=== PATIENT | female | born 1950 | race Caucasian/White ===

== ENCOUNTER 2017-11-14 19:00 | Emergency (ER) | payer MEDICARE, OTHER ==
--- NOTE | 2017-11-14 19:28 | ER Document Report ---
ED Medical Screen (RME) - General Chief Complaint: Arm Pain Stated Complaint: FALL/RIGHT ARM INJURY Time Seen by Provider: 11/14/17 19:17 Notes: RME DISCLOSURE I have seen this patient as part of a Rapid Medical Evaluation and, if applicable, placed any initially appropriate orders. The patient will be seen and fully evaluated, including a full history and physical exam, by a provider ( in Main ED or Fast Track) when a room becomes available. 67-year-old female here status post fall approximately 4-5 days ago. She landed on her right side and since then has been having some RUE pain and swelling. She was going to go see her PCP but states that things got hectic and she never got around to seeing him. She has been taking some Ecotrin for the pain. She has been urinating per usual. Denies prior history of DVT. EXAM Moderate swelling of the right upper extremity with bruising TRAVEL OUTSIDE OF THE [place] IN LAST 30 DAYS: No - Related Data Allergies/Adverse Reactions: No Known Allergies Allergy (Verified 11/14/17 19:02) Past Medical History - Social History Chew tobacco use (# tins/day): No Frequency of alcohol use: None Drug Abuse: None - Past Medical History Cardiac Medical History: Denies: Hx Coronary Artery Disease, Hx Heart Attack, Hx Hypertension - states Lisinopril Rx r/t DM Dx Pulmonary Medical History: Reports: Hx COPD Denies: Hx Asthma, Hx Bronchitis, Hx Pneumonia Neurological Medical History: Denies: Hx Cerebrovascular Accident, Hx Seizures Endocrine Medical History: Reports: Hx Diabetes Mellitus Type 2 Renal/ Medical History: Denies: Hx Peritoneal Dialysis Musculoskeltal Medical History: Denies Hx Arthritis - rheumatoid, no meds x 2 months r/t Dx of Celiac's Psychiatric Medical History: Denies: Hx Depression Past Surgical History: Denies: Hx Pacemaker - Immunizations Hx Diphtheria, Pertussis, Tetanus Vaccination: Yes Physical Exam - Vital signs Vitals: Temp Pulse Resp BP Pulse Ox 97.7 F 80 16 128/55 H 100 11/14/17 19:18 11/14/17 19:18 11/14/17 19:18 11/14/17 19:18 11/14/17 19:18 Course - Vital Signs Vital signs: Temp Pulse Resp BP Pulse Ox 97.7 F 80 16 128/55 H 100 11/14/17 19:18 11/14/17 19:18 11/14/17 19:18 11/14/17 19:18 11/14/17 19:18
[2017-11-14] MEDS ORDERED: HYDROCODONE/ACETAMINOPHEN 5-325 MG TABLET PO ONE (19:33)
[2017-11-14 20:15] LABS: ABSOLUTE EOSINOPHILS # (AUTO) 0.1 10^3/uL (0.0-0.6); ABSOLUTE LYMPHOCYTES (AUTO) 1.7 10^3/uL (0.5-4.7); ABSOLUTE MONOCYTES (AUTO) 0.6 10^3/uL (0.1-1.4); ABSOLUTE NEUT (AUTO) 3.4 10^3/uL (1.7-8.2); BASOPHILS % (AUTO) 0.6 % (0-2); EOSINOPHILS % (AUTO) 1.4 % (0-6); HEMATOCRIT 27.2 % (36.0-47.0); HEMOGLOBIN 8.8 g/dL (12.0-15.5); LYMPHOCYTES % (AUTO) 29.3 % (13-45); MEAN CORPUSCULAR HGB CONC 32.5 g/dL (32.0-36.0); MEAN CORPUSCULAR VOLUME 80 fl (80-97); MONOCYTES % (AUTO) 10.1 % (3-13); PLATELET COUNT 375 10^3/uL (150-450); RED CELL DISTRIBUTION WIDTH 16.1 % (11.5-14.0); SEGMENTED NEUTROPHILS % (AUTO) 58.6 % (42-78); TOTAL CELLS COUNTED % (AUTO) 100 %; WHITE BLOOD COUNT 5.8 10^3/uL (4.0-10.5)
[2017-11-14 20:32] LABS: ANION GAP 10 (5-19); BLOOD UREA NITROGEN 20 mg/dL (7-20); CALCIUM 8.8 mg/dL (8.4-10.2); CARBON DIOXIDE 21 mmol/L (22-30); CHLORIDE 108 mmol/L (98-107); GLUCOSE 43 mg/dL (75-110); POTASSIUM 4.4 mmol/L (3.6-5.0); SODIUM 138.7 mmol/L (137-145)
--- NOTE | 2017-11-14 20:36 | ER Document Report ---
ED General - General Chief Complaint: Arm Pain Stated Complaint: FALL/RIGHT ARM INJURY Time Seen by Provider: 11/14/17 19:17 Notes: 67-year-old right-hand dominant female presents with right shoulder and arm pain after a fall where she hit a piece of furniture. She had pain there but did not seek care. She developed worsening arm swelling over the past 5 days and discoloration for the past 3 days. No fever chills no rapid spreading of the discoloration no numbness and tingling. Baseline diabetic neuropathy and feet. No other injuries. TRAVEL OUTSIDE OF THE [place] IN LAST 30 DAYS: No - Related Data Allergies/Adverse Reactions: No Known Allergies Allergy (Verified 11/14/17 19:02) Past Medical History - Social History Smoking Status: Current Every Day Smoker Chew tobacco use (# tins/day): No Smoking Education Provided: Yes - The patient ED visit today was directly related to their abuse of tobacco. Frequency of alcohol use: None Drug Abuse: None Family History: Reviewed & Not Pertinent Patient has suicidal ideation: No Patient has homicidal ideation: No - Past Medical History Cardiac Medical History: Denies: Hx Coronary Artery Disease, Hx Heart Attack, Hx Hypertension - states Lisinopril Rx r/t DM Dx Pulmonary Medical History: Reports: Hx COPD Denies: Hx Asthma, Hx Bronchitis, Hx Pneumonia Neurological Medical History: Denies: Hx Cerebrovascular Accident, Hx Seizures Endocrine Medical History: Reports: Hx Diabetes Mellitus Type 2 Renal/ Medical History: Denies: Hx Peritoneal Dialysis Musculoskeltal Medical History: Denies Hx Arthritis - rheumatoid, no meds x 2 months r/t Dx of Celiac's Psychiatric Medical History: Denies: Hx Depression Past Surgical History: Denies: Hx Pacemaker - Immunizations Hx Diphtheria, Pertussis, Tetanus Vaccination: Yes Review of Systems - Review of Systems Notes: REVIEW OF SYSTEMS GEN: Denies fever, chills, weight loss ENT: Denies sore throat, nasal discharge, ear pain EYES: Denies blurry vision, eye pain, discharge CV: Denies chest pain, palpitations, edema RESP: Denies cough, shortness of breath, wheezing GI: Denies abdominal pain, nausea, vomiting, diarrhea MSK: Right arm pain and swelling SKIN: Weeping, blisters and bruising of the right arm LYMPH: Denies swollen glands/lymph nodes NEURO: Denies headache, focal weakness or numbness, dizziness PSYCH: Denies depression, suicidal or homicidal ideation PHYSICAL EXAMINATION General: No acute distress, well-nourished Head: Atraumatic, normocephalic ENT: Mouth normal, oropharynx moist, no exudates or tonsillar enlargement Eyes: Conjunctiva normal, pupils equal, lids normal Neck: No JVD, supple, no guarding CVS: Normal rate, regular rhythm, no murmurs Resp: No resp distress, equal and normal breath sounds bilaterally GI: Nondistended, soft, no tenderness to palpation, no rebound or guarding Ext: Bruising and tenderness of the right proximal humerus. Pronounced 3+ pitting edema throughout the entire distal arm involving the hands and fingers with decreased range of motion. Difficult to palpate radial and ulnar pulse secondary to edema, however dopplerable pulses exist bilaterally. No tenderness of the forearm or elbow. There is a small wound just distal to the olecranon area which seems like a soft tissue injury and is weeping secondary to the surrounding edema but is not draining pus and is not tender. Back: No CVA or midline TTP Skin: Violaceous discoloration of the distal arm and proximal forearm with clear border Lymphatic: No lymphadeopathy noted Neuro: Awake, alert. Face symmetric. GCS 15. Physical Exam - Vital signs Vitals: Temp Pulse Resp BP Pulse Ox 97.7 F 80 16 128/55 H 100 11/14/17 19:18 11/14/17 19:18 11/14/17 19:18 11/14/17 19:18 11/14/17 19:18 Course - Re-evaluation Re-evalutation: 11/14/17 21:12 Patient presents with pronounced arm swelling in the setting of recent trauma. X-ray shows proximal humerus fracture. Her compartments are soft but she has severe edema and skin discoloration that is likely due to dependent edema but will rule out DVT with ultrasound. No evidence of neurocirculatory compromise from fracture or swelling. 11/14/17 21:55 X-ray shows humerus fracture minimally displaced, forearm elbow are normal. Ultrasound was ordered at triage which I think is reasonable but unfortunately the patient was discharged prior to this being done secondary to miscommunication between the nursing staff and myself. I attempted to call the patient after I realize she was gone but she did not picker / packer her phone and her voicemail was not set up. I will speak with the discharge nurse in order to get the patient back for an ultrasound. She is scheduled to see Dr. Deshpande this next week as well. - Vital Signs Vital signs: Temp Pulse Resp BP Pulse Ox 97.7 F 73 18 118/56 L 96 11/14/17 19:18 11/14/17 21:29 11/14/17 21:29 11/14/17 21:29 11/14/17 21:29 - Laboratory Result Diagrams: 11/14/17 19:58 11/14/17 19:58 Laboratory results interpreted by me: 11/14/17 11/14/17 19:58 19:58 RBC 3.40 L Hgb 8.8 L Hct 27.2 L MCH 26.0 L RDW 16.1 H Chloride 108 H Carbon Dioxide 21 L Creatinine 0.43 L Glucose 43 L Procedures - Immobilization Right Upper Arm Immobilizer type: Sling Performed by: Provider Post-Proc Neuro Vasc Exam: Normal Alignment checked and good: Yes Notes: 11/14/17 21:56 Sling placed for acute pain control of right proximal humerus fracture Discharge - Discharge Clinical Impression: Fracture of neck of right humerus Qualifiers: Encounter type: initial encounter Fracture type: closed Qualified Code(s): S42.211A - Unspecified displaced fracture of surgical neck of right humerus, initial encounter for closed fracture Condition: Good Disposition: HOME, SELF-CARE Instructions: Fracture Proximal Humerus Prescriptions: Hydrocodone/Acetaminophen [[place] 5-325 mg Tablet] 1 tab PO Q4HP PRN #17 tablet PRN Reason: Referrals: WES DESHPANDE MD [ACTIVE STAFF] - Follow up in 1 week
--- NOTE | 2017-11-14 20:56 | RADIOLOGY REPORT (SQ) ---
EXAM DESCRIPTION: FOREARM RIGHT COMPLETED DATE/TIME: 11/14/2017 8:33 pm REASON FOR STUDY: s/p fall COMPARISON: None. NUMBER OF VIEWS: Two views. TECHNIQUE: Two radiographic images acquired of the right forearm, including elbow and wrist in at le ast one projection. LIMITATIONS: None. FINDINGS: MINERALIZATION: Osteopenia. BONES: No acute fracture or dislocation. SOFT TISSUES: Diffuse swelling. OTHER: No other significant finding. IMPRESSION: No fracture identified. TECHNICAL DOCUMENTATION: JOB ID: [id number] [place]-72 2010 [employer]- All Rights Reserved Reading location - IP/workstation name: [email or web address]
--- NOTE | 2017-11-14 20:58 | RADIOLOGY REPORT (SQ) ---
EXAM DESCRIPTION: HUMERUS RIGHT COMPLETED DATE/TIME: 11/14/2017 8:33 pm REASON FOR STUDY: s/p fall COMPARISON: None. NUMBER OF VIEWS: Two views. TECHNIQUE: Two radiographic images were acquired of the right humerus to include elbow and shoulder in at least one projection. LIMITATIONS: None. FINDINGS: Proximal humeral metaphyseal fracture with 6 mm of medial and anterior displacement -impac tion. There is anterior-inferior subluxation of the humeral head relative to the glenoid. OTHER: No other significant finding. IMPRESSION: Proximal humeral metaphyseal fracture with 6 mm of medial and anterior displacement -imp action. There is anterior-inferior subluxation of the humeral head relative to the glenoid. TECHNICAL DOCUMENTATION: JOB ID: [id number] [place]-72 2010 [employer]- All Rights Reserved Reading location - IP/workstation name: [email or web address]
[2017-11-14 21:31] VITALS: BP 118/56
== END 2017-11-14 21:31 | disposition home or self-care (01) ==
LOC: ER 19:00
DX: S42.211A Unspecified displaced fracture of surgical neck of right humerus, initial encounter for closed fracture (principal); W01.190A Fall on same level from slipping, tripping and stumbling with subsequent striking against furniture, initial encounter; F17.200 Nicotine dependence, unspecified, uncomplicated; E11.9 Type 2 diabetes mellitus without complications; J44.9 Chronic obstructive pulmonary disease, unspecified
CPT/HCPCS: 99284; 36415; 85025; 80048; 73090; 73060; A9270

== ENCOUNTER 2017-11-24 11:48 | Inpatient (IN) | payer MEDICARE, OTHER ==
--- NOTE | 2017-11-24 12:00 | ER Document Report ---
ED Fall - General Chief Complaint: Fall Stated Complaint: FALL LEG PAIN Time Seen by Provider: 11/24/17 11:59 Notes: The patient is a 67-year-old female, past medical history diabetes, peripheral neuropathy, presents after she tripped and fell. She is having pain in her right knee and may have also hit her right humerus, which is already fractured from a prior fall. She said that this was a mechanical fall due to her arm in a sling and due to the neuropathy. She hit the right side of her face, but is not having any facial pain. She denies neck stiffness/pain, open wounds, increased numbness or tingling, chest pain, shortness of breath, syncope or headache. TRAVEL OUTSIDE OF THE [place] IN LAST 30 DAYS: No - Related data Allergies/Adverse Reactions: No Known Allergies Allergy (Verified 11/14/17 19:02) Past Medical History - General Information source: Patient - Social History Smoking Status: Unknown if Ever Smoked Family History: Reviewed & Not Pertinent - Past Medical History Cardiac Medical History: Denies: Hx Coronary Artery Disease, Hx Heart Attack, Hx Hypertension - states Lisinopril Rx r/t DM Dx Pulmonary Medical History: Reports: Hx COPD Denies: Hx Asthma, Hx Bronchitis, Hx Pneumonia Neurological Medical History: Denies: Hx Cerebrovascular Accident, Hx Seizures Endocrine Medical History: Reports: Hx Diabetes Mellitus Type 2 Renal/ Medical History: Denies: Hx Peritoneal Dialysis Musculoskeltal Medical History: Denies Hx Arthritis - rheumatoid, no meds x 2 months r/t Dx of Celiac's Psychiatric Medical History: Denies: Hx Depression Past Surgical History: Denies: Hx Pacemaker - Immunizations Hx Diphtheria, Pertussis, Tetanus Vaccination: Yes Review of Systems - Review of Systems Notes: REVIEW OF SYSTEMS: CONSTITUTIONAL: -fevers, -chills EENT: -eye pain, -difficulty swallowing, -nasal congestion CARDIOVASCULAR: -chest pain, -syncope. RESPIRATORY: -cough, -SOB GASTROINTESTINAL: -abdominal pain, -nausea, -vomiting, -diarrhea GENITOURINARY: -dysuria, -hematuria MUSCULOSKELETAL: +right knee and shoulder pain, -back pain, -neck pain SKIN: -rash or skin lesions. HEMATOLOGIC: -easy bruising or bleeding. LYMPHATIC: -swollen, enlarged glands. NEUROLOGICAL: -altered mental status or loss of consciousness, -headache, + peripheral neuropathy PSYCHIATRIC: -anxiety, -depression. ALL OTHER SYSTEMS REVIEWED AND NEGATIVE. Physical Exam - Notes Notes: PHYSICAL EXAMINATION: GENERAL: Uncomfortable. HEAD: Small contusion below right eye, non-tender face EYES: Pupils equal round and reactive to light, extraocular movements intact, sclera anicteric, conjunctiva are normal. ENT: nares patent, oropharynx clear without exudates. Moist mucous membranes. NECK: Normal range of motion, supple without lymphadenopathy, no midline tenderness LUNGS: Breath sounds clear to auscultation bilaterally and equal. No wheezes rales or rhonchi. HEART: Regular rate and rhythm without murmurs ABDOMEN: Soft, nontender, normoactive bowel sounds. No guarding, no rebound. No masses appreciated. EXTREMITIES: Right arm in sling, tenderness over proximal right humerus. Tenderness of right distal femur. Strong distal pulses. NEUROLOGICAL: Cranial nerves grossly intact. Normal speech. PSYCH: Normal mood, normal affect. SKIN: Warm, Dry, normal turgor, no rashes or lesions noted. Course - Re-evaluation Re-evalutation: Patient with a mechanical fall after tripping this morning. She has frequent falls from her diabetic neuropathy and is already in a arm sling. She injured her right knee and right shoulder. X-rays shows an acute oblique right femur fracture without displacement and an acute humerus fracture on top of her old right humerus fracture. 11/24/17 13:[address] Landis (Orthopedics). He saw the patient in his office earlier this week for the humerus fracture and did not think the patient was a suitable surgical candidate due to her multiple comorbidities. He recommends a knee immobilizer for the non-displaced oblique femur fracture with non-weight bearing status on the right leg. She also has an acute humerus fracture on top of her old humerus fracture last week. She is already in a sling. Pt lives at home with her and sometimes uses a walker. With the ipsilateral injuries on her leg and humerus, it is very difficult for her to walk, especially with no weightbearing on her right leg. Patient requires admission for physical therapy, orthopedic consultation, nursing care and possibly acute care rehab. Her primary care physician is Dr. Aguero. 11/24/17 15:30 Blood work shows no emergent processes. Spoke to Dr. Cramer ( Hospitalist) and she has accepted patient. Pt's pain is under control. - Laboratory Result Diagrams: 11/24/17 13:55 11/24/17 13:55 Laboratory results interpreted by me: 11/24/17 11/24/17 11/24/17 13:55 13:55 13:55 RBC 3.71 L Hgb 9.7 L Hct 29.8 L MCH 26.2 L RDW 16.9 H PT 18.5 H Chloride 109 H Creatinine 0.39 L Total Bilirubin < 0.1 L AST 58 H ALT 62 H Alkaline Phosphatase 158 H Total Protein 6.1 L Albumin 2.9 L - Diagnostic Test Radiology reviewed: Image reviewed, Reports reviewed Radiology results interpreted by me: Right femur x-ray: Slightly oblique fracture of the distal femur as noted above. No other evidence for fracture is seen. Other findings as noted above. Right humerus x-ray: The previously described proximal humeral metaphyseal fracture is again identified. On the current study there is a fracture involving the medial cortex as noted above which could represent an acute fracture superimposed on the underlying fracture. No other evidence for fracture is seen. Other findings as noted above. Procedures - Immobilization Right Knee Pre-Proc Neuro Vasc Exam: Normal Immobilizer type: Knee immobilizer Performed by: PCT Post-Proc Neuro Vasc Exam: Normal Alignment checked and good: Yes Discharge - Discharge Clinical Impression: Unable to ambulate, Deficit in activities of daily living (ADL) Closed right femoral fracture Qualifiers: Encounter type: initial encounter Femur location: shaft Fracture morphology: oblique Fracture alignment: nondisplaced Qualified Code(s): S72.334A - Nondisplaced oblique fracture of shaft of right femur, initial encounter for closed fracture Fracture, humerus closed Qualifiers: Encounter type: initial encounter Humerus Location: proximal Fracture morphology: other fracture Fracture alignment: displaced Laterality: right Qualified Code(s): S42.291A - Other displaced fracture of upper end of right humerus, initial encounter for closed fracture Condition: Stable Disposition: ADMITTED INPATIENT Admitting Provider: Hospitalist - [facility] Admitted: Medical Floor Referrals: WES GU MD [Primary Care Provider] - Follow up as needed
[2017-11-24] MEDS ORDERED: ACETAMINOPHEN 325 MG TABLET PO ONE (12:01)
[2017-11-24] MEDS ORDERED: IBUPROFEN 600 MG TABLET PO ONE (12:01)
--- NOTE | 2017-11-24 12:53 | RADIOLOGY REPORT (SQ) ---
EXAM DESCRIPTION: KNEE RIGHT 4 VIEWS COMPLETED DATE/TIME: 11/24/2017 12:43 pm REASON FOR STUDY: bed 1 s/p fall with pain to right knee COMPARISON: None. NUMBER OF VIEWS: Four views. TECHNIQUE: AP, lateral, and both oblique radiographic images acquired of the right knee. LIMITATIONS: None. FINDINGS: MINERALIZATION: Bony structures are somewhat osteopenic. BONES: A slightly oblique fracture of the distal femoral diaphysis extending into the metaphysis is i dentified. JOINT: No effusion. SOFT TISSUES: No soft tissue swelling. No radio-opaque foreign body. OTHER: No other significant finding. IMPRESSION: Slightly oblique fracture of the distal femur as noted above. No other evidence for fra cture is seen. Other findings as noted above TECHNICAL DOCUMENTATION: JOB ID: [id number] [employer]- All Rights Reserved Reading location - IP/workstation name: [email or web address]
--- NOTE | 2017-11-24 12:57 | RADIOLOGY REPORT (SQ) ---
EXAM DESCRIPTION: HUMERUS RIGHT COMPLETED DATE/TIME: 11/24/2017 12:43 pm REASON FOR STUDY: Hx humerus fx, reinjury COMPARISON: 11/14/2017 NUMBER OF VIEWS: Two views. TECHNIQUE: Two radiographic images were acquired of the right humerus to include elbow and shoulder in at least one projection. LIMITATIONS: None. FINDINGS: MINERALIZATION: Normal. BONES: The previously described proximal humeral metaphyseal fracture is again identified. On the cu rrent study there is a fracture involving the medial cortex at the level of the proximal humeral frac ture which could represent an acute fracture superimposed on the underlying fracture. No other evide nce for fracture is seen. SOFT TISSUES: No obvious swelling or foreign body. OTHER: No other significant finding. IMPRESSION: The previously described proximal humeral metaphyseal fracture is again identified. On the current study there is a fracture involving the medial cortex as noted above which could represen t an acute fracture superimposed on the underlying fracture. No other evidence for fracture is seen. Other findings as noted above TECHNICAL DOCUMENTATION: JOB ID: [id number] [employer]- All Rights Reserved Reading location - IP/workstation name: [email or web address]
[2017-11-24] MEDS ORDERED: MORPHINE SULFATE 10 MG/ML INJ IV ONE (13:05)
[2017-11-24 14:23] LABS: ABSOLUTE LYMPHOCYTES (AUTO) 1.1 10^3/uL (0.5-4.7); ABSOLUTE MONOCYTES (AUTO) 0.5 10^3/uL (0.1-1.4); ABSOLUTE NEUT (AUTO) 4.9 10^3/uL (1.7-8.2); BASOPHILS % (AUTO) 0.4 % (0-2); EOSINOPHILS % (AUTO) 0.4 % (0-6); HEMATOCRIT 29.8 % (36.0-47.0); HEMOGLOBIN 9.7 g/dL (12.0-15.5); LYMPHOCYTES % (AUTO) 16.4 % (13-45); MEAN CORPUSCULAR HEMOGLOBIN 26.2 pg (27.0-33.4); MEAN CORPUSCULAR HGB CONC 32.6 g/dL (32.0-36.0); MEAN CORPUSCULAR VOLUME 80 fl (80-97); MONOCYTES % (AUTO) 7.9 % (3-13); PLATELET COUNT 314 10^3/uL (150-450); RED BLOOD COUNT 3.71 10^6/uL (3.72-5.28); RED CELL DISTRIBUTION WIDTH 16.9 % (11.5-14.0); SEGMENTED NEUTROPHILS % (AUTO) 74.9 % (42-78); TOTAL CELLS COUNTED % (AUTO) 100 %; WHITE BLOOD COUNT 6.6 10^3/uL (4.0-10.5)
[2017-11-24 14:27] LABS: INTERNATIONAL RATION (INR) 1.45; PROTHROMBIN TIME 18.5 SEC (11.4-15.4)
[2017-11-24 14:28] LABS: PARTIAL THROMBOPLASTIN TIME 27.8 SEC (23.5-35.8)
[2017-11-24 15:20] LABS: ALANINE AMINOTRANSFERASE 62 U/L (9-52); ALBUMIN 2.9 g/dL (3.5-5.0); ALKALINE PHOSPHATASE 158 U/L (38-126); ANION GAP 8 (5-19); ASPARTATE AMINO TRANSFERASE 58 U/L (14-36); BILIRUBIN,TOTAL < 0.1 mg/dL (0.2-1.3); BLOOD UREA NITROGEN 14 mg/dL (7-20); CALCIUM 8.4 mg/dL (8.4-10.2); CARBON DIOXIDE 22 mmol/L (22-30); CHLORIDE 109 mmol/L (98-107); GLUCOSE 98 mg/dL (75-110); POTASSIUM 4.1 mmol/L (3.6-5.0); SODIUM 138.5 mmol/L (137-145); TOTAL PROTEIN 6.1 g/dL (6.3-8.2)
[2017-11-24] MEDS ORDERED: ONDANSETRON HCL INJ/PF 4 MG/2 ML SDV IV PRN (16:50)
[2017-11-24] MEDS ORDERED: ACETAMINOPHEN 325 MG TABLET PO PRN (16:50)
[2017-11-24] MEDS ORDERED: IPRATROPIUM/ALBUTEROL 0.5-2.5 MG/3 ML AMPUL NEB PRN (16:50)
[2017-11-24] MEDS ORDERED: MORPHINE SULFATE 10 MG/ML INJ IV PRN (17:41)
--- NOTE | 2017-11-24 17:41 | PDOC H&P ---
History of Present Illness Admission Date/PCP: 11/24/17 15:41 EWS GU MD Patient complains of: Patient presented to the emergency room with complaints of pain in the right leg after she fell due to tripping. She denies any dizziness or any chest pain and thinks she tripped due to her diabetic neuropathy. History of Present Illness: KENNEDY MEDEIROS is a 67 year old female This patient presented to the emergency room with complaints of pain in the right leg after she fell due to tripping. She denies any dizziness or any chest pain and thinks she tripped due to her diabetic neuropathy. Patient was not really very cooperative and answered questions when she did very grudgingly. She apparently also had a recent fall where she fractured her right humerus it appears this was affected again today. She apparently hit his right side of her face but has no facial pain. Patient has a port in the left chest wall but she is unable to really determine why except to say that she gets blood drawn from there. She had a right knee immobilizer placed in the ED she also has a slight oblique fracture of the distal femur Past Medical History Cardiac Medical History: Denies: Coronary Artery Disease, Myocardial Infarction, Hypertension - states Lisinopril Rx r/t DM Dx Pulmonary Medical History: Reports: Chronic Obstructive Pulmonary Disease (COPD) Denies: Asthma, Bronchitis, Pneumonia Neurological Medical History: Denies: Seizures Endocrine Medical History: Reports: Diabetes Mellitus Type 2 Musculoskeltal Medical History: Denies: Arthritis - rheumatoid, no meds x 2 months r/t Dx of Celiac's Psychiatric Medical History: Denies: Depression Hematology: Reports: Anemia - multiple treatments of Feraheme Past Surgical History Past Surgical History: Denies: Pacemaker Social History Information Source: Patient Smoking Status: Unknown if Ever Smoked Frequency of Alcohol Use: None Hx Recreational Drug Use: No Hx Prescription Drug Abuse: No - Advance Directive Resuscitation Status: Full Code Family History Family History: Reviewed & Not Pertinent Parental Family History Reviewed: Yes Children Family History Reviewed: Unknown Sibling(s) Family History Reviewed.: Unknown Medication/Allergy Allergies/Adverse Reactions: No Known Allergies Allergy (Verified 11/14/17 19:02) Review of Systems All systems: reviewed and no additional remarkable complaints except as stated - Anemia Physical Exam Vital Signs: Temp Pulse Resp BP Pulse Ox 97.4 F 78 24 H 117/61 98 11/24/17 12:02 11/24/17 12:02 11/24/17 17:01 11/24/17 17:01 11/24/17 17:01 General appearance: PRESENT: thin - Older looking than stated age, other - Somewhat uncooperative Head exam: PRESENT: atraumatic Eye exam: PRESENT: conjunctiva pink, EOMI, PERRLA. ABSENT: scleral icterus Neck exam: ABSENT: carotid bruit, JVD, lymphadenopathy, thyromegaly Respiratory exam: PRESENT: clear to auscultation neo. ABSENT: rales, rhonchi, wheezes Cardiovascular exam: PRESENT: RRR. ABSENT: diastolic murmur, rubs, systolic murmur Pulses: PRESENT: normal carotid pulses GI/Abdominal exam: PRESENT: normal bowel sounds, soft. ABSENT: distended, guarding, mass, organolmegaly, rebound, tenderness Rectal exam: PRESENT: deferred Extremities exam: PRESENT: tenderness Musculoskeletal exam: PRESENT: tenderness, other - Right upper extremity in a sling and right lower extremity immobilizer. ABSENT: full ROM Neurological exam: PRESENT: alert, awake, oriented to person, oriented to place Skin exam: PRESENT: petechiae, rash, other - Multiple ecchymosis and bruises Results Laboratory Results: Laboratory 11/24/17 11/24/17 11/24/17 11:57 13:55 13:55 WBC 6.6 RBC 3.71 L Hgb 9.7 L Hct 29.8 L MCV 80 MCH 26.2 L MCHC 32.6 RDW 16.9 H Plt Count 314 Seg Neutrophils % 74.9 Lymphocytes % 16.4 Monocytes % 7.9 Eosinophils % 0.4 Basophils % 0.4 Absolute Neutrophils 4.9 Absolute Lymphocytes 1.1 Absolute Monocytes 0.5 Absolute Eosinophils 0.0 Absolute Basophils 0.0 PT 18.5 H INR 1.45 APTT 27.8 Sodium Potassium Chloride Carbon Dioxide Anion Gap BUN Creatinine Est GFR ( Amer) Est GFR (Non-Af Amer) Glucose POC Glucose 100 Calcium Total Bilirubin Direct Bilirubin Neonat Total Bilirubin Neonat Direct Bilirubin Neonat Indirect Bili AST ALT Alkaline Phosphatase Total Protein Albumin 11/24/17 13:55 WBC RBC Hgb Hct MCV MCH MCHC RDW Plt Count Seg Neutrophils % Lymphocytes % Monocytes % Eosinophils % Basophils % Absolute Neutrophils Absolute Lymphocytes Absolute Monocytes Absolute Eosinophils Absolute Basophils PT INR APTT Sodium 138.5 Potassium 4.1 Chloride 109 H Carbon Dioxide 22 Anion Gap 8 BUN 14 Creatinine 0.39 L Est GFR ( Amer) > 60 Est GFR (Non-Af Amer) > 60 Glucose 98 POC Glucose Calcium 8.4 Total Bilirubin < 0.1 L Direct Bilirubin Neonat Total Bilirubin Not Reportable Neonat Direct Bilirubin Not Reportable Neonat Indirect Bili Not Reportable AST 58 H ALT 62 H Alkaline Phosphatase 158 H Total Protein 6.1 L Albumin 2.9 L Impressions: Knee X-Ray 11/24/17 00:00 IMPRESSION: Slightly oblique fracture of the distal femur as noted above. No other evidence for fracture is seen. Other findings as noted above Humerus X-Ray 11/24/17 12:01 IMPRESSION: The previously described proximal humeral metaphyseal fracture is again identified. On the current study there is a fracture involving the medial cortex as noted above which could represent an acute fracture superimposed on the underlying fracture. No other evidence for fracture is seen. Other findings as noted above Assessment & Plan - Diagnosis (1) Closed right femoral fracture Qualifiers: Encounter type: initial encounter Femur location: shaft Fracture morphology: oblique Fracture alignment: nondisplaced Qualified Code(s): S72.334A - Nondisplaced oblique fracture of shaft of right femur, initial encounter for closed fracture Is this a current diagnosis for this admission?: Yes Plan: Patient will be seen by orthopedics. We will manage her pain and she will also need physical therapy (2) Diabetes mellitus Qualifiers: Diabetes mellitus type: type 2 Diabetes mellitus complication status: with neurologic complications Diabetes mellitus complication detail: with autonomic neuropathy Is this a current diagnosis for this admission?: Yes Plan: Placed on sliding scale insulin (3) Anemia Qualifiers: Anemia type: iron deficiency Iron deficiency anemia type: inadequate dietary iron intake Qualified Code(s): D50.8 - Other iron deficiency anemias Is this a current diagnosis for this admission?: Yes Plan: Details unknown however patient has been getting iron infusion (4) Diabetes mellitus with neuropathy Qualifiers: Diabetes mellitus type: type 2 Diabetes mellitus long-term insulin use: unspecified long-term insulin use status Qualified Code(s): E11.40 - Type 2 diabetes mellitus with diabetic neuropathy, unspecified Is this a current diagnosis for this admission?: Yes Plan: This apparently has underlying etiology for falling (6) Fracture, humerus closed Qualifiers: Encounter type: initial encounter Humerus Location: proximal Fracture morphology: other fracture Fracture alignment: displaced Laterality: right Qualified Code(s): S42.291A - Other displaced fracture of upper end of right humerus, initial encounter for closed fracture Is this a current diagnosis for this admission?: Yes Plan: She had sustained a fracture last week and there appears to be superimposed fracture on the original site - Time Time Spent: 30 to 50 Minutes Medications reviewed and adjusted accordingly: Yes Anticipated discharge: Home with Homehealth Within: within 72 hours - Inpatient Certification Based on my medical assessment, after consideration of the patient's comorbidities, presenting symptoms, or acuity I expect that the services needed warrant INPATIENT care.: Yes Medical Necessity: Need for Pain Control - Plan Summary Plan Summary: Patient would need adequate pain control prior to discharge home
[2017-11-24] MEDS ORDERED: ENOXAPARIN SODIUM INJ 40 MG/0.4 ML DISP.SYRIN SUBCUT ONE ×2 (18:00→23:59)
[2017-11-24] MEDS: OXYCODONE-ACETAMINOPHEN 5-325 MG TABLET PO PRN (20:51)
[2017-11-24] MEDS ORDERED: DEXTROSE 40% GEL 15 GM TUBE X 2 PO PRN (22:59)
[2017-11-24] MEDS ORDERED: DEXTROSE 50%-WATER SYRINGE 12.5 GM/25 ML DOSE IV PRN (22:59)
[2017-11-24] MEDS ORDERED: GLUCAGON,HUMAN RECOMB 1 MG INJ IM PRN (22:59)
[2017-11-24] MEDS ORDERED: DEXTROSE 40% GEL 15 GM TUBE PO PRN (22:59)
[2017-11-24] MEDS ORDERED: OMEGA-3 ACID ETHYL ESTERS 1 GM CAPSULE PO ONE (23:00)
[2017-11-24] MEDS ORDERED: GABAPENTIN 300 MG CAPSULE PO ONE (23:00)
[2017-11-24] MEDS ORDERED: CALCIUM CARBONATE 500 MG TABLET PO ONE (23:00)
[2017-11-24] MEDS ORDERED: FOLIC ACID 1 MG TABLET PO ONE (23:00)
--- NOTE | 2017-11-24 23:28 | EKG REPORT ---
SEVERITY:- BORDERLINE ECG - SINUS RHYTHM LOW VOLTAGE THROUGHOUT BORDERLINE R WAVE PROGRESSION, ANTERIOR LEADS : Confirmed by: Cuong Onofre 24-Nov-2017 23:27:34
[2017-11-25] MEDS ORDERED: ENOXAPARIN SODIUM INJ 40 MG/0.4 ML DISP.SYRIN SUBCUT SCH (10:00)
[2017-11-25] MEDS ORDERED: HYDROMORPHONE HCL INJ/PF 2 MG/ML AMPULE ONE ×2 (10:08→12:42)
--- NOTE | 2017-11-25 10:16 | PDOC PROGRESS REPORT ---
Subjective Progress Note for:: 11/25/17 Subjective:: Patient admitted with pain secondary to fracture of the right humerus as well as the femur sustained after falling. There was no other associated symptoms and this appears to have been an accidental fall. Patient is still complaining of pain and still really not able to answer questions appropriately as she cries out in pain when you try to ask any questions. I did review medications and it appears she is only had 1 dose of morphine with the last dose about 2014 last night and her last Percocet was about 2 PM yesterday. I am not really sure why she has not had any analgesia since then. I have changed her pain medications to Percocet scheduled with as needed as well as Dilaudid every 4 hours as needed and hopefully that should control her pain better. Reason For Visit: HUMERAL FRACTURE,ACUTE PAIN,ANEMIA Physical Exam Vital Signs: Temp Pulse Resp BP Pulse Ox 97.4 F 78 20 136/76 H 98 11/25/17 08:02 11/25/17 08:02 11/25/17 08:02 11/25/17 08:02 11/25/17 08:02 Intake & Output 11/24/17 11/25/17 11/26/17 06:59 06:59 06:59 Intake Total 150 Balance 150 Weight 61 kg General appearance: PRESENT: no acute distress Head exam: PRESENT: atraumatic Eye exam: PRESENT: conjunctiva pink, EOMI, PERRLA. ABSENT: scleral icterus Respiratory exam: PRESENT: clear to auscultation neo. ABSENT: rales, rhonchi, wheezes Cardiovascular exam: PRESENT: RRR. ABSENT: diastolic murmur, rubs, systolic murmur Pulses: PRESENT: normal dorsalis pedis pul GI/Abdominal exam: PRESENT: normal bowel sounds, soft. ABSENT: distended, guarding, mass, organolmegaly, rebound, tenderness Rectal exam: PRESENT: deferred Neurological exam: PRESENT: alert, awake, oriented to person, oriented to place , oriented to time, oriented to situation, CN II-XII grossly intact. ABSENT: motor sensory deficit Psychiatric exam: PRESENT: anxious Skin exam: PRESENT: other - Scattered ecchymoses and contusions as well as bruises Port-A-Cath in the left chest wall Results Impressions: Knee X-Ray 11/24/17 00:00 IMPRESSION: Slightly oblique fracture of the distal femur as noted above. No other evidence for fracture is seen. Other findings as noted above Humerus X-Ray 11/24/17 12:01 IMPRESSION: The previously described proximal humeral metaphyseal fracture is again identified. On the current study there is a fracture involving the medial cortex as noted above which could represent an acute fracture superimposed on the underlying fracture. No other evidence for fracture is seen. Other findings as noted above Assessment & Plan - Diagnosis (1) Closed right femoral fracture Qualifiers: Encounter type: initial encounter Femur location: shaft Fracture morphology: oblique Fracture alignment: nondisplaced Qualified Code(s): S72.334A - Nondisplaced oblique fracture of shaft of right femur, initial encounter for closed fracture Is this a current diagnosis for this admission?: Yes Plan: Pain control and follow-up by orthopedic (2) Diabetes mellitus Qualifiers: Diabetes mellitus type: type 2 Diabetes mellitus complication status: with neurologic complications Diabetes mellitus complication detail: with autonomic neuropathy Is this a current diagnosis for this admission?: Yes Plan: Continue her gabapentin (3) Anemia Qualifiers: Anemia type: iron deficiency Iron deficiency anemia type: inadequate dietary iron intake Qualified Code(s): D50.8 - Other iron deficiency anemias Is this a current diagnosis for this admission?: Yes Plan: Details unknown however patient has been getting iron infusion through her Port- A-Cath (4) Diabetes mellitus with neuropathy Qualifiers: Diabetes mellitus type: type 2 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 Qualified Code(s): E11.40 - Type 2 diabetes mellitus with diabetic neuropathy, unspecified Is this a current diagnosis for this admission?: Yes Plan: This apparently has underlying etiology for falling (6) Fracture, humerus closed Qualifiers: Encounter type: initial encounter Humerus Location: proximal Fracture morphology: other fracture Fracture alignment: displaced Laterality: right Qualified Code(s): S42.291A - Other displaced fracture of upper end of right humerus, initial encounter for closed fracture Is this a current diagnosis for this admission?: Yes Plan: She had sustained a fracture last week and there appears to be superimposed fracture on the original site We will continue pain control When patient is stable she would need physical therapy
[2017-11-25] MEDS: DOCUSATE SODIUM 100 MG CAPSULE PO SCH (11:10)
[2017-11-25] MEDS: OXYCODONE-ACETAMINOPHEN 5-325 MG TABLET PO SCH ×2 (12:37→17:54)
[2017-11-25] MEDS: POLYETHYLENE GLYCOL 3350 POWDER 17 GM/1 PACKET PO SCH (12:48)
[2017-11-25] MEDS: HYDROMORPHONE HCL INJ/PF 2 MG/ML AMPULE IV PRN ×2 (12:48→21:25)
[2017-11-25] MEDS: GABAPENTIN 300 MG CAPSULE PO SCH (23:08)
[2017-11-25] MEDS: OMEGA-3 ACID ETHYL ESTERS 1 GM CAPSULE PO SCH (23:08)
[2017-11-25] MEDS: FOLIC ACID 1 MG TABLET PO SCH (23:09)
[2017-11-25] MEDS: CALCIUM CARBONATE 500 MG TABLET PO SCH (23:10)
[2017-11-25] MEDS: ENOXAPARIN SODIUM INJ 40 MG/0.4 ML DISP.SYRIN SUBCUT SCH (23:10)
[2017-11-26] MEDS ORDERED: ACETAMINOPHEN 325 MG TABLET PO PRN (02:13)
--- NOTE | 2017-11-26 02:58 | RADIOLOGY REPORT (SQ) ---
EXAM DESCRIPTION: CHEST SINGLE VIEW CLINICAL HISTORY: hypoxia COMPARISON: 10/14/2012 FINDINGS: Single frontal view of the chest. Left subclavian Mediport. Blunting of the left costophrenic angle likely related to small left pleural effusion or pleural thickening.] Parahilar and left retrocardiac opacities. No pneumothorax. No acute osseous abnormality. Upper abdominal soft tissues are unremarkable. IMPRESSION: 1. Right perihilar opacity and left retrocardiac opacity may represent developing pneumonia or atelectasis. Continued radiographic follow-up recommended. 2. Blunting of the left costophrenic angle may be related to small pleural effusion or pleural thickening.
[2017-11-26] MEDS: OXYCODONE-ACETAMINOPHEN 5-325 MG TABLET PO SCH ×3 (04:19→17:09)
[2017-11-26] MEDS: INSULIN LISPRO 100 UNIT/ML 3 ML VIAL SUBCUT PRN ×4 (08:01→18:29)
[2017-11-26] MEDS: HYDROMORPHONE HCL INJ/PF 2 MG/ML AMPULE IV PRN ×2 (08:09→13:15)
[2017-11-26 08:33] LABS: ABSOLUTE LYMPHOCYTES (AUTO) 1.2 10^3/uL (0.5-4.7); ABSOLUTE MONOCYTES (AUTO) 0.5 10^3/uL (0.1-1.4); ABSOLUTE NEUT (AUTO) 3.7 10^3/uL (1.7-8.2); BASOPHILS % (AUTO) 0.3 % (0-2); EOSINOPHILS % (AUTO) 0.7 % (0-6); LYMPHOCYTES % (AUTO) 22.7 % (13-45); MEAN CORPUSCULAR HEMOGLOBIN 25.8 pg (27.0-33.4); MEAN CORPUSCULAR HGB CONC 31.8 g/dL (32.0-36.0); MEAN CORPUSCULAR VOLUME 81 fl (80-97); MONOCYTES % (AUTO) 9.2 % (3-13); PLATELET COUNT 264 10^3/uL (150-450); RED BLOOD COUNT 3.09 10^6/uL (3.72-5.28); RED CELL DISTRIBUTION WIDTH 16.8 % (11.5-14.0); SEGMENTED NEUTROPHILS % (AUTO) 67.1 % (42-78); TOTAL CELLS COUNTED % (AUTO) 100 %; WHITE BLOOD COUNT 5.5 10^3/uL (4.0-10.5)
[2017-11-26 08:46] LABS: ANION GAP 7 (5-19); BLOOD UREA NITROGEN 21 mg/dL (7-20); CALCIUM 7.6 mg/dL (8.4-10.2); CARBON DIOXIDE 19 mmol/L (22-30); CHLORIDE 103 mmol/L (98-107); GLUCOSE 381 mg/dL (75-110); POTASSIUM 4.6 mmol/L (3.6-5.0); SODIUM 128.6 mmol/L (137-145)
[2017-11-26] MEDS ORDERED: INSULIN REG, HUMAN 100 UNIT/ML 3 ML VIAL (PYX) SUBCUT ONE (09:15)
--- NOTE | 2017-11-26 09:47 | PDOC PROGRESS REPORT ---
Subjective Progress Note for:: 11/26/17 Subjective:: Patient seen in morning rounds complains of intolerant and diffuse pain, unable to participate in pulmonary toilet, incentive spirometry or rise to the edge of the bed. Overnight patient was febrile of 100.8 and short of breath. Reason For Visit: HUMERAL FRACTURE,ACUTE PAIN,ANEMIA Physical Exam Vital Signs: Temp Pulse Resp BP Pulse Ox 98.0 F 82 18 131/55 H 95 11/26/17 07:35 11/26/17 07:35 11/26/17 07:35 11/26/17 07:35 11/26/17 07:35 Intake & Output 11/24/17 11/25/17 11/26/17 11:59 11:59 11:59 Intake Total 1190 Output Total 800 1000 Balance 390 -1000 Weight 61 kg 61 kg General appearance: PRESENT: cooperative, disheveled, mild distress Head exam: PRESENT: normocephalic, other - Right periorbital ecchymosis Eye exam: PRESENT: conjunctiva pink, EOMI, PERRLA. ABSENT: scleral icterus Ear exam: PRESENT: normal external ear exam Mouth exam: PRESENT: moist, tongue midline Neck exam: ABSENT: carotid bruit, JVD, lymphadenopathy, thyromegaly Respiratory exam: PRESENT: accessory muscle use, chest wall tenderness, crackles , decreased breath sounds, prolonged expiratory phas, retraction, symmetrical, tachypnea, wheezes Cardiovascular exam: PRESENT: RRR. ABSENT: diastolic murmur, rubs, systolic murmur Pulses: PRESENT: normal dorsalis pedis pul Vascular exam: PRESENT: normal capillary refill GI/Abdominal exam: PRESENT: ascites, diminished bowel sounds, distended, hypoactive bowel sounds, soft. ABSENT: firm, guarding, hernia, rebound, rigid Rectal exam: PRESENT: deferred Extremities exam: PRESENT: other - Right humerus and right hip immobilized, pulses palpated fingertips and toes warm Neurological exam: PRESENT: alert, oriented to person, oriented to place, oriented to time, reflexes normal, CN II-XII grossly intact Psychiatric exam: PRESENT: appropriate affect Skin exam: PRESENT: dry, intact, warm. ABSENT: cyanosis, rash Results Laboratory Results: 11/26/17 07:56 11/26/17 07:56 11/26/17 11/26/17 07:56 07:56 WBC 5.5 RBC 3.09 L Hgb 8.0 L Hct 25.0 L MCV 81 MCH 25.8 L MCHC 31.8 L RDW 16.8 H Plt Count 264 Seg Neutrophils % 67.1 Lymphocytes % 22.7 Monocytes % 9.2 Eosinophils % 0.7 Basophils % 0.3 Absolute Neutrophils 3.7 Absolute Lymphocytes 1.2 Absolute Monocytes 0.5 Absolute Eosinophils 0.0 Absolute Basophils 0.0 Sodium 128.6 L Potassium 4.6 Chloride 103 Carbon Dioxide 19 L Anion Gap 7 BUN 21 H Creatinine 0.54 Est GFR ( Amer) > 60 Est GFR (Non-Af Amer) > 60 Glucose 381 H Calcium 7.6 L Impressions: Knee X-Ray 11/24/17 00:00 IMPRESSION: Slightly oblique fracture of the distal femur as noted above. No other evidence for fracture is seen. Other findings as noted above Humerus X-Ray 11/24/17 12:01 IMPRESSION: The previously described proximal humeral metaphyseal fracture is again identified. On the current study there is a fracture involving the medial cortex as noted above which could represent an acute fracture superimposed on the underlying fracture. No other evidence for fracture is seen. Other findings as noted above Chest X-Ray 11/26/17 01:27 IMPRESSION: 1. Right perihilar opacity and left retrocardiac opacity may represent developing pneumonia or atelectasis. Continued radiographic follow-up recommended. 2. Blunting of the left costophrenic angle may be related to small pleural effusion or pleural thickening. Assessment & Plan - Diagnosis (1) Anemia Qualifiers: Anemia type: iron deficiency Iron deficiency anemia type: inadequate dietary iron intake Qualified Code(s): D50.8 - Other iron deficiency anemias Is this a current diagnosis for this admission?: Yes Plan: History of iron deficiency, no obvious source of active bleed the recent trauma to right humerus and hip will reimage for hematoma and Evaluate labs for abnormalities. Transfuse hemoglobin greater than 8 as needed (2) Closed right femoral fracture Qualifiers: Encounter type: initial encounter Femur location: shaft Fracture morphology: oblique Fracture alignment: nondisplaced Qualified Code(s): S72.334A - Nondisplaced oblique fracture of shaft of right femur, initial encounter for closed fracture Is this a current diagnosis for this admission?: Yes Plan: Defer to orthopedic surgery, intractable pain deferred to pain management consult. (3) Diabetes mellitus Qualifiers: Diabetes mellitus type: type 2 Diabetes mellitus complication status: with neurologic complications Diabetes mellitus complication detail: with autonomic neuropathy Is this a current diagnosis for this admission?: Yes Plan: Diabetic diet with home regiment in addition to sliding scale Humalog. (4) Fracture, humerus closed Qualifiers: Encounter type: initial encounter Humerus Location: proximal Fracture morphology: other fracture Fracture alignment: displaced Laterality: right Qualified Code(s): S42.291A - Other displaced fracture of upper end of right humerus, initial encounter for closed fracture Is this a current diagnosis for this admission?: Yes Plan: Defer to orthopedic surgery and pain management. - Time Time Spent with patient: 25-34 minutes
[2017-11-26] MEDS ORDERED: KETOROLAC TROMETHAMINE INJ/PF 30 MG/1 ML SDV IV PRN (09:50)
[2017-11-26 10:07] LABS: ABSOLUTE RETICS # 0.057 10^6/uL (0.028-0.122)
[2017-11-26 10:24] LABS: IRON(TIBC) 11.5 ug/dL (37-170)
[2017-11-26] MEDS ORDERED: CELECOXIB 100 MG CAPSULE PO PRN (10:54)
[2017-11-26] MEDS: DOCUSATE SODIUM 100 MG CAPSULE PO SCH (10:55)
[2017-11-26] MEDS: OXYCODONE-ACETAMINOPHEN 5-325 MG TABLET PO PRN (10:55)
[2017-11-26 11:29] LABS: FOLATE 7.67 ng/mL (>2.76)
[2017-11-26] MEDS ORDERED: IRON POLYSACCHARIDES COMPLEX 150 MG CAPSULE PO ONE (14:00)
[2017-11-26] MEDS ORDERED: LACTULOSE SYRUP 20 GM/30 ML UDCUP PO ONE (14:40)
[2017-11-26] MEDS ORDERED: NA PHOS,M-B/NA PHOS,DI-BA (ADULT) 133 ML ENEMA PR PRN (14:41)
--- NOTE | 2017-11-26 14:42 | RADIOLOGY REPORT (SQ) ---
EXAM DESCRIPTION: CT RT UPPER EXTREMITY WITHOUT COMPLETED DATE/TIME: 11/26/2017 1:52 pm REASON FOR STUDY: Blood loss evaluate for hematoma COMPARISON: Right forearm and humerus films 11/14/2017 AP chest 11/26/2017 TECHNIQUE: [facility] oblique coronal and ob lique sagittal imaging windowed for bone and soft tissues. All CT scanners at this facility use dose modulation, iterative reconstruction, and/or weight based d osing when appropriate to reduce radiation dose to as low as reasonably achievable (ALARA). [facility]: Dose Right [facility]: CareDose [facility]: Dose Right [facility]: Teradose 4D [facility]: Jianjian RADIATION DOSE: CT Rad equipment meets quality standard of care and radiation dose reduction techniq ues were employed. CTDIvol: 14.4 mGy. DLP: 570 mGy-cm. mGy. LIMITATIONS: None. FINDINGS: Bones are osteoporotic. There is a surgical neck right humerus fracture with slight fores hortening and impaction. There is minimal surrounding callus formation best shown on sagittal recons truction images 56 through 61. The right scapula, clavicle, and right upper ribs are intact. There is subcutaneous and deep tissue edema in the right upper arm without well-circumscribed hematom a. There is dependent atelectasis in both lungs in the field of view, with trace bilateral pleural effus ions. IMPRESSION: Subacute fracture, right surgical neck humerus with mild foreshortening or impaction at the fracture site. No significant angulation. Minimal surrounding callus formation. The large right upper arm or axilla region hematoma or fluid collection. Trace bilateral pleural effusions with bilateral dependent atelectasis in the lower lobes TECHNICAL DOCUMENTATION: JOB ID: [id number] Quality ID # [id number]: Final reports with documentation of one or more dose reduction techniques (e.g., Au tomated exposure control, adjustment of the mA and/or kV according to patient size, use of iterative reconstruction technique) 2010 [email or web address]- All Rights Reserved Reading location - IP/workstation name: [email or web address]
--- NOTE | 2017-11-26 14:50 | RADIOLOGY REPORT (SQ) ---
EXAM DESCRIPTION: CT RT LOWER EXTREMITY WITHOUT COMPLETED DATE/TIME: 11/26/2017 1:52 pm REASON FOR STUDY: Blood loss evaluate for hematoma COMPARISON: CT abdomen pelvis 09/08/2015 Right knee films 11/24/2017 TECHNIQUE: CT scan of the right lower extremity performed without intravenous or oral contrast. Lashawn ges reviewed with soft tissue and bone windows. Reconstructed coronal and sagittal MPR images review ed. All images stored on PACS. All CT scanners at this facility use dose modulation, iterative reconstruction, and/or weight based d osing when appropriate to reduce radiation dose to as low as reasonably achievable (ALARA). [facility]: Dose Right [facility]: CareDose [facility]: Dose Right [facility]: Teradose 4D [facility]: [employer]ista RADIATION DOSE: CT Rad equipment meets quality standard of care and radiation dose reduction techniq ues were employed. CTDIvol: 6.0 mGy. DLP: 564 mGy-cm. mGy. LIMITATIONS: None. FINDINGS: Bones are osteopenic. Subacute to chronic appearing nondisplaced nonangulated fractures with bony callus along the right hays perior and inferior pubic ramus, best shown on coronal reconstruction image 34 and 41. There is no CT evidence of acute right proximal femoral fracture along the femoral neck. A hairline nondisplaced incomplete fracture through the posterior distal right femoral diaphysis is s uspected on axial images 130 through 149. This correlates with the plain films from 11/24/2017. On the soft tissue windows there is a fat fluid level in the right suprapatellar recess from a lipoma hemarthrosis best shown on axial images 135-150. There is no large soft tissue hematoma in the thigh. There is mild diffuse subcutaneous edema. Tibia and fibula, patella, ankle joint unremarkable. IMPRESSION: Hairline nondisplaced incomplete fracture through the posterior distal right femoral met aphysis correlates with plain films from 11/24/2017 No large right distal thigh hematoma. TECHNICAL DOCUMENTATION: JOB ID: [id number] Quality ID # [id number]: Final reports with documentation of one or more dose reduction techniques (e.g., Au tomated exposure control, adjustment of the mA and/or kV according to patient size, use of iterative reconstruction technique) 2010 [employer]- All Rights Reserved Reading location - IP/workstation name: [facility]
[2017-11-26] MEDS: IPRATROPIUM/ALBUTEROL 0.5-2.5 MG/3 ML AMPUL NEB SCH ×2 (16:26→23:44)
[2017-11-26] MEDS: POLYETHYLENE GLYCOL 3350 POWDER 17 GM/1 PACKET PO SCH (17:27)
[2017-11-26] MEDS: PSYLLIUM SEED-SF 5.85 GM PACKET PO SCH (17:29)
[2017-11-26] MEDS: FLUTICASONE NASAL SPRAY 50 MCG/SPRY 120 SPRAY/16 GM NASL SCH ×2 (17:58→21:31)
--- NOTE | 2017-11-26 20:34 | CONSULTATION REPORT E ---
Consultation Report NAME: KENNEDY MEDEIROS : 1950 AGE: 67Y DATE: 11/26/2017 ROOM: 420 A TO: CARLOS HANCOCK M.D. FROM: NOLVIA DURAND M.D. Requesting Physician REQUESTING PHYSICIAN: Dr. Eze Huitron. CHIEF COMPLAINT: Pain in arm and leg. HISTORY OF PRESENT ILLNESS: The patient is a 67-year-old female with a past medical history of COPD, diabetes, and diabetic peripheral neuropathy as well as rheumatoid arthritis and anemia who presented to the emergency room after tripping and falling on her right side. She states she actually fell 2 times. She notes that this was not due to loss of consciousness or dizziness, but rather because she has severe peripheral neuropathy and she cannot feel where her feet are when she walks. Unfortunately her falls resulted in both humeral and femoral fractures. She has had some substantial pain in right upper extremity and the right lower extremity since this time. She is currently nonambulatory and has a brace around the leg. Her arm is in a sling. She notes that most of her pain is with movement. She does have some bruising over her right face but this is not currently hurting. The patient notably states that she does not regularly take pain medications at home because she does not want to get "hooked" on them. However, she is in quite a bit of pain in the hospital and is concerned about pain management today. PAST MEDICAL HISTORY: 1. Hypertension. 2. COPD. 3. Diabetes type 2. 4. Diabetic peripheral neuropathy. 5. Celiac disease. 6. Anemia. 7. Rheumatoid arthritis. 8. Hypothyroidism. PAST SURGICAL HISTORY: 1. The patient has had a right toe debridement for osteomyelitis. 2. She has a left Port-a-Cath that is placed for infusions that she has through Dr. Perry for anemia. SOCIAL HISTORY: The patient is . She is a current smoker and has a 30 pack year smoking history. FAMILY HISTORY: History of myocardial infarction in the father and breast cancer in her mother. CURRENT MEDICATIONS: 1. Tylenol 650 mg p.o. q.6 hours p.r.n. pain. 2. DuoNeb 3 mL p.r.n. shortness of breath. 3. Calcium carbonate 1000 mg p.o. at bedtime. 4. Celebrex 100 mg p.o. q. daily. 5. Colace 100 mg p.o. q. daily. 6. Lovenox 40 mg sub-Q at bedtime. 7. Vitamin D 50,000 units p.o. capsule weekly. 8. Fluticasone nasal spray. 9. Folic acid. 10. Gabapentin 300 mg p.o. at bedtime. 11. Dilaudid 1 mg IV q.4 hours p.r.n. pain. 12. Lantus 25 units subcutaneous at bedtime. 13. Lispro sliding scale. 14. Ketorolac 50 mg IV q.6 p.r.n. pain. 15. Synthroid 175 mcg p.o. q.a.m. 16. Lovaza p.o. at bedtime. 17. Zofran p.r.n. 18. Oxycodone/acetaminophen 1 tab p.o. q.6 hours p.r.n. pain. 19. Miralax 17 grams p.o. daily. 20. Iron 150 mg p.o. q. daily. 21. Syllium 1 packet p.o. at bedtime. ALLERGIES: No known drug allergies. PHYSICAL EXAMINATION: VITAL SIGNS: Temperature 99.6, pulse 80, blood pressure 129/52, respirations 16, saturation 93% on room air. Pain 4/5 on a numeric pain scale log. GENERAL: The patient is a somewhat disheveled female sitting up in her chair this evening. She is eating dinner. She does not appear to be in any acute distress when I first meet her, though of note when I introduced myself with pain management she does begin to wince and moan in pain. This, however, subsides fairly quickly and we are able to get on with examination discussion. HEENT: The patient is edentulous in front. She does have some marked bruising over the right eye and upper maxilla. Mild bruising of the left side of the face. MUSCULOSKELETAL: Right arm is in a sling. Right leg is in a knee immobilizer. NEUROLOGIC: She is alert and oriented x3. She does have diminished sensation bilateral feet in a stocking distribution on the left side, unable to fully evaluate on the right side secondary to knee immobilizer in place. A few scattered ecchymosis appreciated over the upper extremities. CARDIOVASCULAR: Pulses regular. RESPIRATORY: Even unlabored work of breathing. DIAGNOSTIC STUDIES: The patient had a humerus x-ray 11/24/2017 demonstrating proximal humeral metaphysial fracture. Upper extremity CT from 11/26/2017 demonstrated subacute right surgical neck humerus fracture also incidentally noted trace bilateral pleural effusions and atelectasis in the lower lobes and a hematoma in the right upper arm axillary region. Lower extremity CT 11/26/2017 demonstrated hairline nondisplaced incomplete fracture to the posterior distal right femoral metaphysis. IMPRESSION: 1. Acute pain due to trauma. 2. Medical comorbidities; a. COPD. b. Diabetic peripheral neuropathy. ASSESSMENT AND PLAN: The patient is a 67-year-old female with multiple medical comorbidities who has substantial pain due to right humerus and right femoral neck fracture status post fall. The patient attributes the fall to diabetic peripheral neuropathy. She is currently doing recently well with her medication regimen and I recommended a few changes. Gabapentin at this point cannot be increased per the patient as this has made her even more dizzy and at higher risk for falls, so this will be left at 300 mg p.o. at bedtime. I recommended that all p.r.n. acetaminophen be stopped and that the patient be started on acetaminophen 975 mg p.o. t.i.d. scheduled dosing. Additionally I recommended that ketorolac be scheduled at 15 mg IV q.8 hours for 3 days. She notably does have a normal creatinine level. We will hold celecoxib in the time that we have this scheduled. In the interim time Percocet should be discontinued and we will move forward with oxycodone 10 mg p.o. q.6 hours p.r.n. pain and she may have Dilaudid for severe breakthrough pain. The patient will continue follow up with orthopedics and we will continue to follow along with the patient to ensure that this improves overall pain management. DICTATING PHYSICIAN: CARLOS HANCOCK M.D. [id number] PHY#: [id number] ID: [id number] JOB#: [id number] ACCT: [id number] cc:CARLOS HANCOCK M.D. >
[2017-11-26] MEDS: GABAPENTIN 300 MG CAPSULE PO SCH (21:30)
[2017-11-26] MEDS: ENOXAPARIN SODIUM INJ 40 MG/0.4 ML DISP.SYRIN SUBCUT SCH (21:30)
[2017-11-26] MEDS: FOLIC ACID 1 MG TABLET PO SCH (21:30)
[2017-11-26] MEDS: CALCIUM CARBONATE 500 MG TABLET PO SCH (21:30)
[2017-11-26] MEDS: OMEGA-3 ACID ETHYL ESTERS 1 GM CAPSULE PO SCH (21:30)
[2017-11-26] MEDS: ACETAMINOPHEN 325 MG TABLET PO SCH (21:30)
[2017-11-26] MEDS ORDERED: INSULIN GLARGINE,HUM.REC.ANLOG 300 UNIT/3 ML INSULN.PEN SUBCUT SCH (22:00)
[2017-11-27] MEDS: KETOROLAC TROMETHAMINE INJ/PF 30 MG/1 ML SDV IV SCH ×3 (02:42→17:53)
[2017-11-27] MEDS: DEXTROSE 50%-WATER SYRINGE 25 GM/50 ML DOSE IV PRN ×2 (04:28→06:59)
[2017-11-27] MEDS: ACETAMINOPHEN 325 MG TABLET PO SCH ×3 (05:33→21:48)
[2017-11-27] MEDS: LEVOTHYROXINE SODIUM 0.075 MG TABLET PO SCH (05:33)
[2017-11-27] MEDS: LEVOTHYROXINE SODIUM 0.1 MG TABLET PO SCH (05:33)
[2017-11-27] MEDS ORDERED: LEVOTHYROXINE SODIUM 0.1 MG TABLET PO SCH (06:00)
[2017-11-27] MEDS ORDERED: (PENDING PHARMACY ID) (Levothyroxine Sodium [Synthroid] 175 MCG) PO SCH (06:00)
[2017-11-27 07:14] LABS: ABSOLUTE EOSINOPHILS # (AUTO) 0.1 10^3/uL (0.0-0.6); ABSOLUTE LYMPHOCYTES (AUTO) 1.6 10^3/uL (0.5-4.7); ABSOLUTE MONOCYTES (AUTO) 0.7 10^3/uL (0.1-1.4); ABSOLUTE NEUT (AUTO) 4.7 10^3/uL (1.7-8.2); BASOPHILS % (AUTO) 0.4 % (0-2); EOSINOPHILS % (AUTO) 0.7 % (0-6); HEMATOCRIT 27.1 % (36.0-47.0); HEMOGLOBIN 8.9 g/dL (12.0-15.5); LYMPHOCYTES % (AUTO) 22.4 % (13-45); MEAN CORPUSCULAR HEMOGLOBIN 26.1 pg (27.0-33.4); MEAN CORPUSCULAR HGB CONC 32.9 g/dL (32.0-36.0); MEAN CORPUSCULAR VOLUME 79 fl (80-97); MONOCYTES % (AUTO) 10.6 % (3-13); PLATELET COUNT 296 10^3/uL (150-450); RED BLOOD COUNT 3.41 10^6/uL (3.72-5.28); RED CELL DISTRIBUTION WIDTH 16.9 % (11.5-14.0); SEGMENTED NEUTROPHILS % (AUTO) 65.9 % (42-78); TOTAL CELLS COUNTED % (AUTO) 100 %; WHITE BLOOD COUNT 7.1 10^3/uL (4.0-10.5)
[2017-11-27 07:38] LABS: ANION GAP 6 (5-19); BLOOD UREA NITROGEN 29 mg/dL (7-20); CALCIUM 7.9 mg/dL (8.4-10.2); CARBON DIOXIDE 23 mmol/L (22-30); CHLORIDE 103 mmol/L (98-107); GLUCOSE 134 mg/dL (75-110); POTASSIUM 5.1 mmol/L (3.6-5.0); SODIUM 131.9 mmol/L (137-145)
[2017-11-27] MEDS: IPRATROPIUM/ALBUTEROL 0.5-2.5 MG/3 ML AMPUL NEB SCH ×3 (08:18→23:51)
--- NOTE | 2017-11-27 10:24 | PDOC PROGRESS REPORT ---
Subjective Progress Note for:: 11/27/17 Subjective:: Patient seen in morning rounds appears more tolerant of pain while at rest however reluctant to mobilize or participate in bed mobility with physical therapy. Overnight hypoglycemic event noted. Patient complains of constipation. Reason For Visit: HUMERAL FRACTURE,ACUTE PAIN,ANEMIA Physical Exam Vital Signs: Temp Pulse Resp BP Pulse Ox 97.5 F 79 18 127/48 H 95 11/27/17 04:39 11/27/17 08:17 11/27/17 08:17 11/27/17 04:39 11/27/17 08:17 Intake & Output 11/25/17 11/26/17 11/27/17 11:59 11:59 11:59 Intake Total 1190 120 600 Output Total 800 1400 600 Balance 390 -1280 0 Weight 61 kg 61 kg 69.9 kg General appearance: PRESENT: cooperative, disheveled, mild distress Head exam: PRESENT: atraumatic, normocephalic Eye exam: PRESENT: conjunctiva pink, EOMI, PERRLA. ABSENT: scleral icterus Ear exam: PRESENT: normal external ear exam Mouth exam: PRESENT: moist, tongue midline Neck exam: ABSENT: carotid bruit, JVD, lymphadenopathy, thyromegaly Respiratory exam: PRESENT: crackles, decreased breath sounds, prolonged expiratory phas, unlabored. ABSENT: rales, rhonchi, wheezes Cardiovascular exam: PRESENT: RRR. ABSENT: diastolic murmur, rubs, systolic murmur Pulses: PRESENT: normal dorsalis pedis pul Vascular exam: PRESENT: normal capillary refill GI/Abdominal exam: PRESENT: normal bowel sounds, soft. ABSENT: distended, guarding, mass, organolmegaly, rebound, tenderness Rectal exam: PRESENT: deferred Extremities exam: PRESENT: full ROM, tenderness, other - Immobilized right upper and lower extremity. ABSENT: calf tenderness, clubbing, pedal edema Neurological exam: PRESENT: alert, awake, oriented to person, oriented to place , oriented to time, oriented to situation, CN II-XII grossly intact. ABSENT: motor sensory deficit Psychiatric exam: PRESENT: appropriate affect, normal mood. ABSENT: homicidal ideation, suicidal ideation Skin exam: PRESENT: dry, intact, warm. ABSENT: cyanosis, rash Results Laboratory Results: 11/27/17 06:54 11/27/17 06:54 0311/27/17 11/27/17 07:56 06:54 06:54 WBC 7.1 RBC 3.41 L Hgb 8.9 L Hct 27.1 L MCV 79 L MCH 26.1 L MCHC 32.9 RDW 16.9 H Plt Count 296 Seg Neutrophils % 65.9 Lymphocytes % 22.4 Monocytes % 10.6 Eosinophils % 0.7 Basophils % 0.4 Absolute Neutrophils 4.7 Absolute Lymphocytes 1.6 Absolute Monocytes 0.7 Absolute Eosinophils 0.1 Absolute Basophils 0.0 Sodium 131.9 L Potassium 5.1 H Chloride 103 Carbon Dioxide 23 Anion Gap 6 BUN 29 H Creatinine 0.53 Est GFR ( Amer) > 60 Est GFR (Non-Af Amer) > 60 Glucose 134 H Calcium 7.9 L Iron 11.5 L TIBC 234 L % Saturation 5 Ferritin 45.20 Vitamin B12 398.0 Folate 7.67 Impressions: Knee X-Ray 11/24/17 00:00 IMPRESSION: Slightly oblique fracture of the distal femur as noted above. No other evidence for fracture is seen. Other findings as noted above Humerus X-Ray 11/24/17 12:01 IMPRESSION: The previously described proximal humeral metaphyseal fracture is again identified. On the current study there is a fracture involving the medial cortex as noted above which could represent an acute fracture superimposed on the underlying fracture. No other evidence for fracture is seen. Other findings as noted above Lower Extremity CT 11/26/17 00:00 IMPRESSION: Hairline nondisplaced incomplete fracture through the posterior distal right femoral metaphysis correlates with plain films from 11/24/2017 No large right distal thigh hematoma. Upper Extremity CT 11/26/17 00:00 IMPRESSION: Subacute fracture, right surgical neck humerus with mild foreshortening or impaction at the fracture site. No significant angulation. Minimal surrounding callus formation. The large right upper arm or axilla region hematoma or fluid collection. Trace bilateral pleural effusions with bilateral dependent atelectasis in the lower lobes Chest X-Ray 11/26/17 01:27 IMPRESSION: 1. Right perihilar opacity and left retrocardiac opacity may represent developing pneumonia or atelectasis. Continued radiographic follow-up recommended. 2. Blunting of the left costophrenic angle may be related to small pleural effusion or pleural thickening. Assessment & Plan - Diagnosis (1) Anemia Qualifiers: Anemia type: iron deficiency Iron deficiency anemia type: inadequate dietary iron intake Qualified Code(s): D50.8 - Other iron deficiency anemias Is this a current diagnosis for this admission?: Yes Plan: Iron deficiency established, hemoglobin stabilized repeat CT unremarkable. Continue p.o. iron (2) Closed right femoral fracture Qualifiers: Encounter type: initial encounter Femur location: shaft Fracture morphology: oblique Fracture alignment: nondisplaced Qualified Code(s): S72.334A - Nondisplaced oblique fracture of shaft of right femur, initial encounter for closed fracture Is this a current diagnosis for this admission?: Yes Plan: Defer to orthopedic surgery, intractable pain deferred to pain management consult. Consultants greatly appreciated physical therapy and discharge planning ordered. (3) Diabetes mellitus Qualifiers: Diabetes mellitus type: type 2 Diabetes mellitus complication status: with neurologic complications Diabetes mellitus complication detail: with autonomic neuropathy Is this a current diagnosis for this admission?: Yes Plan: Diabetic diet with sliding scale Humalog. Patient currently intolerant of outpatient dose long-acting insulin resulting in hypoglycemia. (4) Fracture, humerus closed Qualifiers: Encounter type: initial encounter Humerus Location: proximal Fracture morphology: other fracture Fracture alignment: displaced Laterality: right Qualified Code(s): S42.291A - Other displaced fracture of upper end of right humerus, initial encounter for closed fracture Is this a current diagnosis for this admission?: Yes Plan: Defer to orthopedic surgery and pain management. Consultants greatly appreciated advancing physical therapy as tolerated discharge planning consult (5) Intractable pain Is this a current diagnosis for this admission?: Yes Plan: Greatly improved with scheduled Toradol and acetaminophen. (6) Atelectasis Is this a current diagnosis for this admission?: Yes Plan: Encourage aggressive pulmonary toilet. - Time Time Spent with patient: 15-24 minutes
[2017-11-27] MEDS ORDERED: LACTULOSE SYRUP 20 GM/30 ML UDCUP PO ONE (11:15)
[2017-11-27] MEDS: DOCUSATE SODIUM 100 MG CAPSULE PO SCH (11:18)
[2017-11-27] MEDS: OXYCODONE HCL IR 5 MG TABLET PO PRN (11:18)
[2017-11-27] MEDS: IRON POLYSACCHARIDES COMPLEX 150 MG CAPSULE PO SCH (11:19)
[2017-11-27] MEDS: FLUTICASONE NASAL SPRAY 50 MCG/SPRY 120 SPRAY/16 GM NASL SCH ×2 (11:19→21:48)
[2017-11-27] MEDS: POLYETHYLENE GLYCOL 3350 POWDER 17 GM/1 PACKET PO SCH (12:49)
[2017-11-27] MEDS: PSYLLIUM SEED-SF 5.85 GM PACKET PO SCH (17:54)
[2017-11-27] MEDS: CALCIUM CARBONATE 500 MG TABLET PO SCH (21:47)
[2017-11-27] MEDS: OMEGA-3 ACID ETHYL ESTERS 1 GM CAPSULE PO SCH (21:47)
[2017-11-27] MEDS: INSULIN LISPRO 100 UNIT/ML 3 ML VIAL SUBCUT PRN (21:48)
[2017-11-27] MEDS: FOLIC ACID 1 MG TABLET PO SCH (21:48)
[2017-11-27] MEDS: GABAPENTIN 300 MG CAPSULE PO SCH (21:48)
[2017-11-27] MEDS: ENOXAPARIN SODIUM INJ 40 MG/0.4 ML DISP.SYRIN SUBCUT SCH (21:48)
[2017-11-27] MEDS ORDERED: INSULIN GLARGINE,HUM.REC.ANLOG 300 UNIT/3 ML INSULN.PEN SUBCUT SCH (22:00)
[2017-11-28] MEDS: OXYCODONE HCL IR 5 MG TABLET PO PRN ×3 (00:23→21:42)
[2017-11-28] MEDS: KETOROLAC TROMETHAMINE INJ/PF 30 MG/1 ML SDV IV SCH ×3 (02:22→16:48)
[2017-11-28] MEDS: LEVOTHYROXINE SODIUM 0.075 MG TABLET PO SCH (05:25)
[2017-11-28] MEDS: ACETAMINOPHEN 325 MG TABLET PO SCH ×3 (05:26→21:42)
[2017-11-28] MEDS: LEVOTHYROXINE SODIUM 0.1 MG TABLET PO SCH (05:26)
[2017-11-28] MEDS: INSULIN LISPRO 100 UNIT/ML 3 ML VIAL SUBCUT PRN ×2 (06:41→13:05)
[2017-11-28] MEDS: IPRATROPIUM/ALBUTEROL 0.5-2.5 MG/3 ML AMPUL NEB SCH ×3 (08:57→23:58)
[2017-11-28] MEDS ORDERED: LACTULOSE SYRUP 20 GM/30 ML UDCUP PO SCH (10:00)
[2017-11-28] MEDS: FLUTICASONE NASAL SPRAY 50 MCG/SPRY 120 SPRAY/16 GM NASL SCH ×2 (13:07→22:43)
[2017-11-28] MEDS: IRON POLYSACCHARIDES COMPLEX 150 MG CAPSULE PO SCH (13:07)
[2017-11-28] MEDS: POLYETHYLENE GLYCOL 3350 POWDER 17 GM/1 PACKET PO SCH (13:08)
[2017-11-28] MEDS: DOCUSATE SODIUM 100 MG CAPSULE PO SCH (13:08)
--- NOTE | 2017-11-28 15:06 | PDOC PROGRESS REPORT ---
Subjective Progress Note for:: 11/28/17 Subjective:: Patient seems a little irritated that she is in a room with the door closed. Reason For Visit: 67-year-old female with previous history of a right humerus fracture presented to the emergency department November 24, 2017 with right leg pain. She accidentally fell, presumably due to her diabetic neuropathy. As result, she suffered a fracture of the right distal femur. X-rays of her right arm demonstrated that she may have reinjured her previous proximal humerus fracture. A right leg immobilizer was placed in the ED. She is essentially nonambulatory. She will need rehabilitation. Physical Exam Vital Signs: Temp Pulse Resp BP Pulse Ox 98.2 F 71 18 114/67 95 11/28/17 08:30 11/28/17 08:59 11/28/17 08:59 11/28/17 08:30 11/28/17 08:59 Intake & Output 11/27/17 11/28/17 11/29/17 06:59 06:59 06:59 Intake Total 720 222 Output Total 1000 1066 Balance -280 -844 Weight 69.9 kg 69.9 kg General appearance: PRESENT: no acute distress Eye exam: PRESENT: EOMI, PERRLA, other - left periorbital ecchymosis Neck exam: ABSENT: carotid bruit, JVD, lymphadenopathy, thyromegaly Respiratory exam: PRESENT: clear to auscultation neo. ABSENT: rales, rhonchi, wheezes Cardiovascular exam: PRESENT: RRR. ABSENT: diastolic murmur, rubs, systolic murmur GI/Abdominal exam: PRESENT: normal bowel sounds, soft. ABSENT: distended, guarding, mass, organolmegaly, rebound, tenderness Musculoskeletal exam: PRESENT: other - Her right arm is in a sling. Left leg is in an immobilizer.. ABSENT: ambulatory Neurological exam: PRESENT: alert, awake, oriented to person, oriented to place , oriented to time, oriented to situation, CN II-XII grossly intact. ABSENT: motor sensory deficit Results Laboratory Results: 11/27/17 06:54 11/27/17 06:54 Impressions: Knee X-Ray 11/24/17 00:00 IMPRESSION: Slightly oblique fracture of the distal femur as noted above. No other evidence for fracture is seen. Other findings as noted above Humerus X-Ray 11/24/17 12:01 IMPRESSION: The previously described proximal humeral metaphyseal fracture is again identified. On the current study there is a fracture involving the medial cortex as noted above which could represent an acute fracture superimposed on the underlying fracture. No other evidence for fracture is seen. Other findings as noted above Lower Extremity CT 11/26/17 00:00 IMPRESSION: Hairline nondisplaced incomplete fracture through the posterior distal right femoral metaphysis correlates with plain films from 11/24/2017 No large right distal thigh hematoma. Upper Extremity CT 11/26/17 00:00 IMPRESSION: Subacute fracture, right surgical neck humerus with mild foreshortening or impaction at the fracture site. No significant angulation. Minimal surrounding callus formation. The large right upper arm or axilla region hematoma or fluid collection. Trace bilateral pleural effusions with bilateral dependent atelectasis in the lower lobes Chest X-Ray 11/26/17 01:27 IMPRESSION: 1. Right perihilar opacity and left retrocardiac opacity may represent developing pneumonia or atelectasis. Continued radiographic follow-up recommended. 2. Blunting of the left costophrenic angle may be related to small pleural effusion or pleural thickening. Assessment & Plan - Diagnosis (1) Closed right femoral fracture Qualifiers: Encounter type: subsequent encounter Femur location: shaft Fracture morphology: oblique Fracture alignment: nondisplaced Qualified Code(s): S72.334A - Nondisplaced oblique fracture of shaft of right femur, initial encounter for closed fracture Is this a current diagnosis for this admission?: Yes Plan: Continue with immobilizer. She has acetaminophen, ketorolac, and oxycodone as needed for pain. Orthopedic consult pending. Rehabilitation pending (2) Fracture, humerus closed Qualifiers: Encounter type: initial encounter Humerus Location: proximal Fracture morphology: other fracture Fracture alignment: displaced Laterality: right Qualified Code(s): S42.291A - Other displaced fracture of upper end of right humerus, initial encounter for closed fracture Is this a current diagnosis for this admission?: Yes (3) Anemia Qualifiers: Anemia type: iron deficiency Iron deficiency anemia type: inadequate dietary iron intake Qualified Code(s): D50.8 - Other iron deficiency anemias Is this a current diagnosis for this admission?: Yes Plan: Continue current iron supplementation (4) Diabetes mellitus with neuropathy Qualifiers: Diabetes mellitus type: type 2 Diabetes mellitus ferry terminal agent insulin use: unspecified ferry terminal agent insulin use status Qualified Code(s): E11.40 - Type 2 diabetes mellitus with diabetic neuropathy, unspecified Is this a current diagnosis for this admission?: Yes Plan: Add Lantus 10 units at bedtime. It seems that her blood sugars range from low to extremely high, on the sliding scale. - Time Time Spent with patient: 25-34 minutes Medications reviewed and adjusted accordingly: Yes Anticipated discharge: SNF - Inpatient Certification Based on my medical assessment, after consideration of the patient's comorbidities, presenting symptoms, or acuity I expect that the services needed warrant INPATIENT care.: Yes I certify that my determination is in accordance with my understanding of Medicare's requirements for reasonable and necessary INPATIENT services [42 CFR 412.3e].: Yes Medical Necessity: Failure to Improve With Outpatient Therapy, Need for Pain Control
[2017-11-28] MEDS ORDERED: TORSEMIDE 20 MG TABLET PO ONE (16:00)
--- NOTE | 2017-11-28 19:25 | PDOC CONSULTATION ---
Consultation Consult Date: 11/28/17 Consult reason:: Right proximal humerus fracture and right femur fracture History of Present Illness Admission Date/PCP: 11/24/17 15:41 WES GU MD Patient complains of: Right shoulder pain and right lower extremity pain History of Present Illness: 67-year-old female with diabetes and known diabetic neuropathy status post fall back on 11/09/2017. She was seen in the ER on 11/14/2017 and was sent home with a proximal humerus fracture in a sling. Unfortunately patient had another fall a few days ago and now has right leg pain. X-rays showed a nondisplaced distal femur fracture. Patient admitted for pain control and likely rehab transfer. She has baseline neuropathy in her feet. Has pain with weightbearing the right lower extremity and pain with any attempted range of motion of right upper extremity. Complains of swelling. Complains of tenderness to palpation. Rates 5 out of 5 pain with any attempted weightbearing or range of motion of the right upper extremity right lower extremity. As fevers chills. Eyes any loss of consciousness or any other extremity injury. Past Medical History Cardiac Medical History: Denies: Coronary Artery Disease, Myocardial Infarction, Hypertension - states Lisinopril Rx r/t DM Dx Pulmonary Medical History: Reports: Chronic Obstructive Pulmonary Disease (COPD) Denies: Asthma, Bronchitis, Pneumonia Neurological Medical History: Denies: Seizures Endocrine Medical History: Reports: Diabetes Mellitus Type 2 Musculoskeltal Medical History: Denies: Arthritis - rheumatoid, no meds x 2 months r/t Dx of Celiac's Psychiatric Medical History: Denies: Depression Hematology: Reports: Anemia - multiple treatments of Feraheme Past Surgical History Past Surgical History: Denies: Pacemaker Social History Smoking Status: Unknown if Ever Smoked Cigarettes Packs Per Day: 1 Number of Years Smokin Frequency of Alcohol Use: None Hx Recreational Drug Use: No Hx Prescription Drug Abuse: No - Advance Directive Resuscitation Status: Full Code Family History Family History: Reviewed & Not Pertinent Parental Family History Reviewed: No Children Family History Reviewed: No Sibling(s) Family History Reviewed.: No Medication/Allergy Home Medications: Calcium Carbonate [Calcium] 1,000 mg PO QHS 11/24/17 Folic Acid [Folvite 1 mg Tablet] 1 mg PO QHS 11/24/17 Gabapentin [Neurontin 300 mg Capsule] 300 mg PO QHS 11/24/17 Levothyroxine Sodium [Synthroid] 175 mcg PO Q6AM 11/24/17 Lisinopril [Prinivil 5 mg Tablet] 5 mg PO QHS 11/24/17 Metformin HCl [Metformin HCl ER] 500 mg PO ACSUPPER 11/24/17 Briscoe-3 Fatty Acids/Fish Oil [[place] 3 Fish Oil Softgel] 1,200 mg PO QHS Potassium Chloride [Klor-Con 10 Meq Tablet.sa] 10 meq PO QHS 11/24/17 Celecoxib [Celebrex 100 mg Capsule] 100 mg PO DAILYP PRN 11/26/17 Cyanocobalamin (Vitamin B-12) [Vitamin B-12 1000 Mcg Tablet] 1 tab PO DAILY Ergocalciferol (Vitamin D2) [Vitamin D2] 50,000 unit PO OLIVER@1000 11/26/17 Insulin Glargine,Hum.rec.anlog [Lantus Solostar] 25 unit SQ QHS 11/26/17 Torsemide [Demadex 20 mg Tablet] 20 mg PO MOWEFR@0800 11/26/17 Allergies/Adverse Reactions: No Known Allergies Allergy (Verified 11/14/17 19:02) Review of Systems All systems: as per PMH Physical Exam Vital Signs: Temp Pulse Resp BP Pulse Ox 36.6 C 81 18 121/64 99 11/28/17 16:23 11/28/17 16:23 11/28/17 16:23 11/28/17 16:23 11/28/17 16:23 Intake & Output 11/27/17 11/28/17 11/29/17 06:59 06:59 06:59 Intake Total 720 222 400 Output Total 1000 1066 1000 Balance -280 -844 -600 Weight 69.9 kg 69.9 kg Adult Front & Back Image: 1 - Sling intact. Tender palpation over the anterior humerus and lateral aspect of the shoulder. Any attempted range of motion causes acute sharp pain. She has swelling diffusely throughout the arm down to her forearm and even her digits. She has good capillary refill with the good sensation to growth light touch. 2 - Some discomfort with range of motion of her right knee. Mild tenderness to palpation of the distal thigh. No gross deformity. No crepitus. Baseline neuropathy distally. Results Laboratory Results: 11/27/17 06:54 11/27/17 06:54 Impressions: Knee X-Ray 11/24/17 00:00 IMPRESSION: Slightly oblique fracture of the distal femur as noted above. No other evidence for fracture is seen. Other findings as noted above Humerus X-Ray 11/24/17 12:01 IMPRESSION: The previously described proximal humeral metaphyseal fracture is again identified. On the current study there is a fracture involving the medial cortex as noted above which could represent an acute fracture superimposed on the underlying fracture. No other evidence for fracture is seen. Other findings as noted above Lower Extremity CT 11/26/17 00:00 IMPRESSION: Hairline nondisplaced incomplete fracture through the posterior distal right femoral metaphysis correlates with plain films from 11/24/2017 No large right distal thigh hematoma. Upper Extremity CT 11/26/17 00:00 IMPRESSION: Subacute fracture, right surgical neck humerus with mild foreshortening or impaction at the fracture site. No significant angulation. Minimal surrounding callus formation. The large right upper arm or axilla region hematoma or fluid collection. Trace bilateral pleural effusions with bilateral dependent atelectasis in the lower lobes Chest X-Ray 11/26/17 01:27 IMPRESSION: 1. Right perihilar opacity and left retrocardiac opacity may represent developing pneumonia or atelectasis. Continued radiographic follow-up recommended. 2. Blunting of the left costophrenic angle may be related to small pleural effusion or pleural thickening. Status: Image reviewed by me Assessment & Plan - Diagnosis (1) Closed right femoral fracture Qualifiers: Encounter type: subsequent encounter Femur location: shaft Fracture morphology: oblique Fracture alignment: nondisplaced Qualified Code(s): S72.334A - Nondisplaced oblique fracture of shaft of right femur, initial encounter for closed fracture Is this a current diagnosis for this admission?: Yes (2) Fracture, humerus closed Qualifiers: Encounter type: initial encounter Humerus Location: proximal Fracture morphology: other fracture Fracture alignment: displaced Laterality: right Qualified Code(s): S42.291A - Other displaced fracture of upper end of right humerus, initial encounter for closed fracture Is this a current diagnosis for this admission?: Yes - Plan Summary Plan Summary: Patient is 20 days out from fracture of the proximal humerus in her right shoulder. Recommend continue sling for another 2 weeks and then start active range of motion exercises. Recommend physical therapy now for passive range of motion exercises. Pertaining to right lower extremity patient has a nondisplaced hairline fracture of the distal femur that will only require a knee immobilizer. She will also has to be toe-touch weightbearing on the right lower extremity with a knee immobilizer on. Underwent physical therapy for balance and safety training. Recommend long-term rehab facility while she recovers with the multi-extremity injury. Recommend narcotics for pain control. Recommend having her follow-up in our office in 2-3 weeks for repeat x-ray.
[2017-11-28] MEDS: CALCIUM CARBONATE 500 MG TABLET PO SCH (21:41)
[2017-11-28] MEDS: OMEGA-3 ACID ETHYL ESTERS 1 GM CAPSULE PO SCH (21:42)
[2017-11-28] MEDS: FOLIC ACID 1 MG TABLET PO SCH (21:42)
[2017-11-28] MEDS: INSULIN GLARGINE,HUM.REC.ANLOG 300 UNIT/3 ML INSULN.PEN SUBCUT SCH (21:42)
[2017-11-28] MEDS: GABAPENTIN 300 MG CAPSULE PO SCH (21:42)
[2017-11-28] MEDS: ENOXAPARIN SODIUM INJ 40 MG/0.4 ML DISP.SYRIN SUBCUT SCH (21:42)
[2017-11-28] MEDS ORDERED: FLUTICASONE NASAL SPRAY 50 MCG/SPRY 120 SPRAY/16 GM ONE (22:20)
[2017-11-29] MEDS: KETOROLAC TROMETHAMINE INJ/PF 30 MG/1 ML SDV IV SCH ×3 (02:38→17:22)
[2017-11-29 05:52] LABS: BLOOD UREA NITROGEN 35 mg/dL (7-20); CHLORIDE 106 mmol/L (98-107); GLUCOSE 126 mg/dL (75-110); POTASSIUM 5.1 mmol/L (3.6-5.0)
[2017-11-29 05:58] LABS: ANION GAP 3 (5-19); CARBON DIOXIDE 26 mmol/L (22-30); SODIUM 134.5 mmol/L (137-145)
[2017-11-29] MEDS: LEVOTHYROXINE SODIUM 0.1 MG TABLET PO SCH (06:10)
[2017-11-29] MEDS: OXYCODONE HCL IR 5 MG TABLET PO PRN ×5 (06:10→22:53)
[2017-11-29] MEDS: ACETAMINOPHEN 325 MG TABLET PO SCH ×3 (06:10→22:53)
[2017-11-29] MEDS: LEVOTHYROXINE SODIUM 0.075 MG TABLET PO SCH (06:10)
[2017-11-29] MEDS: IPRATROPIUM/ALBUTEROL 0.5-2.5 MG/3 ML AMPUL NEB SCH ×3 (08:08→23:56)
[2017-11-29] MEDS: POLYETHYLENE GLYCOL 3350 POWDER 17 GM/1 PACKET PO SCH (11:39)
[2017-11-29] MEDS: DOCUSATE SODIUM 100 MG CAPSULE PO SCH (11:39)
[2017-11-29] MEDS: TORSEMIDE 20 MG TABLET PO SCH (11:45)
[2017-11-29] MEDS: IRON POLYSACCHARIDES COMPLEX 150 MG CAPSULE PO SCH (11:45)
[2017-11-29] MEDS: FLUTICASONE NASAL SPRAY 50 MCG/SPRY 120 SPRAY/16 GM NASL SCH ×2 (11:45→22:53)
--- NOTE | 2017-11-29 14:26 | PDOC PROGRESS REPORT ---
Subjective Progress Note for:: 11/29/17 Subjective:: Patient feels a little better today Reason For Visit: 67-year-old female with previous history of a right humerus fracture presented to the emergency department November 24, 2017 with right leg pain. She accidentally fell, presumably due to her diabetic neuropathy. As result, she suffered a fracture of the right distal femur. X-rays of her right arm demonstrated that she may have reinjured her previous proximal humerus fracture. A right leg immobilizer was placed in the ED. She is essentially nonambulatory. She was seen by orthopedic surgery. Dr Calix recommended #1 to continue the sling for another 2 weeks (December 13) and then start active range of motion exercises. #2 physical therapy now for passive range of motion exercises. She will also has to be toe-touch weightbearing on the right lower extremity with a knee immobilizer on. He recommend long-term rehab facility while she recovers with the multi- extremity injury, narcotics for pain control, and follow-up in his office in 2- 3 weeks for repeat x-ray. Physical Exam Vital Signs: Temp Pulse Resp BP Pulse Ox 97.6 F 72 16 120/50 L 95 11/29/17 12:07 11/29/17 12:07 11/29/17 12:07 11/29/17 12:07 11/29/17 12:07 Intake & Output 11/28/17 11/29/17 11/30/17 06:59 06:59 06:59 Intake Total 222 622 Output Total 1066 1300 550 Balance -844 -678 -550 Weight 69.9 kg 69.9 kg General appearance: PRESENT: no acute distress, mild distress Head exam: PRESENT: atraumatic, normocephalic Neck exam: ABSENT: carotid bruit, JVD, lymphadenopathy, thyromegaly Respiratory exam: PRESENT: clear to auscultation neo. ABSENT: rales, rhonchi, wheezes Cardiovascular exam: PRESENT: RRR. ABSENT: diastolic murmur, rubs, systolic murmur GI/Abdominal exam: PRESENT: normal bowel sounds, soft. ABSENT: distended, guarding, mass, organolmegaly, rebound, tenderness Extremities exam: PRESENT: +2 edema - BUE and BLE Neurological exam: PRESENT: alert, awake, oriented to person, oriented to place , oriented to time, oriented to situation, CN II-XII grossly intact. ABSENT: motor sensory deficit Psychiatric exam: PRESENT: appropriate affect, normal mood. ABSENT: homicidal ideation, suicidal ideation Results Laboratory Results: 11/27/17 06:54 11/29/17 04:46 11/29/17 04:46 Sodium 134.5 L Potassium 5.1 H Chloride 106 Carbon Dioxide 26 Anion Gap 3 L BUN 35 H Creatinine 0.55 Est GFR ( Amer) > 60 Est GFR (Non-Af Amer) > 60 Glucose 126 H Calcium 8.0 L Impressions: Knee X-Ray 11/24/17 00:00 IMPRESSION: Slightly oblique fracture of the distal femur as noted above. No other evidence for fracture is seen. Other findings as noted above Humerus X-Ray 11/24/17 12:01 IMPRESSION: The previously described proximal humeral metaphyseal fracture is again identified. On the current study there is a fracture involving the medial cortex as noted above which could represent an acute fracture superimposed on the underlying fracture. No other evidence for fracture is seen. Other findings as noted above Lower Extremity CT 11/26/17 00:00 IMPRESSION: Hairline nondisplaced incomplete fracture through the posterior distal right femoral metaphysis correlates with plain films from 11/24/2017 No large right distal thigh hematoma. Upper Extremity CT 11/26/17 00:00 IMPRESSION: Subacute fracture, right surgical neck humerus with mild foreshortening or impaction at the fracture site. No significant angulation. Minimal surrounding callus formation. The large right upper arm or axilla region hematoma or fluid collection. Trace bilateral pleural effusions with bilateral dependent atelectasis in the lower lobes Chest X-Ray 11/26/17 01:27 IMPRESSION: 1. Right perihilar opacity and left retrocardiac opacity may represent developing pneumonia or atelectasis. Continued radiographic follow-up recommended. 2. Blunting of the left costophrenic angle may be related to small pleural effusion or pleural thickening. Assessment & Plan - Diagnosis (1) Closed right femoral fracture Qualifiers: Encounter type: subsequent encounter Femur location: shaft Fracture morphology: oblique Fracture alignment: nondisplaced Qualified Code(s): S72.334A - Nondisplaced oblique fracture of shaft of right femur, initial encounter for closed fracture Is this a current diagnosis for this admission?: Yes Plan: Continue with immobilizer. She has acetaminophen, ketorolac, and oxycodone as needed for pain. Rehabilitation pending (2) Fracture, humerus closed Qualifiers: Encounter type: initial encounter Humerus Location: proximal Fracture morphology: other fracture Fracture alignment: displaced Laterality: right Qualified Code(s): S42.291A - Other displaced fracture of upper end of right humerus, initial encounter for closed fracture Is this a current diagnosis for this admission?: Yes Plan: continue sling for additional 2 weeks (3) Anemia Qualifiers: Anemia type: iron deficiency Iron deficiency anemia type: inadequate dietary iron intake Qualified Code(s): D50.8 - Other iron deficiency anemias Is this a current diagnosis for this admission?: Yes Plan: Continue current iron supplementation (4) Diabetes mellitus with neuropathy Qualifiers: Diabetes mellitus type: type 2 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 Fasting BG today is controlled. - Time Time Spent with patient: 25-34 minutes Anticipated discharge: SNF - Inpatient Certification Based on my medical assessment, after consideration of the patient's comorbidities, presenting symptoms, or acuity I expect that the services needed warrant INPATIENT care.: Yes I certify that my determination is in accordance with my understanding of Medicare's requirements for reasonable and necessary INPATIENT services [42 CFR 412.3e].: Yes Medical Necessity: Significant Comorbidiites Make Outpatient Treatment Too Risky , Need for Pain Control
[2017-11-29] MEDS: INSULIN LISPRO 100 UNIT/ML 3 ML VIAL SUBCUT PRN (16:49)
[2017-11-29] MEDS: CALCIUM CARBONATE 500 MG TABLET PO SCH (22:53)
[2017-11-29] MEDS: OMEGA-3 ACID ETHYL ESTERS 1 GM CAPSULE PO SCH (22:53)
[2017-11-29] MEDS: GABAPENTIN 300 MG CAPSULE PO SCH (22:53)
[2017-11-29] MEDS: LIDOCAINE 5% (700 MG) TRANSDERMAL ADH..PATCH TP SCH (22:53)
[2017-11-29] MEDS: FOLIC ACID 1 MG TABLET PO SCH (22:53)
[2017-11-29] MEDS: INSULIN GLARGINE,HUM.REC.ANLOG 300 UNIT/3 ML INSULN.PEN SUBCUT SCH (22:54)
[2017-11-29] MEDS: ENOXAPARIN SODIUM INJ 40 MG/0.4 ML DISP.SYRIN SUBCUT SCH (22:54)
[2017-11-30] MEDS: OXYCODONE HCL IR 5 MG TABLET PO PRN ×3 (06:24→18:08)
[2017-11-30] MEDS: LEVOTHYROXINE SODIUM 0.1 MG TABLET PO SCH (06:24)
[2017-11-30] MEDS: ACETAMINOPHEN 325 MG TABLET PO SCH ×3 (06:24→21:18)
[2017-11-30] MEDS: LEVOTHYROXINE SODIUM 0.075 MG TABLET PO SCH (06:24)
[2017-11-30] MEDS: IPRATROPIUM/ALBUTEROL 0.5-2.5 MG/3 ML AMPUL NEB SCH ×2 (07:56→15:58)
[2017-11-30 08:54] LABS: BLOOD UREA NITROGEN 34 mg/dL (7-20); GLUCOSE 80 mg/dL (75-110); POTASSIUM 4.6 mmol/L (3.6-5.0)
[2017-11-30 08:59] LABS: ANION GAP 5 (5-19); CARBON DIOXIDE 26 mmol/L (22-30); CHLORIDE 103 mmol/L (98-107)
--- NOTE | 2017-11-30 09:51 | PDOC PROGRESS REPORT ---
Subjective Progress Note for:: 11/30/17 Subjective:: Patient feels a little better today with resumption of torsemide. Reason For Visit: 67-year-old female with previous history of a right humerus fracture presented to the emergency department November 24, 2017 with right leg pain. She accidentally fell, presumably due to her diabetic neuropathy. As result, she suffered a fracture of the right distal femur. X-rays of her right arm demonstrated that she may have reinjured her previous proximal humerus fracture. A right leg immobilizer was placed in the ED. She is essentially nonambulatory. She was seen by orthopedic surgery. Dr Calix recommended #1 to continue the sling for another 2 weeks (December 13) and then start active range of motion exercises. #2 physical therapy now for passive range of motion exercises. She will also has to be toe-touch weightbearing on the right lower extremity with a knee immobilizer on. He recommended long-term rehab facility while she recovers with the multi- extremity injury, narcotics for pain control, and follow-up in his office in 2- 3 weeks for repeat x-ray. She needs to chose a facility. Physical Exam Vital Signs: Temp Pulse Resp BP Pulse Ox 98.1 F 81 20 133/49 H 97 11/30/17 08:23 11/30/17 08:23 11/30/17 08:23 11/30/17 08:23 11/30/17 08:23 Intake & Output 11/29/17 11/30/17 12/01/17 06:59 06:59 06:59 Intake Total 622 225 Output Total 1300 1375 Balance -678 -1150 Weight 69.9 kg 64.8 kg General appearance: PRESENT: no acute distress, thin Head exam: PRESENT: normocephalic Eye exam: PRESENT: EOMI, PERRLA Neck exam: ABSENT: carotid bruit, JVD, lymphadenopathy, thyromegaly Respiratory exam: PRESENT: clear to auscultation neo. ABSENT: rales, rhonchi, wheezes Cardiovascular exam: PRESENT: RRR. ABSENT: diastolic murmur, rubs, systolic murmur GI/Abdominal exam: PRESENT: normal bowel sounds, soft. ABSENT: distended, guarding, mass, organolmegaly, rebound, tenderness Extremities exam: PRESENT: +2 edema - BLE/BUE Neurological exam: PRESENT: alert, awake, oriented to person, oriented to place , oriented to time, oriented to situation, CN II-XII grossly intact. ABSENT: motor sensory deficit Results Laboratory Results: 11/27/17 06:54 11/30/17 08:15 11/30/17 08:15 Sodium 134.0 L Potassium 4.6 Chloride 103 Carbon Dioxide 26 Anion Gap 5 BUN 34 H Creatinine 0.51 L Est GFR ( Amer) > 60 Est GFR (Non-Af Amer) > 60 Glucose 80 Calcium 8.0 L Magnesium 1.3 L Impressions: Knee X-Ray 11/24/17 00:00 IMPRESSION: Slightly oblique fracture of the distal femur as noted above. No other evidence for fracture is seen. Other findings as noted above Humerus X-Ray 11/24/17 12:01 IMPRESSION: The previously described proximal humeral metaphyseal fracture is again identified. On the current study there is a fracture involving the medial cortex as noted above which could represent an acute fracture superimposed on the underlying fracture. No other evidence for fracture is seen. Other findings as noted above Lower Extremity CT 11/26/17 00:00 IMPRESSION: Hairline nondisplaced incomplete fracture through the posterior distal right femoral metaphysis correlates with plain films from 11/24/2017 No large right distal thigh hematoma. Upper Extremity CT 11/26/17 00:00 IMPRESSION: Subacute fracture, right surgical neck humerus with mild foreshortening or impaction at the fracture site. No significant angulation. Minimal surrounding callus formation. The large right upper arm or axilla region hematoma or fluid collection. Trace bilateral pleural effusions with bilateral dependent atelectasis in the lower lobes Chest X-Ray 11/26/17 01:27 IMPRESSION: 1. Right perihilar opacity and left retrocardiac opacity may represent developing pneumonia or atelectasis. Continued radiographic follow-up recommended. 2. Blunting of the left costophrenic angle may be related to small pleural effusion or pleural thickening. Assessment & Plan - Diagnosis (1) Closed right femoral fracture Qualifiers: Encounter type: subsequent encounter Femur location: shaft Fracture morphology: oblique Fracture alignment: nondisplaced Is this a current diagnosis for this admission?: Yes Plan: Continue with immobilizer. She has acetaminophen and oxycodone as needed for pain. Rehabilitation pending. She needs to chose a facility. I "gave" her the list that was given to her by case management. (2) Fracture, humerus closed Qualifiers: Encounter type: initial encounter Humerus Location: proximal Fracture morphology: other fracture Fracture alignment: displaced Laterality: right Qualified Code(s): S42.291A - Other displaced fracture of upper end of right humerus, initial encounter for closed fracture Is this a current diagnosis for this admission?: Yes Plan: Continue sling for additional 2 weeks (3) Anemia Qualifiers: Anemia type: iron deficiency Iron deficiency anemia type: inadequate dietary iron intake Qualified Code(s): D50.8 - Other iron deficiency anemias Is this a current diagnosis for this admission?: Yes Plan: Continue current iron supplementation (4) Diabetes mellitus with neuropathy Qualifiers: Diabetes mellitus type: type 2 Diabetes mellitus senior care insulin use: unspecified senior care insulin use status Qualified Code(s): E11.40 - Type 2 diabetes mellitus with diabetic neuropathy, unspecified Is this a current diagnosis for this admission?: Yes Plan: Controlled. Continue Lantus 10 units at bedtime. (5) Hypothyroid Qualifiers: Hypothyroidism type: acquired Qualified Code(s): E03.9 - Hypothyroidism, unspecified Is this a current diagnosis for this admission?: Yes Plan: Check TSH (6) Peripheral edema Is this a current diagnosis for this admission?: Yes Plan: Continue torsemide. - Time Time Spent with patient: 15-24 minutes Medications reviewed and adjusted accordingly: Yes Anticipated discharge: SNF Within: within 36 hours
[2017-11-30] MEDS: DOCUSATE SODIUM 100 MG CAPSULE PO SCH (09:54)
[2017-11-30] MEDS ORDERED: ERGOCALCIFEROL (VITAMIN D2) 50000 UNIT (1.25 MG) CAPSULE PO SCH (10:00)
[2017-11-30] MEDS: POLYETHYLENE GLYCOL 3350 POWDER 17 GM/1 PACKET PO SCH (10:32)
[2017-11-30] MEDS: MAGNESIUM SULFATE/D5W 1 GM/100 ML RTUPB IV SCH ×2 (10:34→11:43)
[2017-11-30] MEDS: IRON POLYSACCHARIDES COMPLEX 150 MG CAPSULE PO SCH (10:34)
[2017-11-30] MEDS: FLUTICASONE NASAL SPRAY 50 MCG/SPRY 120 SPRAY/16 GM NASL SCH ×2 (10:34→21:17)
[2017-11-30] MEDS: TORSEMIDE 20 MG TABLET PO SCH (10:35)
[2017-11-30] MEDS: INSULIN LISPRO 100 UNIT/ML 3 ML VIAL SUBCUT PRN ×2 (18:09→21:23)
[2017-11-30] MEDS: LIDOCAINE 5% (700 MG) TRANSDERMAL ADH..PATCH TP SCH (21:18)
[2017-11-30] MEDS: CALCIUM CARBONATE 500 MG TABLET PO SCH (21:18)
[2017-11-30] MEDS: ENOXAPARIN SODIUM INJ 40 MG/0.4 ML DISP.SYRIN SUBCUT SCH (21:18)
[2017-11-30] MEDS: OMEGA-3 ACID ETHYL ESTERS 1 GM CAPSULE PO SCH (21:18)
[2017-11-30] MEDS: GABAPENTIN 300 MG CAPSULE PO SCH (21:18)
[2017-11-30] MEDS: FOLIC ACID 1 MG TABLET PO SCH (21:18)
[2017-11-30] MEDS: INSULIN GLARGINE,HUM.REC.ANLOG 300 UNIT/3 ML INSULN.PEN SUBCUT SCH (21:19)
[2017-12-01] MEDS: IPRATROPIUM/ALBUTEROL 0.5-2.5 MG/3 ML AMPUL NEB SCH ×2 (00:21→08:23)
[2017-12-01] MEDS: OXYCODONE HCL IR 5 MG TABLET PO PRN ×2 (01:46→06:16)
[2017-12-01] MEDS: LEVOTHYROXINE SODIUM 0.075 MG TABLET PO SCH (06:16)
[2017-12-01] MEDS: ACETAMINOPHEN 325 MG TABLET PO SCH ×3 (06:16→22:57)
[2017-12-01] MEDS: LEVOTHYROXINE SODIUM 0.1 MG TABLET PO SCH (06:16)
[2017-12-01 07:21] LABS: ANION GAP 5 (5-19); BLOOD UREA NITROGEN 31 mg/dL (7-20); CARBON DIOXIDE 28 mmol/L (22-30); CHLORIDE 100 mmol/L (98-107); POTASSIUM 4.6 mmol/L (3.6-5.0); SODIUM 133.3 mmol/L (137-145)
[2017-12-01 07:33] LABS: GLUCOSE 32 mg/dL (75-110)
[2017-12-01] MEDS: IRON POLYSACCHARIDES COMPLEX 150 MG CAPSULE PO SCH (09:00)
[2017-12-01] MEDS: FLUTICASONE NASAL SPRAY 50 MCG/SPRY 120 SPRAY/16 GM NASL SCH ×2 (09:01→22:58)
[2017-12-01] MEDS: TORSEMIDE 20 MG TABLET PO SCH (09:01)
[2017-12-01] MEDS: DOCUSATE SODIUM 100 MG CAPSULE PO SCH (09:01)
[2017-12-01] MEDS ORDERED: ONDANSETRON 4 MG TAB.RAPDIS PO PRN (10:00)
[2017-12-01] MEDS ORDERED: SIMETHICONE 80 MG TAB.CHEW PO ONE (10:04)
[2017-12-01] MEDS ORDERED: SIMETHICONE 80 MG TAB.CHEW PO PRN (10:04)
[2017-12-01] MEDS ORDERED: TAMSULOSIN HCL 0.4 MG CAP.SR.24H PO ONE (10:30)
--- NOTE | 2017-12-01 10:40 | PROGRESS NOTE E ---
Progress Note NAME: KENNEDY MEDEIROS : 1950 AGE: 67Y DATE: 12/01/2017 ROOM: 420 SUBJECTIVE: The patient is currently lying in bed. The patient is awake and alert. The patient does complain of some abdominal bloating. It appears though the patient did have a bowel movement yesterday and then had 2 the day before, but the patient denies any diarrhea. The patient is a little groggy. It appears the patient did have some hypoglycemia this morning. Asked the patient about it and she stated that she does not normally take insulin at home and would like to be back on her own metformin. The patient does not voice any other specific concerns at this time. REVIEW OF SYSTEMS: Rest of the review of systems negative. MEDICATIONS: Have been reviewed. OBJECTIVE: GENERAL: The patient is a 67-year-old female who is awake and alert but is groggy but easily awakens. Does not appear to be distressed. VITAL SIGNS: Temperature 98.4, pulse 68, respirations 20, blood pressure 129/55, oxygen saturation is 96% on room air. SKIN: Warm and dry. No rash. She is not diaphoretic. She is overall pale. HEENT: Pupils equal, round, reactive to light and accommodation. Conjunctivae are pink. There is no evidence of JVP. CARDIOVASCULAR: Heart is regular. There is no murmur or rub. CHEST: Clear, symmetrical, unlabored. ABDOMEN: Mildly distended. No area of focal tenderness. EXTREMITIES: No clubbing or cyanosis. There is 1+ edema. The patient does have immobilizer on the right lower extremity and the right humerus. PSYCHIATRIC: The patient is sleepy. DIAGNOSTICS: Lab values are as follows: Hematology obtained on 11/27/2017: WBCs are 7.1, hemoglobin is 8.9, hematocrit is 27.1, platelet count is 296,000. Coagulation obtained on 11/24/2017: PT is 18.5, INR is 1.45. Chemistry obtained on 12/02/2107: Sodium is 133, potassium 4.6, chloride is 100, carbon dioxide 28, BUN 31, creatinine is 0.41, glucose 79, calcium is 8.0, magnesium is 1.6. IMPRESSION AND PLAN: 1. RIGHT CLOSED FEMORAL FRACTURE. Continue with immobilizer. The patient dose have acetaminophen and oxycodone as needed for pain. The patient has decided to go to rehab currently. Do appreciate social work input with this. The patient is currently awaiting rehab placement. 2. CLOSED HUMERAL FRACTURE. The patient will be in a sling for an additional 2 weeks. 3. DIABETES MELLITUS TYPE 2 WITH NEUROPATHY. The patient did have hypoglycemia this morning. Will discontinue the patient's Lantus at bedtime as this new for her and she was hypoglycemic this morning. Resume home metformin and continue sliding scale coverage, and will address this accordingly. 4. ANEMIA MOST LIKELY OF UNDERLYING CHRONIC DISEASE. Continue to supplement iron. 5. HYPOTHYROIDISM. Will continue the patient's levothyroxine. 6. PERIPHERAL EDEMA. This does appear to be somewhat dependent. Have encouraged mobility as per physical therapy. The patient is on torsemide. Overall appears improved. DISPOSITION: The patient is a FULL CODE. Pending patient's symptomatology and diagnostic findings, will reevaluate in the a.m. Time spent on this followup including assessment, plan, physical examination, patient education, and review of records is 30 minutes. DICTATING PHYSICIAN: ANTONIO COOPER NP [id number] PHY#: [id number] ID: [id number] JOB#: [id number] ACCT: [id number] cc: >
[2017-12-01] MEDS ORDERED: METFORMIN HCL 500 MG TABLET PO ONE (11:00)
[2017-12-01] MEDS: POLYETHYLENE GLYCOL 3350 POWDER 17 GM/1 PACKET PO SCH (14:12)
[2017-12-01] MEDS ORDERED: (PENDING PHARMACY ID) (Metformin Hcl [Metformin Hcl Er] 500 MG) PO SCH (16:00)
[2017-12-01] MEDS: METFORMIN HCL 500 MG TABLET PO SCH (17:17)
[2017-12-01] MEDS: INSULIN LISPRO 100 UNIT/ML 3 ML VIAL SUBCUT PRN ×2 (17:17→23:26)
[2017-12-01] MEDS: CALCIUM CARBONATE 500 MG TABLET PO SCH (22:57)
[2017-12-01] MEDS: FOLIC ACID 1 MG TABLET PO SCH (22:57)
[2017-12-01] MEDS: LIDOCAINE 5% (700 MG) TRANSDERMAL ADH..PATCH TP SCH (22:57)
[2017-12-01] MEDS: OMEGA-3 ACID ETHYL ESTERS 1 GM CAPSULE PO SCH (22:57)
[2017-12-01] MEDS: GABAPENTIN 300 MG CAPSULE PO SCH (22:57)
[2017-12-01] MEDS: ENOXAPARIN SODIUM INJ 40 MG/0.4 ML DISP.SYRIN SUBCUT SCH (23:25)
[2017-12-02] MEDS: LEVOTHYROXINE SODIUM 0.075 MG TABLET PO SCH (05:12)
[2017-12-02] MEDS: LEVOTHYROXINE SODIUM 0.1 MG TABLET PO SCH (05:13)
[2017-12-02] MEDS: ACETAMINOPHEN 325 MG TABLET PO SCH ×3 (05:13→22:16)
[2017-12-02] MEDS: METFORMIN HCL 500 MG TABLET PO SCH ×2 (07:25→18:18)
[2017-12-02] MEDS: OXYCODONE HCL IR 5 MG TABLET PO PRN ×3 (07:27→19:07)
[2017-12-02] MEDS: INSULIN LISPRO 100 UNIT/ML 3 ML VIAL SUBCUT PRN ×3 (07:38→22:32)
[2017-12-02] MEDS: TORSEMIDE 20 MG TABLET PO SCH (10:24)
[2017-12-02] MEDS: IRON POLYSACCHARIDES COMPLEX 150 MG CAPSULE PO SCH (10:25)
[2017-12-02] MEDS: FLUTICASONE NASAL SPRAY 50 MCG/SPRY 120 SPRAY/16 GM NASL SCH ×2 (10:26→22:16)
[2017-12-02] MEDS: DOCUSATE SODIUM 100 MG CAPSULE PO SCH (10:32)
[2017-12-02] MEDS: PHARMACY COMMUNICATION ORDER MC SCH (10:34)
[2017-12-02] MEDS ORDERED: NICOTINE 7 MG/24 HR PATCH.TD24 TD PRN (11:14)
[2017-12-02] MEDS: POLYETHYLENE GLYCOL 3350 POWDER 17 GM/1 PACKET PO SCH (12:35)
--- NOTE | 2017-12-02 17:48 | PDOC PROGRESS REPORT ---
Subjective Progress Note for:: 12/02/17 Subjective:: 67 yo with right humerus and right femur fractures with continued pain complaints. Continue PRN pain medications. Patient agrees to rehab at discharge. Rehab destination pending. Reason For Visit: HUMERAL FRACTURE,ACUTE PAIN,ANEMIA Physical Exam Vital Signs: Temp Pulse Resp BP Pulse Ox 97.9 F 79 20 120/52 L 95 12/02/17 15:06 12/02/17 15:06 12/02/17 15:06 12/02/17 15:06 12/02/17 15:06 Intake & Output 12/01/17 12/02/17 12/03/17 06:59 06:59 06:59 Intake Total 850 1104 360 Output Total 1700 2250 350 Balance -850 -1146 10 Weight 64.9 kg 64.7 kg General appearance: PRESENT: no acute distress. ABSENT: cooperative, morbidly obese Head exam: PRESENT: atraumatic, normocephalic Eye exam: PRESENT: EOMI, PERRLA Ear exam: PRESENT: normal external ear exam. ABSENT: bleeding Mouth exam: PRESENT: moist, neck supple Throat exam: ABSENT: tonsillar erythema, tonsillar exudate Neck exam: PRESENT: full ROM. ABSENT: thyromegaly Respiratory exam: ABSENT: accessory muscle use, crackles, retraction, rhonchi Cardiovascular exam: PRESENT: RRR, +S1, +S2 Pulses: PRESENT: normal radial pulses. ABSENT: normal dorsalis pedis pul Vascular exam: PRESENT: normal capillary refill. ABSENT: pallor GI/Abdominal exam: PRESENT: normal bowel sounds, soft. ABSENT: diminished bowel sounds, distended, firm, rigid Extremities exam: ABSENT: calf tenderness, joint swelling Musculoskeletal exam: PRESENT: full ROM. ABSENT: ambulatory Neurological exam: PRESENT: awake, oriented to person, oriented to place, oriented to time, CN II-XII grossly intact Psychiatric exam: ABSENT: agitated, anxious Focused psych exam: ABSENT: catatonic, delusional, euphoric Skin exam: ABSENT: abrasion, normal color, pallor Results Laboratory Results: 11/27/17 06:54 12/01/17 05:06 Impressions: Knee X-Ray 11/24/17 00:00 IMPRESSION: Slightly oblique fracture of the distal femur as noted above. No other evidence for fracture is seen. Other findings as noted above Humerus X-Ray 11/24/17 12:01 IMPRESSION: The previously described proximal humeral metaphyseal fracture is again identified. On the current study there is a fracture involving the medial cortex as noted above which could represent an acute fracture superimposed on the underlying fracture. No other evidence for fracture is seen. Other findings as noted above Lower Extremity CT 11/26/17 00:00 IMPRESSION: Hairline nondisplaced incomplete fracture through the posterior distal right femoral metaphysis correlates with plain films from 11/24/2017 No large right distal thigh hematoma. Upper Extremity CT 11/26/17 00:00 IMPRESSION: Subacute fracture, right surgical neck humerus with mild foreshortening or impaction at the fracture site. No significant angulation. Minimal surrounding callus formation. The large right upper arm or axilla region hematoma or fluid collection. Trace bilateral pleural effusions with bilateral dependent atelectasis in the lower lobes Chest X-Ray 11/26/17 01:27 IMPRESSION: 1. Right perihilar opacity and left retrocardiac opacity may represent developing pneumonia or atelectasis. Continued radiographic follow-up recommended. 2. Blunting of the left costophrenic angle may be related to small pleural effusion or pleural thickening. Assessment & Plan - Inpatient Certification Based on my medical assessment, after consideration of the patient's comorbidities, presenting symptoms, or acuity I expect that the services needed warrant INPATIENT care.: Yes I certify that my determination is in accordance with my understanding of Medicare's requirements for reasonable and necessary INPATIENT services [42 CFR 412.3e].: Yes Medical Necessity: Need for Pain Control - Plan Summary Plan Summary: (1) Closed right femoral fracture Patient wearing immobilizer. continue acetaminophen and oxycodone as needed for pain. Rehabilitation pending. she was encouraged to choose a facility for transfer for rehab. d/c medical planner to assist her. (2) Fracture, humerus closed Continue sling for additional 2 weeks f/u with orthopedics in OP. (3) Anemia Continue current iron supplementation stable, monitor (4) Diabetes mellitus with neuropathy lantus was d/c due to hypoglycemia continue SSI, monitor BS. (5) Hypothyroid Check TSH and free T4 (6) Peripheral edema Continue torsemide home dose clinically, she is compensated
[2017-12-02] MEDS: ENOXAPARIN SODIUM INJ 40 MG/0.4 ML DISP.SYRIN SUBCUT SCH (22:15)
[2017-12-02] MEDS: CALCIUM CARBONATE 500 MG TABLET PO SCH (22:15)
[2017-12-02] MEDS: OMEGA-3 ACID ETHYL ESTERS 1 GM CAPSULE PO SCH (22:15)
[2017-12-02] MEDS: GABAPENTIN 300 MG CAPSULE PO SCH (22:15)
[2017-12-02] MEDS: FOLIC ACID 1 MG TABLET PO SCH (22:15)
[2017-12-02] MEDS: LIDOCAINE 5% (700 MG) TRANSDERMAL ADH..PATCH TP SCH (22:24)
[2017-12-03] MEDS: ACETAMINOPHEN 325 MG TABLET PO SCH ×3 (05:42→21:50)
[2017-12-03] MEDS: LEVOTHYROXINE SODIUM 0.1 MG TABLET PO SCH (05:42)
[2017-12-03] MEDS: LEVOTHYROXINE SODIUM 0.075 MG TABLET PO SCH (05:42)
[2017-12-03 06:40] LABS: HEMATOCRIT 25.9 % (36.0-47.0); HEMOGLOBIN 8.4 g/dL (12.0-15.5); MEAN CORPUSCULAR HEMOGLOBIN 25.7 pg (27.0-33.4); MEAN CORPUSCULAR HGB CONC 32.4 g/dL (32.0-36.0); MEAN CORPUSCULAR VOLUME 80 fl (80-97); PLATELET COUNT 398 10^3/uL (150-450); RED BLOOD COUNT 3.26 10^6/uL (3.72-5.28); RED CELL DISTRIBUTION WIDTH 16.8 % (11.5-14.0); WHITE BLOOD COUNT 5.5 10^3/uL (4.0-10.5)
[2017-12-03 07:04] LABS: ALBUMIN 2.2 g/dL (3.5-5.0); ANION GAP 7 (5-19); BLOOD UREA NITROGEN 33 mg/dL (7-20); CALCIUM 8.2 mg/dL (8.4-10.2); CARBON DIOXIDE 29 mmol/L (22-30); CHLORIDE 97 mmol/L (98-107); GLUCOSE 175 mg/dL (75-110); PHOSPHORUS 3.8 mg/dL (2.5-4.5); POTASSIUM 4.8 mmol/L (3.6-5.0); SODIUM 133.1 mmol/L (137-145)
[2017-12-03 07:13] LABS: FREE T4 (FREE THYROXINE) 1.42 ng/dL (0.78-2.19)
[2017-12-03 07:27] LABS: THYROID STIMULATING HORMONE 7.85 uIU/mL (0.47-4.68)
[2017-12-03] MEDS: OXYCODONE HCL IR 5 MG TABLET PO PRN ×4 (08:06→21:51)
[2017-12-03] MEDS: METFORMIN HCL 500 MG TABLET PO SCH ×2 (08:06→16:59)
[2017-12-03] MEDS: INSULIN LISPRO 100 UNIT/ML 3 ML VIAL SUBCUT PRN ×4 (08:10→22:52)
[2017-12-03] MEDS: IRON POLYSACCHARIDES COMPLEX 150 MG CAPSULE PO SCH (09:28)
[2017-12-03] MEDS: FLUTICASONE NASAL SPRAY 50 MCG/SPRY 120 SPRAY/16 GM NASL SCH ×2 (09:28→21:53)
[2017-12-03] MEDS: TORSEMIDE 20 MG TABLET PO SCH (09:29)
[2017-12-03] MEDS: DOCUSATE SODIUM 100 MG CAPSULE PO SCH (09:30)
[2017-12-03] MEDS: PHARMACY COMMUNICATION ORDER MC SCH (09:30)
[2017-12-03] MEDS: POLYETHYLENE GLYCOL 3350 POWDER 17 GM/1 PACKET PO SCH (12:01)
--- NOTE | 2017-12-03 20:57 | PDOC PROGRESS REPORT ---
Subjective Progress Note for:: 12/03/17 Subjective:: Patient declined rehab placement due to her fear of cost. D/C finished goods planner assured her that her insurance covered 100% of the cost, but patient did not trust this. Will have SNF representatives come talk to patient. She is not mobile and can not do her ADLs at present. Describes her as a limited alcoholic unable to care for her. No safe disposition at present. Reason For Visit: HUMERAL FRACTURE,ACUTE PAIN,ANEMIA Physical Exam Vital Signs: Temp Pulse Resp BP Pulse Ox 97.7 F 70 18 125/51 L 93 12/03/17 15:00 12/03/17 15:00 12/03/17 15:00 12/03/17 15:00 12/03/17 15:00 Intake & Output 12/02/17 12/03/17 12/04/17 06:59 06:59 06:59 Intake Total 9420 801 0900 Output Total 2250 350 4 Balance -1698 385 4122 Weight 64.7 kg 60.7 kg General appearance: PRESENT: no acute distress, cooperative Head exam: PRESENT: atraumatic, normocephalic Eye exam: PRESENT: EOMI, PERRLA Mouth exam: PRESENT: moist, neck supple Neck exam: PRESENT: full ROM. ABSENT: carotid bruit, JVD Respiratory exam: ABSENT: rales, rhonchi, wheezes Cardiovascular exam: PRESENT: RRR, +S1, +S2 Pulses: PRESENT: normal radial pulses, normal dorsalis pedis pul Vascular exam: PRESENT: normal capillary refill. ABSENT: pallor GI/Abdominal exam: ABSENT: ascites, distended, firm Extremities exam: ABSENT: clubbing, joint swelling Musculoskeletal exam: PRESENT: full ROM, normal inspection Neurological exam: PRESENT: alert, oriented to person, oriented to place, oriented to time, CN II-XII grossly intact Psychiatric exam: ABSENT: agitated, anxious Focused psych exam: ABSENT: delusional, paranoid Skin exam: ABSENT: abrasion, cyanosis, dry Results Laboratory Results: 12/03/17 05:50 12/03/17 05:50 12/03/17 12/03/17 12/03/17 05:50 05:50 05:50 WBC 5.5 RBC 3.26 L Hgb 8.4 L Hct 25.9 L MCV 80 MCH 25.7 L MCHC 32.4 RDW 16.8 H Plt Count 398 Sodium 133.1 L Potassium 4.8 Chloride 97 L Carbon Dioxide 29 Anion Gap 7 BUN 33 H Creatinine 0.53 Est GFR ( Amer) > 60 Est GFR (Non-Af Amer) > 60 Glucose 175 H Calcium 8.2 L Phosphorus 3.8 Albumin 2.2 L TSH 7.85 H Free T4 1.42 Impressions: Knee X-Ray 11/24/17 00:00 IMPRESSION: Slightly oblique fracture of the distal femur as noted above. No other evidence for fracture is seen. Other findings as noted above Humerus X-Ray 11/24/17 12:01 IMPRESSION: The previously described proximal humeral metaphyseal fracture is again identified. On the current study there is a fracture involving the medial cortex as noted above which could represent an acute fracture superimposed on the underlying fracture. No other evidence for fracture is seen. Other findings as noted above Lower Extremity CT 11/26/17 00:00 IMPRESSION: Hairline nondisplaced incomplete fracture through the posterior distal right femoral metaphysis correlates with plain films from 11/24/2017 No large right distal thigh hematoma. Upper Extremity CT 11/26/17 00:00 IMPRESSION: Subacute fracture, right surgical neck humerus with mild foreshortening or impaction at the fracture site. No significant angulation. Minimal surrounding callus formation. The large right upper arm or axilla region hematoma or fluid collection. Trace bilateral pleural effusions with bilateral dependent atelectasis in the lower lobes Chest X-Ray 11/26/17 01:27 IMPRESSION: 1. Right perihilar opacity and left retrocardiac opacity may represent developing pneumonia or atelectasis. Continued radiographic follow-up recommended. 2. Blunting of the left costophrenic angle may be related to small pleural effusion or pleural thickening. Assessment & Plan - Inpatient Certification I certify that my determination is in accordance with my understanding of Medicare's requirements for reasonable and necessary INPATIENT services [42 CFR 412.3e].: Yes Medical Necessity: Need for Pain Control - Plan Summary Plan Summary: (1) Closed right femoral fracture Patient wearing immobilizer. continue acetaminophen and oxycodone as needed for pain. she now declines rehab placement due to cost, but d/c finished goods planner states that she will have no cost to bear will have SNF potentials talk to her and confirm no cost expected. (2) Fracture, humerus closed Continue sling for additional 2 weeks f/u with orthopedics in OP. (3) Anemia Continue current iron supplementation stable, monitor (4) Diabetes mellitus with neuropathy lantus was d/c due to hypoglycemia continue SSI, monitor BS. increase metformin to 500 BID (5) Hypothyroid elevation in tsh, but free t4 in normal range continue home medications (6) Peripheral edema Continue torsemide home dose clinically, she is compensated
[2017-12-03] MEDS: ENOXAPARIN SODIUM INJ 40 MG/0.4 ML DISP.SYRIN SUBCUT SCH (21:50)
[2017-12-03] MEDS: FOLIC ACID 1 MG TABLET PO SCH (21:51)
[2017-12-03] MEDS: CALCIUM CARBONATE 500 MG TABLET PO SCH (21:51)
[2017-12-03] MEDS: GABAPENTIN 300 MG CAPSULE PO SCH (21:57)
[2017-12-03] MEDS ORDERED: LIDOCAINE 5% (700 MG) TRANSDERMAL ADH..PATCH ONE (22:20)
[2017-12-03] MEDS: LIDOCAINE 5% (700 MG) TRANSDERMAL ADH..PATCH TP SCH (22:50)
[2017-12-03] MEDS: OMEGA-3 ACID ETHYL ESTERS 1 GM CAPSULE PO SCH (22:51)
[2017-12-04] MEDS: OXYCODONE HCL IR 5 MG TABLET PO PRN ×3 (03:39→19:47)
[2017-12-04] MEDS: LEVOTHYROXINE SODIUM 0.1 MG TABLET PO SCH (06:22)
[2017-12-04] MEDS: ACETAMINOPHEN 325 MG TABLET PO SCH ×3 (06:22→22:02)
[2017-12-04] MEDS: LEVOTHYROXINE SODIUM 0.075 MG TABLET PO SCH (06:22)
[2017-12-04] MEDS: METFORMIN HCL 500 MG TABLET PO SCH ×2 (08:59→16:53)
[2017-12-04] MEDS: INSULIN LISPRO 100 UNIT/ML 3 ML VIAL SUBCUT PRN ×2 (08:59→13:30)
[2017-12-04] MEDS: DOCUSATE SODIUM 100 MG CAPSULE PO SCH (10:52)
[2017-12-04] MEDS: FLUTICASONE NASAL SPRAY 50 MCG/SPRY 120 SPRAY/16 GM NASL SCH ×2 (10:52→22:06)
[2017-12-04] MEDS: IRON POLYSACCHARIDES COMPLEX 150 MG CAPSULE PO SCH (10:53)
[2017-12-04] MEDS: TORSEMIDE 20 MG TABLET PO SCH (10:53)
[2017-12-04] MEDS: PHARMACY COMMUNICATION ORDER MC SCH (10:54)
[2017-12-04] MEDS: POLYETHYLENE GLYCOL 3350 POWDER 17 GM/1 PACKET PO SCH (11:28)
--- NOTE | 2017-12-04 21:06 | PDOC PROGRESS REPORT ---
Subjective Progress Note for:: 12/04/17 Subjective:: Patient is now in agreement to go to rehab after this hospitalization. I spoke with her family and emphasized that this was her best option. D/C planning working on an acceptable rehab. Patient describes her spouse as an alcoholic that can not support her much. Patient was in a more irritated mood today. Reason For Visit: HUMERAL FRACTURE,ACUTE PAIN,ANEMIA Physical Exam Vital Signs: Temp Pulse Resp BP Pulse Ox 97.6 F 83 19 120/51 L 91 L 12/04/17 15:54 12/04/17 15:54 12/04/17 15:54 12/04/17 15:54 12/04/17 15:54 Intake & Output 12/03/17 12/04/17 12/05/17 06:59 06:59 06:59 Intake Total 610 1250 828 Output Total 350 204 750 Balance 260 1046 78 Weight 60.7 kg 60.7 kg General appearance: PRESENT: no acute distress, cooperative Head exam: PRESENT: atraumatic, normocephalic Eye exam: PRESENT: EOMI, PERRLA Mouth exam: PRESENT: moist, neck supple Neck exam: PRESENT: full ROM. ABSENT: JVD, tenderness Respiratory exam: ABSENT: accessory muscle use, rales, rhonchi, wheezes Cardiovascular exam: PRESENT: RRR, +S1, +S2 Pulses: PRESENT: normal radial pulses, normal dorsalis pedis pul Vascular exam: PRESENT: normal capillary refill. ABSENT: pallor GI/Abdominal exam: PRESENT: normal bowel sounds. ABSENT: ascites, distended, firm, mass Extremities exam: ABSENT: calf tenderness, joint swelling Musculoskeletal exam: PRESENT: full ROM. ABSENT: ambulatory Neurological exam: PRESENT: alert, oriented to person, oriented to place, oriented to time, CN II-XII grossly intact Psychiatric exam: PRESENT: agitated, anxious. ABSENT: manic Focused psych exam: ABSENT: delusional, paranoid Skin exam: ABSENT: abrasion, cyanosis, mottled Results Laboratory Results: 12/03/17 05:50 12/03/17 05:50 Impressions: Knee X-Ray 11/24/17 00:00 IMPRESSION: Slightly oblique fracture of the distal femur as noted above. No other evidence for fracture is seen. Other findings as noted above Humerus X-Ray 11/24/17 12:01 IMPRESSION: The previously described proximal humeral metaphyseal fracture is again identified. On the current study there is a fracture involving the medial cortex as noted above which could represent an acute fracture superimposed on the underlying fracture. No other evidence for fracture is seen. Other findings as noted above Lower Extremity CT 11/26/17 00:00 IMPRESSION: Hairline nondisplaced incomplete fracture through the posterior distal right femoral metaphysis correlates with plain films from 11/24/2017 No large right distal thigh hematoma. Upper Extremity CT 11/26/17 00:00 IMPRESSION: Subacute fracture, right surgical neck humerus with mild foreshortening or impaction at the fracture site. No significant angulation. Minimal surrounding callus formation. The large right upper arm or axilla region hematoma or fluid collection. Trace bilateral pleural effusions with bilateral dependent atelectasis in the lower lobes Chest X-Ray 11/26/17 01:27 IMPRESSION: 1. Right perihilar opacity and left retrocardiac opacity may represent developing pneumonia or atelectasis. Continued radiographic follow-up recommended. 2. Blunting of the left costophrenic angle may be related to small pleural effusion or pleural thickening. Assessment & Plan - Plan Summary Plan Summary: (1) Closed right femoral fracture Patient wearing immobilizer. continue acetaminophen and oxycodone as needed for pain. she accepts rehab at d/c d/c production planner working on placement f/u with orthopedics after d/c (2) Fracture, humerus closed Continue sling for additional 2 weeks f/u with orthopedics in OP. (3) Anemia Continue current iron supplementation stable, monitor (4) Diabetes mellitus with neuropathy continue SSI, monitor BS. increase metformin to 500 BID monitor BS (5) Hypothyroid elevation in tsh, but free t4 in normal range continue home medications (6) Peripheral edema Continue torsemide home dose clinically, she is compensated
[2017-12-04] MEDS: CALCIUM CARBONATE 500 MG TABLET PO SCH (22:03)
[2017-12-04] MEDS: OMEGA-3 ACID ETHYL ESTERS 1 GM CAPSULE PO SCH (22:03)
[2017-12-04] MEDS: GABAPENTIN 300 MG CAPSULE PO SCH (22:03)
[2017-12-04] MEDS: FOLIC ACID 1 MG TABLET PO SCH (22:04)
[2017-12-04] MEDS: ENOXAPARIN SODIUM INJ 40 MG/0.4 ML DISP.SYRIN SUBCUT SCH (22:04)
[2017-12-04] MEDS: LIDOCAINE 5% (700 MG) TRANSDERMAL ADH..PATCH TP SCH (22:05)
[2017-12-05] MEDS: OXYCODONE HCL IR 5 MG TABLET PO PRN ×3 (04:07→13:31)
[2017-12-05 05:09] LABS: HEMATOCRIT 25.7 % (36.0-47.0); HEMOGLOBIN 8.4 g/dL (12.0-15.5); MEAN CORPUSCULAR HEMOGLOBIN 26.1 pg (27.0-33.4); MEAN CORPUSCULAR HGB CONC 32.6 g/dL (32.0-36.0); MEAN CORPUSCULAR VOLUME 80 fl (80-97); PLATELET COUNT 460 10^3/uL (150-450); RED BLOOD COUNT 3.21 10^6/uL (3.72-5.28); RED CELL DISTRIBUTION WIDTH 16.3 % (11.5-14.0); WHITE BLOOD COUNT 8.1 10^3/uL (4.0-10.5)
[2017-12-05 05:30] LABS: ALBUMIN 2.2 g/dL (3.5-5.0); ANION GAP 9 (5-19); BLOOD UREA NITROGEN 35 mg/dL (7-20); CALCIUM 7.9 mg/dL (8.4-10.2); CARBON DIOXIDE 24 mmol/L (22-30); CHLORIDE 99 mmol/L (98-107); GLUCOSE 275 mg/dL (75-110); PHOSPHORUS 3.8 mg/dL (2.5-4.5); POTASSIUM 4.9 mmol/L (3.6-5.0); SODIUM 131.8 mmol/L (137-145)
[2017-12-05] MEDS: ACETAMINOPHEN 325 MG TABLET PO SCH ×3 (05:53→21:16)
[2017-12-05] MEDS: LEVOTHYROXINE SODIUM 0.075 MG TABLET PO SCH (05:54)
[2017-12-05] MEDS: LEVOTHYROXINE SODIUM 0.1 MG TABLET PO SCH (05:54)
[2017-12-05] MEDS: DOCUSATE SODIUM 100 MG CAPSULE PO SCH (09:48)
[2017-12-05] MEDS: IRON POLYSACCHARIDES COMPLEX 150 MG CAPSULE PO SCH (09:48)
[2017-12-05] MEDS: METFORMIN HCL 500 MG TABLET PO SCH ×2 (09:48→18:51)
[2017-12-05] MEDS: FLUTICASONE NASAL SPRAY 50 MCG/SPRY 120 SPRAY/16 GM NASL SCH ×2 (09:49→21:16)
[2017-12-05] MEDS: INSULIN LISPRO 100 UNIT/ML 3 ML VIAL SUBCUT PRN ×3 (09:50→18:51)
[2017-12-05] MEDS: PHARMACY COMMUNICATION ORDER MC SCH (09:51)
[2017-12-05] MEDS: POLYETHYLENE GLYCOL 3350 POWDER 17 GM/1 PACKET PO SCH (13:29)
[2017-12-05] MEDS: TORSEMIDE 20 MG TABLET PO SCH (13:33)
[2017-12-05] MEDS ORDERED: INSULIN GLARGINE,HUM.REC.ANLOG 1,000 UNIT/10 ML UNIT SUBCUT ONE (16:18)
--- NOTE | 2017-12-05 16:58 | PDOC TRANSFER SUMMARY ---
General - Admit/Disc Date/PCP Admission Date/Primary Care Provider: 11/24/17 15:41 WES GU MD Discharge Date: 12/05/17 - Discharge Diagnosis (1) Closed right femoral fracture Is this a current diagnosis for this admission?: Yes (2) Fracture, humerus closed Is this a current diagnosis for this admission?: Yes (3) Anemia Is this a current diagnosis for this admission?: Yes (4) Diabetes mellitus Is this a current diagnosis for this admission?: Yes (5) Diabetes mellitus with neuropathy Is this a current diagnosis for this admission?: Yes (6) Hypothyroid Is this a current diagnosis for this admission?: Yes (7) Intractable pain Is this a current diagnosis for this admission?: Yes (8) Peripheral edema Is this a current diagnosis for this admission?: Yes - Additional Information Resuscitation Status: Full Code Discharge Diet: Diabetic Discharge Activity: Supervised Activity Prescriptions: Acetaminophen [Tylenol 325 mg Tablet] 975 mg PO Q8 #30 tablet Docusate Sodium [Colace 100 mg Capsule] 100 mg PO DAILY #30 capsule Insulin Lispro [Humalog Insulin (Lispro) 100 unit/mL] 0 - 12 unit SUBCUT ACP PRN #1 vial PRN Reason: Iron Polysaccharides Complex [Nu-Iron 150 Capsule] 150 mg PO DAILY #30 capsule Lidocaine [Lidoderm 5% (700 mg) Transdermal Patch] 2 patch TP QHS 5 Days #5 adh..patch Nicotine [Nicoderm 7 mg/24 Hr Transdermal Patch] 1 each TD DAILYP PRN #7 patch.td24 PRN Reason: Nemacolin-3 Acid Ethyl Esters [Lovaza 1 gm Capsule] 1 gm PO QHS #30 capsule Ondansetron [Zofran Odt 4 mg Tablet] 4 mg PO Q4HP PRN #16 tab.rapdis PRN Reason: Oxycodone HCl [Oxy-Ir 5 mg Tablet] 10 mg PO Q4HP PRN 5 Days #20 tablet PRN Reason: Polyethylene Glycol 3350 [Miralax Powder 17 gm/Packet] 17 gm PO DAILY@1200 #12 powd.pack Simethicone [Mylicon 80 mg Chewable Tablet] 160 mg PO Q8HP PRN #20 tab.chew PRN Reason: Home Medications: Calcium Carbonate [Calcium] 1,000 mg PO QHS 11/24/17 Folic Acid [Folvite 1 mg Tablet] 1 mg PO QHS 11/24/17 Gabapentin [Neurontin 300 mg Capsule] 300 mg PO QHS 11/24/17 Levothyroxine Sodium [Synthroid] 175 mcg PO Q6AM 11/24/17 Lisinopril [Prinivil 5 mg Tablet] 5 mg PO QHS 11/24/17 Metformin HCl [Metformin HCl ER] 500 mg PO ACSUPPER 11/24/17 Nemacolin-3 Fatty Acids/Fish Oil [Nemacolin 3 Fish Oil Softgel] 1,200 mg PO QHS Potassium Chloride [Klor-Con 10 Meq Tablet.sa] 10 meq PO QHS 11/24/17 Cyanocobalamin (Vitamin B-12) [Vitamin B-12 1000 mcg Tablet] 1 tab PO DAILY Ergocalciferol (Vitamin D2) [Vitamin D2] 50,000 unit PO OLIVER@1000 11/26/17 Insulin Glargine,Hum.rec.anlog [Lantus Solostar] 25 unit SQ QHS 11/26/17 Torsemide [Demadex 20 mg Tablet] 20 mg PO MOWEFR@0800 11/26/17 Acetaminophen [Tylenol 325 mg Tablet] 975 mg PO Q8 #30 tablet 12/05/17 Docusate Sodium [Colace 100 mg Capsule] 100 mg PO DAILY #30 capsule 12/05/17 Insulin Lispro [Humalog Insulin (Lispro) 100 unit/mL] 0 - 12 unit SUBCUT ACP PRN #1 vial 12/05/17 Iron Polysaccharides Complex [Nu-Iron 150 Capsule] 150 mg PO DAILY #30 capsule 12/05/17 Lidocaine [Lidoderm 5% (700 mg) Transdermal Patch] 2 patch TP QHS 5 Days #5 adh..patch 12/05/17 Nicotine [Nicoderm 7 mg/24 Hr Transdermal Patch] 1 each TD DAILYP PRN #7 patch.td24 12/05/17 Nemacolin-3 Acid Ethyl Esters [Lovaza 1 gm Capsule] 1 gm PO QHS #30 capsule Ondansetron [Zofran Odt 4 mg Tablet] 4 mg PO Q4HP PRN #16 tab.rapdis 12/05/17 Oxycodone HCl [Oxy-Ir 5 mg Tablet] 10 mg PO Q4HP PRN 5 Days #20 tablet 03/30/18 Polyethylene Glycol 3350 [Miralax Powder 17 gm/Packet] 17 gm PO DAILY@1200 #12 powd.pack 12/05/17 Simethicone [Mylicon 80 mg Chewable Tablet] 160 mg PO Q8HP PRN #20 tab.chew History of Present Illness Admission Date/PCP: 11/24/17 15:41 WES GU MD History of Present Illness: KENNEDY MEDEIROS is a 67 year old female This patient presented to the emergency room with complaints of pain in the right leg after she fell due to tripping. She denies any dizziness or any chest pain and thinks she tripped due to her diabetic neuropathy. Patient was not really very cooperative and answered questions when she did very grudgingly. She apparently also had a recent fall where she fractured her right humerus it appears this was affected again today. She apparently hit his right side of her face but has no facial pain. Patient has a port in the left chest wall but she is unable to really determine why except to say that she gets blood drawn from there. She had a right knee immobilizer placed in the ED she also has a slight oblique fracture of the distal femur. (see full H and P for complete admission details). Hospital Course Hospital Course: 67-year-old female with previous history of a right humerus fracture presented to the emergency department November 24, 2017 with right leg pain. She accidentally fell, presumably due to her diabetic neuropathy. As result, she suffered a fracture of the right distal femur. X-rays of her right arm demonstrated that she may have reinjured her previous proximal humerus fracture. A right leg immobilizer was placed in the ED. She is essentially nonambulatory. She was seen by orthopedic surgery. Dr Calix recommended #1 to continue the sling for another 2 weeks (December 13) and then start active range of motion exercises. #2 physical therapy now for passive range of motion exercises. She will also has to be toe-touch weightbearing on the right lower extremity with a knee immobilizer on. He recommended long-term rehab facility while she recovers with the multi- extremity injury, narcotics for pain control, and follow-up in his office in 2- 3 weeks for repeat x-ray. She was treated for pain management, hypothyroidism, edema and DM. Will be given access to pain medicines and bowel regiment at discharge. Physical Exam Vital Signs: Temp Pulse Resp BP Pulse Ox 97.6 F 95 16 127/50 H 92 12/05/17 11:37 12/05/17 11:37 12/05/17 11:37 12/05/17 11:37 12/05/17 11:37 Intake & Output 12/04/17 12/05/17 12/06/17 06:59 06:59 06:59 Intake Total 1250 1068 Output Total 204 1350 Balance 1046 -282 Weight 60.7 kg 60.7 kg General appearance: PRESENT: no acute distress, cooperative Head exam: PRESENT: atraumatic, normocephalic Eye exam: PRESENT: EOMI, PERRLA. ABSENT: nystagmus Ear exam: PRESENT: normal external ear exam. ABSENT: bleeding, drainage Mouth exam: PRESENT: moist, neck supple Neck exam: PRESENT: full ROM. ABSENT: JVD, tenderness Respiratory exam: PRESENT: rhonchi - central rhonci, improves with cough. ABSENT: accessory muscle use, crackles, rales, wheezes Cardiovascular exam: PRESENT: RRR, +S1, +S2. ABSENT: bradycardia, diastolic murmur Pulses: PRESENT: normal radial pulses, normal dorsalis pedis pul Vascular exam: PRESENT: normal capillary refill. ABSENT: pallor GI/Abdominal exam: PRESENT: normal bowel sounds, soft. ABSENT: ascites, distended, rigid Extremities exam: PRESENT: full ROM. ABSENT: clubbing, tenderness Musculoskeletal exam: PRESENT: ambulatory, full ROM Neurological exam: PRESENT: alert, oriented to person, oriented to place, oriented to time, oriented to situation, CN II-XII grossly intact Psychiatric exam: ABSENT: agitated, anxious, manic Focused psych exam: ABSENT: delusional, paranoid Skin exam: ABSENT: cyanosis, dry, mottled Results Laboratory Results: 12/05/17 04:25 12/05/17 04:25 12/05/17 12/05/17 04:25 04:25 WBC 8.1 RBC 3.21 L Hgb 8.4 L Hct 25.7 L MCV 80 MCH 26.1 L MCHC 32.6 RDW 16.3 H Plt Count 460 H Sodium 131.8 L Potassium 4.9 Chloride 99 Carbon Dioxide 24 Anion Gap 9 BUN 35 H Creatinine 0.53 Est GFR ( Amer) > 60 Est GFR (Non-Af Amer) > 60 Glucose 275 H Calcium 7.9 L Phosphorus 3.8 Albumin 2.2 L Impressions: Knee X-Ray 11/24/17 00:00 IMPRESSION: Slightly oblique fracture of the distal femur as noted above. No other evidence for fracture is seen. Other findings as noted above Humerus X-Ray 11/24/17 12:01 IMPRESSION: The previously described proximal humeral metaphyseal fracture is again identified. On the current study there is a fracture involving the medial cortex as noted above which could represent an acute fracture superimposed on the underlying fracture. No other evidence for fracture is seen. Other findings as noted above Lower Extremity CT 11/26/17 00:00 IMPRESSION: Hairline nondisplaced incomplete fracture through the posterior distal right femoral metaphysis correlates with plain films from 11/24/2017 No large right distal thigh hematoma. Upper Extremity CT 11/26/17 00:00 IMPRESSION: Subacute fracture, right surgical neck humerus with mild foreshortening or impaction at the fracture site. No significant angulation. Minimal surrounding callus formation. The large right upper arm or axilla region hematoma or fluid collection. Trace bilateral pleural effusions with bilateral dependent atelectasis in the lower lobes Chest X-Ray 11/26/17 01:27 IMPRESSION: 1. Right perihilar opacity and left retrocardiac opacity may represent developing pneumonia or atelectasis. Continued radiographic follow-up recommended. 2. Blunting of the left costophrenic angle may be related to small pleural effusion or pleural thickening. Transfer Plan - Disposition Transfer Plan: D/C to [facility] follow up with orthopedics, Dr. Fifi Echeverria in 2-3 weeks - Time Spent with Patient Time spent with patient: Greater than 30 Minutes Qualifiers - * PATEINT BEING DISCHARGED WITH ANY OF THE FOLLOWING DIAGNOSIS?: No Plan Discharge Plan: (1) Closed right femoral fracture Patient wearing immobilizer. continue acetaminophen and oxycodone as needed for pain. f/u with orthopedics 2-3 weeks after d/c d/c to [facility] (2) Fracture, humerus closed Continue sling for additional 2 weeks f/u with orthopedics in OP. (3) Anemia Continue current iron supplementation stable (4) Diabetes mellitus with neuropathy continue her prior DM home therapies (5) Hypothyroid continue home medications (6) Peripheral edema Continue torsemide home dose
[2017-12-05] MEDS ORDERED: OXYCODONE HCL IR 5 MG TABLET ONE (19:02)
[2017-12-05] MEDS: LIDOCAINE 5% (700 MG) TRANSDERMAL ADH..PATCH TP SCH (21:16)
[2017-12-05] MEDS: CALCIUM CARBONATE 500 MG TABLET PO SCH (21:16)
[2017-12-05] MEDS: OMEGA-3 ACID ETHYL ESTERS 1 GM CAPSULE PO SCH (21:16)
[2017-12-05] MEDS: ENOXAPARIN SODIUM INJ 40 MG/0.4 ML DISP.SYRIN SUBCUT SCH (21:16)
[2017-12-05] MEDS: FOLIC ACID 1 MG TABLET PO SCH (21:16)
[2017-12-05] MEDS: GABAPENTIN 300 MG CAPSULE PO SCH (21:16)
[2017-12-05 21:24] VITALS: BP 130/53
== END 2017-12-05 21:45 | DRG 534 ==
LOC: ER 11:48 → EH 15:41 → 2S 17:30 → 4W 11-26 15:18 → 4S 12-02 16:34
PROVIDERS: ADMIT Family Medicine; ATTEND Family Medicine
PROC: 2W3QX1Z Immobilization of Right Lower Leg using Splint (ICD-10-PCS; principal; 2017-11-24)
PROC: 3E0F73Z Introduction of Anti-inflammatory into Respiratory Tract, Via Natural or Artificial Opening (ICD-10-PCS; 2017-11-25)
DX: S72.334A Nondisplaced oblique fracture of shaft of right femur, initial encounter for closed fracture (principal); S42.291D Other displaced fracture of upper end of right humerus, subsequent encounter for fracture with routine healing; W18.30XA Fall on same level, unspecified, initial encounter; E11.40 Type 2 diabetes mellitus with diabetic neuropathy, unspecified; E03.9 Hypothyroidism, unspecified; J44.9 Chronic obstructive pulmonary disease, unspecified; F17.210 Nicotine dependence, cigarettes, uncomplicated; M06.9 Rheumatoid arthritis, unspecified; I10 Essential (primary) hypertension; K90.0 Celiac disease; S00.11XA Contusion of right eyelid and periocular area, initial encounter; S00.83XA Contusion of other part of head, initial encounter; D50.8 Other iron deficiency anemias; Z79.4 Long term (current) use of insulin; Z79.899 Other long term (current) drug therapy; Z80.3 Family history of malignant neoplasm of breast; Z82.49 Family history of ischemic heart disease and other diseases of the circulatory system
CPT/HCPCS: 36415; 71045; 80048; 80053; 80069; 82607; 82728; 82746; 82962; 83540; 83550; 83735; 84439; 84443; 85025; 85027; 85045; 85610; 85730; 93005; 93010; 94640; 94668; 94799; 96374; 99285; G8978-GP; G8979-GP; J1170; J1642; J1650; J1815; J1885; J2270; J2405; J3475; J3490; J7620; L1830; S0119

== ENCOUNTER 2018-01-11 11:04 | Inpatient (IN) | payer MEDICARE, OTHER ==
[2018-01-11] MEDS ORDERED: DEXTROSE 5%-NORMAL SALINE 1,000 ML IV ONE (11:23)
--- NOTE | 2018-01-11 12:15 | RADIOLOGY REPORT (SQ) ---
EXAM DESCRIPTION: CT HEAD WITHOUT COMPLETED DATE/TIME: 01/11/2018 12:02 pm REASON FOR STUDY: ams COMPARISON: 11/08/2013 TECHNIQUE: Axial images acquired through the brain without intravenous contrast. Images reviewed wi th bone, brain and subdural windows. Images stored on PACS. All CT scanners at this facility use dose modulation, iterative reconstruction, and/or weight based d osing when appropriate to reduce radiation dose to as low as reasonably achievable (ALARA). [facility]: Dose Right [facility]: CareDose [facility]: Dose Right [facility]: Teradose 4D [facility]: Smart [employer] RADIATION DOSE: CT Rad equipment meets quality standard of care and radiation dose reduction techniq ues were employed. CTDIvol: 53.2 mGy. DLP: 1070 mGy-cm.mGy. LIMITATIONS: None. FINDINGS: VENTRICLES: Prominent. CEREBRUM: No masses. No hemorrhage. No midline shift. Areas of low density in the white matter mos t likely due to chronic micro-vascular ischemic change. No evidence for acute infarction. CEREBELLUM: No masses. No hemorrhage. No alteration of density. No evidence for acute infarction. EXTRAAXIAL SPACES: Age-related involutional change. No fluid collections. No masses. ORBITS AND GLOBE: No intra- or extraconal masses. Normal contour of globe without masses. CALVARIUM: No fracture. PARANASAL SINUSES: Perinasal sinus mucosal thickening without air-fluid levels. SOFT TISSUES: No mass or hematoma. OTHER: No other significant finding. IMPRESSION: NO ACUTE INTRACRANIAL PROCESS. NO SIGNIFICANT CHANGE FROM PRIOR STUDY. EVIDENCE OF ACUTE STROKE: NO. TECHNICAL DOCUMENTATION: JOB ID: [id number] Quality ID # [id number]: Final reports with documentation of one or more dose reduction techniques (e.g., Au tomated exposure control, adjustment of the mA and/or kV according to patient size, use of iterative reconstruction technique) 2010 [employer]- All Rights Reserved Reading location - IP/workstation name: [email or web address]
--- NOTE | 2018-01-11 12:16 | RADIOLOGY REPORT (SQ) ---
EXAM DESCRIPTION: CHEST SINGLE VIEW COMPLETED DATE/TIME: 01/11/2018 12:00 pm REASON FOR STUDY: ams COMPARISON: 11/26/2017 EXAM PARAMETERS: NUMBER OF VIEWS: One view. TECHNIQUE: Single frontal radiographic view of the chest acquired. RADIATION DOSE: NA LIMITATIONS: None. FINDINGS: LUNGS AND PLEURA: New left upper lobe airspace disease. Lungs otherwise grossly clear. MEDIASTINUM AND HILAR STRUCTURES: No masses. Contour normal. HEART AND VASCULAR STRUCTURES: Heart normal in size. Normal vasculature. BONES: No acute findings. HARDWARE: Stable. OTHER: No other significant finding. IMPRESSION: NEW LEFT UPPER LOBE AIRSPACE DISEASE PRESUMABLY REPRESENTING PNEUMONIA. RECOMMEND FOLLO WUP RADIOGRAPHS 4 TO 6 WEEKS TO ENSURE RESOLUTION. TECHNICAL DOCUMENTATION: JOB ID: [id number] [employer]- All Rights Reserved Reading location - IP/workstation name: [email or web address]
--- NOTE | 2018-01-11 12:17 | RADIOLOGY REPORT (SQ) ---
EXAM DESCRIPTION: SHOULDER RIGHT 1 VIEW COMPLETED DATE/TIME: 01/11/2018 12:00 pm REASON FOR STUDY: hx of fx COMPARISON: 11/24/2017. NUMBER OF VIEWS: One view. TECHNIQUE: Single frontal radiograph acquired of the right shoulder. LIMITATIONS: None. FINDINGS: MINERALIZATION: Osteopenia. BONES: Healing humeral head fracture. No new fracture identified. JOINTS: No dislocation. VISUALIZED LUNGS AND RIBS: No pneumothorax. No rib fracture. SOFT TISSUES: No radiopaque foreign body. OTHER: No other significant finding. IMPRESSION: HEALING HUMERAL HEAD FRACTURE. TECHNICAL DOCUMENTATION: JOB ID: [id number] [employer]- All Rights Reserved Reading location - IP/workstation name: [email or web address]
--- NOTE | 2018-01-11 12:18 | RADIOLOGY REPORT (SQ) ---
EXAM DESCRIPTION: FEMUR RIGHT COMPLETED DATE/TIME: 01/11/2018 12:00 pm REASON FOR STUDY: hx of fx COMPARISON: 11/24/2017 NUMBER OF VIEWS: Two views. TECHNIQUE: Two radiographic images acquired of the right femur to include hip and knee in at least o ne projection. LIMITATIONS: None. FINDINGS: MINERALIZATION: Normal. BONES: Stable minimally displaced distal femur fracture. No new fracture. SOFT TISSUES: No obvious swelling or foreign body. OTHER: No other significant finding. IMPRESSION: STABLE MINIMALLY DISPLACED DISTAL FEMUR FRACTURE. TECHNICAL DOCUMENTATION: JOB ID: [id number] [employer]- All Rights Reserved Reading location - IP/workstation name: [email or web address]
[2018-01-11] MEDS ORDERED: LEVOFLOXACIN 500 MG/D5W RTU 500 MG/100 ML RTUPB IV ONE (12:22)
[2018-01-11 13:04] LABS: APPEARANCE,URINE CLEAR; BILIRUBIN,URINE NEGATIVE (NEGATIVE); COLOR,URINE YELLOW; GLUCOSE, URINE NEGATIVE (NEGATIVE); KETONES,URINE NEGATIVE (NEGATIVE); LEUKOCYTE ESTERASE,URINE TRACE (NEGATIVE); NITRITE,URINE POSITIVE (NEGATIVE); PROTEIN,URINE NEGATIVE (NEGATIVE); UROBILINOGEN,URINE NEGATIVE mg/dL (<2.0)
[2018-01-11 13:14] LABS: URINE AMPHETAMINES SCREEN NEGATIVE; URINE BARBITURATES SCREEN NEGATIVE; URINE BENZODIAZEPINES SCREEN NEGATIVE; URINE COCAINE SCREEN NEGATIVE; URINE MARIJUANA (THC) SCREEN NEGATIVE; URINE METHADONE SCREEN NEGATIVE; URINE PHENCYCLIDINE SCREEN NEGATIVE
[2018-01-11 13:48] LABS: ABSOLUTE LYMPHOCYTES (AUTO) 0.9 10^3/uL (0.5-4.7); ABSOLUTE MONOCYTES (AUTO) 0.3 10^3/uL (0.1-1.4); ABSOLUTE NEUT (AUTO) 5.6 10^3/uL (1.7-8.2); BASOPHILS % (AUTO) 0.4 % (0-2); EOSINOPHILS % (AUTO) 0.1 % (0-6); HEMATOCRIT 28.1 % (36.0-47.0); HEMOGLOBIN 9.2 g/dL (12.0-15.5); LYMPHOCYTES % (AUTO) 13.1 % (13-45); MEAN CORPUSCULAR HEMOGLOBIN 27.1 pg (27.0-33.4); MEAN CORPUSCULAR HGB CONC 32.7 g/dL (32.0-36.0); MEAN CORPUSCULAR VOLUME 83 fl (80-97); MONOCYTES % (AUTO) 4.8 % (3-13); PLATELET COUNT 231 10^3/uL (150-450); RED CELL DISTRIBUTION WIDTH 20.3 % (11.5-14.0); SEGMENTED NEUTROPHILS % (AUTO) 81.6 % (42-78); TOTAL CELLS COUNTED % (AUTO) 100 %; VENOUS BLOOD BASE EXCESS 0.4 mmol/L; VENOUS BLOOD HCO3 26.9 mmol/L (20-32); VENOUS BLOOD PCO2 51.7 mmHg (35-63); VENOUS BLOOD PH 7.33 (7.30-7.42); WHITE BLOOD COUNT 6.9 10^3/uL (4.0-10.5)
[2018-01-11 14:03] LABS: INTERNATIONAL RATION (INR) 1.16; PROTHROMBIN TIME 15.4 SEC (11.4-15.4)
[2018-01-11 14:07] LABS: ALANINE AMINOTRANSFERASE 52 U/L (9-52); ALBUMIN 3.1 g/dL (3.5-5.0); ALKALINE PHOSPHATASE 168 U/L (38-126); ANION GAP 9 (5-19); ASPARTATE AMINO TRANSFERASE 39 U/L (14-36); BLOOD UREA NITROGEN 12 mg/dL (7-20); CALCIUM 8.4 mg/dL (8.4-10.2); CARBON DIOXIDE 27 mmol/L (22-30); CHLORIDE 105 mmol/L (98-107); GLUCOSE 156 mg/dL (75-110); POTASSIUM 4.1 mmol/L (3.6-5.0); SODIUM 141.2 mmol/L (137-145); TOTAL PROTEIN 6.3 g/dL (6.3-8.2)
[2018-01-11 14:09] LABS: ACETAMINOPHEN < 10 ug/mL (10-30); ALCOHOL < 10 mg/dL (NONE DETECTED); BILIRUBIN,TOTAL < 0.1 mg/dL (0.2-1.3); SALICYLATE < 1.0 mg/dL (2.0-20.0)
[2018-01-11 14:24] LABS: FREE T4 (FREE THYROXINE) 1.3 ng/dL (0.78-2.19)
[2018-01-11 14:38] LABS: THYROID STIMULATING HORMONE 4.04 uIU/mL (0.47-4.68)
[2018-01-11] MEDS ORDERED: OXYCODONE-ACETAMINOPHEN 5-325 MG TABLET PO PRN (15:25)
[2018-01-11] MEDS ORDERED: ONDANSETRON HCL INJ/PF 4 MG/2 ML SDV IV PRN (15:25)
[2018-01-11] MEDS ORDERED: ACETAMINOPHEN 325 MG TABLET PO PRN (15:25)
[2018-01-11] MEDS ORDERED: GLUCAGON,HUMAN RECOMB 1 MG INJ IM PRN (15:34)
[2018-01-11] MEDS ORDERED: DEXTROSE 50%-WATER 25 GM/50 ML DISP.SYRIN IV PRN ×2 (15:34)
[2018-01-11] MEDS ORDERED: DEXTROSE 40% GEL 15 GM TUBE PO PRN ×2 (15:34)
--- NOTE | 2018-01-11 16:03 | ER Document Report ---
ED General - General Chief Complaint: Low Blood Sugar Stated Complaint: BLOOD SUGAR PROBLEM Time Seen by Provider: 01/11/18 11:10 TRAVEL OUTSIDE OF THE [place] IN LAST 30 DAYS: No - Related Data Allergies/Adverse Reactions: No Known Allergies Allergy (Verified 11/14/17 19:02) Past Medical History - Social History Smoking Status: Unknown if Ever Smoked Family History: Reviewed & Not Pertinent Patient has suicidal ideation: No Patient has homicidal ideation: No - Past Medical History Cardiac Medical History: Reports: Hx Hypertension - states Lisinopril Rx r/t DM Dx Denies: Hx Coronary Artery Disease, Hx Heart Attack Pulmonary Medical History: Reports: Hx COPD Denies: Hx Asthma, Hx Bronchitis, Hx Pneumonia Neurological Medical History: Denies: Hx Cerebrovascular Accident, Hx Seizures Endocrine Medical History: Reports: Hx Diabetes Mellitus Type 2 Renal/ Medical History: Denies: Hx Peritoneal Dialysis Musculoskeltal Medical History: Comment Only Hx Arthritis - rheumatoid, no meds x 2 months r/t Dx of Celiac's Psychiatric Medical History: Denies: Hx Depression Past Surgical History: Denies: Hx Pacemaker - Immunizations Hx Diphtheria, Pertussis, Tetanus Vaccination: Yes Physical Exam - Vital signs Vitals: Resp BP Pulse Ox 18 127/99 H 96 01/11/18 11:12 01/11/18 11:12 01/11/18 11:12 Course - Vital Signs Vital signs: Temp Pulse Resp BP Pulse Ox 97.6 F 18 127/99 H 96 01/11/18 11:39 01/11/18 11:12 01/11/18 11:12 01/11/18 11:12 - Laboratory Result Diagrams: 01/11/18 13:25 01/11/18 13:25 Laboratory results interpreted by me: 01/11/18 01/11/18 01/11/18 12:20 12:24 13:25 RBC 3.40 L Hgb 9.2 L Hct 28.1 L RDW 20.3 H Seg Neutrophils % 81.6 H Creatinine Glucose POC Glucose 175 H Total Bilirubin AST Alkaline Phosphatase Albumin Urine Nitrite POSITIVE H Ur Leukocyte Esterase TRACE H Urine Ascorbic Acid 40 H Salicylates Acetaminophen 01/11/18 13:25 RBC Hgb Hct RDW Seg Neutrophils % Creatinine 0.35 L Glucose 156 H POC Glucose Total Bilirubin < 0.1 L AST 39 H Alkaline Phosphatase 168 H Albumin 3.1 L Urine Nitrite Ur Leukocyte Esterase Urine Ascorbic Acid Salicylates < 1.0 L Acetaminophen < 10 L Discharge - Discharge Clinical Impression: Hypoglycemia resolved Closed right femoral fracture Qualifiers: Encounter type: subsequent encounter Femur location: shaft Fracture morphology : oblique Fracture alignment: nondisplaced Fracture healing: with routine healing Qualified Code(s): S72.334D - Nondisplaced oblique fracture of shaft of right femur, subsequent encounter for closed fracture with routine healing Fracture, humerus closed Qualifiers: Encounter type: subsequent encounter Humerus Location: proximal Fracture morphology: other fracture Fracture alignment: displaced Laterality: right Fracture healing: with routine healing Qualified Code(s): S42.291D - Other displaced fracture of upper end of right humerus, subsequent encounter for fracture with routine healing Anemia Qualifiers: Anemia type: iron deficiency Iron deficiency anemia type: inadequate dietary iron intake Qualified Code(s): D50.8 - Other iron deficiency anemias Diabetes mellitus Qualifiers: Diabetes mellitus type: type 2 Diabetes mellitus complication status: with neurologic complications Diabetes mellitus complication detail: with autonomic neuropathy Urinary tract infection Qualifiers: Urinary tract infection type: site unspecified Hematuria presence: without hematuria Qualified Code(s): N39.0 - Urinary tract infection, site not specified Pneumonia Qualifiers: Pneumonia type: due to unspecified organism Laterality: unspecified laterality Lung location: upper lobe of lung Qualified Code(s): J18.1 - Lobar pneumonia, unspecified organism Condition: Good Disposition: ADMITTED INPATIENT Admitting Provider: Hospitalist - [facility] Admitted: [facility] Referrals: WES GU MD [Primary Care Provider] - Follow up as needed
--- NOTE | 2018-01-11 16:10 | ER Document Report ---
ED General - General Chief Complaint: Low Blood Sugar Stated Complaint: BLOOD SUGAR PROBLEM Time Seen by Provider: 01/11/18 11:10 TRAVEL OUTSIDE OF THE [place] IN LAST 30 DAYS: No - HPI Patient complains to provider of: Altered mental status low blood sugar Notes: Patient coming in for altered mental status and low blood sugar. According to EMS patient has called about [address] 4 times in the last few weeks for low blood sugar at which time the patient normally is treated and then refused transport. Today patient received an IM injection of glucagon remained altered therefore was transported to the ER for further evaluation. Much of the HPI is unobtainable as the patient is very confused always has word salad. Patient is moving all 4 extremities.. Past medical history that should patient recently admitted for fall of the humeral fracture and a femur fracture. Patient otherwise has normal vital signs resting comfortably. - Related Data Allergies/Adverse Reactions: No Known Allergies Allergy (Verified 11/14/17 19:02) Past Medical History - Social History Smoking Status: Unknown if Ever Smoked Family History: Reviewed & Not Pertinent Patient has suicidal ideation: No Patient has homicidal ideation: No - Past Medical History Cardiac Medical History: Reports: Hx Hypertension - states Lisinopril Rx r/t DM Dx Denies: Hx Coronary Artery Disease, Hx Heart Attack Pulmonary Medical History: Reports: Hx COPD Denies: Hx Asthma, Hx Bronchitis, Hx Pneumonia Neurological Medical History: Denies: Hx Cerebrovascular Accident, Hx Seizures Endocrine Medical History: Reports: Hx Diabetes Mellitus Type 2 Renal/ Medical History: Denies: Hx Peritoneal Dialysis Musculoskeltal Medical History: Comment Only Hx Arthritis - rheumatoid, no meds x 2 months r/t Dx of Celiac's Psychiatric Medical History: Denies: Hx Depression Past Surgical History: Denies: Hx Pacemaker - Immunizations Hx Diphtheria, Pertussis, Tetanus Vaccination: Yes Review of Systems - Review of Systems -: Yes ROS unobtainable due to patient's medical condition - Altered mental status Physical Exam - Vital signs Vitals: Resp BP Pulse Ox 18 127/99 H 96 01/11/18 11:12 01/11/18 11:12 01/11/18 11:12 Interpretation: Normal - General General appearance: Appears well - Confused., Alert, Other - HEENT Head: Normocephalic, Atraumatic Eyes: Normal Pupils: PERRL - Respiratory Respiratory status: No respiratory distress Chest status: Nontender Breath sounds: Normal Chest palpation: Normal - Cardiovascular Rhythm: Regular Heart sounds: Normal auscultation Murmur: No - Abdominal Inspection: Normal Distension: Distended Bowel sounds: Normal Tenderness: Nontender Organomegaly: No organomegaly - Back Back: Normal, Nontender - Extremities General upper extremity: Normal inspection, Tender, Normal color, Normal temperature, Other - Patient has diffuse tenderness all the extremities. Exquisitely the right shoulder and of the right distal femur. Pulses are intact distally in all 4 extremities. General lower extremity: Normal inspection, Tender, Normal color, Normal temperature - Neurological Neuro grossly intact: Yes Cognition: Confused Orientation: AAOx4 Danni Coma Scale Eye Opening: Spontaneous Danni Coma Scale Verbal: Confused [place] Coma Scale Motor: Obeys Commands Danni Coma Scale Total: 14 - Psychological Associated symptoms: Confused - Skin Skin Temperature: Warm Skin Moisture: Dry Skin Color: Normal Course - Re-evaluation Re-evalutation: 01/11/18 16:08 Laboratory studies showed signs of urinary tract infection with nitrates positive chest x-ray was read as possible developing pneumonia. Patient was given a dose of Levaquin. Family did finally show up stay and the patient continues to speak abnormal. Apparently patient was difficult to arouse and since that time has been confused which would eliminate the patient's candidacy for any thrombolytics for possible stroke. Did do believe the patient had an acute stroke at this time is that the chest x-ray shows pneumonia and laboratory studies do show urinary tract infection. Accu-Cheks not show any signs of any further hypoglycemia. Patient did look to have a prescriptions for narcotics however the patient's drug testing is negative. No other signs of metabolic abnormality that would cause patient's symptoms. Head CT is negative. Vital signs have been stable did refer the patient to the hospitalist for admission for altered mental status 01/11/18 16:09 - Vital Signs Vital signs: Temp Pulse Resp BP Pulse Ox 97.6 F 18 127/99 H 96 01/11/18 11:39 01/11/18 11:12 01/11/18 11:12 01/11/18 11:12 - Laboratory Result Diagrams: 01/11/18 13:25 01/11/18 13:25 Laboratory results interpreted by me: 01/11/18 01/11/18 01/11/18 12:20 12:24 13:25 RBC 3.40 L Hgb 9.2 L Hct 28.1 L RDW 20.3 H Seg Neutrophils % 81.6 H Creatinine Glucose POC Glucose 175 H Total Bilirubin AST Alkaline Phosphatase Albumin Urine Nitrite POSITIVE H Ur Leukocyte Esterase TRACE H Urine Ascorbic Acid 40 H Salicylates Acetaminophen 01/11/18 13:25 RBC Hgb Hct RDW Seg Neutrophils % Creatinine 0.35 L Glucose 156 H POC Glucose Total Bilirubin < 0.1 L AST 39 H Alkaline Phosphatase 168 H Albumin 3.1 L Urine Nitrite Ur Leukocyte Esterase Urine Ascorbic Acid Salicylates < 1.0 L Acetaminophen < 10 L Critical Care Note - Critical Care Note Total time excluding time spent on procedures (mins): 35 Comments: Multiple evaluations for altered mental status. Discharge - Discharge Clinical Impression: Hypoglycemia resolved Closed right femoral fracture Qualifiers: Encounter type: subsequent encounter Femur location: shaft Fracture morphology : oblique Fracture alignment: nondisplaced Fracture healing: with routine healing Qualified Code(s): S72.334D - Nondisplaced oblique fracture of shaft of right femur, subsequent encounter for closed fracture with routine healing Fracture, humerus closed Qualifiers: Encounter type: subsequent encounter Humerus Location: proximal Fracture morphology: other fracture Fracture alignment: displaced Laterality: right Fracture healing: with routine healing Qualified Code(s): S42.291D - Other displaced fracture of upper end of right humerus, subsequent encounter for fracture with routine healing Anemia Qualifiers: Anemia type: iron deficiency Iron deficiency anemia type: inadequate dietary iron intake Qualified Code(s): D50.8 - Other iron deficiency anemias Diabetes mellitus Qualifiers: Diabetes mellitus type: type 2 Diabetes mellitus complication status: with neurologic complications Diabetes mellitus complication detail: with autonomic neuropathy Urinary tract infection Qualifiers: Urinary tract infection type: site unspecified Hematuria presence: without hematuria Qualified Code(s): N39.0 - Urinary tract infection, site not specified Pneumonia Qualifiers: Pneumonia type: due to unspecified organism Laterality: unspecified laterality Lung location: upper lobe of lung Qualified Code(s): J18.1 - Lobar pneumonia, unspecified organism Condition: Good Disposition: ADMITTED INPATIENT Referrals: WES GU MD [Primary Care Provider] - Follow up as needed
--- NOTE | 2018-01-11 16:25 | PDOC H&P ---
History of Present Illness Admission Date/PCP: WES GU MD Patient complains of: Patient complains of being thirsty History of Present Illness: KENNEDY MEDEIROS is a 67 year old female arrived via ambulance because of blood sugar of 21. Patient has been having frequent episodes of hypoglycemia and EMS had been called to her house but patient declined transfer to ED. On this occasion patient was administered glucagon and transported to this facility. History gathering had been almost impossible since this patient keeps requesting orange juice because she is thirsty. When evaluated in emergency room chest x-ray demonstrated a possible pneumonia and a straight cath urine was suggestive of a urinary tract infection. Patient had been having profuse diarrhea while in emergency room. Due to presentation our service was consulted and prompted to admit for further management. Past Medical History Cardiac Medical History: Reports: Hypertension - states Lisinopril Rx r/t DM Dx Denies: Coronary Artery Disease, Myocardial Infarction Pulmonary Medical History: Reports: Chronic Obstructive Pulmonary Disease (COPD) Denies: Asthma, Bronchitis, Pneumonia EENT Medical History: Reports: None Neurological Medical History: Reports: None Denies: Seizures Endocrine Medical History: Reports: Diabetes Mellitus Type 2 Renal/ Medical History: Reports: None Malignancy Medical History: Reports: None GI Medical History: Reports: None Musculoskeltal Medical History: Reports: Arthritis - rheumatoid, no meds x 2 months r/t Dx of Celiac's Skin Medical History: Reports: None Psychiatric Medical History: Denies: Depression Traumatic Medical History: Reports: None Hematology: Reports: Anemia - multiple treatments of Feraheme Infectious Medical History: Reports: None Past Surgical History Past Surgical History: Reports: Orthopedic Surgery Denies: Pacemaker Social History Information Source: Patient Smoking Status: Unknown if Ever Smoked Frequency of Alcohol Use: None Hx Recreational Drug Use: No Hx Prescription Drug Abuse: No - Advance Directive Resuscitation Status: Full Code Family History Family History: Reviewed & Not Pertinent Parental Family History Reviewed: Yes Children Family History Reviewed: Yes Sibling(s) Family History Reviewed.: Yes Medication/Allergy Allergies/Adverse Reactions: No Known Allergies Allergy (Verified 11/14/17 19:02) Review of Systems ROS unobtainable: Due to mental status Physical Exam Vital Signs: Temp Pulse Resp BP Pulse Ox 97.6 F 18 127/99 H 96 01/11/18 11:39 01/11/18 11:12 01/11/18 11:12 01/11/18 11:12 Intake & Output 01/10/18 01/11/18 01/12/18 06:59 06:59 06:59 Weight 49.895 kg General appearance: PRESENT: no acute distress, cooperative Head exam: PRESENT: atraumatic, normocephalic Eye exam: PRESENT: conjunctiva pink, EOMI, PERRLA Ear exam: PRESENT: normal external ear exam Mouth exam: PRESENT: dry mucosa Neck exam: PRESENT: full ROM. ABSENT: JVD, lymphadenopathy, tenderness Respiratory exam: PRESENT: clear to auscultation neo Cardiovascular exam: PRESENT: RRR. ABSENT: diastolic murmur, systolic murmur Vascular exam: PRESENT: normal capillary refill GI/Abdominal exam: PRESENT: normal bowel sounds, soft. ABSENT: tenderness Extremities exam: PRESENT: full ROM, +1 edema Musculoskeletal exam: ABSENT: ambulatory Neurological exam: PRESENT: alert, awake, oriented to person. ABSENT: oriented to place, oriented to time, oriented to situation Psychiatric exam: PRESENT: appropriate affect, normal mood Skin exam: PRESENT: intact, normal color Results Laboratory Results: 01/11/18 13:25 01/11/18 13:25 01/11/18 01/11/18 01/11/18 12:20 13:25 13:25 WBC 6.9 RBC 3.40 L Hgb 9.2 L Hct 28.1 L MCV 83 MCH 27.1 MCHC 32.7 RDW 20.3 H Plt Count 231 Seg Neutrophils % 81.6 H Lymphocytes % 13.1 Monocytes % 4.8 Eosinophils % 0.1 Basophils % 0.4 Absolute Neutrophils 5.6 Absolute Lymphocytes 0.9 Absolute Monocytes 0.3 Absolute Eosinophils 0.0 Absolute Basophils 0.0 VBG pH VBG pCO2 VBG HCO3 VBG Base Excess Sodium 141.2 Potassium 4.1 Chloride 105 Carbon Dioxide 27 Anion Gap 9 BUN 12 Creatinine 0.35 L Est GFR ( Amer) > 60 Est GFR (Non-Af Amer) > 60 Glucose 156 H Lactic Acid Calcium 8.4 Total Bilirubin < 0.1 L AST 39 H ALT 52 Alkaline Phosphatase 168 H Total Protein 6.3 Albumin 3.1 L Lipase TSH Free T4 Urine Color YELLOW Urine Appearance CLEAR Urine pH 5.0 Ur Specific [facility] 1.010 Urine Protein NEGATIVE Urine Glucose (UA) NEGATIVE Urine Ketones NEGATIVE Urine Blood NEGATIVE Urine Nitrite POSITIVE H Ur Leukocyte Esterase TRACE H Urine WBC (Auto) 8 Urine RBC (Auto) 1 01/11/18 01/11/18 01/11/18 13:25 13:25 13:25 WBC RBC Hgb Hct MCV MCH MCHC RDW Plt Count Seg Neutrophils % Lymphocytes % Monocytes % Eosinophils % Basophils % Absolute Neutrophils Absolute Lymphocytes Absolute Monocytes Absolute Eosinophils Absolute Basophils VBG pH 7.33 VBG pCO2 51.7 VBG HCO3 26.9 VBG Base Excess 0.4 Sodium Potassium Chloride Carbon Dioxide Anion Gap BUN Creatinine Est GFR ( Amer) Est GFR (Non-Af Amer) Glucose Lactic Acid 1.6 Calcium Total Bilirubin AST ALT Alkaline Phosphatase Total Protein Albumin Lipase TSH 4.04 Free T4 1.30 Urine Color Urine Appearance Urine pH Ur Specific [facility] Urine Protein Urine Glucose (UA) Urine Ketones Urine Blood Urine Nitrite Ur Leukocyte Esterase Urine WBC (Auto) Urine RBC (Auto) 01/11/18 13:25 WBC RBC Hgb Hct MCV MCH MCHC RDW Plt Count Seg Neutrophils % Lymphocytes % Monocytes % Eosinophils % Basophils % Absolute Neutrophils Absolute Lymphocytes Absolute Monocytes Absolute Eosinophils Absolute Basophils VBG pH VBG pCO2 VBG HCO3 VBG Base Excess Sodium Potassium Chloride Carbon Dioxide Anion Gap BUN Creatinine Est GFR ( Amer) Est GFR (Non-Af Amer) Glucose Lactic Acid Calcium Total Bilirubin AST ALT Alkaline Phosphatase Total Protein Albumin Lipase 43.9 TSH Free T4 Urine Color Urine Appearance Urine pH Ur Specific [facility] Urine Protein Urine Glucose (UA) Urine Ketones Urine Blood Urine Nitrite Ur Leukocyte Esterase Urine WBC (Auto) Urine RBC (Auto) 01/11/18 13:25 Troponin I < 0.012 Impressions: Chest X-Ray 01/11/18 11:23 IMPRESSION: NEW LEFT UPPER LOBE AIRSPACE DISEASE PRESUMABLY REPRESENTING PNEUMONIA. RECOMMEND FOLLOWUP RADIOGRAPHS 4 TO 6 WEEKS TO ENSURE RESOLUTION. Head CT 01/11/18 11:28 IMPRESSION: NO ACUTE INTRACRANIAL PROCESS. NO SIGNIFICANT CHANGE FROM PRIOR STUDY. EVIDENCE OF ACUTE STROKE: NO. Femur X-Ray 01/11/18 11:31 IMPRESSION: STABLE MINIMALLY DISPLACED DISTAL FEMUR FRACTURE. Shoulder X-Ray 01/11/18 11:31 IMPRESSION: HEALING HUMERAL HEAD FRACTURE. Assessment & Plan - Diagnosis (1) Pneumonia Qualifiers: Pneumonia type: due to unspecified organism Laterality: left Lung location: upper lobe of lung Qualified Code(s): J18.1 - Lobar pneumonia, unspecified organism Is this a current diagnosis for this admission?: Yes Plan: To start Zosyn since concerned about aspiration (2) Urinary tract infection Qualifiers: Urinary tract infection type: site unspecified Hematuria presence: without hematuria Qualified Code(s): N39.0 - Urinary tract infection, site not specified Is this a current diagnosis for this admission?: Yes Plan: Sample was straight cath. To place on Zosyn. (3) Anemia Qualifiers: Anemia type: iron deficiency Iron deficiency anemia type: inadequate dietary iron intake Qualified Code(s): D50.8 - Other iron deficiency anemias Is this a current diagnosis for this admission?: Yes Plan: Will monitor (4) Diabetes mellitus Qualifiers: Diabetes mellitus type: type 2 Diabetes mellitus complication status: with neurologic complications Diabetes mellitus complication detail: with autonomic neuropathy Is this a current diagnosis for this admission?: Yes Plan: To place on Humalog insulin sliding scale AC & HS. (5) Hypothyroid Qualifiers: Hypothyroidism type: acquired Qualified Code(s): E03.9 - Hypothyroidism, unspecified Is this a current diagnosis for this admission?: Yes Plan: Will continue medication as outpatient (6) Hypoglycemia Is this a current diagnosis for this admission?: Yes Plan: To place on D10W and follow up response. (7) Altered mental status Qualifiers: Altered mental status type: disorientation Qualified Code(s): R41.0 - Disorientation, unspecified Is this a current diagnosis for this admission?: Yes Plan: Likely multifactorial (8) Diarrhea Qualifiers: Diarrhea type: unspecified type Qualified Code(s): R19.7 - Diarrhea, unspecified Is this a current diagnosis for this admission?: Yes Plan: Order stool for C. difficile - Time Time Spent: 30 to 50 Minutes Medications reviewed and adjusted accordingly: Yes Anticipated discharge: Acute Rehab Within: within 72 hours - Inpatient Certification Based on my medical assessment, after consideration of the patient's comorbidities, presenting symptoms, or acuity I expect that the services needed warrant INPATIENT care.: Yes I certify that my determination is in accordance with my understanding of Medicare's requirements for reasonable and necessary INPATIENT services [42 CFR 412.3e].: Yes Medical Necessity: Significant Comorbidiites Make Outpatient Treatment Too Risky , Need Close Monitoring Due to Risk of Patient Decompensation, Need For IV Fluids, Need for IV Antibiotics
[2018-01-11] MEDS: INSULIN LISPRO 100 UNIT/ML 3 ML VIAL SUBCUT PRN ×2 (17:46→21:33)
--- NOTE | 2018-01-11 19:06 | EKG REPORT ---
SEVERITY:- BORDERLINE ECG - SINUS RHYTHM LOW VOLTAGE THROUGHOUT : Confirmed by: Cuong Onofre 11-Jan-2018 19:06:22
[2018-01-11] MEDS: PIPERACILLIN SODIUM/TAZOBACTAM 3.375 GM in NORMAL SALINE 100 ML IV SCH (19:41)
[2018-01-11] MEDS: DEXTROSE 10%-WATER 1,000 ML IV PRN (19:41)
[2018-01-11] MEDS: HEPARIN SOD (PORCINE) 5,000 UNIT/ML 1 ML SYRINGE SUBCUT SCH (21:27)
[2018-01-11] MEDS ORDERED: ZOLPIDEM TARTRATE 5 MG TABLET PO PRN (22:00)
[2018-01-12] MEDS: PIPERACILLIN SODIUM/TAZOBACTAM 3.375 GM in NORMAL SALINE 100 ML IV SCH ×4 (00:38→16:35)
[2018-01-12] MEDS: HEPARIN SOD (PORCINE) 5,000 UNIT/ML 1 ML SYRINGE SUBCUT SCH ×3 (05:46→22:17)
[2018-01-12] MEDS: DEXTROSE 10%-WATER 1,000 ML IV PRN (05:47)
[2018-01-12 05:50] LABS: ABSOLUTE EOSINOPHILS # (AUTO) 0.1 10^3/uL (0.0-0.6); ABSOLUTE LYMPHOCYTES (AUTO) 1.7 10^3/uL (0.5-4.7); ABSOLUTE MONOCYTES (AUTO) 0.7 10^3/uL (0.1-1.4); BASOPHILS % (AUTO) 0.7 % (0-2); EOSINOPHILS % (AUTO) 1.7 % (0-6); HEMATOCRIT 23.4 % (36.0-47.0); LYMPHOCYTES % (AUTO) 31.5 % (13-45); MEAN CORPUSCULAR HEMOGLOBIN 26.5 pg (27.0-33.4); MEAN CORPUSCULAR HGB CONC 32.3 g/dL (32.0-36.0); MEAN CORPUSCULAR VOLUME 82 fl (80-97); MONOCYTES % (AUTO) 12.1 % (3-13); PLATELET COUNT 218 10^3/uL (150-450); RED BLOOD COUNT 2.86 10^6/uL (3.72-5.28); RED CELL DISTRIBUTION WIDTH 19.6 % (11.5-14.0); TOTAL CELLS COUNTED % (AUTO) 100 %; WHITE BLOOD COUNT 5.5 10^3/uL (4.0-10.5)
[2018-01-12 05:56] LABS: ANION GAP 8 (5-19); BLOOD UREA NITROGEN 12 mg/dL (7-20); CALCIUM 7.7 mg/dL (8.4-10.2); CARBON DIOXIDE 23 mmol/L (22-30); CHLORIDE 103 mmol/L (98-107); GLUCOSE 133 mg/dL (75-110); POTASSIUM 4.4 mmol/L (3.6-5.0); SODIUM 134.3 mmol/L (137-145)
[2018-01-12 06:45] LABS: HEMOGLOBIN 7.6 g/dL (12.0-15.5)
[2018-01-12] MEDS: INSULIN LISPRO 100 UNIT/ML 3 ML VIAL SUBCUT PRN ×3 (08:52→16:35)
[2018-01-12] MEDS ORDERED: ALBUTEROL SULFATE 0.083% NEB 2.5 MG/3 ML AMPUL NEB PRN (12:20)
[2018-01-12] MEDS ORDERED: IPRATROPIUM/ALBUTEROL 0.5-2.5 MG/3 ML AMPUL NEB SCH (12:30)
[2018-01-12] MEDS ORDERED: FUROSEMIDE INJ/PF 20 MG/2 ML SDV IV ONE (12:35)
[2018-01-12] MEDS ORDERED: NICOTINE 14 MG/24 HR PATCH.TD24 TD ONE (12:45)
--- NOTE | 2018-01-12 12:54 | PDOC PROGRESS REPORT ---
Subjective Progress Note for:: 01/12/18 Subjective:: Patient relates that was not able to sleep well last night. She admits also smoking however is not forthcoming about telling how many cigarettes a day. Review of systems All organ systems evaluated and negative except as in subjective All significant diagnostics and laboratories have been reviewed Reason For Visit: CLOSED FRACTURE OF RIGHT FEMUR,ANEMIA, Physical Exam Vital Signs: Temp Pulse Resp BP Pulse Ox 97.6 F 64 18 129/64 H 100 01/12/18 12:00 01/12/18 12:00 01/12/18 12:00 01/12/18 12:00 01/12/18 12:00 Intake & Output 01/11/18 01/12/18 01/13/18 06:59 06:59 06:59 Intake Total 1284 Output Total 750 Balance 534 Weight 49.89 kg General appearance: PRESENT: cooperative, well-developed, well-nourished Eye exam: PRESENT: conjunctiva pink, EOMI, periorbital swelling, PERRLA Mouth exam: PRESENT: moist Neck exam: PRESENT: full ROM. ABSENT: JVD, lymphadenopathy, tenderness Respiratory exam: PRESENT: crackles, decreased breath sounds Cardiovascular exam: PRESENT: RRR. ABSENT: diastolic murmur, systolic murmur Vascular exam: PRESENT: normal capillary refill GI/Abdominal exam: PRESENT: normal bowel sounds, soft. ABSENT: tenderness Extremities exam: PRESENT: full ROM. ABSENT: pedal edema Musculoskeletal exam: PRESENT: ambulatory Neurological exam: PRESENT: alert, awake, oriented to person, oriented to place , oriented to time, oriented to situation, CN II-XII grossly intact Psychiatric exam: PRESENT: appropriate affect, normal mood Skin exam: PRESENT: intact, normal color Results Laboratory Results: 01/12/18 04:36 01/12/18 04:36 01/12/18 01/12/18 04:36 04:36 WBC 5.5 RBC 2.86 L Hgb 7.6 L Hct 23.4 L MCV 82 MCH 26.5 L MCHC 32.3 RDW 19.6 H Plt Count 218 Seg Neutrophils % 54.0 Lymphocytes % 31.5 Monocytes % 12.1 Eosinophils % 1.7 Basophils % 0.7 Absolute Neutrophils 3.0 Absolute Lymphocytes 1.7 Absolute Monocytes 0.7 Absolute Eosinophils 0.1 Absolute Basophils 0.0 Sodium 134.3 L Potassium 4.4 Chloride 103 Carbon Dioxide 23 Anion Gap 8 BUN 12 Creatinine 0.51 L Est GFR ( Amer) > 60 Est GFR (Non-Af Amer) > 60 Glucose 133 H Calcium 7.7 L Magnesium 1.7 Impressions: Chest X-Ray 01/11/18 11:23 IMPRESSION: NEW LEFT UPPER LOBE AIRSPACE DISEASE PRESUMABLY REPRESENTING PNEUMONIA. RECOMMEND FOLLOWUP RADIOGRAPHS 4 TO 6 WEEKS TO ENSURE RESOLUTION. Head CT 01/11/18 11:28 IMPRESSION: NO ACUTE INTRACRANIAL PROCESS. NO SIGNIFICANT CHANGE FROM PRIOR STUDY. EVIDENCE OF ACUTE STROKE: NO. Femur X-Ray 01/11/18 11:31 IMPRESSION: STABLE MINIMALLY DISPLACED DISTAL FEMUR FRACTURE. Shoulder X-Ray 01/11/18 11:31 IMPRESSION: HEALING HUMERAL HEAD FRACTURE. Assessment & Plan - Diagnosis (1) Pneumonia Qualifiers: Pneumonia type: due to unspecified organism Laterality: left Lung location: upper lobe of lung Qualified Code(s): J18.1 - Lobar pneumonia, unspecified organism Is this a current diagnosis for this admission?: Yes Plan: Continue Zosyn since concerned about aspiration (2) Urinary tract infection Qualifiers: Urinary tract infection type: site unspecified Hematuria presence: without hematuria Qualified Code(s): N39.0 - Urinary tract infection, site not specified Is this a current diagnosis for this admission?: Yes Plan: Continue Zosyn. (3) Anemia Qualifiers: Anemia type: iron deficiency Iron deficiency anemia type: inadequate dietary iron intake Qualified Code(s): D50.8 - Other iron deficiency anemias Is this a current diagnosis for this admission?: Yes Plan: Will monitor (4) Diabetes mellitus Qualifiers: Diabetes mellitus type: type 2 Diabetes mellitus complication status: with neurologic complications Diabetes mellitus complication detail: with autonomic neuropathy Is this a current diagnosis for this admission?: Yes Plan: Continue Humalog insulin sliding scale AC & HS. Order Hemoglobin A1c. Will hold off Lantus for now. (5) Hypothyroid Qualifiers: Hypothyroidism type: acquired Qualified Code(s): E03.9 - Hypothyroidism, unspecified Is this a current diagnosis for this admission?: Yes Plan: Will continue medication as outpatient (6) Hypoglycemia Is this a current diagnosis for this admission?: Yes Plan: Resolved and to discontinue D5 water (7) Altered mental status Qualifiers: Altered mental status type: disorientation Qualified Code(s): R41.0 - Disorientation, unspecified Is this a current diagnosis for this admission?: Yes Plan: Likely multifactorial. The patient back to her usual self. She had been cursing staff (8) Diarrhea Qualifiers: Diarrhea type: unspecified type Qualified Code(s): R19.7 - Diarrhea, unspecified Is this a current diagnosis for this admission?: Yes Plan: stool for C. difficile ordered and pending. Resolved (9) Peripheral edema Is this a current diagnosis for this admission?: Yes Plan: Continue Demadex as outpatient. Order Lasix IV x one time. Order echocardiogram - Time Time Spent with patient: 15-24 minutes Medications reviewed and adjusted accordingly: Yes Anticipated discharge: Home Within: within 72 hours - Inpatient Certification Based on my medical assessment, after consideration of the patient's comorbidities, presenting symptoms, or acuity I expect that the services needed warrant INPATIENT care.: Yes I certify that my determination is in accordance with my understanding of Medicare's requirements for reasonable and necessary INPATIENT services [42 CFR 412.3e].: Yes Medical Necessity: Need Close Monitoring Due to Risk of Patient Decompensation, Need for Nebulizer Therapy and Monitoring of Response
[2018-01-12] MEDS ORDERED: ONDANSETRON HCL INJ/PF 4 MG/2 ML SDV IV PRN (13:00)
[2018-01-12 13:11] LABS: HEMATOCRIT 24.7 % (36.0-47.0); MEAN CORPUSCULAR HEMOGLOBIN 26.3 pg (27.0-33.4); MEAN CORPUSCULAR HGB CONC 32.2 g/dL (32.0-36.0); MEAN CORPUSCULAR VOLUME 82 fl (80-97); PLATELET COUNT 244 10^3/uL (150-450); RED BLOOD COUNT 3.02 10^6/uL (3.72-5.28); RED CELL DISTRIBUTION WIDTH 20.1 % (11.5-14.0); WHITE BLOOD COUNT 4.6 10^3/uL (4.0-10.5)
[2018-01-12] MEDS: IPRATROPIUM/ALBUTEROL 0.5-2.5 MG/3 ML AMPUL NEB SCH (20:00)
[2018-01-12] MEDS: GABAPENTIN 300 MG CAPSULE PO SCH (21:57)
[2018-01-12] MEDS: GUAIFENESIN 600 MG TABLET.SA PO SCH (22:13)
[2018-01-13] MEDS: PIPERACILLIN SODIUM/TAZOBACTAM 3.375 GM in NORMAL SALINE 100 ML IV SCH ×2 (00:26→05:40)
[2018-01-13 05:17] LABS: ABSOLUTE EOSINOPHILS # (AUTO) 0.1 10^3/uL (0.0-0.6); ABSOLUTE LYMPHOCYTES (AUTO) 1.4 10^3/uL (0.5-4.7); ABSOLUTE MONOCYTES (AUTO) 0.5 10^3/uL (0.1-1.4); ABSOLUTE NEUT (AUTO) 2.6 10^3/uL (1.7-8.2); BASOPHILS % (AUTO) 0.5 % (0-2); HEMATOCRIT 24.6 % (36.0-47.0); LYMPHOCYTES % (AUTO) 30.3 % (13-45); MEAN CORPUSCULAR HEMOGLOBIN 26.7 pg (27.0-33.4); MEAN CORPUSCULAR HGB CONC 32.2 g/dL (32.0-36.0); MEAN CORPUSCULAR VOLUME 83 fl (80-97); MONOCYTES % (AUTO) 11.4 % (3-13); PLATELET COUNT 215 10^3/uL (150-450); RED BLOOD COUNT 2.97 10^6/uL (3.72-5.28); RED CELL DISTRIBUTION WIDTH 20.3 % (11.5-14.0); SEGMENTED NEUTROPHILS % (AUTO) 55.8 % (42-78); TOTAL CELLS COUNTED % (AUTO) 100 %; WHITE BLOOD COUNT 4.7 10^3/uL (4.0-10.5)
[2018-01-13 05:20] LABS: ANION GAP 8 (5-19); BLOOD UREA NITROGEN 15 mg/dL (7-20); CALCIUM 7.9 mg/dL (8.4-10.2); CARBON DIOXIDE 24 mmol/L (22-30); CHLORIDE 105 mmol/L (98-107); GLUCOSE 260 mg/dL (75-110); POTASSIUM 4.4 mmol/L (3.6-5.0); SODIUM 136.9 mmol/L (137-145)
[2018-01-13 05:34] LABS: HEMOGLOBIN 7.9 g/dL (12.0-15.5)
[2018-01-13] MEDS: LEVOTHYROXINE SODIUM 0.088 MG TABLET PO SCH (05:40)
[2018-01-13] MEDS: HEPARIN SOD (PORCINE) 5,000 UNIT/ML 1 ML SYRINGE SUBCUT SCH ×3 (05:40→20:41)
[2018-01-13] MEDS ORDERED: LEVOTHYROXINE SODIUM 0.088 MG TABLET PO SCH (06:00)
[2018-01-13] MEDS ORDERED: (PENDING PHARMACY ID) (Levothyroxine Sodium [Synthroid] 175 MCG) PO SCH (06:00)
[2018-01-13] MEDS: IPRATROPIUM/ALBUTEROL 0.5-2.5 MG/3 ML AMPUL NEB SCH ×4 (07:54→19:59)
[2018-01-13] MEDS: INSULIN LISPRO 100 UNIT/ML 3 ML VIAL SUBCUT PRN ×3 (08:31→18:06)
[2018-01-13] MEDS: CALCIUM CARBONATE 250 MG/VITAMIN D3 125 UNIT TABLET PO SCH (08:32)
[2018-01-13] MEDS ORDERED: [UNRECOGNIZED DRUG - OTHER] PO SCH (10:00)
[2018-01-13] MEDS ORDERED: LISINOPRIL 5 MG TABLET PO SCH ×2 (10:00→13:25)
[2018-01-13] MEDS ORDERED: CALCIUM CARBONATE PO SCH (10:00)
[2018-01-13] MEDS ORDERED: VITAMIN D3 PO SCH (10:00)
[2018-01-13] MEDS: FOLIC ACID 1 MG TABLET PO SCH (10:28)
[2018-01-13] MEDS: ASCORBIC ACID 500 MG TABLET PO SCH (10:28)
[2018-01-13] MEDS: NICOTINE 14 MG/24 HR PATCH.TD24 TD SCH (10:28)
[2018-01-13] MEDS: POTASSIUM CHLORIDE 10 MEQ TABLET.SA PO SCH (10:29)
[2018-01-13] MEDS: CEFUROXIME 500 MG TABLET PO SCH ×2 (10:30→20:28)
[2018-01-13] MEDS: GUAIFENESIN 600 MG TABLET.SA PO SCH ×2 (10:31→20:43)
[2018-01-13] MEDS: FLUTICASONE/SALMETEROL DISKUS 250-50 MCG/DOSE IH SCH ×2 (10:31→20:27)
--- NOTE | 2018-01-13 10:56 | XCELERA REPORT ---
[address] [address] Transthoracic Echocardiogram Report Name: KENNEDY MEDEIROS Age: 67 yrs Gender: Female : 1950 Patient Status: Inpatient Patient Location: [address] [place] [address] Study Date: 01/13/2018 08:09 AM Height: 60 in Weight: 109 lb BSA: 1.4 m2 Procedure: A complete two-dimensional transthoracic echocardiogram was performed (2D, M-mode, spectral and color flow Doppler). The study was technically adequate with some images being suboptimal in quality. Reason For Study: eval for pulmonay hypertension Ordering Physician: NOLVIA DURAND Performed By: Lynn Alvarez Interpretation Summary The left ventricular ejection fraction is normal. Doppler measurements suggest pseudonormalized left ventricular relaxation, which is associated with grade II/IV or mild to moderate diastolic dysfunction There is borderline concentric left ventricular hypertrophy. The left ventricle is grossly normal size. Wall motion cannot be accurately commented on, but no definite regional wall motion abnormalities noted. The right ventricular systolic function is normal. The right atrium is normal in size The left atrium is mildly dilated. There is a mild to moderate amount of mitral regurgitation There is no mitral valve stenosis. There is a trace amount of aortic regurgitation There is no aortic valve stenosis There is a mild amount of tricuspid regurgitation There is mild pulmonary hypertension by echo Right ventricular systolic pressure is estimated to be elevated at 30- 40mmHg. The aortic root is not well visualized but is probably normal size. The inferior vena cava appeared normal and decreased > 50% with respiration (RAP 5-10 mmHg) There is no pericardial effusion. MMode/2D Measurements & Calculations RVDd: 2.1 cm LVIDd: 4.4 cm FS: 33.7 % Ao root diam: 2.9 cm IVSd: 0.89 cm LVIDs: 2.9 cm EDV(Teich): 88.9 ml LVPWd: 0.85 cmESV(Teich): 33.1 ml Ao root area: 6.7 cm2 EF(Teich): 62.8 % LA dimension: 4.3 cm LVOT diam: 1.8 cm LVOT area: 2.4 cm2 Doppler Measurements & Calculations MV E max mandy: MV P1/2t max mandy: Ao V2 max: LV V1 max P.4 cm/sec 124.9 cm/sec 152.6 cm/sec 6.4 mmHg MV A max mandy: MV P1/2t: 62.9 msec Ao max PG: LV V1 max: 138.2 cm/sec MVA(P1/2t): 3.5 cm2 9.3 mmHg 126.9 cm/sec MV E/A: 0.90 MV dec slope: KARYNA(V,D): 2.0 cm2 581.1 cm/sec2 PA V2 max: TR max mandy: 63.9 cm/sec 276.9 cm/sec PA max PG: TR max P.7 mmHg 1.6 mmHg Left Ventricle The left ventricle is grossly normal size. There is borderline concentric left ventricular hypertrophy. The left ventricular ejection fraction is normal. Doppler measurements suggest pseudonormalized left ventricular relaxation, which is associated with grade II/IV or mild to moderate diastolic dysfunction. Wall motion cannot be accurately commented on, but no definite regional wall motion abnormalities noted. Right Ventricle The right ventricle is grossly normal size. There is normal right ventricular wall thickness. The right ventricular systolic function is normal. Atria The right atrium is normal in size. The left atrium is mildly dilated. Interarterial septum not well visualized and not well dopplered. Cannot comment on ASD/PFO presence. Mitral Valve The mitral valve leaflets are sclerotic, but show no functional abnormalities. There is no mitral valve stenosis. There is a mild to moderate amount of mitral regurgitation. Aortic Valve The aortic valve is sclerotic, but shows no functional abnormality. There is no aortic valve stenosis. There is a trace amount of aortic regurgitation. Tricuspid Valve The tricuspid valve is not well visualized, but is grossly normal. There is no tricuspid stenosis. There is a mild amount of tricuspid regurgitation. There is mild pulmonary hypertension by echo. Right ventricular systolic pressure is estimated to be elevated at 30-40mmHg. Pulmonic Valve The pulmonic valve is not well visualized. Great Vessels The aortic root is not well visualized but is probably normal size. The inferior vena cava appeared normal and decreased > 50% with respiration (RAP 5-10 mmHg). Effusions There is no pericardial effusion. : NOLVIA DURAND > Cuong Onofre
[2018-01-13] MEDS ORDERED: NORMAL SALINE 250 ML IV PRN ×2 (13:26)
--- NOTE | 2018-01-13 13:44 | PDOC PROGRESS REPORT ---
Subjective Progress Note for:: 01/13/18 Subjective:: Patient refers that feels better. She would like to quit smoking but her smokes a lot and does allow her to quit. Review of systems All organ systems evaluated and negative except as in subjective All laboratories and significant diagnostics had been reviewed Reason For Visit: CLOSED FRACTURE OF RIGHT FEMUR,ANEMIA, Physical Exam Vital Signs: Temp Pulse Resp BP Pulse Ox 97.6 F 73 16 112/46 L 98 01/13/18 07:48 01/13/18 07:48 01/13/18 07:48 01/13/18 07:48 01/13/18 07:48 Intake & Output 01/12/18 01/13/18 01/14/18 06:59 06:59 06:59 Intake Total 1284 1870 Output Total 750 Balance 534 1870 Weight 49.89 kg 57.7 kg General appearance: PRESENT: no acute distress, cooperative, well-developed, well-nourished Head exam: PRESENT: atraumatic, normocephalic Eye exam: PRESENT: conjunctiva pink, EOMI, PERRLA Ear exam: PRESENT: normal external ear exam Mouth exam: PRESENT: moist Neck exam: PRESENT: full ROM. ABSENT: JVD, lymphadenopathy, tenderness Respiratory exam: PRESENT: crackles Cardiovascular exam: PRESENT: RRR. ABSENT: diastolic murmur, systolic murmur Vascular exam: PRESENT: normal capillary refill GI/Abdominal exam: PRESENT: normal bowel sounds, soft. ABSENT: tenderness Extremities exam: PRESENT: full ROM. ABSENT: pedal edema Musculoskeletal exam: PRESENT: ambulatory Neurological exam: PRESENT: alert, awake, oriented to person, oriented to place , oriented to time, oriented to situation, CN II-XII grossly intact Psychiatric exam: PRESENT: appropriate affect, normal mood Skin exam: PRESENT: intact, normal color Results Laboratory Results: 01/13/18 03:56 01/13/18 03:56 01/12/18 01/13/18 01/13/18 12:40 03:00 03:56 WBC 4.6 4.7 RBC 3.02 L 2.97 L Hgb 8.0 L 7.9 L Hct 24.7 L 24.6 L MCV 82 83 MCH 26.3 L 26.7 L MCHC 32.2 32.2 RDW 20.1 H 20.3 H Plt Count 244 215 Seg Neutrophils % 55.8 Lymphocytes % 30.3 Monocytes % 11.4 Eosinophils % 2.0 Basophils % 0.5 Absolute Neutrophils 2.6 Absolute Lymphocytes 1.4 Absolute Monocytes 0.5 Absolute Eosinophils 0.1 Absolute Basophils 0.0 Sodium Potassium Chloride Carbon Dioxide Anion Gap BUN Creatinine Est GFR ( Amer) Est GFR (Non-Af Amer) Glucose Calcium Magnesium Stool Occult Blood NEGATIVE 01/13/18 03:56 WBC RBC Hgb Hct MCV MCH MCHC RDW Plt Count Seg Neutrophils % Lymphocytes % Monocytes % Eosinophils % Basophils % Absolute Neutrophils Absolute Lymphocytes Absolute Monocytes Absolute Eosinophils Absolute Basophils Sodium 136.9 L Potassium 4.4 Chloride 105 Carbon Dioxide 24 Anion Gap 8 BUN 15 Creatinine 0.57 Est GFR ( Amer) > 60 Est GFR (Non-Af Amer) > 60 Glucose 260 H Calcium 7.9 L Magnesium 1.7 Stool Occult Blood Impressions: Chest X-Ray 01/11/18 11:23 IMPRESSION: NEW LEFT UPPER LOBE AIRSPACE DISEASE PRESUMABLY REPRESENTING PNEUMONIA. RECOMMEND FOLLOWUP RADIOGRAPHS 4 TO 6 WEEKS TO ENSURE RESOLUTION. Head CT 01/11/18 11:28 IMPRESSION: NO ACUTE INTRACRANIAL PROCESS. NO SIGNIFICANT CHANGE FROM PRIOR STUDY. EVIDENCE OF ACUTE STROKE: NO. Femur X-Ray 01/11/18 11:31 IMPRESSION: STABLE MINIMALLY DISPLACED DISTAL FEMUR FRACTURE. Shoulder X-Ray 01/11/18 11:31 IMPRESSION: HEALING HUMERAL HEAD FRACTURE. Assessment & Plan - Diagnosis (1) Pneumonia Qualifiers: Pneumonia type: due to unspecified organism Laterality: left Lung location: upper lobe of lung Qualified Code(s): J18.1 - Lobar pneumonia, unspecified organism Is this a current diagnosis for this admission?: Yes Plan: To change to Ceftin since anticipate discharge in a.m. (2) Urinary tract infection Qualifiers: Urinary tract infection type: site unspecified Hematuria presence: without hematuria Qualified Code(s): N39.0 - Urinary tract infection, site not specified Is this a current diagnosis for this admission?: Yes Plan: Urine culture grew higher than 100,000 colonies of E. coli. To discontinue Zosyn and change to Ceftin (3) Anemia Qualifiers: Anemia type: iron deficiency Iron deficiency anemia type: inadequate dietary iron intake Qualified Code(s): D50.8 - Other iron deficiency anemias Is this a current diagnosis for this admission?: Yes Plan: Will transfuse 1 unit of packed red blood cell (4) Diabetes mellitus Qualifiers: Diabetes mellitus type: type 2 Diabetes mellitus complication status: with neurologic complications Diabetes mellitus complication detail: with autonomic neuropathy Is this a current diagnosis for this admission?: Yes Plan: Continue Humalog insulin sliding scale AC & HS. Order Hemoglobin A1c. To restart Lantus but at 10 units subcu at bedtime (5) Hypothyroid Qualifiers: Hypothyroidism type: acquired Qualified Code(s): E03.9 - Hypothyroidism, unspecified Is this a current diagnosis for this admission?: Yes Plan: Will continue medication as outpatient (6) Hypoglycemia Is this a current diagnosis for this admission?: Yes Plan: Resolved (7) Altered mental status Qualifiers: Altered mental status type: disorientation Qualified Code(s): R41.0 - Disorientation, unspecified Is this a current diagnosis for this admission?: Yes Plan: Likely multifactorial. Resolved (8) Diarrhea Qualifiers: Diarrhea type: unspecified type Qualified Code(s): R19.7 - Diarrhea, unspecified Is this a current diagnosis for this admission?: Yes Plan: Resolved (9) Peripheral edema Is this a current diagnosis for this admission?: Yes Plan: Continue Demadex as outpatient. Likely due to pulmonary hypertension and resolved (10) Mitral regurgitation Qualifiers: Cardiac valve disease etiology: etiology unspecified Qualified Code(s): I34.0 - Nonrheumatic mitral (valve) insufficiency Is this a current diagnosis for this admission?: Yes Plan: May be contributing to issue of pulmonary hypertension (11) Pulmonary hypertension Is this a current diagnosis for this admission?: Yes Plan: Continue with diuresis as outpatient - Time Time Spent with patient: 15-24 minutes Medications reviewed and adjusted accordingly: Yes Anticipated discharge: Home Within: within 24 hours - Inpatient Certification Based on my medical assessment, after consideration of the patient's comorbidities, presenting symptoms, or acuity I expect that the services needed warrant INPATIENT care.: Yes I certify that my determination is in accordance with my understanding of Medicare's requirements for reasonable and necessary INPATIENT services [42 CFR 412.3e].: Yes Medical Necessity: Need Close Monitoring Due to Risk of Patient Decompensation, Need For IV Fluids, Need for Nebulizer Therapy and Monitoring of Response
[2018-01-13] MEDS ORDERED: NICOTINE 21 MG/24 HR PATCH.TD24 TD ONE (18:45)
[2018-01-13] MEDS: GABAPENTIN 300 MG CAPSULE PO SCH (20:28)
[2018-01-13] MEDS ORDERED: INSULIN GLARGINE,HUM.REC.ANLOG 1,000 UNIT/10 ML UNIT SUBCUT SCH (22:00)
[2018-01-13 22:08] LABS: ABSOLUTE EOSINOPHILS # (AUTO) 0.1 10^3/uL (0.0-0.6); ABSOLUTE LYMPHOCYTES (AUTO) 1.8 10^3/uL (0.5-4.7); ABSOLUTE MONOCYTES (AUTO) 0.6 10^3/uL (0.1-1.4); ABSOLUTE NEUT (AUTO) 2.9 10^3/uL (1.7-8.2); BASOPHILS % (AUTO) 0.6 % (0-2); EOSINOPHILS % (AUTO) 1.7 % (0-6); HEMATOCRIT 29.2 % (36.0-47.0); HEMOGLOBIN 9.7 g/dL (12.0-15.5); LYMPHOCYTES % (AUTO) 32.7 % (13-45); MEAN CORPUSCULAR HEMOGLOBIN 27.3 pg (27.0-33.4); MEAN CORPUSCULAR HGB CONC 33.2 g/dL (32.0-36.0); MEAN CORPUSCULAR VOLUME 82 fl (80-97); MONOCYTES % (AUTO) 10.9 % (3-13); PLATELET COUNT 284 10^3/uL (150-450); RED BLOOD COUNT 3.56 10^6/uL (3.72-5.28); RED CELL DISTRIBUTION WIDTH 18.1 % (11.5-14.0); SEGMENTED NEUTROPHILS % (AUTO) 54.1 % (42-78); TOTAL CELLS COUNTED % (AUTO) 100 %; WHITE BLOOD COUNT 5.4 10^3/uL (4.0-10.5)
[2018-01-14] MEDS: HEPARIN SOD (PORCINE) 5,000 UNIT/ML 1 ML SYRINGE SUBCUT SCH ×2 (05:36→13:36)
[2018-01-14] MEDS: LEVOTHYROXINE SODIUM 0.088 MG TABLET PO SCH (05:36)
[2018-01-14 05:46] LABS: ABSOLUTE EOSINOPHILS # (AUTO) 0.1 10^3/uL (0.0-0.6); ABSOLUTE LYMPHOCYTES (AUTO) 1.5 10^3/uL (0.5-4.7); ABSOLUTE MONOCYTES (AUTO) 0.5 10^3/uL (0.1-1.4); ABSOLUTE NEUT (AUTO) 2.2 10^3/uL (1.7-8.2); BASOPHILS % (AUTO) 0.5 % (0-2); EOSINOPHILS % (AUTO) 1.9 % (0-6); HEMATOCRIT 28.5 % (36.0-47.0); HEMOGLOBIN 9.4 g/dL (12.0-15.5); LYMPHOCYTES % (AUTO) 35.6 % (13-45); MEAN CORPUSCULAR HEMOGLOBIN 27.1 pg (27.0-33.4); MEAN CORPUSCULAR HGB CONC 32.8 g/dL (32.0-36.0); MEAN CORPUSCULAR VOLUME 82 fl (80-97); MONOCYTES % (AUTO) 11.7 % (3-13); PLATELET COUNT 259 10^3/uL (150-450); RED BLOOD COUNT 3.46 10^6/uL (3.72-5.28); RED CELL DISTRIBUTION WIDTH 18.2 % (11.5-14.0); SEGMENTED NEUTROPHILS % (AUTO) 50.3 % (42-78); TOTAL CELLS COUNTED % (AUTO) 100 %; WHITE BLOOD COUNT 4.3 10^3/uL (4.0-10.5)
[2018-01-14 05:58] LABS: ANION GAP 9 (5-19); BLOOD UREA NITROGEN 14 mg/dL (7-20); CALCIUM 8.2 mg/dL (8.4-10.2); CARBON DIOXIDE 23 mmol/L (22-30); CHLORIDE 111 mmol/L (98-107); GLUCOSE 53 mg/dL (75-110); POTASSIUM 3.8 mmol/L (3.6-5.0); SODIUM 143.4 mmol/L (137-145)
[2018-01-14] MEDS: CALCIUM CARBONATE 250 MG/VITAMIN D3 125 UNIT TABLET PO SCH (08:12)
[2018-01-14] MEDS: ASCORBIC ACID 500 MG TABLET PO SCH (08:12)
[2018-01-14] MEDS: GUAIFENESIN 600 MG TABLET.SA PO SCH (08:13)
[2018-01-14] MEDS: FOLIC ACID 1 MG TABLET PO SCH (08:13)
[2018-01-14] MEDS: IPRATROPIUM/ALBUTEROL 0.5-2.5 MG/3 ML AMPUL NEB SCH (08:56)
[2018-01-14] MEDS ORDERED: TORSEMIDE 20 MG TABLET PO SCH (10:00)
[2018-01-14] MEDS: NICOTINE 14 MG/24 HR PATCH.TD24 TD SCH (10:08)
[2018-01-14] MEDS: CEFUROXIME 500 MG TABLET PO SCH (10:09)
[2018-01-14] MEDS: POTASSIUM CHLORIDE 10 MEQ TABLET.SA PO SCH (10:10)
[2018-01-14] MEDS: FLUTICASONE/SALMETEROL DISKUS 250-50 MCG/DOSE IH SCH (10:13)
[2018-01-14 12:11] VITALS: BP 140/58
--- NOTE | 2018-01-14 17:49 | PDOC DISCHARGE SUMMARY ---
General - Admit/Disc Date/PCP Admission Date/Primary Care Provider: 01/11/18 16:12 WES GU MD Discharge Date: 01/14/18 - Discharge Diagnosis (1) Pneumonia Is this a current diagnosis for this admission?: Yes (2) Urinary tract infection Is this a current diagnosis for this admission?: Yes (3) Altered mental status Is this a current diagnosis for this admission?: Yes (4) Anemia Is this a current diagnosis for this admission?: Yes (5) Diabetes mellitus Is this a current diagnosis for this admission?: Yes (6) Hypothyroid Is this a current diagnosis for this admission?: Yes (7) Hypoglycemia Is this a current diagnosis for this admission?: Yes (8) Diarrhea Is this a current diagnosis for this admission?: Yes (9) Peripheral edema Is this a current diagnosis for this admission?: Yes (10) Mitral regurgitation Is this a current diagnosis for this admission?: Yes (11) Pulmonary hypertension Is this a current diagnosis for this admission?: Yes (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 Is this a current diagnosis for this admission?: Yes - Additional Information Resuscitation Status: Full Code Discharge Diet: Cardiac, Diabetic Discharge Activity: Activity As Tolerated Prescriptions: Cefuroxime Axetil [Ceftin 500 mg Tablet] 500 mg PO Q12 #14 tablet Fluticasone/Salmeterol [Advair 250-50 Diskus 14 Dose/Diskus] 1 inh IH Q12 #60 inhaler Guaifenesin [Mucinex Sr 600 mg Tablet.sa] 600 mg PO Q12 #60 tablet.sa Nicotine [Nicoderm 14 mg/24 Hr Transdermal Patch] 1 each TD DAILY #30 patch.td24 Home Medications: Ascorbic Acid [Vitamin C] 1,000 mg PO DAILY 01/12/18 Calcium Carbonate/Vitamin D3 [Calcium 600-Vit D3 500 Softgel] 2 cap PO DAILY 03/25 Ergocalciferol (Vitamin D2) [Drisdol 50,000 unit (1.25MG) Capsule] 50,000 unit PO OLIVER@0800 01/12/18 Folic Acid [Folvite 1 mg Tablet] 1 mg PO DAILY 01/12/18 Gabapentin [Neurontin 300 mg Capsule] 300 mg PO QHS 01/12/18 Levothyroxine Sodium [Synthroid] 175 mcg PO Q6AM 01/12/18 Lisinopril [Prinivil 5 mg Tablet] 5 mg PO DAILY 01/12/18 Metformin HCl [Metformin HCl ER] 500 mg PO DAILY 01/12/18 Potassium Chloride [Klor-Con 10 Meq Tablet.sa] 10 meq PO DAILY 01/12/18 Torsemide [Demadex 20 mg Tablet] 20 mg PO MOWEFR@1000 01/12/18 Zinc Acetate [Galzin] 50 mg PO DAILY 01/12/18 Cefuroxime Axetil [Ceftin 500 mg Tablet] 500 mg PO Q12 #14 tablet 01/14/18 Fluticasone/Salmeterol [Advair 250-50 Diskus 14 Dose/Diskus] 1 inh IH Q12 #60 inhaler 01/14/18 Guaifenesin [Mucinex Sr 600 mg Tablet.sa] 600 mg PO Q12 #60 tablet.sa 01/14/18 Insulin Glargine,Hum.rec.anlog [Lantus] 5 units SQ QHS #0 01/14/18 Nicotine [Nicoderm 14 mg/24 Hr Transdermal Patch] 1 each TD DAILY #30 patch.td24 01/14/18 History of Present Illness History of Present Illness: KENNEDY MEDEIROS is a 67 year old female arrived via ambulance because of blood sugar of 21. Patient had been having frequent episodes of hypoglycemia and EMS had been called to her house but patient declined transfer to ED. On the day of admission patient was administered glucagon and transported to this facility. History gathering was almost impossible since the patient kept requesting orange juice because she was thirsty. When evaluated in emergency room chest x- ray demonstrated a possible pneumonia and a straight cath urine was suggestive of a urinary tract infection. Patient had been having profuse diarrhea while in emergency room. Due to presentation our service was consulted and prompted to admit for further management. Hospital Course Hospital Course: By the time patient was admitted to the floor her mental status had cleared. Altered mental status was deemed to be primarily related to hypoglycemia however there was also a component of infectious process. Urine culture grew higher than 100,000 colonies of E. coli which was sensitive to Zosyn. Patient was transitioned to Ceftin on discharge. Chest x-ray obtained on admission showed a left upper lobe infiltrate which also was treated with Zosyn and discharged on Ceftin for total of 7 days. As far as management of diabetes, we decreased Lantus dose. Recommend to consider discontinuing Lantus in order to prevent hypoglycemia. Hemoglobin was trended and was less than 8. Patient was administered 1 unit of packed red blood cell with further improvement to 9.4. We placed a nicotine patch in order to improve respiratory status. Patient is motivated to quit however her major problem is her who is a heavy smoker. Echocardiogram was obtained since concerned about pulmonary hypertension. Echocardiogram showed is a grade 2 diastolic dysfunction, moderate mitral valve regurgitation and pulmonary hypertension. Patient may benefit from close follow-up for possible progression of mitral valve disease. We also added Advair since likely patient does have an element of COPD. Recommend primary care provider to refer patient to [facility] for further testing if deemed needed. Patient progressed as expected and achieved maximum benefit of hospitalization stay, prompted to discharge under stable condition Physical Exam Vital Signs: Temp Pulse Resp BP Pulse Ox 97.5 F 76 16 123/48 L 97 01/14/18 07:19 01/14/18 08:57 01/14/18 08:57 01/14/18 07:19 01/14/18 08:57 Intake & Output 01/13/18 01/14/18 01/15/18 06:59 06:59 06:59 Intake Total 1870 2965 Balance 1870 2965 Weight 57.7 kg 59 kg General appearance: PRESENT: no acute distress, cooperative, well-developed, well-nourished Head exam: PRESENT: atraumatic, normocephalic Eye exam: PRESENT: conjunctiva pink, EOMI, PERRLA Ear exam: PRESENT: normal external ear exam Mouth exam: PRESENT: moist Neck exam: PRESENT: full ROM. ABSENT: JVD, lymphadenopathy, tenderness Respiratory exam: PRESENT: clear to auscultation neo Cardiovascular exam: PRESENT: RRR. ABSENT: diastolic murmur, systolic murmur Vascular exam: PRESENT: normal capillary refill GI/Abdominal exam: PRESENT: normal bowel sounds, soft. ABSENT: tenderness Neurological exam: PRESENT: alert, awake, oriented to person, oriented to place , oriented to time, oriented to situation, CN II-XII grossly intact Psychiatric exam: PRESENT: appropriate affect, normal mood Skin exam: PRESENT: normal color Results Laboratory Results: 01/14/18 05:14 01/14/18 05:14 01/13/18 01/13/18 01/14/18 13:44 22:00 05:14 WBC 5.4 4.3 RBC 3.56 L 3.46 L Hgb 9.7 L 9.4 L Hct 29.2 L 28.5 L MCV 82 82 MCH 27.3 27.1 MCHC 33.2 32.8 RDW 18.1 H 18.2 H Plt Count 284 259 Seg Neutrophils % 54.1 50.3 Lymphocytes % 32.7 35.6 Monocytes % 10.9 11.7 Eosinophils % 1.7 1.9 Basophils % 0.6 0.5 Absolute Neutrophils 2.9 2.2 Absolute Lymphocytes 1.8 1.5 Absolute Monocytes 0.6 0.5 Absolute Eosinophils 0.1 0.1 Absolute Basophils 0.0 0.0 Sodium Potassium Chloride Carbon Dioxide Anion Gap BUN Creatinine Est GFR ( Amer) Est GFR (Non-Af Amer) Glucose Calcium Magnesium Blood Type A NEGATIVE Antibody Screen NEGATIVE 01/14/18 05:14 WBC RBC Hgb Hct MCV MCH MCHC RDW Plt Count Seg Neutrophils % Lymphocytes % Monocytes % Eosinophils % Basophils % Absolute Neutrophils Absolute Lymphocytes Absolute Monocytes Absolute Eosinophils Absolute Basophils Sodium 143.4 Potassium 3.8 Chloride 111 H Carbon Dioxide 23 Anion Gap 9 BUN 14 Creatinine 0.46 L Est GFR ( Amer) > 60 Est GFR (Non-Af Amer) > 60 Glucose 53 L Calcium 8.2 L Magnesium 1.7 Blood Type Antibody Screen Impressions: Chest X-Ray 01/11/18 11:23 IMPRESSION: NEW LEFT UPPER LOBE AIRSPACE DISEASE PRESUMABLY REPRESENTING PNEUMONIA. RECOMMEND FOLLOWUP RADIOGRAPHS 4 TO 6 WEEKS TO ENSURE RESOLUTION. Head CT 01/11/18 11:28 IMPRESSION: NO ACUTE INTRACRANIAL PROCESS. NO SIGNIFICANT CHANGE FROM PRIOR STUDY. EVIDENCE OF ACUTE STROKE: NO. Femur X-Ray 01/11/18 11:31 IMPRESSION: STABLE MINIMALLY DISPLACED DISTAL FEMUR FRACTURE. Shoulder X-Ray 01/11/18 11:31 IMPRESSION: HEALING HUMERAL HEAD FRACTURE. Qualifiers - * PATIENT BEING DISCHARGED WITH ANY OF THE FOLLOWING DIAGNOSIS: Heart Failure HF Pt being discharged on ACEI for LVEF less than 40%?: No Reason(s) for not prescribing ACEI:: Not indicated HF Pt being discharged on ARBS for LVEF less than 40%?: No Reason(s) for not prescribing ARBS:: Not indicated HF Pt with Afib discharged with Warfarin?: No Reason(s) for not prescribing Warfarin:: Not indicated HF Pt discharged on evidence-based Beta Ryan:: No Reason(s) for not prescribing evidence-based Beta Ryan:: Not indicated Plan Discharge Plan: Discharge home with home health Time Spent: Greater than 30 Minutes
[2018-01-14] MEDS ORDERED: INSULIN GLARGINE,HUM.REC.ANLOG 300 UNIT/3 ML INSULN.PEN SUBCUT SCH (22:00)
[2018-01-18] MEDS ORDERED: ERGOCALCIFEROL (VITAMIN D2) 50000 UNIT (1.25 MG) CAPSULE PO SCH (08:00)
== END 2018-01-14 14:19 | disposition home health service (06) | DRG 689 ==
LOC: ER 11:04 → EH 16:12 → 4N 18:10
PROVIDERS: ADMIT Family Medicine; ATTEND Family Medicine
PROC: 30233N1 Transfusion of Nonautologous Red Blood Cells into Peripheral Vein, Percutaneous Approach (ICD-10-PCS; principal; 2018-01-13)
DX: N39.0 Urinary tract infection, site not specified (principal); J18.9 Pneumonia, unspecified organism; I50.32 Chronic diastolic (congestive) heart failure; I11.0 Hypertensive heart disease with heart failure; F17.210 Nicotine dependence, cigarettes, uncomplicated; J44.9 Chronic obstructive pulmonary disease, unspecified; E11.649 Type 2 diabetes mellitus with hypoglycemia without coma; E11.40 Type 2 diabetes mellitus with diabetic neuropathy, unspecified; I27.20 Pulmonary hypertension, unspecified; B96.20 Unspecified Escherichia coli [E. coli] as the cause of diseases classified elsewhere; I34.0 Nonrheumatic mitral (valve) insufficiency; E03.9 Hypothyroidism, unspecified; D50.8 Other iron deficiency anemias; R41.0 Disorientation, unspecified; M06.9 Rheumatoid arthritis, unspecified; E11.43 Type 2 diabetes mellitus with diabetic autonomic (poly)neuropathy; S72.334 Nondisplaced oblique fracture of shaft of right femur; S42.291D Other displaced fracture of upper end of right humerus, subsequent encounter for fracture with routine healing; Z79.4 Long term (current) use of insulin; Z79.899 Other long term (current) drug therapy; Z80.3 Family history of malignant neoplasm of breast; Z82.49 Family history of ischemic heart disease and other diseases of the circulatory system
CPT/HCPCS: 36415; 36430; 70450; 71045; 80048; 80053; 80307; 81001; 82272; 82803; 82962; 83036; 83605; 83690; 83735; 84439; 84443; 84484; 85025; 85027; 85610; 86850; 86900; 86901; 86920; 87040; 87086; 87088; 87186; 93005; 93010; 93306; 99291; J1644; J1815; J1940; J1956; J2543; J3490; P9016

== ENCOUNTER 2018-07-19 06:48 | Inpatient (IN) | payer MEDICARE, OTHER ==
[2018-07-19] MEDS ORDERED: DEXTROSE 5%-1/2 NORMAL SALINE 500 ML IV ONE (07:18)
[2018-07-19] MEDS ORDERED: LORAZEPAM INJ 2 MG/1 ML VIAL IV ONE ×2 (07:23→07:27)
--- NOTE | 2018-07-19 07:30 | ER Document Report ---
ED General - General Chief Complaint: Low Blood Sugar Stated Complaint: BLOOD SUGAR PROBLEM Time Seen by Provider: 07/19/18 06:57 Mode of Arrival: Medic Information source: Relative, Emergency Med Personnel Notes: Patient is a 68-year-old female who appears much older than her stated age came into the emergency room by EMS this morning per EMS informs me she is very well known to them patient is an insulin-dependent diabetic who often drops her sugars and they are often called out there and the supply chain generalist told me usually they can give her 1-2 A of D50 and patient's blood sugars come up to 50-70 and she is coherent starts eating and they leave her. Today when they got to her site her to call them her blood glucose was 26 they gave her a total of 30 g with only getting her blood sugar back up to around 119 and every time it was started falling again. The called because of her mental status to change she was gibberish she became incontinent of stool and was not able to ambulate at all. She did not know where she was or what was going on or occurring at the time. EMS did remark that the only difference in her presentation on a normal basis from the past until today was patient's abdomen was severely distended. Patient has a long history of the insulin-dependent diabetes history of osteomyelitis hypertension TRAVEL OUTSIDE OF THE [place] IN LAST 30 DAYS: No - HPI Onset: Other - Unknown how long patient has been this way. Onset/Duration: Sudden Quality of pain: Achy Severity: Moderate Pain Level: 3 Context: Hypoglycemia Associated symptoms: Diarrhea, Slow to respond - 100 the short straw Exacerbated by: Denies Relieved by: Denies Similar symptoms previously: Yes Recently seen / treated by doctor: No - Related Data Allergies/Adverse Reactions: No Known Allergies Allergy (Verified 11/14/17 19:02) Past Medical History - General Information source: Relative, Emergency Med Personnel - Social History Smoking Status: Unknown if Ever Smoked Family History: Reviewed & Not Pertinent - Past Medical History Cardiac Medical History: Reports: Hx Hypertension - states Lisinopril Rx r/t DM Dx Denies: Hx Coronary Artery Disease, Hx Heart Attack Pulmonary Medical History: Reports: Hx COPD Denies: Hx Asthma, Hx Bronchitis, Hx Pneumonia Neurological Medical History: Denies: Hx Cerebrovascular Accident, Hx Seizures Endocrine Medical History: Reports: Hx Diabetes Mellitus Type 2 Renal/ Medical History: Denies: Hx Peritoneal Dialysis Musculoskeletal Medical History: Reports Hx Arthritis - rheumatoid, no meds x 2 months r/t Dx of Celiac's Psychiatric Medical History: Denies: Hx Depression Past Surgical History: Reports: Hx Orthopedic Surgery. Denies: Hx Pacemaker - Immunizations Hx Diphtheria, Pertussis, Tetanus Vaccination: Yes Review of Systems - Review of Systems Constitutional: See HPI, Malaise, Weakness EENT: No symptoms reported Cardiovascular: No symptoms reported Respiratory: No symptoms reported Gastrointestinal: No symptoms reported Genitourinary: No symptoms reported Female Genitourinary: No symptoms reported Musculoskeletal: No symptoms reported Skin: No symptoms reported Hematologic/Lymphatic: No symptoms reported Neurological/Psychological: See HPI, Confusion -: Yes All other systems reviewed and negative Physical Exam - Vital signs Vitals: Resp BP Pulse Ox 18 155/77 H 97 07/19/18 07:14 07/19/18 07:14 07/19/18 07:14 Interpretation: Hypertensive Notes: Vital signs on patient's arrival showed her to be hypoglycemic at 71 on my exam she also had a blood pressure 143/83 heart rate was 9200 and her sat was 99% on room air. Blood sugar state was 26. Patient's core body temperature rectally was 96.8. PHYSICAL EXAMINATION: GENERAL: Patient is a 68-year-old female who on examination in the emergency room is incontinent of stool. Currently nursing is giving up to get her cleaned up and changed. EMS found patient in incontinent state. While nursing is attempting to change her patient is yelling but not making any sense and trying to talk but only gibberish coming out at this point. She responds to touch and stimulation she attempts to communicate without success. HEAD: Atraumatic, normocephalic. EYES: Pupils equal round and reactive to light, extraocular movements intact, conjunctiva are normal. ENT: Nares patent, oropharynx clear without exudates. Moist mucous membranes. NECK: Normal range of motion, supple without lymphadenopathy LUNGS: Auscultation of patient's lung purdy show she has bilateral breath sounds breath sounds are decreased throughout with some faint rales heard in the bases bilaterally. HEART: Regular rate and rhythm without murmurs ABDOMEN: Examination patient's abdomen shows it to be severely distended very tympanic bowel sounds are barely audible. Patient's stool is bestey colored. Patient has diffuse tenderness throughout but no specific areas. Female : deferred Musculoskeletal: Patient has purposeful movement of her upper extremities she is able to grab and hold. Lower extremities are less active. Patient has had traumatic events in the lower extremities including osteomyelitis diagnosis. She has what appears to be may be an early cellulitis on the left lower extremity tib-fib area and poor circulation with the lower extremities very cool to cold to touch compared to the upper extremities. She has definite neuropathy in the lower extremities with inability to feel two-point discrimination or pull away from pain. She has a history of a closed hip fracture. But as stated the physical exam of the lower extremities is concerning for may be an osteomyelitis. NEUROLOGICAL: A total neuro exam is impossible to perform with patient being confused combative agitated. She is moving both the extremities as described above. She has no abnormal findings on her neurologic exam. By this in the upper facial features are all normal. She is opening closing her eyes she is tracking. She is attempting to talk secondary to her low blood sugars and is not making a lot of sense. This is not a normal presentation for a stroke type situation. PSYCH: Anxious agitated SKIN: As described above in the lower extremities concerning for osteomyelitis. The left lower extremity is a very reddened with the discoloration as well as the left foot. She has loss of sensation in the lower extremities as far as I can tell to deep stimulation. She does not even attempt to move her lower extremities bilaterally. The right leg has lessened concern at this time for abnormal pathology of the leg but still x-rays will be done to rule out an ostial. Course - Re-evaluation Re-evalutation: 07/19/18 11:47 Patient came in the first of the shift. Stated she was agitated and combative over the course of her stay here in the emergency room she has progressed to where we finally got her blood sugars under control to an extent. She is been on ADD 50 drip at 200 mL's an hour which was not sufficient at our first couple of checks we then gave her another bolus of an amp of D50 and have rechecked her a couple of times since then and her blood sugar is staying steady at about 137. At this point we cut back the drip of 250. She is also found to have a UTI. No elevation of patient's WBC at this time. She did have positive nitrites and concerning for the lower extremity cellulitis is still a consideration. At present patient is received 1 g of Rocephin IV we are culturing her blood and we are culturing her urine. Her chest x-ray showed a minimal carline-hilar edema may be present one view chest. Patient CT of her abdomen shows ileus but no obstruction. 07/19/18 12:[address] Martin with the hospitalist group and he came down to ER and we discussed patient's case and he is except the patient to the medical MICU. - Vital Signs Vital signs: Temp Pulse Resp BP Pulse Ox 100.8 F H 108 H 16 132/71 H 100 07/19/18 10:09 07/19/18 07:44 07/19/18 11:00 07/19/18 11:00 07/19/18 11:00 - Laboratory Result Diagrams: 07/19/18 07:17 07/19/18 07:17 Laboratory results interpreted by me: 07/19/18 07/19/18 07/19/18 07:17 07:17 07:17 RBC 3.66 L Hgb 10.2 L Hct 31.4 L RDW 18.3 H PT 23.4 H Chloride 108 H Carbon Dioxide 20 L Creatinine 0.31 L POC Glucose Calcium 7.9 L Magnesium 1.2 L* AST 49 H ALT 56 H Alkaline Phosphatase 197 H Albumin 3.1 L Urine Nitrite 07/19/18 07/19/18 07/19/18 07:17 09:54 11:34 RBC Hgb Hct RDW PT Chloride Carbon Dioxide Creatinine POC Glucose 146 H 137 H Calcium Magnesium AST ALT Alkaline Phosphatase Albumin Urine Nitrite POSITIVE H Critical Care Note - Critical Care Note Total time excluding time spent on procedures (mins): 40 Comments: This is time spent talking to his specialist as well as nursing and family. did arrive for a short period of time and had nothing really new to add to why patient presented the way she did. Patient is a poor historian as well. I discussed the case with the hospitalist and he is going to place patient in the medical MICU. Discharge - Discharge Clinical Impression: Hypoglycemia, Hypothermia UTI (urinary tract infection) Qualifiers: Urinary tract infection type: site unspecified Hematuria presence: without hematuria Qualified Code(s): N39.0 - Urinary tract infection, site not specified Condition: Good Disposition: ADMITTED INPATIENT Admitting Provider: Hospitalist Unit Admitted: [facility] Referrals: WES GU MD [Primary Care Provider] - Follow up as needed
[2018-07-19 07:37] LABS: ABSOLUTE MONOCYTES (AUTO) 0.6 10^3/uL (0.1-1.4); ABSOLUTE NEUT (AUTO) 4.6 10^3/uL (1.7-8.2); BASOPHILS % (AUTO) 0.3 % (0-2); EOSINOPHILS % (AUTO) 0.5 % (0-6); HEMATOCRIT 31.4 % (36.0-47.0); HEMOGLOBIN 10.2 g/dL (12.0-15.5); LYMPHOCYTES % (AUTO) 16.3 % (13-45); MEAN CORPUSCULAR HEMOGLOBIN 27.8 pg (27.0-33.4); MEAN CORPUSCULAR HGB CONC 32.4 g/dL (32.0-36.0); MEAN CORPUSCULAR VOLUME 86 fl (80-97); MONOCYTES % (AUTO) 10.1 % (3-13); PLATELET COUNT 337 10^3/uL (150-450); RED BLOOD COUNT 3.66 10^6/uL (3.72-5.28); RED CELL DISTRIBUTION WIDTH 18.3 % (11.5-14.0); SEGMENTED NEUTROPHILS % (AUTO) 72.8 % (42-78); TOTAL CELLS COUNTED % (AUTO) 100 %; WHITE BLOOD COUNT 6.3 10^3/uL (4.0-10.5)
[2018-07-19 07:42] LABS: INTERNATIONAL RATION (INR) 1.97; PROTHROMBIN TIME 23.4 SEC (11.4-15.4)
[2018-07-19 07:47] LABS: APPEARANCE,URINE SLIGHTLY-CLOUDY; BILIRUBIN,URINE NEGATIVE (NEGATIVE); COLOR,URINE YELLOW; GLUCOSE, URINE NEGATIVE (NEGATIVE); KETONES,URINE NEGATIVE (NEGATIVE); LEUKOCYTE ESTERASE,URINE NEGATIVE (NEGATIVE); NITRITE,URINE POSITIVE (NEGATIVE); PROTEIN,URINE NEGATIVE (NEGATIVE); URINE SPECIFIC GRAVITY 1.015; UROBILINOGEN,URINE NEGATIVE mg/dL (<2.0)
[2018-07-19 07:57] LABS: ALANINE AMINOTRANSFERASE 56 U/L (9-52); ALBUMIN 3.1 g/dL (3.5-5.0); ALKALINE PHOSPHATASE 197 U/L (38-126); ANION GAP 12 (5-19); ASPARTATE AMINO TRANSFERASE 49 U/L (14-36); BILIRUBIN,DIRECT 0.2 mg/dL (0.0-0.4); BILIRUBIN,TOTAL 0.2 mg/dL (0.2-1.3); BLOOD UREA NITROGEN 12 mg/dL (7-20); CALCIUM 7.9 mg/dL (8.4-10.2); CARBON DIOXIDE 20 mmol/L (22-30); CHLORIDE 108 mmol/L (98-107); GLUCOSE 87 mg/dL (75-110); POTASSIUM 4.2 mmol/L (3.6-5.0); SODIUM 140.4 mmol/L (137-145); TOTAL PROTEIN 6.4 g/dL (6.3-8.2)
[2018-07-19] MEDS ORDERED: CEFTRIAXONE 1 GM/D5W RTU 1 GM/50 ML RTUPB IV ONE (08:10)
[2018-07-19] MEDS: MAGNESIUM SULFATE/D5W 1 GM/100 ML RTUPB IV SCH ×2 (08:30→08:34)
[2018-07-19] MEDS ORDERED: DEXTROSE 50%-WATER 25 GM/50 ML DISP.SYRIN IV ONE (08:41)
--- NOTE | 2018-07-19 10:14 | RADIOLOGY REPORT (SQ) ---
EXAM DESCRIPTION: CT HEAD WITHOUT COMPLETED DATE/TIME: 07/19/2018 9:52 am REASON FOR STUDY: AMS COMPARISON: 01/11/2018 TECHNIQUE: Axial images acquired through the brain without intravenous contrast. Images reviewed wi th bone, brain and subdural windows. Additional sagittal and coronal reconstructions were generated. Images stored on PACS. All CT scanners at this facility use dose modulation, iterative reconstruction, and/or weight based d osing when appropriate to reduce radiation dose to as low as reasonably achievable (ALARA). [facility]: Dose Right [facility]: CareDose [facility]: Dose Right [facility]: Teradose 4D [facility]: [employer] RADIATION DOSE: CT Rad equipment meets quality standard of care and radiation dose reduction techniq ues were employed. CTDIvol: 53.2 mGy. DLP: 1017 mGy-cm. mGy. LIMITATIONS: None. FINDINGS: VENTRICLES: Normal size and contour. CEREBRUM: No masses. No hemorrhage. No midline shift. No evidence for acute infarction. Normal gra y/white matter differentiation. No areas of low density in the white matter. CEREBELLUM: No masses. No hemorrhage. No alteration of density. No evidence for acute infarction. EXTRAAXIAL SPACES: No fluid collections. No masses. ORBITS AND GLOBE: No intra- or extraconal masses. Normal contour of globe without masses. CALVARIUM: No fracture. PARANASAL SINUSES: No fluid levels. Mucosal thickening in the right maxillary sinus. SOFT TISSUES: No mass or hematoma. OTHER: No other significant finding. IMPRESSION: No acute intracranial abnormality. EVIDENCE OF ACUTE STROKE: NO. COMMENT: Quality ID # [id number]: Final reports with documentation of one or more dose reduction techniques (e.g., Automated exposure control, adjustment of the mA and/or kV according to patient size, use of iterative reconstruction technique) TECHNICAL DOCUMENTATION: JOB ID: [id number] [employer]- All Rights Reserved Reading location - IP/workstation name: [email or web address]
--- NOTE | 2018-07-19 10:16 | RADIOLOGY REPORT (SQ) ---
EXAM DESCRIPTION: TIB FIB BILAT 2 VIEWS; FOOT BILATERAL 3 VIEWS COMPLETED DATE/TIME: 07/19/2018 10:03 am REASON FOR STUDY: ? Osteomylitis COMPARISON: None. FINDINGS: Three views, total of 5 images of the left foot: Significantly limited by positioning difficulties flexion of the toes and extreme osteopenia. MP gregorio nt arthropathy is suggested. No fracture or bone lesion. Sided specific clinical concern not indica clayton, which significantly limits this study further. Two views right tibia and fibula: Severe osteopenia. Mid anterior hernandez soft tissue irregularity, po ssibly a wound. Bones intact. TECHNICAL DOCUMENTATION: JOB ID: [id number] Reading location - IP/workstation name: [email or web address]
--- NOTE | 2018-07-19 10:16 | RADIOLOGY REPORT (SQ) ---
EXAM DESCRIPTION: TIB FIB BILAT 2 VIEWS; FOOT BILATERAL 3 VIEWS COMPLETED DATE/TIME: 07/19/2018 10:03 am REASON FOR STUDY: ? Osteomylitis COMPARISON: None. FINDINGS: Three views, total of 5 images of the left foot: Significantly limited by positioning difficulties flexion of the toes and extreme osteopenia. MP gregorio nt arthropathy is suggested. No fracture or bone lesion. Sided specific clinical concern not indica clayton, which significantly limits this study further. Two views right tibia and fibula: Severe osteopenia. Mid anterior hernandez soft tissue irregularity, po ssibly a wound. Bones intact. TECHNICAL DOCUMENTATION: JOB ID: [id number] Reading location - IP/workstation name: [email or web address]
--- NOTE | 2018-07-19 10:34 | RADIOLOGY REPORT (SQ) ---
EXAM DESCRIPTION: CT ABDOMEN IV CONTRAST ONLY COMPLETED DATE/TIME: 07/19/2018 9:52 am REASON FOR STUDY: SBO/ Hold contrrast if Creatine is not normal COMPARISON: None. TECHNIQUE: CT scan of the abdomen and pelvis performed using helical scanning technique with dynamic intravenous contrast injection. No oral contrast. Images reviewed with lung, soft tissue, and bone windows. Reconstructed coronal and sagittal MPR images reviewed. Delayed images for evaluation of the urinary system also acquired. All images stored on PACS. All CT scanners at this facility use dose modulation, iterative reconstruction, and/or weight based d osing when appropriate to reduce radiation dose to as low as reasonably achievable (ALARA). [facility]: Dose Right [facility]: CareDose [facility]: Dose Right [facility]: Teradose 4D [facility]: [employer] CONTRAST TYPE AND DOSE: contrast/concentration: Isovue 350.00 mg/ml; Total Contrast Delivered: 62.0 ml; Total Saline Delivered: 65.0 ml RENAL FUNCTION: Not available. RADIATION DOSE: CT Rad equipment meets quality standard of care and radiation dose reduction techniq ues were employed. CTDIvol: 6.5 - 8.8 mGy. DLP: 795 mGy-cm.. LIMITATIONS: Paucity of intra- abdominal fat somewhat limits. FINDINGS: LOWER CHEST: Basilar scarring and bullous change. LIVER: Subcentimeter low density focus lateral aspect right lobe image 25. Indeterminate. SPLEEN: Normal size. No focal lesions. PANCREAS: No masses. No significant calcifications. No adjacent inflammation or peripancreatic fluid collections. Pancreatic duct not dilated. GALLBLADDER: No identified stones by CT criteria. No inflammatory changes to suggest cholecystitis. ADRENAL GLANDS: No significant masses or asymmetry. RIGHT KIDNEY AND URETER: No gross urinary obstruction. LEFT KIDNEY AND URETER: No gross urinary obstruction. AORTA AND VESSELS: No aneurysm or dissection. Atherosclerotic. RETROPERITONEUM: No retroperitoneal adenopathy, hemorrhage or masses. BOWEL AND PERITONEAL CAVITY: Fluid-filled loops of mid to distal small bowel. Potential ileus. Diff icult to define any point of obstruction. APPENDIX: Not visualized. PELVIS: Distended urinary bladder without stones. ABDOMINAL WALL: No bowel containing hernia or mass. Generally cachectic appearance. BONES: Right pubic ramus fractures show evidence of callus, chronic. OTHER: No other significant finding. IMPRESSION: 1. Nonspecific mild mid to distal small bowel distention. Potential ileus. A clear poi nt of obstruction is not identified. 2. Other findings as above. TECHNICAL DOCUMENTATION: JOB ID: [id number] Quality ID # [id number]: Final reports with documentation of one or more dose reduction techniques (e.g., Au tomated exposure control, adjustment of the mA and/or kV according to patient size, use of iterative reconstruction technique) 2010 [employer]- All Rights Reserved Reading location - IP/workstation name: [email or web address]
--- NOTE | 2018-07-19 10:46 | RADIOLOGY REPORT (SQ) ---
EXAM DESCRIPTION: CHEST SINGLE VIEW COMPLETED DATE/TIME: 07/19/2018 10:03 am REASON FOR STUDY: AMS COMPARISON: 2012. NUMBER OF VIEWS: One view. TECHNIQUE: Single frontal radiographic view of the chest acquired. LIMITATIONS: None. FINDINGS: LUNGS AND PLEURA: Slight increased density in the upper lung purdy may reflect vascular c ongestion. Some of this may be external artifact. Lungs otherwise slightly hyperinflated but clear. MEDIASTINUM AND HILAR STRUCTURES: No mediastinal contour abnormalities. HEART AND VASCULAR STRUCTURES: Heart size felt to be stable to slightly enlarged compared to prior. Some of this may be technique related. BONES: Osteopenia. Limited assessment. Right proximal humerus fracture noted. This looks chronic c ompared to old films. HARDWARE: Left port. OTHER: No other significant finding. IMPRESSION: Findings as above. Minimal perihilar edema may be present. Other changes as noted. TECHNICAL DOCUMENTATION: JOB ID: [id number] [employer]- All Rights Reserved Reading location - IP/workstation name: [email or web address]
[2018-07-19] MEDS ORDERED: ONDANSETRON HCL INJ/PF 4 MG/2 ML SDV IV PRN (12:18)
[2018-07-19] MEDS ORDERED: GLUCAGON,HUMAN RECOMB 1 MG INJ SUBCUT ONE (12:26)
--- NOTE | 2018-07-19 12:40 | PDOC H&P ---
History of Present Illness Admission Date/PCP: WES GU MD History of Present Illness: KENNEDY MEDEIROS is a 68 year old female with past medical history of recurrent hypoglycemia, type II DM stenosis, COPD, hypothyroidism, hypertension and medical noncompliance brought by EMS with chief complaint of severe hypoglycemia with blood sugar level of 26. Since patient is mentally altered and sedated with lorazepam she is not able to give history. Brief history is obtained from ER attending note. Per ER attending note, patient brought by EMS this morning per EMS informs ER attending that she is very well-known to them, patient is an insulin-dependent diabetic who often drops her sugar and they are often called out there and the paramedics told the ER attending that they can give her 1-2 ampoules of D50 and patient's blood sugar, up to 50-70 and she is quadrant starts eating and they leave her. Today when they go to to her house they found her with blood sugar of 26 they gave her a total of 30 g of glucose was only getting her blood sugar back up to around 119 and every time it was started falling again. She is also found to have altered mental status. Review of system and further detailed history could not be obtained. Past Medical History Cardiac Medical History: Reports: Hypertension - states Lisinopril Rx r/t DM Dx Denies: Coronary Artery Disease, Myocardial Infarction Pulmonary Medical History: Reports: Chronic Obstructive Pulmonary Disease (COPD) Denies: Asthma, Bronchitis, Pneumonia Neurological Medical History: Denies: Seizures Endocrine Medical History: Reports: Diabetes Mellitus Type 2 Musculoskeltal Medical History: Reports: Arthritis - rheumatoid, no meds x 2 months r/t Dx of Celiac's Psychiatric Medical History: Denies: Depression Hematology: Reports: Anemia - multiple treatments of Feraheme Past Surgical History Past Surgical History: Reports: Orthopedic Surgery Denies: Pacemaker Social History Smoking Status: Unknown if Ever Smoked Frequency of Alcohol Use: None Hx Recreational Drug Use: No Drugs: None Hx Prescription Drug Abuse: No - Advance Directive Resuscitation Status: Full Code Family History Family History: Reviewed & Not Pertinent Parental Family History Reviewed: Yes Children Family History Reviewed: Yes Sibling(s) Family History Reviewed.: Yes Medication/Allergy Home Medications: Ascorbic Acid [Vitamin C] 1,000 mg PO DAILY 01/12/18 Calcium Carbonate/Vitamin D3 [Calcium 600-Vit D3 500 Softgel] 2 cap PO DAILY 03/25 Ergocalciferol (Vitamin D2) [Drisdol 50,000 unit (1.25MG) Capsule] 50,000 unit PO OLIVER@0800 01/12/18 Folic Acid [Folvite 1 mg Tablet] 1 mg PO DAILY 01/12/18 Gabapentin [Neurontin 300 mg Capsule] 300 mg PO QHS 01/12/18 Levothyroxine Sodium [Synthroid] 175 mcg PO Q6AM 01/12/18 Lisinopril [Prinivil 5 mg Tablet] 5 mg PO DAILY 01/12/18 Metformin HCl [Metformin HCl ER] 500 mg PO DAILY 01/12/18 Potassium Chloride [Klor-Con 10 Meq Capsule ER] 10 meq PO DAILY 01/12/18 Torsemide [Demadex 20 mg Tablet] 20 mg PO MOWEFR@1000 01/12/18 Zinc Acetate [Galzin] 50 mg PO DAILY 01/12/18 Cefuroxime Axetil [Ceftin 500 mg Tablet] 500 mg PO Q12 #14 tablet 01/14/18 Fluticasone/Salmeterol [Advair 250-50 Diskus 14 Dose/Diskus] 1 inh IH Q12 #60 inhaler 01/14/18 Guaifenesin [Mucinex Sr 600 mg Tablet.sa] 600 mg PO Q12 #60 tablet.sa 01/14/18 Insulin Glargine,Hum.rec.anlog [Lantus] 5 units SQ QHS #0 01/14/18 Nicotine [Nicoderm 14 mg/24 Hr Transdermal Patch] 1 each TD DAILY #30 patch.td24 01/14/18 Allergies/Adverse Reactions: No Known Allergies Allergy (Verified 11/14/17 19:02) Review of Systems ROS unobtainable: Due to mental status Physical Exam Vital Signs: Temp Pulse Resp BP Pulse Ox 100.8 F H 108 H 16 132/71 H 100 07/19/18 10:09 07/19/18 07:44 07/19/18 11:00 07/19/18 11:00 07/19/18 11:00 Intake & Output 07/18/18 07/19/18 07/20/18 06:59 06:59 06:59 Intake Total 7 Balance 7 Weight 58.967 kg General appearance: PRESENT: no acute distress Head exam: PRESENT: atraumatic Mouth exam: PRESENT: dry mucosa Respiratory exam: PRESENT: clear to auscultation neo. ABSENT: rales, rhonchi, wheezes Cardiovascular exam: PRESENT: RRR. ABSENT: diastolic murmur, rubs, systolic murmur GI/Abdominal exam: PRESENT: normal bowel sounds, soft. ABSENT: distended, guarding, mass, organolmegaly, rebound, tenderness Extremities exam: PRESENT: full ROM. ABSENT: calf tenderness, clubbing, pedal edema Neurological exam: PRESENT: altered Psychiatric exam: PRESENT: other - Sedated Results Laboratory Results: 07/19/18 07:17 07/19/18 07:17 07/19/18 07/19/18 07/19/18 07:10 07:17 07:17 WBC 6.3 RBC 3.66 L Hgb 10.2 L Hct 31.4 L MCV 86 MCH 27.8 MCHC 32.4 RDW 18.3 H Plt Count 337 Seg Neutrophils % 72.8 Lymphocytes % 16.3 Monocytes % 10.1 Eosinophils % 0.5 Basophils % 0.3 Absolute Neutrophils 4.6 Absolute Lymphocytes 1.0 Absolute Monocytes 0.6 Absolute Eosinophils 0.0 Absolute Basophils 0.0 Sodium 140.4 Potassium 4.2 Chloride 108 H Carbon Dioxide 20 L Anion Gap 12 BUN 12 Creatinine 0.31 L Est GFR ( Amer) > 60 Est GFR (Non-Af Amer) > 60 Glucose 87 Lactic Acid 1.6 Calcium 7.9 L Magnesium 1.2 L* Total Bilirubin 0.2 AST 49 H ALT 56 H Alkaline Phosphatase 197 H Total Protein 6.4 Albumin 3.1 L Urine Color Urine Appearance Urine pH Ur Specific Condon Urine Protein Urine Glucose (UA) Urine Ketones Urine Blood Urine Nitrite Ur Leukocyte Esterase Urine WBC (Auto) Urine RBC (Auto) 07/19/18 07:17 WBC RBC Hgb Hct MCV MCH MCHC RDW Plt Count Seg Neutrophils % Lymphocytes % Monocytes % Eosinophils % Basophils % Absolute Neutrophils Absolute Lymphocytes Absolute Monocytes Absolute Eosinophils Absolute Basophils Sodium Potassium Chloride Carbon Dioxide Anion Gap BUN Creatinine Est GFR ( Amer) Est GFR (Non-Af Amer) Glucose Lactic Acid Calcium Magnesium Total Bilirubin AST ALT Alkaline Phosphatase Total Protein Albumin Urine Color YELLOW Urine Appearance SLIGHTLY-CLOUDY Urine pH 5.0 Ur Specific Condon 1.015 Urine Protein NEGATIVE Urine Glucose (UA) NEGATIVE Urine Ketones NEGATIVE Urine Blood NEGATIVE Urine Nitrite POSITIVE H Ur Leukocyte Esterase NEGATIVE Urine WBC (Auto) 11 Urine RBC (Auto) 0 07/19/18 07:17 Troponin I < 0.012 Impressions: Chest X-Ray 07/19/18 07:17 IMPRESSION: Findings as above. Minimal perihilar edema may be present. Other changes as noted. Abdomen CT 07/19/18 07:22 IMPRESSION: 1. Nonspecific mild mid to distal small bowel distention. Potential ileus. A clear point of obstruction is not identified. 2. Other findings as above. Head CT 07/19/18 07:42 IMPRESSION: No acute intracranial abnormality. EVIDENCE OF ACUTE STROKE: NO. Assessment & Plan - Diagnosis (1) AMS due to metabolic encephalopathy Is this a current diagnosis for this admission?: Yes Plan: Probably due to hypoglycemia. Patient has been on D5W. (2) Severe diabetic hypoglycemia Is this a current diagnosis for this admission?: Yes Plan: Patient has history of recurrent hypoglycemia. She has been started on D5W and she will be given 1 mg of glucagon subcutaneously started. I would hold her metformin and Lantus. I will consult consumer educator. (3) Hypomagnesemia Is this a current diagnosis for this admission?: Yes Plan: I will replete her magnesium (4) Hypothyroidism (acquired) Is this a current diagnosis for this admission?: Yes Plan: Continue her home Synthroid (5) COPD (chronic obstructive pulmonary disease) Qualifiers: Emphysema type: unspecified Is this a current diagnosis for this admission?: Yes Plan: As needed bronchodilator. (6) Hypertension Is this a current diagnosis for this admission?: Yes Plan: Continue her home medication
--- NOTE | 2018-07-19 17:43 | EKG REPORT ---
SEVERITY:- ABNORMAL ECG - SINUS RHYTHM LOW VOLTAGE THROUGHOUT CONSIDER ANTERIOR INFARCT (V2 LEAD PLACEMENT ERROR) BORDERLINE PROLONGED QT INTERVAL : Confirmed by: Cj Richardson MD 19-Jul-2018 17:42:59
[2018-07-19] MEDS: SIMETHICONE 80 MG TAB.CHEW PO SCH (18:36)
[2018-07-19] MEDS ORDERED: DEXTROSE 50%-WATER SYRINGE 25 GM/50 ML DOSE IV PRN (18:50)
[2018-07-19] MEDS ORDERED: DEXTROSE 40% GEL 15 GM TUBE X 2 PO PRN (18:50)
[2018-07-19] MEDS ORDERED: DEXTROSE 50%-WATER SYRINGE 12.5 GM/25 ML DOSE IV PRN (18:50)
[2018-07-19] MEDS ORDERED: DEXTROSE 40% GEL 15 GM TUBE PO PRN (18:50)
[2018-07-19] MEDS ORDERED: GLUCAGON,HUMAN RECOMB 1 MG INJ IM PRN (18:50)
[2018-07-19] MEDS: FAMOTIDINE 20 MG TABLET PO SCH (21:16)
[2018-07-19] MEDS: GABAPENTIN 300 MG CAPSULE PO SCH (21:16)
[2018-07-19] MEDS ORDERED: FAMOTIDINE 20 MG TABLET PO SCH (22:00)
[2018-07-20] MEDS: LEVOTHYROXINE SODIUM 0.075 MG TABLET PO SCH (05:28)
[2018-07-20] MEDS: LEVOTHYROXINE SODIUM 0.1 MG TABLET PO SCH (05:28)
[2018-07-20 05:37] LABS: ABSOLUTE EOSINOPHILS # (AUTO) 0.1 10^3/uL (0.0-0.6); ABSOLUTE LYMPHOCYTES (AUTO) 1.2 10^3/uL (0.5-4.7); ABSOLUTE MONOCYTES (AUTO) 0.5 10^3/uL (0.1-1.4); ABSOLUTE NEUT (AUTO) 2.8 10^3/uL (1.7-8.2); BASOPHILS % (AUTO) 0.5 % (0-2); HEMATOCRIT 25.6 % (36.0-47.0); HEMOGLOBIN 8.4 g/dL (12.0-15.5); LYMPHOCYTES % (AUTO) 26.2 % (13-45); MEAN CORPUSCULAR HEMOGLOBIN 27.9 pg (27.0-33.4); MEAN CORPUSCULAR HGB CONC 32.7 g/dL (32.0-36.0); MEAN CORPUSCULAR VOLUME 85 fl (80-97); MONOCYTES % (AUTO) 10.7 % (3-13); PLATELET COUNT 264 10^3/uL (150-450); RED CELL DISTRIBUTION WIDTH 18.3 % (11.5-14.0); SEGMENTED NEUTROPHILS % (AUTO) 60.6 % (42-78); TOTAL CELLS COUNTED % (AUTO) 100 %; WHITE BLOOD COUNT 4.7 10^3/uL (4.0-10.5)
[2018-07-20] MEDS ORDERED: (PENDING PHARMACY ID) (Levothyroxine Sodium [Synthroid] 175 MCG) PO SCH (06:00)
[2018-07-20 06:03] LABS: ANION GAP 9 (5-19); BLOOD UREA NITROGEN 11 mg/dL (7-20); CALCIUM 7.6 mg/dL (8.4-10.2); CARBON DIOXIDE 18 mmol/L (22-30); CHLORIDE 110 mmol/L (98-107); GLUCOSE 199 mg/dL (75-110); POTASSIUM 4.1 mmol/L (3.6-5.0); SODIUM 136.9 mmol/L (137-145)
[2018-07-20] MEDS: INSULIN LISPRO 100 UNIT/ML 3 ML VIAL SUBCUT PRN ×4 (08:12→21:46)
--- NOTE | 2018-07-20 09:40 | PDOC PROGRESS REPORT ---
Subjective Subjective:: This is a 68 years old lady who looks older than her stated age brought by EMS with altered mental status secondary to metabolic encephalopathy. Patient found to have blood glucose of 26. Patient has history of recurrent hypoglycemia and multiple admissions to this hospital. Surprisingly her A1c is 6.4. This morning I seen patient awake alert and oriented and conversant. I tried to explain for her the effect of repeated hypoglycemia on her brain. Patient seems she is in denial. inclusion paraeducator has been consulted. Reason For Visit: AMS DUE TO METABOLIC ENCEPHALOPATHY,SEVERE Physical Exam Vital Signs: Temp Pulse Resp BP Pulse Ox 97.8 F 81 13 121/48 L 93 07/20/18 07:09 07/20/18 07:09 07/20/18 07:09 07/20/18 07:09 07/20/18 07:09 Intake & Output 07/19/18 07/20/18 07/21/18 06:59 06:59 06:59 Intake Total 1131 Output Total 200 Balance 931 Weight 55.5 kg General appearance: PRESENT: no acute distress Head exam: PRESENT: atraumatic Eye exam: PRESENT: conjunctiva pink Mouth exam: PRESENT: moist Neck exam: ABSENT: carotid bruit, JVD, lymphadenopathy, thyromegaly Respiratory exam: PRESENT: clear to auscultation neo. ABSENT: rales, rhonchi, wheezes Cardiovascular exam: PRESENT: RRR. ABSENT: diastolic murmur, rubs, systolic murmur GI/Abdominal exam: PRESENT: normal bowel sounds, soft. ABSENT: distended, guarding, mass, organolmegaly, rebound, tenderness Neurological exam: PRESENT: alert, awake, oriented to time, oriented to situation Results Laboratory Results: 07/20/18 04:56 07/20/18 04:56 07/20/18 07/20/18 07/20/18 04:56 04:56 04:56 WBC 4.7 RBC 3.00 L Hgb 8.4 L Hct 25.6 L MCV 85 MCH 27.9 MCHC 32.7 RDW 18.3 H Plt Count 264 Seg Neutrophils % 60.6 Lymphocytes % 26.2 Monocytes % 10.7 Eosinophils % 2.0 Basophils % 0.5 Absolute Neutrophils 2.8 Absolute Lymphocytes 1.2 Absolute Monocytes 0.5 Absolute Eosinophils 0.1 Absolute Basophils 0.0 Sodium 136.9 L Potassium 4.1 Chloride 110 H Carbon Dioxide 18 L Anion Gap 9 BUN 11 Creatinine 0.43 L Est GFR ( Amer) > 60 Est GFR (Non-Af Amer) > 60 Glucose 199 H Calcium 7.6 L TSH 1.81 Impressions: Chest X-Ray 07/19/18 07:17 IMPRESSION: Findings as above. Minimal perihilar edema may be present. Other changes as noted. Abdomen CT 07/19/18 07:22 IMPRESSION: 1. Nonspecific mild mid to distal small bowel distention. Potential ileus. A clear point of obstruction is not identified. 2. Other findings as above. Head CT 07/19/18 07:42 IMPRESSION: No acute intracranial abnormality. EVIDENCE OF ACUTE STROKE: NO. Assessment & Plan - Diagnosis (1) AMS due to metabolic encephalopathy Is this a current diagnosis for this admission?: Yes Plan: Has resolved (2) Severe diabetic hypoglycemia Is this a current diagnosis for this admission?: Yes Plan: Improving (3) Hypomagnesemia Is this a current diagnosis for this admission?: Yes Plan: I will replete her magnesium (4) Hypothyroidism (acquired) Is this a current diagnosis for this admission?: Yes Plan: Continue her home Synthroid (5) COPD (chronic obstructive pulmonary disease) Qualifiers: Emphysema type: unspecified Is this a current diagnosis for this admission?: Yes Plan: As needed bronchodilator. (6) Hypertension Is this a current diagnosis for this admission?: Yes Plan: Continue her home medication
[2018-07-20] MEDS ORDERED: [UNRECOGNIZED DRUG - OTHER] PO SCH (10:00)
[2018-07-20] MEDS ORDERED: ZINC ACETATE 50 MG PO SCH (10:00)
[2018-07-20] MEDS ORDERED: (PENDING PHARMACY ID) (Metformin Hcl [Metformin Hcl Er] 500 MG) PO SCH (10:00)
[2018-07-20] MEDS ORDERED: CALCIUM CARBONATE PO SCH (10:00)
[2018-07-20] MEDS ORDERED: VITAMIN D3 PO SCH (10:00)
[2018-07-20] MEDS ORDERED: CEFTRIAXONE 1 GM/D5W RTU 1 GM/50 ML RTUPB IV SCH (10:00)
[2018-07-20] MEDS: CEFTRIAXONE SODIUM 1,000 MG in DEXTROSE 5%-WATER 50 ML IV SCH (11:39)
[2018-07-20] MEDS: CALCIUM CARBONATE 250 MG/VITAMIN D3 125 UNIT TABLET PO SCH (11:40)
[2018-07-20] MEDS: METFORMIN HCL 500 MG TABLET PO SCH ×2 (11:41→17:21)
[2018-07-20] MEDS: LISINOPRIL 5 MG TABLET PO SCH (11:42)
[2018-07-20] MEDS: FOLIC ACID 1 MG TABLET PO SCH (11:42)
[2018-07-20] MEDS: ENOXAPARIN SODIUM INJ 40 MG/0.4 ML DISP.SYRIN SUBCUT SCH (11:42)
[2018-07-20] MEDS: SIMETHICONE 80 MG TAB.CHEW PO SCH ×3 (11:42→17:21)
[2018-07-20] MEDS: ASCORBIC ACID 500 MG TABLET PO SCH (11:43)
[2018-07-20] MEDS: GABAPENTIN 300 MG CAPSULE PO SCH (21:47)
[2018-07-20] MEDS: CIPROFLOXACIN HCL 500 MG TABLET PO SCH (21:47)
[2018-07-20] MEDS: FAMOTIDINE 20 MG TABLET PO SCH (21:47)
[2018-07-21] MEDS: LEVOTHYROXINE SODIUM 0.1 MG TABLET PO SCH (05:20)
[2018-07-21] MEDS: LEVOTHYROXINE SODIUM 0.075 MG TABLET PO SCH (05:20)
[2018-07-21] MEDS: INSULIN LISPRO 100 UNIT/ML 3 ML VIAL SUBCUT PRN (08:57)
[2018-07-21] MEDS: ENOXAPARIN SODIUM INJ 40 MG/0.4 ML DISP.SYRIN SUBCUT SCH (08:59)
[2018-07-21] MEDS: SIMETHICONE 80 MG TAB.CHEW PO SCH (09:01)
[2018-07-21] MEDS: LISINOPRIL 5 MG TABLET PO SCH (09:02)
--- NOTE | 2018-07-21 09:02 | PDOC DISCHARGE SUMMARY ---
General - Admit/Disc Date/PCP Admission Date/Primary Care Provider: 07/19/18 12:36 WES GU MD Discharge Date: 07/21/18 - Discharge Diagnosis (1) AMS due to metabolic encephalopathy Is this a current diagnosis for this admission?: Yes (2) COPD (chronic obstructive pulmonary disease) Is this a current diagnosis for this admission?: Yes (3) Hypertension Is this a current diagnosis for this admission?: Yes (4) Hypomagnesemia Is this a current diagnosis for this admission?: Yes (5) Hypothyroidism (acquired) Is this a current diagnosis for this admission?: Yes (6) Severe diabetic hypoglycemia Is this a current diagnosis for this admission?: Yes (7) Diabetes mellitus Is this a current diagnosis for this admission?: Yes - Additional Information Resuscitation Status: Full Code Discharge Diet: Diabetic Discharge Activity: Activity As Tolerated Home Medications: Ergocalciferol (Vitamin D2) [Drisdol 50,000 unit (1.25MG) Capsule] 50,000 unit PO OLIVER@1000 07/19/18 Folic Acid [Folvite 1 mg Tablet] 1 mg PO DAILY 07/19/18 Gabapentin [Neurontin 300 mg Capsule] 300 mg PO DAILY 07/19/18 Levothyroxine Sodium [Synthroid] 175 mcg PO Q6AM 07/19/18 Lisinopril [Prinivil 5 mg Tablet] 5 mg PO DAILY 07/19/18 Metformin HCl [Metformin HCl ER] 500 mg PO DAILY 07/19/18 Potassium Chloride [Klor-Con 10 Meq Capsule ER] 10 meq PO DAILY 07/19/18 Torsemide [Demadex 20 mg Tablet] 20 mg PO MOWEFR@1000 07/19/18 Zinc Acetate [Galzin] 50 mg PO .DAILY 07/21/18 History of Present Illness History of Present Illness: History of Present Illness on admission: KENNEDY MEDEIROS is a 68 year old female with past medical history of recurrent hypoglycemia, type II DM stenosis, COPD, hypothyroidism, hypertension and medical noncompliance brought by EMS with chief complaint of severe hypoglycemia with blood sugar level of 26. Since patient is mentally altered and sedated with lorazepam she is not able to give history. Brief history is obtained from ER attending note. Per ER attending note, patient brought by EMS this morning per EMS informs ER attending that she is very well-known to them, patient is an insulin-dependent diabetic who often drops her sugar and they are often called out there and the paramedics told the ER attending that they can give her 1-2 ampoules of D50 and patient's blood sugar, up to 50-70 and she is quadrant starts eating and they leave her. Today when they go to to her house they found her with blood sugar of 26 they gave her a total of 30 g of glucose was only getting her blood sugar back up to around 119 and every time it was started falling again. She is also found to have altered mental status. Review of system and further detailed history could not be obtained. Hospital Course Hospital Course: Patient received the 5 water infusion and also glucagon injections. Lantus and metformin were held. Her magnesium was repleted. The patient mental status returned to normal. Diabetes education was consulted. When I discussed with the patient, apparently she takes Lantus as needed and according to her glucose levels. She could not tell me how much Lantus she takes or took lost. Hypoglycemia had occurred before this episode. She clearly does not know how to use Lantus and she tells me this is how her doctor instructed her to do. Her hemoglobin A1c is 6.4. She says her is a drunk and does not help her with her diabetes and she is a 1 who takes care of herself. She is stable and back to baseline. She is stable for discharge. I recommended that she does not use Lantus and she is okay to take metformin since her glucose levels were in the 200s during hospitalization. I recommended that she follows up with her primary care physician this week. She understood my recommendations. Physical Exam Vital Signs: Temp Pulse Resp BP Pulse Ox 97.8 F 72 19 119/49 L 99 07/21/18 07:40 07/21/18 07:40 07/21/18 07:40 07/21/18 07:40 07/21/18 07:40 Intake & Output 07/20/18 07/21/18 07/22/18 06:59 06:59 06:59 Intake Total 1131 1077 Output Total 200 500 Balance 931 577 Weight 122 lb 5.705 oz 124 lb 5.451 oz General appearance: PRESENT: no acute distress, cooperative Head exam: PRESENT: atraumatic, normocephalic Eye exam: PRESENT: EOMI. ABSENT: conjunctival injection Ear exam: ABSENT: bleeding, drainage Neck exam: ABSENT: meningismus, tenderness Respiratory exam: PRESENT: clear to auscultation neo. ABSENT: accessory muscle use Cardiovascular exam: PRESENT: RRR. ABSENT: diastolic murmur, systolic murmur Pulses: PRESENT: normal radial pulses GI/Abdominal exam: PRESENT: normal bowel sounds. ABSENT: ascites, diminished bowel sounds, tenderness Rectal exam: PRESENT: deferred Extremities exam: ABSENT: pedal edema Neurological exam: PRESENT: alert, altered, awake, oriented to person, oriented to place, oriented to time, oriented to situation Psychiatric exam: ABSENT: agitated, homicidal ideation, suicidal ideation Results Laboratory Results: 07/20/18 04:56 07/20/18 04:56 Impressions: Chest X-Ray 07/19/18 07:17 IMPRESSION: Findings as above. Minimal perihilar edema may be present. Other changes as noted. Abdomen CT 07/19/18 07:22 IMPRESSION: 1. Nonspecific mild mid to distal small bowel distention. Potential ileus. A clear point of obstruction is not identified. 2. Other findings as above. Head CT 07/19/18 07:42 IMPRESSION: No acute intracranial abnormality. EVIDENCE OF ACUTE STROKE: NO. Qualifiers - * PATIENT BEING DISCHARGED WITH ANY OF THE FOLLOWING DIAGNOSIS: No Plan Time Spent: Greater than 30 Minutes - 35 minutes
[2018-07-21] MEDS: METFORMIN HCL 500 MG TABLET PO SCH (09:04)
[2018-07-21] MEDS: ASCORBIC ACID 500 MG TABLET PO SCH (09:05)
[2018-07-21] MEDS: FOLIC ACID 1 MG TABLET PO SCH (09:05)
[2018-07-21] MEDS: CALCIUM CARBONATE 250 MG/VITAMIN D3 125 UNIT TABLET PO SCH (09:07)
[2018-07-21] MEDS: CEFTRIAXONE SODIUM 1,000 MG in DEXTROSE 5%-WATER 50 ML IV SCH (09:07)
[2018-07-21] MEDS: CIPROFLOXACIN HCL 500 MG TABLET PO SCH (09:07)
[2018-07-21 11:23] VITALS: BP 155/76
[2018-07-26] MEDS ORDERED: ERGOCALCIFEROL (VITAMIN D2) 50000 UNIT (1.25 MG) CAPSULE PO SCH (08:00)
== END 2018-07-21 11:38 | disposition home or self-care (01) | DRG 637 ==
LOC: ER 06:48 → EH 12:36 → 3S 14:04
PROVIDERS: ADMIT Internal Medicine; ATTEND Internal Medicine
DX: E11.649 Type 2 diabetes mellitus with hypoglycemia without coma (principal); G93.41 Metabolic encephalopathy; E83.42 Hypomagnesemia; D64.9 Anemia, unspecified; E03.9 Hypothyroidism, unspecified; J44.9 Chronic obstructive pulmonary disease, unspecified; I10 Essential (primary) hypertension; M06.9 Rheumatoid arthritis, unspecified; Z79.84 Long term (current) use of oral hypoglycemic drugs; Z79.899 Other long term (current) drug therapy; Z91.19 Patient's noncompliance with other medical treatment and regimen
CPT/HCPCS: 36415; 51701; 70450; 71045; 74160; 80048; 80053; 81001; 82962; 83036; 83605; 83735; 84443; 84484; 85025; 85610; 87040; 87086; 87088; 87186; 93005; 93010; 96365; 96366; 96367; 96375; 99291; J0696; J1610; J1815; J2060; J3475; J3490; J7070

== ENCOUNTER 2018-08-18 15:37 | Emergency (ER) | payer OTHER, MEDICARE ==
[2018-08-18] MEDS ORDERED: OXYCODONE-ACETAMINOPHEN 5-325 MG TABLET PO ONE (17:15)
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
--- NOTE | 2018-08-18 17:57 | RADIOLOGY REPORT (SQ) ---
EXAM DESCRIPTION: KNEE RIGHT 3 VIEWS COMPLETED DATE/TIME: 08/18/2018 5:44 pm REASON FOR STUDY: trauma COMPARISON: None. NUMBER OF VIEWS: Three views. TECHNIQUE: AP, lateral, and sunrise patella radiographic images acquired of the right knee. LIMITATIONS: None. FINDINGS: MINERALIZATION: Normal. BONES: No acute fracture or dislocation. No worrisome bone lesions. JOINT: No effusion. SOFT TISSUES: No soft tissue swelling. No radio-opaque foreign body. OTHER: No other significant finding. IMPRESSION: NEGATIVE STUDY OF THE RIGHT KNEE. NO RADIOGRAPHIC EVIDENCE OF ACUTE INJURY. TECHNICAL DOCUMENTATION: JOB ID: [id number] [employer]- All Rights Reserved Reading location - IP/workstation name: [email or web address]
--- NOTE | 2018-08-18 18:30 | RADIOLOGY REPORT (SQ) ---
EXAM DESCRIPTION: CT CHEST WITHOUT COMPLETED DATE/TIME: 08/18/2018 6:11 pm REASON FOR STUDY: sternal pain COMPARISON: None. TECHNIQUE: CT scan performed of the chest without intravenous contrast. Images reviewed with lung, soft tissue and bone windows. Reconstructed coronal and sagittal MPR images reviewed. All images st ored on PACS. All CT scanners at this facility use dose modulation, iterative reconstruction, and/or weight based d osing when appropriate to reduce radiation dose to as low as reasonably achievable (ALARA). [facility]: Dose Right [facility]: CareDose [facility]: Dose Right [facility]: Teradose 4D [facility]: [employer] RADIATION DOSE: CT Rad equipment meets quality standard of care and radiation dose reduction techniq ues were employed. CTDIvol: 6.0 mGy. DLP: 225 mGy-cm. mGy. LIMITATIONS: No technical limitations. FINDINGS: LUNGS AND PLEURA: There are bilateral emphysematous changes most marked in the superior se gment of the right and left lower lobes. No consolidation. No effusions. No pneumothorax. HILAR AND MEDIASTINAL STRUCTURES: No identified masses or abnormal nodes. No obvious aneurysm. HEART AND VASCULAR STRUCTURES: No aneurysm. No pericardial effusion. UPPER ABDOMEN: No significant findings. Limited exam. THYROID AND OTHER SOFT TISSUES: No masses. No adenopathy. BONES: There does appear to be a fracture through the upper sternum. This is best demonstrated on sa gittal reconstructions. HARDWARE: None in the chest. OTHER: No other significant findings. IMPRESSION: Mildly displaced upper sternal fracture. No other significant findings in the chest. T here are mild bilateral emphysematous changes. TECHNICAL DOCUMENTATION: JOB ID: [id number] Quality ID # [id number]: Final reports with documentation of one or more dose reduction techniques (e.g., Au tomated exposure control, adjustment of the mA and/or kV according to patient size, use of iterative reconstruction technique) 2010 [employer]- All Rights Reserved Reading location - IP/workstation name: [email or web address]
[2018-08-18 20:04] LABS: ABSOLUTE EOSINOPHILS # (AUTO) 0.1 10^3/uL (0.0-0.6); ABSOLUTE LYMPHOCYTES (AUTO) 1.2 10^3/uL (0.5-4.7); ABSOLUTE MONOCYTES (AUTO) 0.5 10^3/uL (0.1-1.4); ABSOLUTE NEUT (AUTO) 2.6 10^3/uL (1.7-8.2); BASOPHILS % (AUTO) 0.5 % (0-2); EOSINOPHILS % (AUTO) 1.7 % (0-6); HEMATOCRIT 30.5 % (36.0-47.0); HEMOGLOBIN 9.9 g/dL (12.0-15.5); MEAN CORPUSCULAR HEMOGLOBIN 28.6 pg (27.0-33.4); MEAN CORPUSCULAR HGB CONC 32.6 g/dL (32.0-36.0); MEAN CORPUSCULAR VOLUME 88 fl (80-97); MONOCYTES % (AUTO) 11.1 % (3-13); PLATELET COUNT 275 10^3/uL (150-450); RED BLOOD COUNT 3.47 10^6/uL (3.72-5.28); RED CELL DISTRIBUTION WIDTH 17.9 % (11.5-14.0); SEGMENTED NEUTROPHILS % (AUTO) 58.7 % (42-78); TOTAL CELLS COUNTED % (AUTO) 100 %; WHITE BLOOD COUNT 4.4 10^3/uL (4.0-10.5)
[2018-08-18 20:21] LABS: ANION GAP 10 (5-19); BLOOD UREA NITROGEN 19 mg/dL (7-20); CALCIUM 8.6 mg/dL (8.4-10.2); CARBON DIOXIDE 25 mmol/L (22-30); CHLORIDE 109 mmol/L (98-107); GLUCOSE 95 mg/dL (75-110); POTASSIUM 3.5 mmol/L (3.6-5.0); SODIUM 143.9 mmol/L (137-145)
[2018-08-18 21:10] VITALS: BP 134/57
--- NOTE | 2018-08-18 23:32 | EKG REPORT ---
SEVERITY:- BORDERLINE ECG - SINUS RHYTHM LOW VOLTAGE IN FRONTAL LEADS BORDERLINE R WAVE PROGRESSION, ANTERIOR LEADS : Confirmed by: Jamilah Perez MD 18-Aug-2018 23:32:21
== END 2018-08-18 21:20 | disposition home or self-care (01) ==
LOC: ER 15:37
DX: S22.22XA Fracture of body of sternum, initial encounter for closed fracture (principal); V43.52XA Car driver injured in collision with other type car in traffic accident, initial encounter; M25.561 Pain in right knee; F17.200 Nicotine dependence, unspecified, uncomplicated; I10 Essential (primary) hypertension; E11.9 Type 2 diabetes mellitus without complications
CPT/HCPCS: 36415; 71250; 80048; 84484; 85025; 93005; 93010; 99285

== ENCOUNTER 2018-10-28 04:42 | Inpatient (IN) | payer MEDICARE, OTHER ==
[2018-10-28] MEDS ORDERED: DEXTROSE 50%-WATER 25 GM/50 ML DISP.SYRIN IV ONE ×2 (04:48→05:40)
[2018-10-28] MEDS ORDERED: DEXTROSE 5%-1/2 NORMAL SALINE 500 ML IV ONE (04:53)
--- NOTE | 2018-10-28 05:00 | ER Document Report ---
ED General - General Stated Complaint: BLOOD SUGAR PROBLEMS Time Seen by Provider: 10/28/18 04:52 TRAVEL OUTSIDE OF THE [place] IN LAST 30 DAYS: No - HPI Notes: Patient is a 68-year-old female that presents to the emergency department for chief complaint of hypoglycemia. Patient presents from home by EMS. She was found on the floor next to her bed laying on her pillow with a [id number] glucose of 16. Patient is well-known to EMS for hypoglycemic episodes. She usually does not eat well in the evenings and is found laying next to the couch by her . She usually sleeps on the couch per EMS. They state they usually are able to give her glucose which returns her to her normal state and she does not ever wish to be brought to the emergency room. Today she still seemed confused after receiving 1 amp of D50. Patient is an insulin-dependent diabetic. Her only complaint to me currently is pain but she cannot specify what exactly is hurting. She has a history of arthritis and appears uncomfortable with movement. Past Medical History: Rheumatoid arthritis, diabetes Past Surgical History: Reviewed in chart Social History: Reviewed in chart Family History: Reviewed and noncontributory for presenting illness Allergies: Reviewed, see documented allergy list. REVIEW OF SYSTEMS: Unable to obtain because of current acuity of condition PHYSICAL EXAMINATION: Vital signs reviewed, nursing noted reviewed. GENERAL: Mildly diaphoretic, alert, well-nourished and in no acute distress. HEAD: Atraumatic, normocephalic. EYES: Eyes appear normal, extraocular movements intact, sclera anicteric, conjunctiva are normal. ENT: nares patent, oropharynx clear without exudates. Dry mucous membranes. NECK: Normal range of motion, supple without lymphadenopathy LUNGS: Breath sounds clear to auscultation bilaterally and equal. No wheezes rales or rhonchi. HEART: Regular rate and rhythm without murmurs ABDOMEN: Soft, nontender, normoactive bowel sounds. No rebound, guarding, or rigidity. No masses appreciated. EXTREMITIES: Right lower leg tenderness, good range of motion, bilateral pretibial trace edema NEUROLOGICAL: No focal neurological deficits. Moves all extremities spontaneously Motor and sensory grossly intact on exam. PSYCH: Normal mood, normal affect. SKIN: Warm, mildly diaphoretic, erythematous rash to right lower extremity with areas of excoriation with serosanguineous drainage, no Pauline - Related Data Allergies/Adverse Reactions: No Known Allergies Allergy (Verified 11/14/17 19:02) Past Medical History - Social History Smoking Status: Unknown if Ever Smoked Family History: Reviewed & Not Pertinent - Past Medical History Cardiac Medical History: Reports: Hx Hypertension - states Lisinopril Rx r/t DM Dx Denies: Hx Coronary Artery Disease, Hx Heart Attack Pulmonary Medical History: Reports: Hx COPD Denies: Hx Asthma, Hx Bronchitis, Hx Pneumonia Neurological Medical History: Denies: Hx Cerebrovascular Accident, Hx Seizures Endocrine Medical History: Reports: Hx Diabetes Mellitus Type 2 Renal/ Medical History: Denies: Hx Peritoneal Dialysis Musculoskeletal Medical History: Reports Hx Arthritis - rheumatoid, no meds x 2 months r/t Dx of Celiac's Psychiatric Medical History: Denies: Hx Depression Past Surgical History: Reports: Hx Orthopedic Surgery. Denies: Hx Pacemaker - Immunizations Hx Diphtheria, Pertussis, Tetanus Vaccination: Yes Course - Re-evaluation Re-evalutation: 10/28/18 04:59 Vitals reviewed. Nursing notes reviewed. Patient is oriented to person and place but not able to give any apparent history into what happened this evening or answer questions completely. Her [id number] glucose upon arrival was 70. Patient was ordered another amp of D50 for her rapidly declining glucose since EMS reported it was 106 just prior to coming in. She will be started on D5 half-normal saline for her persistent hypoglycemia 10/28/18 05:26 Patient's core temperature was just resulted is 94 rectally. This was likely due to prolonged immobilization on the floor. She will be placed on a rewarming blanket. 10/28/18 06:13 Patient's workup shows urinary tract infection. She is hypothermic with no other Sirs criteria. Patient was given Rocephin for her UTI. Patient's care discussed with Dr. Stevens who accepts for admission for further monitoring of her recurrent hypoglycemia and UTI Laboratory 10/28/18 10/28/18 10/28/18 04:47 05:15 05:15 WBC 6.3 RBC 3.74 Hgb 10.4 L Hct 32.2 L MCV 86 MCH 27.8 MCHC 32.2 RDW 16.0 H Plt Count 209 Seg Neutrophils % 72.9 Lymphocytes % 17.3 Monocytes % 9.1 Eosinophils % 0.3 Basophils % 0.4 Absolute Neutrophils 4.6 Absolute Lymphocytes 1.1 Absolute Monocytes 0.6 Absolute Eosinophils 0.0 Absolute Basophils 0.0 PT 22.8 H INR 1.91 Sodium Potassium Chloride Carbon Dioxide Anion Gap BUN Creatinine Est GFR ( Amer) Est GFR (Non-Af Amer) Glucose POC Glucose 70 Lactic Acid Calcium Total Bilirubin Direct Bilirubin Neonat Total Bilirubin Neonat Direct Bilirubin Neonat Indirect Bili AST ALT Alkaline Phosphatase Creatine Kinase Total Protein Albumin Urine Color Urine Appearance Urine pH Ur Specific [place] Urine Protein Urine Glucose (UA) Urine Ketones Urine Blood Urine Nitrite Urine Bilirubin Urine Urobilinogen Ur Leukocyte Esterase Urine WBC (Auto) Urine RBC (Auto) U Hyaline Cast (Auto) Urine Bacteria (Auto) Urine WBC Clumps Squamous Epi Cells Auto Granular Casts (Auto) Urine Mucus (Auto) Urine Ascorbic Acid 10/28/18 10/28/18 10/28/18 05:15 05:15 05:15 WBC RBC Hgb Hct MCV MCH MCHC RDW Plt Count Seg Neutrophils % Lymphocytes % Monocytes % Eosinophils % Basophils % Absolute Neutrophils Absolute Lymphocytes Absolute Monocytes Absolute Eosinophils Absolute Basophils PT INR Sodium 138.7 Potassium 5.2 H Chloride 114 H Carbon Dioxide 17 L Anion Gap 8 BUN 21 H Creatinine 0.57 Est GFR ( Amer) > 60 Est GFR (Non-Af Amer) > 60 Glucose 119 H POC Glucose Lactic Acid 1.3 Calcium 8.0 L Total Bilirubin 0.1 L Direct Bilirubin 0.1 Neonat Total Bilirubin Not Reportable Neonat Direct Bilirubin Not Reportable Neonat Indirect Bili Not Reportable AST 34 ALT 40 Alkaline Phosphatase 146 H Creatine Kinase 124 Total Protein 5.9 L Albumin 3.0 L Urine Color YELLOW Urine Appearance SLIGHTLY-CLOUDY Urine pH 5.0 Ur Specific [place] 1.016 Urine Protein NEGATIVE Urine Glucose (UA) NEGATIVE Urine Ketones NEGATIVE Urine Blood SMALL H Urine Nitrite POSITIVE H Urine Bilirubin NEGATIVE Urine Urobilinogen NEGATIVE Ur Leukocyte Esterase TRACE H Urine WBC (Auto) 16 Urine RBC (Auto) 0 U Hyaline Cast (Auto) 9 Urine Bacteria (Auto) 3+ Urine WBC Clumps RARE Squamous Epi Cells Auto <1 Granular Casts (Auto) 1 Urine Mucus (Auto) OCC Urine Ascorbic Acid NEGATIVE 10/28/18 05:36 WBC RBC Hgb Hct MCV MCH MCHC RDW Plt Count Seg Neutrophils % Lymphocytes % Monocytes % Eosinophils % Basophils % Absolute Neutrophils Absolute Lymphocytes Absolute Monocytes Absolute Eosinophils Absolute Basophils PT INR Sodium Potassium Chloride Carbon Dioxide Anion Gap BUN Creatinine Est GFR ( Amer) Est GFR (Non-Af Amer) Glucose POC Glucose 98 Lactic Acid Calcium Total Bilirubin Direct Bilirubin Neonat Total Bilirubin Neonat Direct Bilirubin Neonat Indirect Bili AST ALT Alkaline Phosphatase Creatine Kinase Total Protein Albumin Urine Color Urine Appearance Urine pH Ur Specific [place] Urine Protein Urine Glucose (UA) Urine Ketones Urine Blood Urine Nitrite Urine Bilirubin Urine Urobilinogen Ur Leukocyte Esterase Urine WBC (Auto) Urine RBC (Auto) U Hyaline Cast (Auto) Urine Bacteria (Auto) Urine WBC Clumps Squamous Epi Cells Auto Granular Casts (Auto) Urine Mucus (Auto) Urine Ascorbic Acid - Laboratory Result Diagrams: 10/28/18 05:15 10/28/18 05:15 Laboratory results interpreted by me: 10/28/18 10/28/18 10/28/18 05:15 05:15 05:15 Hgb 10.4 L Hct 32.2 L RDW 16.0 H PT 22.8 H Potassium 5.2 H Chloride 114 H Carbon Dioxide 17 L BUN 21 H Glucose 119 H Calcium 8.0 L Total Bilirubin 0.1 L Alkaline Phosphatase 146 H Total Protein 5.9 L Albumin 3.0 L Urine Blood Urine Nitrite Ur Leukocyte Esterase 10/28/18 05:15 Hgb Hct RDW PT Potassium Chloride Carbon Dioxide BUN Glucose Calcium Total Bilirubin Alkaline Phosphatase Total Protein Albumin Urine Blood SMALL H Urine Nitrite POSITIVE H Ur Leukocyte Esterase TRACE H - EKG Interpretation by Me Additional EKG results interpreted by me: 10/28/18 05:34 Interpreted by myself 0530: Normal sinus rhythm, rate 71, normal axis, low voltage, no ectopy Discharge - Discharge Clinical Impression: Hypoglycemia Hypothermia Qualifiers: Encounter type: initial encounter Qualified Code(s): T68.XXXA - Hypothermia, initial encounter UTI (urinary tract infection) Qualifiers: Urinary tract infection type: acute cystitis Hematuria presence: with hematuria Qualified Code(s): N30.01 - Acute cystitis with hematuria Condition: Stable Disposition: ADMITTED OBSERVATION Admitting Provider: Hospitalist Unit Admitted: Telemetry
[2018-10-28 05:38] LABS: ABSOLUTE LYMPHOCYTES (AUTO) 1.1 10^3/uL (0.5-4.7); ABSOLUTE MONOCYTES (AUTO) 0.6 10^3/uL (0.1-1.4); ABSOLUTE NEUT (AUTO) 4.6 10^3/uL (1.7-8.2); BASOPHILS % (AUTO) 0.4 % (0-2); EOSINOPHILS % (AUTO) 0.3 % (0-6); HEMATOCRIT 32.2 % (36.0-47.0); HEMOGLOBIN 10.4 g/dL (12.0-15.5); LYMPHOCYTES % (AUTO) 17.3 % (13-45); MEAN CORPUSCULAR HEMOGLOBIN 27.8 pg (27.0-33.4); MEAN CORPUSCULAR HGB CONC 32.2 g/dL (32.0-36.0); MEAN CORPUSCULAR VOLUME 86 fl (80-97); MONOCYTES % (AUTO) 9.1 % (3-13); PLATELET COUNT 209 10^3/uL (150-450); RED BLOOD COUNT 3.74 10^6/uL (3.72-5.28); SEGMENTED NEUTROPHILS % (AUTO) 72.9 % (42-78); TOTAL CELLS COUNTED % (AUTO) 100 %; WHITE BLOOD COUNT 6.3 10^3/uL (4.0-10.5)
[2018-10-28 05:48] LABS: INTERNATIONAL RATION (INR) 1.91; PROTHROMBIN TIME 22.8 SEC (11.4-15.4)
[2018-10-28 06:01] LABS: ALANINE AMINOTRANSFERASE 40 U/L (9-52); ALKALINE PHOSPHATASE 146 U/L (38-126); ANION GAP 8 (5-19); ASPARTATE AMINO TRANSFERASE 34 U/L (14-36); BILIRUBIN,DIRECT 0.1 mg/dL (0.0-0.4); BILIRUBIN,TOTAL 0.1 mg/dL (0.2-1.3); BLOOD UREA NITROGEN 21 mg/dL (7-20); CARBON DIOXIDE 17 mmol/L (22-30); CHLORIDE 114 mmol/L (98-107); GLUCOSE 119 mg/dL (75-110); POTASSIUM 5.2 mmol/L (3.6-5.0); SODIUM 138.7 mmol/L (137-145)
[2018-10-28 06:02] LABS: CREATINE KINASE 124 U/L (30-135); TOTAL PROTEIN 5.9 g/dL (6.3-8.2)
[2018-10-28 06:08] LABS: APPEARANCE,URINE SLIGHTLY-CLOUDY; BILIRUBIN,URINE NEGATIVE (NEGATIVE); COLOR,URINE YELLOW; GLUCOSE, URINE NEGATIVE (NEGATIVE); KETONES,URINE NEGATIVE (NEGATIVE); LEUKOCYTE ESTERASE,URINE TRACE (NEGATIVE); NITRITE,URINE POSITIVE (NEGATIVE); PROTEIN,URINE NEGATIVE (NEGATIVE); URINE SPECIFIC GRAVITY 1.016; UROBILINOGEN,URINE NEGATIVE mg/dL (<2.0)
[2018-10-28] MEDS ORDERED: CEFTRIAXONE INJ 1000 MG VIAL IV ONE (06:12)
--- NOTE | 2018-10-28 06:15 | RADIOLOGY REPORT (SQ) ---
EXAM DESCRIPTION: XR CHEST 1 VIEW COMPLETED DATE/TME: 10/28/2018 04:52 CLINICAL HISTORY: 68 years, Female, cough Comparison: August 18, 2018 FINDINGS: No focal lung consolidation. No pleural effusion. No pneumothorax. Cardiac and mediastinal silhouette is unremarkable. No acute osseous abnormality. Mediport from a left subclavian approach again noted. IMPRESSION: No acute findings. No focal lung consolidation.
[2018-10-28 06:56] LABS: VENOUS BLOOD BASE EXCESS -12.6 mmol/L; VENOUS BLOOD HCO3 14.1 mmol/L (20-32); VENOUS BLOOD PCO2 35.6 mmHg (35-63); VENOUS BLOOD PH 7.22 (7.30-7.42)
--- NOTE | 2018-10-28 07:41 | EKG REPORT ---
SEVERITY:- BORDERLINE ECG - SINUS RHYTHM LOW VOLTAGE IN FRONTAL LEADS BORDERLINE R WAVE PROGRESSION, ANTERIOR LEADS : Confirmed by: Cj Richardson MD 28-Oct-2018 07:41:12
[2018-10-28] MEDS ORDERED: ONDANSETRON 4 MG TAB.RAPDIS PO PRN (08:54)
[2018-10-28] MEDS ORDERED: ACETAMINOPHEN 325 MG TABLET PO PRN (08:54)
[2018-10-28] MEDS ORDERED: CIPROFLOXACIN HCL 500 MG TABLET PO SCH (10:00)
[2018-10-28] MEDS ORDERED: FAMOTIDINE 20 MG TABLET PO SCH (10:00)
[2018-10-28] MEDS: ENOXAPARIN SODIUM INJ 30 MG/0.3 ML DISP.SYRIN SUBCUT SCH (10:04)
[2018-10-28] MEDS: FAMOTIDINE 20 MG TABLET PO SCH (12:03)
[2018-10-28] MEDS ORDERED: DEXTROSE 5%-1/2 NORMAL SALINE 1,000 ML IV PRN (13:16)
[2018-10-28] MEDS ORDERED: GLUCAGON,HUMAN RECOMB 1 MG INJ IM PRN (13:20)
[2018-10-28] MEDS ORDERED: DEXTROSE 40% GEL 15 GM TUBE PO PRN ×2 (13:20)
[2018-10-28] MEDS ORDERED: DEXTROSE 50%-WATER 25 GM/50 ML DISP.SYRIN IV PRN ×2 (13:20)
[2018-10-28] MEDS: INSULIN LISPRO 100 UNIT/ML 3 ML VIAL SUBCUT SCH ×2 (18:21→22:21)
--- NOTE | 2018-10-28 20:07 | PDOC H&P ---
History of Present Illness Admission Date/PCP: 10/28/18 05:58 WES GU MD Patient complains of: HYPOGLYCEMIA History of Present Illness: KENNEDY MEDEIROS is a 68 y.o. F with a PMH of IDDM and rheumatoid arthritis. She presented to [facility] for HYPOglycemia. The patient was found on the floor next to her bed with a blood glucose of 16. Patient is well-known to EMS for hy poglycemic episodes. She usually does not eat well in the evenings and is found laying next to the couch by her . Per EMS, they usually are able to give her glucose which returns her to her normal state and she does not ever wish to be brought to the emergency room. Today she still seemed confused after receiving 1 amp of D50, so she was transported to [facility] ED. Upon arrival her blood glucose was 70, she was started on D5 1/2NS. Additionally, the patient was hypothermic with a rectal temperature of 94F. Her UA was indicative of a possible UTI, for which she was given Rocephin IV. Other laboratory studies relatively benign. Upon my assessment, the patient was awake and oriented. She had already received 500mL D5 1/2NS and her BG was in the 130s. The patient stated she did not remem renny how she got to the hospital, but that she remembers not eating dinner the night before and then passing out on her couch. The patient reports that she normally takes 10U Lantus daily and 500mg Metformin daily, despite the fact that she routinely skips meals. The patient had no complaints at the time of my assessment. Plan to admit to hospitalist service for hypoglycemia. Past Medical History Cardiac Medical History: Reports: Hypertension - states Lisinopril Rx r/t DM Dx Denies: Coronary Artery Disease, Myocardial Infarction Pulmonary Medical History: Reports: Chronic Obstructive Pulmonary Disease (COPD) Denies: Asthma, Bronchitis, Pneumonia Neurological Medical History: Denies: Seizures Endocrine Medical History: Reports: Diabetes Mellitus Type 2 Musculoskeltal Medical History: Reports: Arthritis - rheumatoid, no meds x 2 months r/t Dx of Celiac's Psychiatric Medical History: Denies: Depression Hematology: Reports: Anemia - multiple treatments of Feraheme Past Surgical History Past Surgical History: Reports: Orthopedic Surgery Denies: Pacemaker Social History Information Source: Patient Lives with: Spouse/Significant other Smoking Status: Unknown if Ever Smoked Frequency of Alcohol Use: None Hx Recreational Drug Use: No Drugs: None Hx Prescription Drug Abuse: No - Advance Directive Resuscitation Status: Full Code Family History Family History: Reviewed & Not Pertinent Parental Family History Reviewed: Yes Children Family History Reviewed: Yes Sibling(s) Family History Reviewed.: Yes Medication/Allergy Home Medications: Ergocalciferol (Vitamin D2) [Drisdol 50,000 unit (1.25MG) Capsule] 50,000 unit PO FR 10/28/18 Folic Acid [Folvite 1 mg Tablet] 1 mg PO DAILY 10/28/18 Gabapentin [Neurontin 300 mg Capsule] 300 mg PO DAILY 10/28/18 Insulin Glargine,Hum.rec.anlog [Lantus Insulin 100 Unit/1 ml 10 ml] 0 units SQ .PERSLIDINGSCALE 10/28/18 Levothyroxine Sodium 175 mcg PO Q6AM 10/28/18 Lisinopril [Zestril] 5 mg PO DAILY 10/28/18 Metformin HCl [Glucophage XR 500 mg Tablet] 500 mg PO DAILY 10/28/18 Potassium Chloride [Klor-Con M10] 10 meq PO DAILY 10/28/18 Torsemide [Demadex 20 mg Tablet] 20 mg PO MOWEFR 10/28/18 Allergies/Adverse Reactions: No Known Allergies Allergy (Verified 10/28/18 12:14) Review of Systems All systems: reviewed and no additional remarkable complaints except as stated Physical Exam Vital Signs: Temp Pulse Resp BP Pulse Ox 98.9 F 19 127/68 H 95 10/28/18 08:47 10/28/18 16:01 10/28/18 16:01 10/28/18 16:23 Intake & Output 10/27/18 10/28/18 10/29/18 06:59 06:59 06:59 Intake Total 500 Balance 500 Weight 47.9 kg General appearance: PRESENT: thin Head exam: PRESENT: atraumatic Eye exam: PRESENT: conjunctiva pink, PERRLA Teeth exam: PRESENT: poor dentation Neck exam: PRESENT: full ROM Respiratory exam: PRESENT: clear to auscultation neo, symmetrical, unlabored Cardiovascular exam: PRESENT: +S1, +S2 Pulses: PRESENT: normal radial pulses, normal dorsalis pedis pul Vascular exam: PRESENT: pallor GI/Abdominal exam: PRESENT: soft. ABSENT: distended, tenderness Rectal exam: PRESENT: deferred Extremities exam: PRESENT: full ROM. ABSENT: pedal edema Musculoskeletal exam: PRESENT: ambulatory, full ROM, normal inspection Neurological exam: PRESENT: alert, awake, oriented to person, oriented to place, oriented to time, oriented to situation Psychiatric exam: PRESENT: appropriate affect Skin exam: PRESENT: dry, intact, normal color Results Laboratory Results: 10/28/18 05:15 10/28/18 05:15 10/28/18 10/28/18 10/28/18 05:15 05:15 05:15 WBC 6.3 RBC 3.74 Hgb 10.4 L Hct 32.2 L MCV 86 MCH 27.8 MCHC 32.2 RDW 16.0 H Plt Count 209 Seg Neutrophils % 72.9 Lymphocytes % 17.3 Monocytes % 9.1 Eosinophils % 0.3 Basophils % 0.4 Absolute Neutrophils 4.6 Absolute Lymphocytes 1.1 Absolute Monocytes 0.6 Absolute Eosinophils 0.0 Absolute Basophils 0.0 VBG pH VBG pCO2 VBG HCO3 VBG Base Excess Sodium 138.7 Potassium 5.2 H Chloride 114 H Carbon Dioxide 17 L Anion Gap 8 BUN 21 H Creatinine 0.57 Est GFR ( Amer) > 60 Est GFR (Non-Af Amer) > 60 Glucose 119 H Lactic Acid 1.3 Calcium 8.0 L Total Bilirubin 0.1 L AST 34 ALT 40 Alkaline Phosphatase 146 H Total Protein 5.9 L Albumin 3.0 L Urine Color Urine Appearance Urine pH Ur Specific [place] Urine Protein Urine Glucose (UA) Urine Ketones Urine Blood Urine Nitrite Ur Leukocyte Esterase Urine WBC (Auto) Urine RBC (Auto) 10/28/18 10/28/18 05:15 06:28 WBC RBC Hgb Hct MCV MCH MCHC RDW Plt Count Seg Neutrophils % Lymphocytes % Monocytes % Eosinophils % Basophils % Absolute Neutrophils Absolute Lymphocytes Absolute Monocytes Absolute Eosinophils Absolute Basophils VBG pH 7.22 L VBG pCO2 35.6 VBG HCO3 14.1 L VBG Base Excess -12.6 Sodium Potassium Chloride Carbon Dioxide Anion Gap BUN Creatinine Est GFR ( Amer) Est GFR (Non-Af Amer) Glucose Lactic Acid Calcium Total Bilirubin AST ALT Alkaline Phosphatase Total Protein Albumin Urine Color YELLOW Urine Appearance SLIGHTLY-CLOUDY Urine pH 5.0 Ur Specific [place] 1.016 Urine Protein NEGATIVE Urine Glucose (UA) NEGATIVE Urine Ketones NEGATIVE Urine Blood SMALL H Urine Nitrite POSITIVE H Ur Leukocyte Esterase TRACE H Urine WBC (Auto) 16 Urine RBC (Auto) 0 10/28/18 10/28/18 05:15 05:15 Creatine Kinase 124 Troponin I < 0.012 Impressions: Chest X-Ray 10/28/18 04:52 IMPRESSION: No acute findings. No focal lung consolidation. Status: Imported from PACS Assessment & Plan - Diagnosis (1) Diabetes mellitus Qualifiers: Diabetes mellitus type: type 2 Diabetes mellitus complication status: with neurologic complications Diabetes mellitus complication detail: with autonomic neuropathy Is this a current diagnosis for this admission?: Yes Plan: Non-compliant diabetic HgbA1c 7.0% Plan to admit patient on sliding scale lispro insulin ACHS Will re-eval need for lantus based on 24 hours insulin usage Diabetic diet D/c d5 1/2 NS now that patient is eating (2) Hypoglycemia Is this a current diagnosis for this admission?: Yes Plan: Secondary to noncompliance with diabetic diet Patient routinely skips meals despite taking insulin Consult life skills educator Remaining plan as above (3) Hypertension Qualifiers: Hypertension type: essential hypertension Qualified Code(s): I10 - Essential (primary) hypertension Is this a current diagnosis for this admission?: Yes Plan: PMH HTN Continue home dose lisinopril (4) Hypothyroid Qualifiers: Hypothyroidism type: acquired Qualified Code(s): E03.9 - Hypothyroidism, unspecified Is this a current diagnosis for this admission?: Yes Plan: PMH hypothyroidism Continue home dose synthroid Check TSH in AM - Time Time Spent: 30 to 50 Minutes Medications reviewed and adjusted accordingly: Yes Anticipated discharge: Home Within: within 48 hours - Inpatient Certification Based on my medical assessment, after consideration of the patient's comorbidities, presenting symptoms, or acuity I expect that the services needed warrant INPATIENT care.: Yes I certify that my determination is in accordance with my understanding of Medicare's requirements for reasonable and necessary INPATIENT services [42 CFR 412.3e].: Yes Medical Necessity: Risk of Complication if Not Cared For in Hospital - Plan Summary Plan Summary: MONITOR BLOOD GLUCOSE. WILL ADJUST LANTUS AND METFORMIN. LIKELY D/C HOME 24-48 HRS
[2018-10-29 07:25] LABS: ALANINE AMINOTRANSFERASE 37 U/L (9-52); ALBUMIN 2.2 g/dL (3.5-5.0); ALKALINE PHOSPHATASE 134 U/L (38-126); ANION GAP 7 (5-19); ASPARTATE AMINO TRANSFERASE 37 U/L (14-36); BILIRUBIN,DIRECT 0.1 mg/dL (0.0-0.4); BILIRUBIN,TOTAL 0.1 mg/dL (0.2-1.3); BLOOD UREA NITROGEN 14 mg/dL (7-20); CALCIUM 7.5 mg/dL (8.4-10.2); CARBON DIOXIDE 14 mmol/L (22-30); CHLORIDE 113 mmol/L (98-107); GLUCOSE 152 mg/dL (75-110); POTASSIUM 4.4 mmol/L (3.6-5.0); SODIUM 134.1 mmol/L (137-145); TOTAL PROTEIN 4.8 g/dL (6.3-8.2)
[2018-10-29] MEDS: INSULIN LISPRO 100 UNIT/ML 3 ML VIAL SUBCUT SCH ×4 (09:36→22:38)
[2018-10-29] MEDS: ENOXAPARIN SODIUM INJ 30 MG/0.3 ML DISP.SYRIN SUBCUT SCH (09:37)
[2018-10-29] MEDS: CIPROFLOXACIN HCL 500 MG TABLET PO SCH (12:01)
[2018-10-29] MEDS: CLINDAMYCIN HCL 150 MG CAPSULE PO SCH ×2 (12:04→18:25)
[2018-10-29] MEDS: FAMOTIDINE 20 MG TABLET PO SCH (12:04)
[2018-10-29] MEDS ORDERED: TRAMADOL HCL 50 MG TABLET PO PRN (13:10)
--- NOTE | 2018-10-29 20:51 | PDOC PROGRESS REPORT ---
Subjective Progress Note for:: 10/29/18 Subjective:: KENNEDY MEDEIROS is a 68 y.o. F with a PMH of IDDM and rheumatoid arthritis. She presented to [facility] for HYPOglycemia and UTI. The patient was seen this morning on rounds. She is tolerating her ADA diet. The patient requires minimal sliding scale insulin. She can likely cut back on her daily Lantus use. Plan to have nurse informatics educator meet with the patient. The patient's LLE is noted to be erythematous and weeping. This was not previously seen on physical exam but the patient states she's had this redness for 'months.' Plan for wound culture. Initiate antibiotics for moderate cellulitis in a diabetic patient. Nursing staff voiced concerns about the patient's distended abdomen. It is soft, nontender but very distended. The patient states this is secondary to her celiac's disease. Liver enzymes are all WNL. The patient is not jaundiced. Plan for US abdomen. Reason For Visit: HYPERGLYCEMIA Physical Exam Vital Signs: Temp Pulse Resp BP Pulse Ox 98.1 F 80 16 115/91 H 95 10/29/18 16:05 10/29/18 16:05 10/29/18 16:05 10/29/18 16:05 10/29/18 16:05 Intake & Output 10/28/18 10/29/18 10/30/18 06:59 06:59 06:59 Intake Total 500 709 Output Total 500 Balance 0 709 Weight 47.9 kg 51.7 kg General appearance: PRESENT: thin Head exam: PRESENT: atraumatic Eye exam: PRESENT: conjunctiva pink, PERRLA Mouth exam: PRESENT: moist, tongue midline Teeth exam: PRESENT: poor dentation Neck exam: PRESENT: full ROM Respiratory exam: PRESENT: clear to auscultation neo, symmetrical, unlabored Cardiovascular exam: PRESENT: RRR Pulses: PRESENT: normal radial pulses, normal dorsalis pedis pul Vascular exam: PRESENT: pallor GI/Abdominal exam: PRESENT: distended, normal bowel sounds, soft. ABSENT: firm, guarding, tenderness Rectal exam: PRESENT: deferred Extremities exam: PRESENT: full ROM Musculoskeletal exam: PRESENT: ambulatory, full ROM, tenderness - LLE erythema. ABSENT: normal inspection Neurological exam: PRESENT: alert, awake, oriented to person, oriented to place, oriented to time, oriented to situation Skin exam: PRESENT: dry Results Laboratory Results: 10/28/18 05:15 10/29/18 06:41 10/29/18 10/29/18 06:41 06:41 Sodium 134.1 L Potassium 4.4 Chloride 113 H Carbon Dioxide 14 L Anion Gap 7 BUN 14 Creatinine 0.51 L Est GFR ( Amer) > 60 Est GFR (Non-Af Amer) > 60 Glucose 152 H Calcium 7.5 L Total Bilirubin 0.1 L AST 37 H ALT 37 Alkaline Phosphatase 134 H Total Protein 4.8 L Albumin 2.2 L TSH 4.37 10/28/18 10/28/18 05:15 05:15 Creatine Kinase 124 Troponin I < 0.012 Impressions: Chest X-Ray 10/28/18 04:52 IMPRESSION: No acute findings. No focal lung consolidation. Status: Imported from PACS Assessment & Plan - Diagnosis (1) Diabetes mellitus Qualifiers: Diabetes mellitus type: type 2 Diabetes mellitus complication status: with neurologic complications Diabetes mellitus complication detail: with autonomic neuropathy Is this a current diagnosis for this admission?: Yes Plan: Non-compliant diabetic HgbA1c 7.0% Plan to admit patient on sliding scale lispro insulin ACHS Minimal SSI use in last 24 hours, will recommend decreasing Lantus dosing Diabetic diet Plan to meet with nurse informatics educator (2) Hypoglycemia Is this a current diagnosis for this admission?: Yes Plan: Resolved Secondary to noncompliance with diabetic diet Patient routinely skips meals despite taking insulin Consult nurse informatics educator Remaining plan as above (3) Hypertension Qualifiers: Hypertension type: essential hypertension Qualified Code(s): I10 - Essential (primary) hypertension Is this a current diagnosis for this admission?: Yes Plan: PMH HTN Continue home dose lisinopril (4) Hypothyroid Qualifiers: Hypothyroidism type: acquired Qualified Code(s): E03.9 - Hypothyroidism, unspecified Is this a current diagnosis for this admission?: Yes Plan: PMH hypothyroidism Continue home dose synthroid TSH WNL (5) Cellulitis Qualifiers: Site of cellulitis: other site Qualified Code(s): L03.818 - Cellulitis of other sites Is this a current diagnosis for this admission?: Yes Plan: LEFT lower leg erythema no obvious diabetic wound consistent weeping - plan to culture wound initiate Clindamycin for cellulitis in a diabetic patient (already on Cipro for UTI) (6) Urinary tract infection Qualifiers: Urinary tract infection type: acute cystitis Hematuria presence: with hematuria Qualified Code(s): N30.01 - Acute cystitis with hematuria Is this a current diagnosis for this admission?: Yes Plan: UA (+) for UTI GNR growing in prelimary culture results Ciprofloxacin PO - Time Time Spent with patient: 15-24 minutes Medications reviewed and adjusted accordingly: Yes Anticipated discharge: Home Within: within 72 hours - Inpatient Certification Based on my medical assessment, after consideration of the patient's comorbidities, presenting symptoms, or acuity I expect that the services needed warrant INPATIENT care.: Yes I certify that my determination is in accordance with my understanding of Medicare's requirements for reasonable and necessary INPATIENT services [42 CFR 412.3e].: Yes Medical Necessity: Significant Comorbidiites Make Outpatient Treatment Too Risky - Plan Summary Plan Summary: 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 US ABDOMEN.
[2018-10-30] MEDS: CIPROFLOXACIN HCL 500 MG TABLET PO SCH ×2 (03:05→10:52)
[2018-10-30] MEDS: CLINDAMYCIN HCL 150 MG CAPSULE PO SCH ×4 (03:05→17:21)
[2018-10-30] MEDS ORDERED: LEVOTHYROXINE SODIUM 0.05 MG TABLET PO SCH (06:00)
[2018-10-30] MEDS: INSULIN LISPRO 100 UNIT/ML 3 ML VIAL SUBCUT SCH ×3 (07:37→17:20)
--- NOTE | 2018-10-30 08:39 | RADIOLOGY REPORT (SQ) ---
EXAM DESCRIPTION: U/S ABDOMEN COMPLETE W/O DOP COMPLETED DATE/TIME: 10/30/2018 6:11 am REASON FOR STUDY: severe abdominal distention E03.9 HYPOTHYROIDISM, UNSPECIFIED COMPARISON: 09/07/2015, CT abdomen pelvis, 07/19/2018 TECHNIQUE: Dynamic and static grayscale images acquired of the abdomen and recorded on PACS. Additio nal selected color Doppler and spectral images recorded. Note: Study does not meet criteria for complete doppler/duplex scan LIMITATIONS: None. FINDINGS: PANCREAS: Obscured by overlying bowel. LIVER: No masses. Echotexture normal. Probable small hemangioma in the right lobe of the liver measu ring 1.4 cm, as seen on prior CT. LIVER VASCULATURE: Normal directional flow of the main portal vein and hepatic veins. GALLBLADDER: No stones. Normal wall thickness. No pericholecystic fluid. ULTRASOUND-DETECTED ARCHIBALD'S SIGN: Negative. INTRAHEPATIC DUCTS AND COMMON DUCT: CBD and intrahepatic ducts normal caliber. No filling defects. INFERIOR VENA CAVA: Normal flow. AORTA: No aneurysm. RIGHT KIDNEY: Normal size. Normal echogenicity. No solid or suspicious masses. No hydronephros is. No calcifications. LEFT KIDNEY: Normal size. Normal echogenicity. No solid or suspicious masses. No hydronephrosi s. No calcifications. SPLEEN: Normal size. No solid masses. PERITONEAL AND PLEURAL SPACES: No ascites or effusions. OTHER: Numerous loops of fluid-filled bowel in the lower abdomen. IMPRESSION: Numerous loops of fluid-filled bowel in the lower abdomen. No other ultrasound findings to explain abdominal distention. No evidence of ascites. TECHNICAL DOCUMENTATION: JOB ID: [id number] [employer]- All Rights Reserved Reading location - IP/workstation name: [email or web address]
[2018-10-30 08:49] LABS: HEMATOCRIT 26.5 % (36.0-47.0); HEMOGLOBIN 8.7 g/dL (12.0-15.5); MEAN CORPUSCULAR HEMOGLOBIN 28.2 pg (27.0-33.4); MEAN CORPUSCULAR VOLUME 85 fl (80-97); PLATELET COUNT 208 10^3/uL (150-450); RED CELL DISTRIBUTION WIDTH 15.3 % (11.5-14.0); WHITE BLOOD COUNT 3.9 10^3/uL (4.0-10.5)
[2018-10-30 09:14] LABS: ANION GAP 8 (5-19); BLOOD UREA NITROGEN 20 mg/dL (7-20); CALCIUM 7.6 mg/dL (8.4-10.2); CARBON DIOXIDE 17 mmol/L (22-30); CHLORIDE 107 mmol/L (98-107); GLUCOSE 323 mg/dL (75-110); POTASSIUM 4.9 mmol/L (3.6-5.0); SODIUM 132.2 mmol/L (137-145)
[2018-10-30] MEDS: ENOXAPARIN SODIUM INJ 30 MG/0.3 ML DISP.SYRIN SUBCUT SCH (10:52)
[2018-10-30] MEDS: FAMOTIDINE 20 MG TABLET PO SCH (13:58)
[2018-10-30 14:02] VITALS: BP 117/49
[2018-10-30] MEDS ORDERED: INSULIN GLARGINE,HUM.REC.ANLOG 300 UNIT/3 ML INSULN.PEN SUBCUT SCH (22:00)
--- NOTE | 2018-11-04 12:29 | PDOC DISCHARGE SUMMARY ---
General - Admit/Disc Date/PCP Admission Date/Primary Care Provider: 10/29/18 10:39 WES GU MD Discharge Date: 10/30/18 - Discharge Diagnosis (1) Diabetes mellitus Is this a current diagnosis for this admission?: Yes (2) Hypoglycemia Is this a current diagnosis for this admission?: Yes (3) Hypertension Is this a current diagnosis for this admission?: Yes (4) Hypothyroid Is this a current diagnosis for this admission?: Yes (5) Cellulitis Is this a current diagnosis for this admission?: Yes (6) Urinary tract infection Is this a current diagnosis for this admission?: Yes - Additional Information Resuscitation Status: Full Code Discharge Diet: Diabetic Discharge Activity: Activity As Tolerated Prescriptions: Ciprofloxacin HCl [Cipro 500 mg Tablet] 500 mg PO Q12 2 Days #4 tablet Clindamycin HCl [Cleocin 150 mg Capsule] 300 mg PO Q6 #28 capsule Insulin Glargine,Hum.rec.anlog [Lantus Insulin 100 Unit/mL] 5 unit SUBCUT QHS #5 insuln.pen Home Medications: Ergocalciferol (Vitamin D2) [Drisdol 50,000 unit (1.25MG) Capsule] 50,000 unit PO FR 10/28/18 Folic Acid [Folvite 1 mg Tablet] 1 mg PO DAILY 10/28/18 Gabapentin [Neurontin 300 mg Capsule] 300 mg PO DAILY 10/28/18 Insulin Glargine,Hum.rec.anlog [Lantus Insulin 100 Unit/1 ml 10 ml] 0 units SQ .PERSLIDINGSCALE 10/28/18 Levothyroxine Sodium 175 mcg PO Q6AM 10/28/18 Lisinopril [Zestril] 5 mg PO DAILY 10/28/18 Metformin HCl [Glucophage XR 500 mg Tablet] 500 mg PO DAILY 10/28/18 Potassium Chloride [Klor-Con M10] 10 meq PO DAILY 10/28/18 Torsemide [Demadex 20 mg Tablet] 20 mg PO MOWEFR 10/28/18 Ciprofloxacin HCl [Cipro 500 mg Tablet] 500 mg PO Q12 2 Days #4 tablet 10/30/18 Clindamycin HCl [Cleocin 150 mg Capsule] 300 mg PO Q6 #28 capsule 10/30/18 Insulin Glargine,Hum.rec.anlog [Lantus Insulin 100 Unit/mL] 5 unit SUBCUT QHS #5 insuln.pen 10/30/18 History of Present Illness History of Present Illness: KENNEDY MEDEIROS is a 68 y.o. F with a PMH of IDDM and rheumatoid arthritis. She presented to [facility] for HYPOglycemia. The patient was found on the floor next to her bed with a blood glucose of 16. Patient is well-known to EMS for hypoglycem ic episodes. She usually does not eat well in the evenings and is found laying next to the couch by her . Per EMS, they usually are able to give her glucose which returns her to her normal state and she does not ever wish to be brought to the emergency room. Today she still seemed confused after receiving 1 amp of D50, so she was transported to [facility] ED. Upon arrival her blood glucose was 70, she was started on D5 1/2NS. Additionally, the patient was hypothermic with a rectal temperature of 94F. Her UA was indicative of a possible UTI, for which she was given Rocephin IV. Other laboratory studies relatively benign. Upon my assessment, the patient was awake and oriented. She had already received 500mL D5 1/2NS and her BG was in the 130s. The patient stated she did not remember how she got to the hospital, but that she remembers not eating dinner the night before and then passing out on her couch. The patient reports that she normally takes 10U Lantus daily and 500mg Metformin daily, despite the fact that she routinely skips meals. The patient had no complaints at the time of my assessment. Plan to admit to hospitalist service for hypoglycemia. Hospital Course Hospital Course: KENNEDY MEDEIROS is a 68 y.o. F with a PMH of IDDM and rheumatoid arthritis. She presented to [facility] for HYPOglycemia and UTI. The patient's HYPOglycemia was initially treated with D50 IV and placed on a D5NS gtt. Once she was started on a diabetic diet, her blood glucose steadily stuart to a level that required treatment. The patient's DM was treated with Humalog sliding scale insulin at mealtimes. She met with the rn diabetes educator and said, "I've been a diabetic for 30+ years, I'm not going to change what I'm doing." The patient reported that she did not use sliding scale insulin at home, she only took 10U Lantus daily. She oftentimes would not eat dinner and has been to the [facility] ED multiple times in the last year for HYPOglycemia. She was instructed to decrease her lantus to 5 units daily. For her UTI the patient was treated with PO Ciprofloxacin. The patient's LLE is noted to be erythematous and weeping. The patient stated she's had this redness for 'months.' Wound culture sent to lab. Initiated empiric antibiotics for moderate cellulitis in a diabetic patient. She was treated with CLindamycin. The patient was discharged home on hospital day #2 with prescriptions for Clindamycin and Ciprofloxacin. Additionally, she was instructed to follow up with the [facility]. The patient was given extensive teaching about her lantus dosing and diabetic diet. Again, she stated, "you can't teach me anything new. I've been doing the same thing for years." For further information regarding the patient's hospitalization, please refer to the EMR. Physical Exam Vital Signs: Temp Pulse Resp BP Pulse Ox 97.5 F 75 18 117/49 L 98 10/30/18 17:49 10/30/18 17:49 10/30/18 17:49 10/30/18 17:49 10/30/18 17:49 Results Laboratory Results: 10/30/18 08:00 10/30/18 08:00 10/28/18 10/28/18 05:15 05:15 Creatine Kinase 124 Troponin I < 0.012 Impressions: Chest X-Ray 10/28/18 04:52 IMPRESSION: No acute findings. No focal lung consolidation. Abdomen Ultrasound 10/30/18 00:00 IMPRESSION: Numerous loops of fluid-filled bowel in the lower abdomen. No other ultrasound findings to explain abdominal distention. No evidence of ascites. Qualifiers - * PATIENT BEING DISCHARGED WITH ANY OF THE FOLLOWING DIAGNOSIS: No Plan Discharge Plan: ANTIBIOTICS FOR UTI AND CELLULITIS. FOLLOW UP AT [facility] FOR CELLULITIS. DECREASE LANTUS FROM 10UNITS TO 5 UNTIS DAILY. Time Spent: Less than 30 Minutes
== END 2018-10-30 18:30 | disposition home health service (06) | DRG 638 ==
LOC: ER 04:42 → EH 05:58 → 4S 17:00 → OBSVTOIN 10-29 10:39
PROVIDERS: ADMIT Emergency Medicine; ATTEND Emergency Medicine
DX: E11.649 Type 2 diabetes mellitus with hypoglycemia without coma (principal); L03.116 Cellulitis of left lower limb; N30.01 Acute cystitis with hematuria; J44.9 Chronic obstructive pulmonary disease, unspecified; E11.43 Type 2 diabetes mellitus with diabetic autonomic (poly)neuropathy; E03.9 Hypothyroidism, unspecified; M06.9 Rheumatoid arthritis, unspecified; R68.0 Hypothermia, not associated with low environmental temperature; I10 Essential (primary) hypertension; K90.0 Celiac disease; D64.9 Anemia, unspecified; Z79.4 Long term (current) use of insulin; Z91.11 Patient's noncompliance with dietary regimen
CPT/HCPCS: 36415; 51701; 71045; 76700; 80048; 80053; 81001; 82550; 82803; 82962; 83036; 83605; 83735; 84443; 84484; 85025; 85027; 85610; 87040; 87070; 87077; 87086; 87088; 87186; 87205; 90471; 90686; 93005; 93010; 96361; 96365; 96375; 99285; G0008; G0378; J0696; J1650; J1815; J3490; J7070

== ENCOUNTER 2018-11-17 12:14 | Emergency (ER) | payer MEDICARE ==
[2018-11-17] MEDS ORDERED: DEXTROSE 5%-1/2 NORMAL SALINE 500 ML IV ONE (12:49)
[2018-11-17] MEDS ORDERED: DEXTROSE 50%-WATER 25 GM/50 ML DISP.SYRIN IV ONE (12:49)
--- NOTE | 2018-11-17 13:23 | ER Document Report ---
ED Blood Sugar Problem - General Chief Complaint: Low Blood Sugar Stated Complaint: BLOOD SUGAR ISSUES Time Seen by Provider: 11/17/18 12:42 Primary Care Provider: WES GU MD [Primary Care Provider] - Follow up tomorrow Mode of Arrival: Medic Information source: Patient, Relative, Transfer Record Notes: EMS was called to the patient's house after she was found unresponsive on the floor. There was no apparent injury. Patient has a history of low blood sugar causing her to become unconscious. Most reported patient with a low blood sugar less than 30. Patient was given glucagon. Patient presently is oriented to person, although confused to place and time. TRAVEL OUTSIDE OF THE [place] IN LAST 30 DAYS: No - HPI Onset: This morning Quality of pain: No pain Associated symptoms: Loss of consciousness. denies: Increased thirst, Vomiting Similar symptoms previously: Yes Recently seen / treated by doctor: No - Related Data Allergies/Adverse Reactions: No Known Allergies Allergy (Verified 10/28/18 12:14) Past Medical History - General Information source: Patient, Transfer Record - Social History Smoking Status: Never Smoker Chew tobacco use (# tins/day): No Frequency of alcohol use: None Drug Abuse: None Lives with: Spouse/Significant other Family History: Reviewed & Not Pertinent Patient has suicidal ideation: No Patient has homicidal ideation: No - Past Medical History Cardiac Medical History: Reports: Hx Hypertension - states Lisinopril Rx r/t DM Dx Denies: Hx Coronary Artery Disease, Hx Heart Attack Pulmonary Medical History: Reports: Hx COPD Denies: Hx Asthma, Hx Bronchitis, Hx Pneumonia Neurological Medical History: Denies: Hx Cerebrovascular Accident, Hx Seizures Endocrine Medical History: Reports: Hx Diabetes Mellitus Type 1 Renal/ Medical History: Denies: Hx Peritoneal Dialysis Musculoskeletal Medical History: Reports Hx Arthritis - rheumatoid, no meds x 2 months r/t Dx of Celiac's Psychiatric Medical History: Denies: Hx Depression Past Surgical History: Reports: Hx Orthopedic Surgery - Immunizations Hx Diphtheria, Pertussis, Tetanus Vaccination: Yes Review of Systems - Review of Systems -: Yes ROS unobtainable due to patient's medical condition Physical Exam - Vital signs Vitals: Resp Pulse Ox 17 100 11/17/18 12:49 11/17/18 12:49 - General General appearance: Alert In distress: Mild Notes: oriented to person, confused to place, time and events - HEENT Head: Normocephalic, Atraumatic Eyes: Normal Conjunctiva: Normal Extraocular movements intact: Yes Nasal: Normal Mouth/Lips: Normal Mucous membranes: Normal Neck: Normal, Supple. No: Lymphadenopathy - Respiratory Respiratory status: No respiratory distress Chest status: Nontender Breath sounds: Normal. No: Rales, Rhonchi, Stridor, Wheezing Chest palpation: Normal - Cardiovascular Rhythm: Regular Heart sounds: S1 appreciated, S2 appreciated Murmur: No - Abdominal Inspection: Other - Bloated abdomen Distension: Distended Bowel sounds: Normal Tenderness: No: McBurney's point, Scott's sign Organomegaly: No organomegaly - Back Back: Normal, Nontender. No: CVA tenderness, Vertebra tenderness - Extremities General upper extremity: Normal ROM, Other - Skin tear to right forearm General lower extremity: Normal ROM, Other - Patient with dressing to right lower extremity, patient with chronic healing wounds to right lower leg - Neurological Orientation: Disoriented to place, Disoriented to time. No: Disoriented to person, Disoriented to events Danni Coma Scale Eye Opening: Spontaneous [place] Coma Scale Verbal: Confused - Disoriented to place and time Danni Coma Scale Motor: Obeys Commands Danni Coma Scale Total: 14 Speech: Normal - Psychological Associated symptoms: Normal mood - Skin Skin Temperature: Warm Skin Moisture: Dry Skin irregularity: Laceration - Skin tear to right forearm Course - Re-evaluation Re-evalutation: 11/17/18 13:19 Patient with rectal temperature of 93. Warming blanket and warm fluids ordered. Patient's repeat Accu-Chek 90, vital signs stable at present. Half amp of D50 order canceled at this time. RN encouraged to obtain hourly Accu-Cheks. 11/17/18 14:47 Patient's repeat temp was 97.3. Patient's repeat Accu-Chek was over 200. Will stop IV fluid infusion at this time. 11/17/18 16:11 Patient is awake alert oriented. Patient back to her normal baseline. Patient's blood sugar has returned to normal. Patient is eating a meal tray at this time. Patient refuses to have any lab work performed. Patient states that she has a long history of diabetes and that this is happened multiple times in the past. Patient declines having any additional test performed at this time. Called and spoke with patient's spouse who states that patient was fine at 8 AM and that at 10:00 she was on the floor. Patient has not had any recent changes to her medicines. Patient spouse states that she did not take any insulin this morning. Patient spouse states that he is not able to come to the hospital as their car is currently in the shop. Patient is ready to be discharged at this time and has capacity. Discussed with patient worsening signs or symptoms to return immediately for. Offered patient additional evaluation including laboratory studies, patient continues to decline at this time. Will discharge patient with good instructions to return as needed for any new or worsening symptoms and to call her primary doctor to make a follow-up appointment for tomorrow. - Vital Signs Vital signs: Temp Pulse Resp BP Pulse Ox 15 107/59 L 100 11/17/18 15:01 11/17/18 15:00 11/17/18 15:01 - Laboratory Laboratory results interpreted by me: 11/17/18 11/17/18 11/17/18 12:19 14:42 15:53 POC Glucose 58 L 206 H 116 H - Diagnostic Test Radiology reviewed: Reports reviewed - EKG Interpretation by Me EKG shows normal: Sinus rhythm When compared to previous EKG there are: No significant change Additional EKG results interpreted by me: 11/17/18 16:[address] elevation, no T wave inversion. QTC 419 Discharge - Discharge Clinical Impression: Hypoglycemia, hypothermia-resolved, altered mental status-resolved Condition: Stable Disposition: HOME, SELF-CARE Instructions: Hypoglycemia ([facility], [facility]) Additional Instructions: Return immediately for any new or worsening symptoms Followup with your primary care provider tomorrow for repeat examination Be sure to check your blood sugar frequently at home, especially if you feel your blood sugar may be dropping. Eat regularly spaced meals with snacks in between meals Referrals: WES GU MD [Primary Care Provider] - Follow up tomorrow
--- NOTE | 2018-11-17 14:39 | RADIOLOGY REPORT (SQ) ---
EXAM DESCRIPTION: ACUTE ABDOMEN SERIES COMPLETED DATE/TIME: 11/17/2018 2:28 pm REASON FOR STUDY: abd distention COMPARISON: None. NUMBER OF VIEWS: Three views. TECHNIQUE: Frontal chest, supine abdomen and upright/decubitus abdomen radiographic images acquired. LIMITATIONS: None. FINDINGS: CHEST: Lungs clear of infiltrates. FREE AIR: None. No abnormal gas collections. BOWEL GAS PATTERN: Nonobstructive pattern. There is considerable stool in the colon. There is consi derable large bowel gas and a small amount of small bowel gas. CALCIFICATIONS: No suspicious calcifications. HARDWARE: None in the abdomen. SOFT TISSUES: No gross mass or suggestion of organomegaly. BONES: No acute fracture. No worrisome bone lesions. OTHER: No other significant finding. IMPRESSION: Constipation. TECHNICAL DOCUMENTATION: JOB ID: [id number] [employer]- All Rights Reserved Reading location - IP/workstation name: [email or web address]
[2018-11-17 15:06] VITALS: BP 107/59
--- NOTE | 2018-11-17 15:58 | EKG REPORT ---
SEVERITY:- ABNORMAL ECG - SINUS RHYTHM LOW VOLTAGE THROUGHOUT CONSIDER ANTEROSEPTAL INFARCT : Confirmed by: Cj Richardson MD 17-Nov-2018 15:57:34
== END 2018-11-17 18:00 | disposition home or self-care (01) ==
LOC: ER 12:14
DX: E10.649 Type 1 diabetes mellitus with hypoglycemia without coma (principal); T68.XXXA Hypothermia, initial encounter; R55 Syncope and collapse; R41.0 Disorientation, unspecified; I10 Essential (primary) hypertension; J44.9 Chronic obstructive pulmonary disease, unspecified; R14.0 Abdominal distension (gaseous); S51.811A Laceration without foreign body of right forearm, initial encounter; X58.XXXA Exposure to other specified factors, initial encounter
CPT/HCPCS: 93005; 99285; 82962; 87493; 74022; 93010; J7070

== ENCOUNTER → 2019-03-08 | Outpatient (CLI) | payer MEDICARE, OTHER ==
--- NOTE | 2019-03-09 09:45 | XCELERA REPORT ---
[address] [address] Lower Extremity Venous Evaluation Procedure: A bilateral duplex scan of the lower extremity veins was performed. The evaluation included responses to compression and other maneuvers with patient in the supine and standing positions to assess venous insufficiency. Right Sided Venous Evaluation Deep venous system evaluation shows echogenic, normal sized veins with no flow from the Femoral to Saphenous Femoral junction. Significant reflux identified in the Femoral and Popliteal veins. Saphena Femoral junction: no flow. Femoral vein reflux: about 2 second reflux. Greater Saphenous vein, Proximal thigh: reflux: no reflux. Greater Saphenous vein, Distal thigh: reflux: no reflux. Greater Saphenous vein, Proximal below knee: reflux: no reflux. No significant Perforators identified. Left Sided Venous Evaluation Deep venous system evaluatiion shows patent veins with no obstruction or significant reflux identified. Sapheno Femoral junction: no reflux. Femoral vein reflux: no reflux. Greater Saphenous vein, Proximal thigh: reflux: no reflux. Greater Saphenous vein, Distal thigh: reflux: no reflux. Greater Saphenous vein, Proximal below knee: reflux: no reflux. No significant Perforators identified. Critical Findings Discussed with MICKIE Jenkins at the wound clinic. Interpretation Summary Subacute DVT in the Right Common femoral vein. Reflux in the right Femoral and Popliteal veins. Left side normal. Name: KENNEDY MEDEIROS Age: 69 yrs Gender: Female : 1950 Patient Status: Outpatient Patient Location: Study Date: 03/08/2019 10:56 AM Reason For Study: ULCER OF LEFT CALF Ordering Physician: RAPHAEL JENKINS Performed By: Jackie Arauz : RAPHAEL JENKINS > Saúl Lambert
--- NOTE | 2019-03-09 09:51 | XCELERA REPORT ---
[address] [address] Lower Extremity Arterial Evaluation Name: KENNEDY MEDEIROS Age: 69 yrs Gender: Female : 1950 Patient Status: Outpatient Patient Location: SP Study Date: 03/08/2019 10:37 AM Procedure: A color flow and duplex scan of the lower extremity arteries was performed bilaterally with velocity and waveform anaylsis. Reason For Study: ULCER OF LEFT CALF Ordering Physician: RAPHAEL JENKINS Performed By: Jackie Arauz Measurements and Calculations Right Left ELECTROLOG OPERATOR PSV 117.0 129.5 cm/sec Prox PFA PSV 77.8 -113.8cm/sec Prox SFA PSV 109.2 93.0 cm/sec Mid SFA PSV 145.4 -41.6 cm/sec Dist SFA PSV -103.7 -44.3 cm/sec Prox Pop A PSV 62.1 54.8 cm/sec Mid YVES PSV 44.3 cm/sec Prox CORK INSULATION SETTER PSV 57.8 12.6 cm/sec Zach Pedis PSV 49.8 18.5 cm/sec Right Side Arterial Evaluation Bandaging in place, made study challenging. Normal velocity and triphasic waveforms noted in the Common Femoral artery. Biphasic with normal velocity, moderate spectral broadening. in the Popliteal, Posterior tibial and Dorsalis Pedis arteries. Ankle Brachial index not obtained due to pain. Left Side Arterial Evaluation Normal velocity and triphasic waveforms noted in the Common Femoral artery. Biphasic with normal velocity, moderate spectral broadening. in the Popliteal and Anterior Tibial arteries,. Monophasic, decreased velocity, spectral broadening in the Posterior Tibial. Ankle Brachial index not obtained due to pain. Interpretation Summary Moderate hemodynamically significant lesions in the bilateral lower extremities, on duplex imaging, at rest. Findings suggest bilateral Femoral disease, with sequential changes in the infrageniculate vessels. : RAPHAEL JENKINS Saúl Lambert
== END ==
LOC: SP 10:20
PROVIDERS: ATTEND Nurse Practitioner Family
DX: L97.222 Non-pressure chronic ulcer of left calf with fat layer exposed (principal)
CPT/HCPCS: 93925; 93970

== ENCOUNTER → 2019-03-19 | Outpatient (CLI) | payer MEDICARE, OTHER ==
--- NOTE | 2019-03-19 17:04 | RADIOLOGY REPORT (SQ) ---
EXAM DESCRIPTION: CT HEAD WITHOUT COMPLETED DATE/TIME: 03/19/2019 4:53 pm REASON FOR STUDY: R51 HEADACHE R51 HEADACHE COMPARISON: 07/19/2018 TECHNIQUE: Axial images acquired through the brain without intravenous contrast. Images reviewed wit h bone, brain and subdural windows. Images stored on PACS. All CT scanners at this facility use dose modulation, iterative reconstruction, and/or weight based d osing when appropriate to reduce radiation dose to as low as reasonably achievable (ALARA). [facility]: Dose Right [facility]: CareDose [facility]: Dose Right [facility]: Teradose 4D [facility]: Chance (app) RADIATION DOSE: CT Rad equipment meets quality standard of care and radiation dose reduction techniq ues were employed. CTDIvol: 48.6 mGy. DLP: 904 mGy-cm.. LIMITATIONS: None. FINDINGS: VENTRICLES: Normal size and contour. CEREBRUM: No masses. No hemorrhage. No midline shift. Age appropriate white matter. No evidence for a cute infarction. CEREBELLUM: No masses. No hemorrhage. No alteration of density. No evidence for acute infarction. EXTRA-AXIAL SPACES: No fluid collections. ORBITS AND GLOBE: No intra- or extraconal masses. Normal contour of globe without masses. CALVARIUM: No fracture. PARANASAL SINUSES: Maxillary sinus mucosal thickening. SOFT TISSUES: No mass or hematoma. OTHER: No other significant finding. IMPRESSION: NO ACUTE INTRACRANIAL FINDINGS. EVIDENCE OF ACUTE STROKE: NO. TECHNICAL DOCUMENTATION: JOB ID: [id number] Quality ID # [id number]: Final reports with documentation of one or more dose reduction techniques (e.g., Au tomated exposure control, adjustment of the mA and/or kV according to patient size, use of iterative reconstruction technique) 2010 [employer]- All Rights Reserved Reading location - IP/workstation name: [email or web address]
== END ==
LOC: RAD 16:28
PROVIDERS: ATTEND Physician Assistant
DX: R51 Headache (principal)
CPT/HCPCS: 70450

== ENCOUNTER 2019-09-22 07:43 | Day surgery (SDC) | payer MEDICARE, OTHER ==
[~2019-09-22 07:43] MED LIST: CHONDR SU A NA/HYALUR INTRAOC KIT (SURGICARE) ONE; EPINEPHRINE INJ/PF 1 MG/1 ML AMPULE ONE; KETOROLAC TROMETHAMINE 0.45% 4 DROP/0.4 ML DROPERETTE OD PRN; LIDOCAINE 1%/PHENYLEPHRINE 1.5% 1 ML VIAL ONE
[2019-09-22] MEDS: BESIFLOXACIN HCL 0.6% OPH SUSP 5 ML BOTTLE OD PRN ×4 (08:30→09:27)
[2019-09-22] MEDS: CYCLOPENTOLATE 0.2%/PHENYLEPHRINE 1% OPH SOLN 2 ML OD PRN ×3 (08:30→08:55)
[2019-09-22] MEDS: TROPICAMIDE 1% OPH SOLN 15 ML OD PRN ×3 (08:30→08:55)
[2019-09-22] MEDS: TETRACAINE HCL 0.5% OPH SOLN 4 ML OD PRN ×3 (08:30→09:07)
[2019-09-22] MEDS ORDERED: DEXTROSE 50%-WATER 25 GM/50 ML DISP.SYRIN IV ONE (08:48)
[2019-09-22] MEDS ORDERED: FENTANYL CITRATE INJ/PF 100 MCG/2 ML AMPUL ONE (08:50)
[2019-09-22] MEDS ORDERED: MIDAZOLAM 2 MG/2 ML INJ ONE (08:50)
[2019-09-22] MEDS: DORZOLAMIDE HCL 2%/TIMOLOL MALEAT 0.5% OPH SOLN 10 ML OD PRN ×2 (09:27)
--- NOTE | 2019-09-22 15:22 | Operative Report ---
Operative Report-[facility] Operative Report: DATE OF SURGERY: September 22, 2019 PREOPERATIVE DIAGNOSIS: NUCLEAR CATARACT, RIGHT EYE. POSTOPERATIVE DIAGNOSIS: NUCLEAR CATARACT, RIGHT EYE. PROCEDURE PERFORMED: PHACOEMULSIFICATION WITH POSTERIOR CHAMBER INTRAOCULAR LENS IMPLANT, RIGHT EYE. SURGEON: Melvin Gallagher DO MEDICATIONS AND ANESTHESIA: Versed: IV Versed Tetracaine drops: 1 to 2 drops given as needed COMPLICATION: None INDICATIONS FOR SURGERY: Medical necessity: Best corrected visual acuity worse than 20/40 secondary to cataracts with impairment of ability to carry out needs or desired activities, blurred vision, visual distortion, reduced contrast sensitivity and/or glare with association functional impairment and supporting documentation/testing, and cataracts causing symptomatic impairment of visual functions not corrected with tolerable changes in glasses or contact lenses interfering with activities of daily life. PROCEDURE: Consent: The risks, benefits and alternatives of this procedures was discussed with the patient. The patient read and signed the consent forms, was identified and was seated in the exam chair. IOL: MX 60 E IOL Diopters: 23.5 Phacoemulsification with posterior chamber intraocular lens implant: The face was prepped with 5% povidone iodine solution, and a few drops of 5% povidone iodine solution was instilled into the inferior fornix. A non-fenestrated drape was placed over the eye and the lids were parted with the speculum. A paracentesis was made with a 15 degree blade, and 1% lidocaine MPF followed by viscoelastic was injected into the anterior chamber. A 2.4 mm metal micro- keratome was used to create a temporal clear corneal incision. A circular anterior capsulorrhexis was created, followed by hydro-dissection and hydro- delineation. The phacoemulsification hand piece was inserted and the nucleus was removed with the Phaco chop technique. The irrigation-aspiration hand piece was used to remove the residual cortex, and vacuum the posterior capsule. The capsular bag was inflated and viscoelastic and the above-mentioned IOL was injected into the eye with care to insert both leaning and trailing haptics in the capsular bag. The irrigation/aspiration hand piece was reinserted to remove residual viscoelastic from the capsular bag and anterior chamber. The corneal incision was hydrated, and anterior chamber was inflated with sterile BSS via the paracentesis site, and found to be watertight. Postop medication: 1 drop of prednisolone into operative by followed by 1 drop of Cosopt into operative eye followed by 1 drop of Besivance intraoperative by other:
== END 2019-09-22 10:34 | disposition home or self-care (01) ==
LOC: SC 07:43
PROVIDERS: ATTEND Ophthalmology
DX: H25.11 Age-related nuclear cataract, right eye (principal); E11.40 Type 2 diabetes mellitus with diabetic neuropathy, unspecified; E11.3293 Type 2 diabetes mellitus with mild nonproliferative diabetic retinopathy without macular edema, bilateral; H40.053 Ocular hypertension, bilateral; Z79.4 Long term (current) use of insulin; I10 Essential (primary) hypertension; R01.1 Cardiac murmur, unspecified; F17.210 Nicotine dependence, cigarettes, uncomplicated; Z79.899 Other long term (current) drug therapy; Z79.01 Long term (current) use of anticoagulants; Z79.84 Long term (current) use of oral hypoglycemic drugs; E07.9 Disorder of thyroid, unspecified; M06.9 Rheumatoid arthritis, unspecified; J44.9 Chronic obstructive pulmonary disease, unspecified; R06.02 Shortness of breath
CPT/HCPCS: 82962; 00142; 66984; V2632; J2250; J3490 ×3; A9270; J0171; J3010; J2370; 142

== ENCOUNTER 2019-10-06 08:52 | Day surgery (SDC) | payer MEDICARE, OTHER ==
[~2019-10-06 08:52] MED LIST changes: +FENTANYL CITRATE INJ/PF 100 MCG/2 ML AMPUL ONE; -KETOROLAC TROMETHAMINE 0.45% 4 DROP/0.4 ML DROPERETTE OD PRN; +KETOROLAC TROMETHAMINE 0.45% 4 DROP/0.4 ML DROPERETTE OS PRN; +MIDAZOLAM 2 MG/2 ML INJ ONE; +ONDANSETRON HCL INJ/PF 4 MG/2 ML SDV ONE
[2019-10-06] MEDS: CYCLOPENTOLATE 0.2%/PHENYLEPHRINE 1% OPH SOLN 2 ML OS PRN ×3 (09:18→09:40)
[2019-10-06] MEDS: TETRACAINE HCL 0.5% OPH SOLN 4 ML OS PRN ×3 (09:18→09:48)
[2019-10-06] MEDS: BESIFLOXACIN HCL 0.6% OPH SUSP 5 ML BOTTLE OS PRN ×4 (09:19→10:07)
[2019-10-06] MEDS: TROPICAMIDE 1% OPH SOLN 15 ML OS PRN ×3 (09:19→09:40)
[2019-10-06] MEDS ORDERED: DEXTROSE 50%-WATER 25 GM/50 ML DISP.SYRIN IV ONE (09:34)
[2019-10-06] MEDS: DORZOLAMIDE HCL 2%/TIMOLOL MALEAT 0.5% OPH SOLN 10 ML OS PRN ×2 (10:07)
[2019-10-06] MEDS ORDERED: ACETAMINOPHEN 325 MG TABLET ONE (10:37)
--- NOTE | 2019-10-06 14:32 | Operative Report ---
Operative Report-[facility] Operative Report: DATE OF SURGERY: October 06, 2019 PREOPERATIVE DIAGNOSIS: NUCLEAR CATARACT, LEFT EYE. POSTOPERATIVE DIAGNOSIS: NUCLEAR CATARACT, LEFT EYE. PROCEDURE PERFORMED: PHACOEMULSIFICATION WITH POSTERIOR CHAMBER INTRAOCULAR LENS IMPLANT, LEFT EYE. SURGEON: Melvin Gallagher DO MEDICATIONS AND ANESTHESIA: Versed: IV Versed Tetracaine drops: 1 to 2 drops given as needed COMPLICATION: None INDICATIONS FOR SURGERY: Medical necessity: Best corrected visual acuity worse than 20/40 secondary to cataracts with impairment of ability to carry out needs or desired activities, blurred vision, visual distortion, reduced contrast sensitivity and/or glare with association functional impairment and supporting documentation/testing, and cataracts causing symptomatic impairment of visual functions not corrected with tolerable changes in glasses or contact lenses interfering with activities of daily life. PROCEDURE: Consent: The risks, benefits and alternatives of this procedures was discussed with the patient. The patient read and signed the consent forms, was identified and was seated in the exam chair. IOL: MX 60 E IOL Diopters: 23.0 Phacoemulsification with posterior chamber intraocular lens implant: The face was prepped with 5% povidone iodine solution, and a few drops of 5% povidone iodine solution was instilled into the inferior fornix. A non-fenestrated drape was placed over the eye and the lids were parted with the speculum. A paracentesis was made with a 15 degree blade, and 1% lidocaine MPF followed by viscoelastic was injected into the anterior chamber. A 2.4 mm metal micro- keratome was used to create a temporal clear corneal incision. A circular anterior capsulorrhexis was created, followed by hydro-dissection and hydro- delineation. The phacoemulsification hand piece was inserted and the nucleus was removed with the Phaco chop technique. The irrigation-aspiration hand piece was used to remove the residual cortex, and vacuum the posterior capsule. The capsular bag was inflated and viscoelastic and the above-mentioned IOL was injected into the eye with care to insert both leaning and trailing haptics in the capsular bag. The irrigation/aspiration hand piece was reinserted to remove residual viscoelastic from the capsular bag and anterior chamber. The corneal incision was hydrated, and anterior chamber was inflated with sterile BSS via the paracentesis site, and found to be watertight. Postop medication:1 drop of prednisolone into operative by followed by 1 drop of Cosopt into operative eye followed by 1 drop of Besivance intraoperative by Other:
== END 2019-10-06 11:07 | disposition home or self-care (01) ==
LOC: SC 08:52
PROVIDERS: ATTEND Ophthalmology
DX: H25.12 Age-related nuclear cataract, left eye (principal); Z98.41 Cataract extraction status, right eye; E11.40 Type 2 diabetes mellitus with diabetic neuropathy, unspecified; I10 Essential (primary) hypertension; Z79.4 Long term (current) use of insulin; R01.1 Cardiac murmur, unspecified; Z79.84 Long term (current) use of oral hypoglycemic drugs; E07.9 Disorder of thyroid, unspecified
CPT/HCPCS: 82962; 66984; V2632; A9270 ×2; J2250; J3490 ×3; J0171; J2405; J2370; 142; J3010

== ENCOUNTER 2020-01-03 12:21 | Inpatient (IN) | payer MEDICARE, OTHER ==
[2020-01-03] MEDS ORDERED: NORMAL SALINE 1000 ML 1,000 ML IV ONE ×2 (12:47→17:54)
--- NOTE | 2020-01-03 13:52 | RADIOLOGY REPORT (SQ) ---
EXAM DESCRIPTION: CT HEAD WITHOUT IMAGES COMPLETED DATE/TIME: 01/03/2020 1:36 pm REASON FOR STUDY: fall head injury on Eliquis COMPARISON: None. TECHNIQUE: Axial images acquired through the brain without intravenous contrast. Images reviewed wi th bone, brain and subdural windows. Additional sagittal and coronal reconstructions were generated. Images stored on PACS. All CT scanners at this facility use dose modulation, iterative reconstruction, and/or weight based d osing when appropriate to reduce radiation dose to as low as reasonably achievable (ALARA). [facility]: Dose Right [facility]: CareDose [facility]: Dose Right [facility]: Teradose 4D [facility]: [employer] RADIATION DOSE: CT Rad equipment meets quality standard of care and radiation dose reduction techniq ues were employed. CTDIvol: 53.2 mGy. DLP: 1017 mGy-cm. LIMITATIONS: None. FINDINGS: There is diffuse age-appropriate cerebral and cerebellar volume loss. The confluent areas of hypoattenuation within the supratentorial periventricular and subcortical white matter likely rep resent the sequela of chronic microvascular ischemia. There is no acute intracranial hemorrhage, vas cular territorial infarct, extra-axial fluid collection, mass effect or midline shift. The caruso-whit e matter differentiation is preserved. There is no effacement of the cerebral sulci or basal subarac hnoid cisterns. The caliber of the ventricles is concordant with the degree of sulcation. There is a comminuted nasal fracture and a frontal and preorbital extracranial hematoma. The orbits are intact. The globes are aphakic. There is mild mucoperiosteal thickening without an air-fluid le mandy. There is no calvarial fracture. IMPRESSION: No acute intracranial abnormality. EVIDENCE OF ACUTE STROKE: NO. COMMENT: Quality ID # 436: Final reports with documentation of one or more dose reduction techniques (e.g., Automated exposure control, adjustment of the mA and/or kV according to patient size, use of iterative reconstruction technique) TECHNICAL DOCUMENTATION: JOB ID: [id number] 2010 [employer]- All Rights Reserved Reading location - IP/workstation name: [email or web address]
--- NOTE | 2020-01-03 13:55 | RADIOLOGY REPORT (SQ) ---
EXAM DESCRIPTION: CT FACIAL AREA WITHOUT IMAGES COMPLETED DATE/TIME: 01/03/2020 1:36 pm REASON FOR STUDY: fall head injury on Eliquis COMPARISON: None. TECHNIQUE: Noncontrasted images through the facial bones and orbits windowed for bone and soft tissu e. Additional coronal and sagittal reconstructed images reviewed. All images stored on PACS. All CT scanners at this facility use dose modulation, iterative reconstruction, and/or weight based d osing when appropriate to reduce radiation dose to as low as reasonably achievable (ALARA). [facility]: Dose Right [facility]: CareDose [facility]: Dose Right [facility]: Teradose 4D [facility]: [employer] RADIATION DOSE: CT Rad equipment meets quality standard of care and radiation dose reduction techniq ues were employed. CTDIvol: 30.4 mGy. DLP: 621 mGy-cm. LIMITATIONS: None. FINDINGS: FACIAL BONES: Comminuted nondisplaced nasal fracture. The nasal septum is intact. ORBITS: The orbits are intact. The globes are if a cake. There is no abnormality of the extraocular muscles and optic nerve sheath complexes. PARANASAL SINUSES: There is mild mucoperiosteal thickening involving the maxillary sinuses without an air-fluid level or mass. The ostiomeatal complexes are patent. SOFT TISSUES: Preorbital and frontal hematoma. INFERIOR BRAIN: No abnormality. OTHER: No other finding. IMPRESSION: Comminuted nondisplaced nasal fracture and right-sided periorbital and frontal extracran ial hematoma. TECHNICAL DOCUMENTATION: JOB ID: [id number] Quality ID # [id number]: Final reports with documentation of one or more dose reduction techniques (e.g., Au tomated exposure control, adjustment of the mA and/or kV according to patient size, use of iterative reconstruction technique) 2010 [employer]- All Rights Reserved Reading location - IP/workstation name: [email or web address]
--- NOTE | 2020-01-03 13:59 | ER Document Report ---
ED Syncope and Near Syncope - General Chief Complaint: Near Syncope Stated Complaint: POSSIBLE SYNCOPE Time Seen by Provider: 01/03/20 12:40 Primary Care Provider: WES GU MD [Primary Care Provider] - Follow up as needed Mode of Arrival: Medic Information source: Patient Notes: 69-year-old female presented to ED for complaint of a syncopal episode this morning. She was found on the floor this morning by her doctor after he fell regarding. Hypoglycemia with a blood sugar of 35. It was 180 by EMS. Wanted to go to the office of Dr. Osorio oncology because she was supposed to get a iron infusion. She states she did go to the doctor's office and had her on iron infusion. He states she has had nausea vomiting and diarrhea for the last 3 days. States she has diarrhea all the time due to her celiac disease. She states she also has MRSA in her legs which is now seems to be spreading to her arms. She states she has diabetes and multiple other problems. She is seeing the radiographer technologist for iron infusions. She has a lot of swelling to the right side of her face and her eye is swollen shut due to the fall this morning. Patient is on Eliquis and insulin at home. Her Port-A-Cath is accessed. TRAVEL OUTSIDE OF THE [place] IN LAST 30 DAYS: No - HPI Patient complains to provider of: Fainting Episode witnessed (by whom): No Symptoms prior to episode: Other - Patient was found on the floor Position/Activity at time of episode: Standing Quality of pain: Achy Severity: Moderate Pain Level: 2 Context: Low blood sugar, Other - Low blood sugar at home passed out Injury location: Face, Head, LLE Current symptoms: Headache, Other - Swelling to the face and right eye D-stick result: 223 Similar symptoms previously: Yes Recently seen / treated by doctor: Yes - Related Data Allergies/Adverse Reactions: No Known Allergies Allergy (Verified 01/03/20 12:29) Home Medications: eliquis, insulin Past Medical History - General Information source: Patient - Social History Smoking Status: Never Smoker Frequency of alcohol use: None Drug Abuse: None Lives with: Family Family History: Reviewed & Not Pertinent Patient has suicidal ideation: No Patient has homicidal ideation: No - Past Medical History Cardiac Medical History: Reports: Hx Hypertension - states Lisinopril Rx r/t DM Dx Pulmonary Medical History: Reports: Hx COPD EENT Medical History: Reports: None Neurological Medical History: Reports: None Endocrine Medical History: Reports: Hx Diabetes Mellitus Type 1 Renal/ Medical History: Reports: None Malignancy Medical History: Reports: None GI Medical History: Reports: None Musculoskeletal Medical History: Reports Hx Arthritis - rheumatoid, no meds x 2 months r/t Dx of Celiac's, Reports Hx Musculoskeletal Deformity, Reports Hx Musculoskeletal Trauma Skin Medical History: Reports Hx Cellulitis, Reports Hx MRSA Psychiatric Medical History: Reports: None Traumatic Medical History: Reports: None Infectious Medical History: Reports: Hx MRSA Past Surgical History: Reports: Hx Hysterectomy, Hx Orthopedic Surgery - Immunizations Hx Diphtheria, Pertussis, Tetanus Vaccination: Yes Review of Systems - Review of Systems Constitutional: No symptoms reported EENT: Blurred vision, Other - Facial bruising and swelling. denies: Eye pain - Pain around the eyes Cardiovascular: Syncope Respiratory: No symptoms reported Gastrointestinal: Abdomen distended, Diarrhea Genitourinary: No symptoms reported Female Genitourinary: No symptoms reported Musculoskeletal: No symptoms reported Skin: Change in color - I am going home anything else R facial bruising and swelling right eye swollen shut Hematologic/Lymphatic: No symptoms reported Neurological/Psychological: Headaches -: Yes All other systems reviewed and negative Physical Exam - Vital signs Vitals: Temp 97.8 F 01/03/20 12:29 Interpretation: Normal - General General appearance: Appears well, Alert - HEENT Head: Ecchymosis, [place]'s eyes, Tenderness Eyes: Periorbital ecchymosis, Periorbital edema Pupils: PERRL Ears: Normal External canal: Normal Tympanic membrane: Normal Sinus: Normal Nasal: Snehal deformity, Ecchymosis, Swelling. No: Epistaxis, Purulent discharge, Septal hematoma, Clear rhinorrhea Mouth/Lips: Normal Mucous membranes: Normal Pharynx: Normal Neck: Normal - Respiratory Respiratory status: No respiratory distress Chest status: Nontender Breath sounds: Normal Chest palpation: Normal - Cardiovascular Rhythm: Regular Heart sounds: Normal auscultation Murmur: No - Abdominal Inspection: Normal Distension: Distended Bowel sounds: Hyperactive Tenderness: Nontender Organomegaly: No organomegaly - Back Back: Normal, Nontender - Extremities General upper extremity: Normal inspection, Nontender, Normal color, Normal ROM, Normal temperature General lower extremity: Normal inspection, Nontender, Normal color, Normal ROM, Normal temperature, Normal weight bearing. No: Andrae's sign - Neurological Neuro grossly intact: Yes Cognition: Normal Orientation: AAOx4 [place] Coma Scale Eye Opening: Spontaneous Danni Coma Scale Verbal: Oriented Danni Coma Scale Motor: Obeys Commands Danni Coma Scale Total: 15 Speech: Normal Motor strength normal: LUE, RUE, LLE, RLE Sensory: Normal - Psychological Associated symptoms: Normal affect, Normal mood - Skin Skin Temperature: Warm Skin Moisture: Dry Skin Color: Normal Course - Re-evaluation Re-evalutation: 01/03/20 21:11 Accu-Chek is 252 at this time 01/03/20 21:12 Patient had a white count of 2.1 lactic acid 3.1 she does have a pneumonia on the left. Urine was normal. She does have a fractured nose. CT of the head was no acute changes. I have contacted Dr. Huitron and he has admitted the patient to [facility] for sepsis pneumonia and fractured nose. - Vital Signs Vital signs: Temp Pulse Resp BP Pulse Ox 98 F 19 94/50 L 99 01/03/20 19:53 01/03/20 17:01 01/03/20 17:00 01/03/20 17:01 - Laboratory Result Diagrams: 01/03/20 15:17 01/03/20 15:17 Laboratory results interpreted by me: 01/03/20 01/03/20 01/03/20 12:50 15:17 15:17 WBC 2.1 L Hgb 8.0 L Hct 26.3 L MCV 68 L MCH 20.6 L MCHC 30.2 L RDW 19.5 H Plt Count 127 L Absolute Neuts (auto) 1.6 L Absolute Lymphs (auto) 0.4 L Sodium 132.6 L Carbon Dioxide 20 L Creatinine 0.43 L Glucose 164 H POC Glucose 223 H Lactic Acid Calcium 7.5 L AST 47 H Alkaline Phosphatase 172 H Total Protein 5.8 L Albumin 2.4 L Urine Protein Urine Blood 01/03/20 01/03/20 01/03/20 15:17 17:28 18:09 WBC Hgb Hct MCV MCH MCHC RDW Plt Count Absolute Neuts (auto) Absolute Lymphs (auto) Sodium Carbon Dioxide Creatinine Glucose POC Glucose 204 H Lactic Acid 3.1 H Calcium AST Alkaline Phosphatase Total Protein Albumin Urine Protein 30 H Urine Blood SMALL H - Diagnostic Test Radiology reviewed: Image reviewed, Reports reviewed Discharge - Discharge Clinical Impression: Pneumonia Qualifiers: Pneumonia type: due to unspecified organism Laterality: left Lung location: unspecified part of lung Qualified Code(s): J18.9 - Pneumonia, unspecified organism Fall Qualifiers: Encounter type: initial encounter Qualified Code(s): W19.XXXA - Unspecified fall, initial encounter Fractured nasal bones Qualifiers: Encounter type: initial encounter Fracture type: closed Qualified Code(s): S02.2XXA - Fracture of nasal bones, initial encounter for closed fracture Sepsis Qualifiers: Sepsis type: sepsis due to unspecified organism Sepsis acute organ dysfunction status: unspecified Qualified Code(s): A41.9 - Sepsis, unspecified organism Disposition: ADMITTED INPATIENT Admitting Provider: Tomy (Hospitalist) Unit Admitted: IMCU Referrals: WES GU MD [Primary Care Provider] - Follow up as needed
--- NOTE | 2020-01-03 15:12 | EKG REPORT ---
SEVERITY:- OTHERWISE NORMAL ECG - SINUS TACHYCARDIA LOW VOLTAGE IN FRONTAL LEADS : Confirmed by: Jamilah Perez MD 03-Jan-2020 15:11:51
[2020-01-03 15:28] LABS: ABSOLUTE LYMPHOCYTES (AUTO) 0.4 10^3/uL (0.5-4.7); ABSOLUTE MONOCYTES (AUTO) 0.2 10^3/uL (0.1-1.4); ABSOLUTE NEUT (AUTO) 1.6 10^3/uL (1.7-8.2); BASOPHILS % (AUTO) 0.5 % (0-2); EOSINOPHILS % (AUTO) 0.3 % (0-6); HEMATOCRIT 26.3 % (36.0-47.0); MEAN CORPUSCULAR HEMOGLOBIN 20.6 pg (27.0-33.4); MEAN CORPUSCULAR HGB CONC 30.2 g/dL (32.0-36.0); MEAN CORPUSCULAR VOLUME 68 fl (80-97); MONOCYTES % (AUTO) 7.6 % (3-13); PLATELET COUNT 127 10^3/uL (150-450); RED BLOOD COUNT 3.87 10^6/uL (3.72-5.28); RED CELL DISTRIBUTION WIDTH 19.5 % (11.5-14.0); SEGMENTED NEUTROPHILS % (AUTO) 74.6 % (42-78); TOTAL CELLS COUNTED % (AUTO) 100 %; WHITE BLOOD COUNT 2.1 10^3/uL (4.0-10.5)
[2020-01-03 15:44] LABS: ALBUMIN 2.4 g/dL (3.5-5.0); ALKALINE PHOSPHATASE 172 U/L (38-126); ANION GAP 7 (5-19); ASPARTATE AMINO TRANSFERASE 47 U/L (14-36); BILIRUBIN,TOTAL 0.3 mg/dL (0.2-1.3); BLOOD UREA NITROGEN 15 mg/dL (7-20); CALCIUM 7.5 mg/dL (8.4-10.2); CARBON DIOXIDE 20 mmol/L (22-30); CHLORIDE 106 mmol/L (98-107); CREATINE KINASE 99 U/L (30-135); GLUCOSE 164 mg/dL (75-110); POTASSIUM 3.6 mmol/L (3.6-5.0); TOTAL PROTEIN 5.8 g/dL (6.3-8.2)
[2020-01-03 15:55] LABS: CREATINE KINASE MB 4.33 ng/mL (<4.55)
[2020-01-03 15:58] LABS: TROPONIN I < 0.012 ng/mL
[2020-01-03 18:00] LABS: AMORPHOUS SEDIMENT,URINE TRACE /HPF; APPEARANCE,URINE SLIGHTLY-CLOUDY; BILIRUBIN,URINE NEGATIVE (NEGATIVE); COLOR,URINE YELLOW; GLUCOSE, URINE NEGATIVE (NEGATIVE); KETONES,URINE NEGATIVE (NEGATIVE); LEUKOCYTE ESTERASE,URINE NEGATIVE (NEGATIVE); NITRITE,URINE NEGATIVE (NEGATIVE); PROTEIN,URINE 30 mg/dL (NEGATIVE); URINE SPECIFIC GRAVITY 1.019; UROBILINOGEN,URINE NEGATIVE mg/dL (<2.0)
[2020-01-03] MEDS ORDERED: VANCOMYCIN HCL INJ 1000 MG VIAL IV ONE (18:49)
--- NOTE | 2020-01-03 19:33 | RADIOLOGY REPORT (SQ) ---
EXAM DESCRIPTION: CHEST 2 VIEWS IMAGES COMPLETED DATE/TIME: 01/03/2020 6:05 pm REASON FOR STUDY: Sepsis COMPARISON: Chest radiograph 10/28/2018 EXAM PARAMETERS: NUMBER OF VIEWS: two views TECHNIQUE: Digital Frontal and Lateral radiographic views of the chest acquired. RADIATION DOSE: NA LIMITATIONS: none FINDINGS: LUNGS AND PLEURA: The lungs are hyperinflated. Biapical pleural and parenchymal scarring is stable. There is a new peripheral opacification in the left mid to lower lung probably representi ng focal consolidation and left effusion. Probable small right effusion. No pneumothorax. MEDIASTINUM AND HILAR STRUCTURES: No masses or contour abnormalities. HEART AND VASCULAR STRUCTURES: Heart normal size. No evidence for failure. BONES: Diffuse osteopenia. HARDWARE: Left central venous catheter with tip at the cavoatrial junction unchanged. OTHER: No other significant finding. IMPRESSION: New peripheral opacification in the left mid to lower lung with small bilateral pleural effusions. Findings may represent infectious/inflammatory process. Hyperinflated lungs which can be seen with obstructive lung disease. TECHNICAL DOCUMENTATION: JOB ID: [id number] 2010 [employer]- All Rights Reserved Reading location - IP/workstation name: [email or web address]
[2020-01-03] MEDS ORDERED: CEFEPIME INJ 1 GM VIAL IM ONE (19:55)
[2020-01-03] MEDS ORDERED: DEXTROSE 40% GEL 15 GM TUBE PO PRN ×2 (20:45)
[2020-01-03] MEDS ORDERED: IPRATROPIUM/ALBUTEROL 0.5-2.5 MG/3 ML AMPUL NEB PRN (20:45)
[2020-01-03] MEDS ORDERED: GLUCAGON,HUMAN RECOMB 1 MG INJ IM PRN (20:45)
[2020-01-03] MEDS ORDERED: DEXTROSE 50%-WATER 25 GM/50 ML DISP.SYRIN IV PRN ×2 (20:45)
[2020-01-03] MEDS ORDERED: CEFEPIME 1 GM/D5W RTU 1 GM/50 ML RTUPB IV ONE (20:55)
[2020-01-03] MEDS ORDERED: VANCOMYCIN HCL 0 MG in DEXTROSE 5%-WATER 250 ML IV NR (21:00)
[2020-01-03] MEDS ORDERED: CEFEPIME 2 GM/D5W RTU 2 GM/50 ML RTUPB IV SCH (22:00)
[2020-01-04] MEDS: HEPARIN SOD (PORCINE) 5,000 UNIT/ML 1 ML VIAL SUBCUT SCH ×2 (00:23→05:28)
[2020-01-04] MEDS ORDERED: INSULIN LISPRO 100 UNIT/ML 3 ML VIAL ONE ×2 (01:28→09:35)
[2020-01-04] MEDS ORDERED: INSULIN LISPRO 100 UNIT/ML 3 ML VIAL SUBCUT ONE (02:00)
[2020-01-04] MEDS: ACETAMINOPHEN 325 MG TABLET PO PRN (04:30)
[2020-01-04 04:39] LABS: ABSOLUTE EOSINOPHILS # (AUTO) 0.1 10^3/uL (0.0-0.6); ABSOLUTE LYMPHOCYTES (AUTO) 0.9 10^3/uL (0.5-4.7); ABSOLUTE MONOCYTES (AUTO) 0.4 10^3/uL (0.1-1.4); ABSOLUTE NEUT (AUTO) 2.6 10^3/uL (1.7-8.2); BASOPHILS % (AUTO) 0.4 % (0-2); EOSINOPHILS % (AUTO) 1.6 % (0-6); LYMPHOCYTES % (AUTO) 22.7 % (13-45); MEAN CORPUSCULAR HEMOGLOBIN 20.9 pg (27.0-33.4); MEAN CORPUSCULAR HGB CONC 30.8 g/dL (32.0-36.0); MEAN CORPUSCULAR VOLUME 68 fl (80-97); MONOCYTES % (AUTO) 9.4 % (3-13); PLATELET COUNT 101 10^3/uL (150-450); RED BLOOD COUNT 3.38 10^6/uL (3.72-5.28); RED CELL DISTRIBUTION WIDTH 19.7 % (11.5-14.0); SEGMENTED NEUTROPHILS % (AUTO) 65.9 % (42-78); TOTAL CELLS COUNTED % (AUTO) 100 %; WHITE BLOOD COUNT 3.9 10^3/uL (4.0-10.5)
[2020-01-04 04:49] LABS: HEMOGLOBIN 7.1 g/dL (12.0-15.5)
[2020-01-04 04:52] LABS: ANION GAP 9 (5-19); BLOOD UREA NITROGEN 21 mg/dL (7-20); CALCIUM 7.6 mg/dL (8.4-10.2); CARBON DIOXIDE 17 mmol/L (22-30); CHLORIDE 108 mmol/L (98-107); GLUCOSE 289 mg/dL (75-110); POTASSIUM 3.7 mmol/L (3.6-5.0)
--- NOTE | 2020-01-04 05:10 | PDOC H&P ---
History of Present Illness Admission Date/PCP: 01/03/20 21:06 WES GU MD Patient complains of: Altered mental status History of Present Illness: KENNEDY MEDEIROS is a 69 year old female with a past medical history of rheumatoid arthritis, diabetes insulin-dependent diabetes with recurrent hypoglycemia, today's A1c is 7.1,, morbid obesity, iron deficiency, COPD with ongoing tobacco dependence. She presents after a fall from standing to the floor injuring the right side of her face. She is found to have a blood sugar of 35 she is brought to the emergency room by EMS. In the emergency department she is found to have a nasal fracture, right facial extracranial hematoma, left lung infiltrate, hypotension, tachycardia and pancytopenia. She receives empiric antibiotics, IV fluid challenge and referred to the hospitalist for admission. She denies recent antibiotic use Past Medical History Cardiac Medical History: Reports: Hypertension - states Lisinopril Rx r/t DM Dx Denies: Coronary Artery Disease, Myocardial Infarction Pulmonary Medical History: Reports: Chronic Obstructive Pulmonary Disease (COPD) Denies: Asthma, Bronchitis, Pneumonia EENT Medical History: Reports: None Neurological Medical History: Reports: None Denies: Seizures Endocrine Medical History: Reports: Diabetes Mellitus Type 1, Diabetes Mellitus Type 2 Renal/ Medical History: Reports: None Malignancy Medical History: Reports: None GI Medical History: Reports: None Denies: Hepatitis, Hiatal Hernia Musculoskeltal Medical History: Reports: Arthritis - rheumatoid, no meds x 2 months r/t Dx of Celiac's Psychiatric Medical History: Reports: None Denies: Depression Traumatic Medical History: Reports: None Hematology: Reports: Anemia - multiple treatments of Feraheme Denies: Sickle Cell Disease Infectious Medical History: Reports: Methicillin-Resistant Staph Aureus Past Surgical History Past Surgical History: Reports: Hysterectomy, Orthopedic Surgery Denies: Amputation, Mastectomy, Pacemaker Social History Information Source: Patient Lives with: Family Smoking Status: Current Every Day Smoker Cigarettes Packs Per Day: 1.5 Last Time Smoked: 01/02 Frequency of Alcohol Use: None Hx Recreational Drug Use: No Drugs: None Hx Prescription Drug Abuse: No - Advance Directive Resuscitation Status: Full Code Family History Family History: Hypertension Parental Family History Reviewed: Yes Children Family History Reviewed: Yes Sibling(s) Family History Reviewed.: Yes Medication/Allergy Home Medications: Ergocalciferol (Vitamin D2) [Drisdol 50,000 unit (1.25MG) Capsule] 50,000 unit PO FR 10/28/18 Folic Acid [Folvite 1 mg Tablet] 1 mg PO DAILY 10/28/18 Gabapentin [Neurontin 300 mg Capsule] 600 mg PO QHS 10/28/18 Insulin Glargine,Hum.rec.anlog [Lantus (Pyxis) Insulin 100 Unit/1 ml 10 ml] 0 units SQ .PERSLIDINGSCALE 10/28/18 Levothyroxine Sodium 175 mcg PO Q6AM 10/28/18 Lisinopril [Zestril] 5 mg PO DAILY 10/28/18 Metformin HCl [Glucophage XR 500 mg Tablet] 500 mg PO DAILY 10/28/18 Potassium Chloride [Klor-Con M10] 10 meq PO DAILY 10/28/18 Torsemide [Demadex 20 mg Tablet] 20 mg PO MOWEFR 10/28/18 Insulin Glargine,Hum.rec.anlog [Lantus Insulin 100 Unit/mL Insulin Pen] 5 unit SUBCUT QHS #5 insuln.pen 10/30/18 Allergies/Adverse Reactions: No Known Allergies Allergy (Verified 01/03/20 12:29) Review of Systems Constitutional: ABSENT: chills, fever(s), headache(s), weight gain, weight loss Eyes: ABSENT: visual disturbances Ears: ABSENT: hearing changes Cardiovascular: ABSENT: chest pain, dyspnea on exertion, edema, orthropnea, palpitations Respiratory: ABSENT: cough, hemoptysis Gastrointestinal: ABSENT: abdominal pain, constipation, diarrhea, hematemesis, hematochezia, nausea, vomiting Genitourinary: ABSENT: dysuria, hematuria Musculoskeletal: ABSENT: joint swelling Integumentary: ABSENT: rash, wounds Neurological: ABSENT: abnormal gait, abnormal speech, confusion, dizziness, focal weakness, syncope Psychiatric: ABSENT: anxiety, depression, homidical ideation, suicidal ideation Endocrine: ABSENT: cold intolerance, heat intolerance, polydipsia, polyuria Hematologic/Lymphatic: ABSENT: easy bleeding, easy bruising Physical Exam Vital Signs: Temp Pulse Resp BP Pulse Ox 97.7 F 77 24 H 110/45 L 98 01/03/20 23:00 01/04/20 02:00 01/03/20 23:00 01/03/20 23:00 01/03/20 23:00 Intake & Output 01/02/20 01/03/20 01/04/20 11:59 11:59 11:59 Intake Total 2049 Balance 2049 Weight 114 kg General appearance: PRESENT: cooperative, disheveled, mild distress, morbidly obese, well-developed Head exam: ABSENT: atraumatic, normocephalic - Large right facial periorbital and frontal hematoma Eye exam: PRESENT: EOMI, periorbital swelling, PERRLA Ear exam: ABSENT: bleeding Mouth exam: PRESENT: moist, tongue midline Neck exam: ABSENT: carotid bruit, JVD, lymphadenopathy, thyromegaly Respiratory exam: PRESENT: accessory muscle use, clear to auscultation neo, crackles, prolonged expiratory phas. ABSENT: rales, rhonchi, wheezes Cardiovascular exam: PRESENT: RRR. ABSENT: diastolic murmur, rubs, systolic murmur Pulses: PRESENT: normal dorsalis pedis pul Vascular exam: PRESENT: normal capillary refill GI/Abdominal exam: PRESENT: normal bowel sounds, soft. ABSENT: distended, g uarding, mass, organolmegaly, rebound, tenderness Rectal exam: PRESENT: deferred Extremities exam: PRESENT: full ROM. ABSENT: calf tenderness, clubbing, pedal edema Neurological exam: PRESENT: alert, awake, oriented to person, oriented to place, oriented to time, oriented to situation, CN II-XII grossly intact. ABSENT: mo tor sensory deficit Psychiatric exam: PRESENT: appropriate affect, normal mood. ABSENT: homicidal ideation, suicidal ideation Skin exam: PRESENT: dry, intact, warm. ABSENT: cyanosis, rash Results Laboratory Results: 01/04/20 04:14 01/04/20 04:14 01/03/20 01/03/20 01/03/20 15:17 15:17 15:17 WBC 2.1 L RBC 3.87 Hgb 8.0 L Hct 26.3 L MCV 68 L MCH 20.6 L MCHC 30.2 L RDW 19.5 H Plt Count 127 L Seg Neutrophils % 74.6 Sodium 132.6 L Potassium 3.6 Chloride 106 Carbon Dioxide 20 L Anion Gap 7 BUN 15 Creatinine 0.43 L Est GFR ( Amer) > 60 Glucose 164 H Lactic Acid 3.1 H Calcium 7.5 L Iron Total Bilirubin 0.3 AST 47 H Alkaline Phosphatase 172 H Total Protein 5.8 L Albumin 2.4 L Urine Color Urine Appearance Urine pH Ur Specific [place] Urine Protein Urine Glucose (UA) Urine Ketones Urine Blood Urine Nitrite Ur Leukocyte Esterase Urine WBC (Auto) Urine RBC (Auto) 01/03/20 01/03/20 01/03/20 17:28 21:50 21:50 WBC RBC Hgb Hct MCV MCH MCHC RDW Plt Count Seg Neutrophils % Sodium Potassium Chloride Carbon Dioxide Anion Gap BUN Creatinine Est GFR ( Amer) Glucose Lactic Acid 1.1 Calcium Iron 822.0 H Total Bilirubin AST Alkaline Phosphatase Total Protein Albumin Urine Color YELLOW Urine Appearance SLIGHTLY-CLOUDY Urine pH 5.0 Ur Specific Warren 1.019 Urine Protein 30 H Urine Glucose (UA) NEGATIVE Urine Ketones NEGATIVE Urine Blood SMALL H Urine Nitrite NEGATIVE Ur Leukocyte Esterase NEGATIVE Urine WBC (Auto) 3 Urine RBC (Auto) 1 01/04/20 01/04/20 01/04/20 04:14 04:14 04:14 WBC 3.9 L RBC 3.38 L Hgb 7.1 L Hct 23.0 L MCV 68 L MCH 20.9 L MCHC 30.8 L RDW 19.7 H Plt Count 101 L Seg Neutrophils % 65.9 Sodium 133.7 L Potassium 3.7 Chloride 108 H Carbon Dioxide 17 L Anion Gap 9 BUN 21 H Creatinine 0.61 Est GFR ( Amer) > 60 Glucose 289 H Lactic Acid 1.9 Calcium 7.6 L Iron Total Bilirubin AST Alkaline Phosphatase Total Protein Albumin Urine Color Urine Appearance Urine pH Ur Specific [place] Urine Protein Urine Glucose (UA) Urine Ketones Urine Blood Urine Nitrite Ur Leukocyte Esterase Urine WBC (Auto) Urine RBC (Auto) 01/03/20 01/03/20 01/03/20 15:17 15:17 21:50 Creatine Kinase 99 CK-MB (CK-2) 4.33 Troponin I < 0.012 < 0.012 Impressions: Facial Bones CT 01/03/20 12:45 IMPRESSION: Comminuted nondisplaced nasal fracture and right-sided periorbital and frontal extracranial hematoma. Head CT 01/03/20 12:45 IMPRESSION: No acute intracranial abnormality. EVIDENCE OF ACUTE STROKE: NO. Chest X-Ray 01/03/20 18:46 IMPRESSION: New peripheral opacification in the left mid to lower lung with small bilateral pleural effusions. Findings may represent infectious/inflammatory process. Hyperinflated lungs which can be seen with obstructive lung disease. Assessment and Plan - Diagnosis (1) Hypoglycemia Is this a current diagnosis for this admission?: Yes Plan: Poor candidate for hyperglycemic management given recurrent hypoglycemia and A1c of 7. (2) Fall Qualifiers: Encounter type: initial encounter Qualified Code(s): W19.XXXA - Unspecified fall, initial encounter Is this a current diagnosis for this admission?: Yes Plan: Secondary to #1, complicated by generalized debility and morbid obesity, physical therapy consult (3) Fractured nasal bones Qualifiers: Encounter type: initial encounter Fracture type: closed Qualified Code(s): S02.2XXA - Fracture of nasal bones, initial encounter for closed fracture Is this a current diagnosis for this admission?: Yes Plan: Outpatient ENT (4) Pneumonia Qualifiers: Pneumonia type: due to unspecified organism Laterality: left Lung location: unspecified part of lung Qualified Code(s): J18.9 - Pneumonia, unspecified organism Is this a current diagnosis for this admission?: Yes Plan: Empiric antibiotics, history of MRSA, vancomycin coverage, incentive spirometry, follow-up CBC and blood culture (5) Sepsis Qualifiers: Sepsis type: sepsis due to unspecified organism Sepsis acute organ dysfunction status: unspecified Qualified Code(s): A41.9 - Sepsis, unspecified organism Is this a current diagnosis for this admission?: Yes Plan: Secondary to pneumonia, IV fluid challenge, follow-up lactic acid (6) Anemia Qualifiers: Anemia type: iron deficiency Iron deficiency anemia type: inadequate dietary iron intake Qualified Code(s): D50.8 - Other iron deficiency anemias Is this a current diagnosis for this admission?: Yes Plan: Managed by outpatient hematology - Time Time Spent with patient: 25-34 minutes - Inpatient Certification Medical Necessity: Need Close Monitoring Due to Risk of Patient Decompensation
[2020-01-04] MEDS: IPRATROPIUM/ALBUTEROL 0.5-2.5 MG/3 ML AMPUL NEB SCH ×2 (08:59→19:13)
[2020-01-04] MEDS ORDERED: DEXTROSE 40% GEL 15 GM TUBE PO PRN ×6 (09:17→09:35)
[2020-01-04] MEDS ORDERED: GLUCAGON,HUMAN RECOMB 1 MG INJ IM PRN ×3 (09:17→09:35)
[2020-01-04] MEDS ORDERED: DEXTROSE 50%-WATER 25 GM/50 ML DISP.SYRIN IV PRN ×6 (09:17→09:35)
[2020-01-04] MEDS ORDERED: MORPHINE SULFATE 10 MG/ML INJ IV PRN (09:17)
[2020-01-04] MEDS: MORPHINE SULFATE 10 MG/ML INJ IV PRN ×3 (09:43→18:31)
[2020-01-04] MEDS: CEFEPIME HCL 2 GM in DEXTROSE 5%-WATER 50 ML IV SCH ×2 (09:44→22:51)
[2020-01-04] MEDS ORDERED: INSULIN LISPRO 100 UNIT/ML 3 ML VIAL SUBCUT SCH (11:00)
[2020-01-04] MEDS: INSULIN LISPRO 100 UNIT/ML 3 ML VIAL SUBCUT SCH ×3 (12:31→22:51)
--- NOTE | 2020-01-04 12:43 | RADIOLOGY REPORT (SQ) ---
EXAM DESCRIPTION: FEMUR RIGHT IMAGES COMPLETED DATE/TIME: 01/04/2020 12:24 pm REASON FOR STUDY: fall, hip pain COMPARISON: None. NUMBER OF VIEWS: Two views. TECHNIQUE: Two radiographic images acquired of the right femur to include hip and knee in at least o ne projection. LIMITATIONS: None. FINDINGS: MINERALIZATION: Normal. BONES: No acute fracture. No worrisome bone lesions. SOFT TISSUES: No obvious swelling or foreign body. OTHER: There is vascular calcification. IMPRESSION: No acute findings. TECHNICAL DOCUMENTATION: JOB ID: [id number] 2010 [employer]- All Rights Reserved Reading location - IP/workstation name: [email or web address]
--- NOTE | 2020-01-04 12:46 | RADIOLOGY REPORT (SQ) ---
EXAM DESCRIPTION: HIP RIGHT AP/LATERAL IMAGES COMPLETED DATE/TIME: 01/04/2020 12:24 pm REASON FOR STUDY: fall, hip pain COMPARISON: None. NUMBER OF VIEWS: Two views. TECHNIQUE: AP pelvis and additional frog-leg view of the right hip. LIMITATIONS: None. FINDINGS: MINERALIZATION: Osteopenia. RIGHT HIP: No fracture or dislocation. No worrisome bone lesions. LEFT HIP: No fracture or dislocation. No worrisome bone lesions. PUBIS AND ISCHIUM: Slight irregularity the right superior pubic ramus. Possibly related to old injur y. Acute fracture cannot be excluded. PELVIS: No fracture. SACRUM: No fracture or dislocation. No worrisome bone lesions. LOWER LUMBAR SPINE: No fracture or dislocation. No worrisome bone lesions. No significant disc disea se. SOFT TISSUES: No findings. OTHER: No other significant finding. IMPRESSION: Hips are grossly intact. There is slight irregularity the right superior pubic ramus. Acute injury cannot be excluded. TECHNICAL DOCUMENTATION: JOB ID: [id number] 2010 [employer]- All Rights Reserved Reading location - IP/workstation name: [email or web address]
[2020-01-04] MEDS ORDERED: INSULIN GLARGINE,HUM.REC.ANLOG 1,000 UNIT/10 ML VIAL (PYX) SUBCUT ONE (14:30)
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
[2020-01-04] MEDS: GABAPENTIN 300 MG CAPSULE PO SCH (17:33)
[2020-01-04] MEDS: VANCOMYCIN HCL 1,000 MG in DEXTROSE 5%-WATER 250 ML IV SCH (18:32)
--- NOTE | 2020-01-04 19:12 | RADIOLOGY REPORT (SQ) ---
EXAM DESCRIPTION: VENOUS UNILATERAL UPPER IMAGES COMPLETED DATE/TIME: 01/04/2020 7:00 pm REASON FOR STUDY: unilateral LUE edema COMPARISON: None. TECHNIQUE: Dynamic and static caruso scale and color images acquired of the left arm venous system. Se lected spectral images acquired with additional compression and augmentation maneuvers. Images stored on PACS. LIMITATIONS: None. FINDINGS: LEFT INTERNAL JUGULAR VEIN: Normal phasicity, compression, augmentation. No visualized echogenic material on caruso scale. No defects on color images. Comparison opposite side normal. SUBCLAVIAN VEIN: Normal compression, augmentation. No visualized echogenic material on caruso scale. No defects on color images. AXILLARY VEIN: Normal compression, augmentation. No visualized echogenic material on caruso scale. No d efects on color images. BRACHIAL VEIN: Normal compression, augmentation. No visualized echogenic material on caruso scale. No d efects on color images. BASILIC VEIN: Normal compression, augmentation. No visualized echogenic material on caruso scale. No de fects on color images. CEPHALIC VEIN: Normal compression, augmentation. No visualized echogenic material on caruso scale. No d efects on color images. OTHER: No other significant finding. IMPRESSION: NO EVIDENCE DVT OR SVT LEFT ARM. TECHNICAL DOCUMENTATION: JOB ID: [id number] 2010 [employer]- All Rights Reserved Reading location - IP/workstation name: [id number]
[2020-01-04] MEDS ORDERED: INSULIN GLARGINE,HUM.REC.ANLOG 1,000 UNIT/10 ML VIAL SUBCUT SCH (22:00)
[2020-01-04 22:07] LABS: ANION GAP 6 (5-19); BLOOD UREA NITROGEN 22 mg/dL (7-20); CARBON DIOXIDE 20 mmol/L (22-30); CHLORIDE 104 mmol/L (98-107); GLUCOSE 90 mg/dL (75-110); POTASSIUM 4.4 mmol/L (3.6-5.0)
--- NOTE | 2020-01-04 23:16 | RADIOLOGY REPORT (SQ) ---
EXAM DESCRIPTION: CT scan of the pelvis without contrast CLINICAL HISTORY: 69 years Female; Right hip pain status post fall TECHNIQUE: CT of the pelvis without contrast. All CT scans at this facility use dose modulation, iterative reconstruction, and/or weight based dosing when appropriate to reduce radiation dose to as low as reasonably achievable. COMPARISON: Radiographs of the pelvis obtained earlier in the day FINDINGS: The bowel gas pattern is abnormal with distention of the large and small bowel loops with fluid. The urinary bladder is distended. Diffuse edema of the soft tissues is noted and there is vascular calcifications. There may be trace ascites in the pelvis. Diffuse atrophy of the pelvic muscles is noted. Bones: There are are old, healed fractures of the right superior and inferior pubic rami. However, there is an acute fracture of the distal right superior pubic rami which is nondisplaced. The hips are located bilaterally. Femoral necks are intact. No other fracture is seen. Sacrum and SI joints appear intact. IMPRESSION: Anasarca and edema. Abnormal appearance of bowel gas pattern suggesting ileus. Healed old fractures of the right superior and inferior pubic rami's. Acute fracture of the distal right superior pubic rami. There is presumed to be an occult fracture of the inferior pubic rami which is not well seen.
[2020-01-05] MEDS ORDERED: (PENDING PHARMACY ID) (Levothyroxine Sodium [Levothyroxine Sodium] 175 MCG) PO SCH (06:00)
[2020-01-05] MEDS: LEVOTHYROXINE SODIUM 0.075 MG TABLET PO SCH (06:31)
[2020-01-05] MEDS: LEVOTHYROXINE SODIUM 0.1 MG TABLET PO SCH (06:31)
[2020-01-05] MEDS: ACETAMINOPHEN 325 MG TABLET PO PRN (06:31)
[2020-01-05] MEDS: INSULIN LISPRO 100 UNIT/ML 3 ML VIAL SUBCUT SCH ×4 (08:23→21:49)
[2020-01-05] MEDS: IPRATROPIUM/ALBUTEROL 0.5-2.5 MG/3 ML AMPUL NEB SCH (09:19)
[2020-01-05] MEDS ORDERED: INSULIN GLARGINE,HUM.REC.ANLOG 1,000 UNIT/10 ML VIAL (PYX) SUBCUT ONE (09:26)
[2020-01-05] MEDS: INSULIN GLARGINE,HUM.REC.ANLOG 1,000 UNIT/10 ML VIAL SUBCUT SCH (09:29)
[2020-01-05] MEDS: TORSEMIDE 20 MG TABLET PO SCH (09:30)
[2020-01-05] MEDS: MORPHINE SULFATE 10 MG/ML INJ IV PRN ×2 (09:30→21:55)
[2020-01-05] MEDS: GABAPENTIN 300 MG CAPSULE PO SCH ×2 (09:30→18:57)
[2020-01-05] MEDS: LISINOPRIL 5 MG TABLET PO SCH (09:30)
[2020-01-05] MEDS: FOLIC ACID 1 MG TABLET PO SCH (09:31)
[2020-01-05] MEDS: CEFEPIME HCL 2 GM in DEXTROSE 5%-WATER 50 ML IV SCH ×2 (09:31→21:49)
[2020-01-05] MEDS: RIVAROXABAN 10 MG TABLET PO SCH (09:31)
[2020-01-05] MEDS: NICOTINE 14 MG/24 HR PATCH.TD24 TD SCH (12:41)
[2020-01-05] MEDS ORDERED: NICOTINE 14 MG/24 HR PATCH.TD24 TD SCH (14:00)
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
[2020-01-05 18:43] LABS: VANCOMYCIN,TROUGH 6.7 ug/mL (5.0-20.0)
[2020-01-05] MEDS: VANCOMYCIN HCL 1,000 MG in DEXTROSE 5%-WATER 250 ML IV SCH (18:55)
[2020-01-05 21:47] LABS: ANION GAP 8 (5-19); BLOOD UREA NITROGEN 28 mg/dL (7-20); CALCIUM 7.6 mg/dL (8.4-10.2); CARBON DIOXIDE 24 mmol/L (22-30); CHLORIDE 101 mmol/L (98-107); GLUCOSE 250 mg/dL (75-110); POTASSIUM 4.4 mmol/L (3.6-5.0)
[2020-01-06] MEDS: VANCOMYCIN HCL 750 MG in DEXTROSE 5%-WATER 250 ML IV SCH ×2 (06:07→17:22)
[2020-01-06] MEDS: LEVOTHYROXINE SODIUM 0.1 MG TABLET PO SCH (06:07)
[2020-01-06] MEDS: LEVOTHYROXINE SODIUM 0.075 MG TABLET PO SCH (06:08)
[2020-01-06] MEDS: INSULIN LISPRO 100 UNIT/ML 3 ML VIAL SUBCUT SCH ×4 (07:20→21:43)
[2020-01-06] MEDS: ACETAMINOPHEN 325 MG TABLET PO PRN (07:50)
[2020-01-06] MEDS: CEFEPIME HCL 2 GM in DEXTROSE 5%-WATER 50 ML IV SCH ×2 (09:37→22:43)
[2020-01-06] MEDS: FOLIC ACID 1 MG TABLET PO SCH (09:40)
[2020-01-06] MEDS: GABAPENTIN 300 MG CAPSULE PO SCH ×2 (09:40→17:22)
[2020-01-06] MEDS: LISINOPRIL 5 MG TABLET PO SCH (09:40)
[2020-01-06] MEDS: NICOTINE 14 MG/24 HR PATCH.TD24 TD SCH (09:41)
[2020-01-06] MEDS: RIVAROXABAN 10 MG TABLET PO SCH (10:19)
[2020-01-06] MEDS: INSULIN GLARGINE,HUM.REC.ANLOG 1,000 UNIT/10 ML VIAL SUBCUT SCH (11:48)
[2020-01-06 12:43] LABS: HEMATOCRIT 22.3 % (36.0-47.0); MEAN CORPUSCULAR HEMOGLOBIN 20.9 pg (27.0-33.4); MEAN CORPUSCULAR HGB CONC 31.1 g/dL (32.0-36.0); MEAN CORPUSCULAR VOLUME 67 fl (80-97); PLATELET COUNT 107 10^3/uL (150-450); RED BLOOD COUNT 3.33 10^6/uL (3.72-5.28); RED CELL DISTRIBUTION WIDTH 19.3 % (11.5-14.0); WHITE BLOOD COUNT 3.1 10^3/uL (4.0-10.5)
[2020-01-06 12:46] LABS: HEMOGLOBIN 6.9 g/dL (12.0-15.5)
[2020-01-06 13:04] LABS: ANION GAP 5 (5-19); BLOOD UREA NITROGEN 29 mg/dL (7-20); CARBON DIOXIDE 26 mmol/L (22-30); CHLORIDE 101 mmol/L (98-107); GLUCOSE 142 mg/dL (75-110)
[2020-01-06] MEDS ORDERED: NORMAL SALINE 250 ML IV PRN ×2 (16:29)
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
[2020-01-06] MEDS ORDERED: KETOROLAC TROMETHAMINE INJ/PF 30 MG/1 ML SDV IV PRN (18:47)
[2020-01-07] MEDS: LEVOTHYROXINE SODIUM 0.075 MG TABLET PO SCH (05:50)
[2020-01-07] MEDS: LEVOTHYROXINE SODIUM 0.1 MG TABLET PO SCH (05:50)
[2020-01-07] MEDS: VANCOMYCIN HCL 750 MG in DEXTROSE 5%-WATER 250 ML IV SCH (05:51)
[2020-01-07] MEDS: INSULIN LISPRO 100 UNIT/ML 3 ML VIAL SUBCUT SCH (07:35)
[2020-01-07 09:40] LABS: ABSOLUTE EOSINOPHILS # (AUTO) 0.1 10^3/uL (0.0-0.6); ABSOLUTE LYMPHOCYTES (AUTO) 0.9 10^3/uL (0.5-4.7); ABSOLUTE MONOCYTES (AUTO) 0.4 10^3/uL (0.1-1.4); ABSOLUTE NEUT (AUTO) 1.8 10^3/uL (1.7-8.2); BASOPHILS % (AUTO) 0.5 % (0-2); EOSINOPHILS % (AUTO) 3.3 % (0-6); LYMPHOCYTES % (AUTO) 27.1 % (13-45); MEAN CORPUSCULAR HGB CONC 32.9 g/dL (32.0-36.0); PLATELET COUNT 122 10^3/uL (150-450); RED BLOOD COUNT 4.25 10^6/uL (3.72-5.28); SEGMENTED NEUTROPHILS % (AUTO) 56.1 % (42-78); TOTAL CELLS COUNTED % (AUTO) 100 %; WHITE BLOOD COUNT 3.2 10^3/uL (4.0-10.5)
[2020-01-07 09:44] LABS: HEMOGLOBIN 10.2 g/dL (12.0-15.5)
[2020-01-07 09:45] LABS: MEAN CORPUSCULAR VOLUME 73 fl (80-97)
[2020-01-07 09:55] LABS: ANION GAP 6 (5-19); BLOOD UREA NITROGEN 30 mg/dL (7-20); CALCIUM 7.9 mg/dL (8.4-10.2); CARBON DIOXIDE 25 mmol/L (22-30); CHLORIDE 103 mmol/L (98-107); GLUCOSE 153 mg/dL (75-110); POTASSIUM 4.4 mmol/L (3.6-5.0)
[2020-01-07] MEDS ORDERED: ERGOCALCIFEROL (VITAMIN D2) 50000 UNIT (1.25 MG) CAPSULE PO SCH (10:00)
[2020-01-07] MEDS: LISINOPRIL 5 MG TABLET PO SCH (10:10)
[2020-01-07] MEDS: GABAPENTIN 300 MG CAPSULE PO SCH (10:10)
[2020-01-07] MEDS: FOLIC ACID 1 MG TABLET PO SCH (10:10)
[2020-01-07] MEDS: RIVAROXABAN 10 MG TABLET PO SCH (10:11)
[2020-01-07] MEDS: TORSEMIDE 20 MG TABLET PO SCH (10:11)
[2020-01-07] MEDS: NICOTINE 14 MG/24 HR PATCH.TD24 TD SCH (10:11)
[2020-01-07] MEDS: INSULIN GLARGINE,HUM.REC.ANLOG 1,000 UNIT/10 ML VIAL SUBCUT SCH (10:12)
[2020-01-07] MEDS: CEFEPIME HCL 2 GM in DEXTROSE 5%-WATER 50 ML IV SCH (10:30)
[2020-01-07 10:48] VITALS: BP 130/61
--- NOTE | 2020-01-07 15:32 | PDOC DISCHARGE SUMMARY ---
Impression - Admit/DC Date/PCP Admission Date/Primary Care Provider: 01/03/20 21:06 WES GU MD Discharge Date: 01/07/20 - Discharge Diagnosis (1) Edema of left upper extremity Is this a current diagnosis for this admission?: Yes (2) Fall Is this a current diagnosis for this admission?: Yes (3) Fractured nasal bones Is this a current diagnosis for this admission?: Yes (4) Hypoglycemia Is this a current diagnosis for this admission?: Yes (5) Pneumonia Is this a current diagnosis for this admission?: Yes (6) Altered mental status Is this a current diagnosis for this admission?: Yes (7) Fracture of right superior pubic ramus Is this a current diagnosis for this admission?: Yes (8) Anemia Is this a current diagnosis for this admission?: Yes - Additional Information Resuscitation Status: Full Code Discharge Diet: Diabetic Discharge Activity: Balance Activity w/Rest, Supervised Activity Referrals: [facility] [Outside] TREMAINE ARANGO PA-C [PHYSICIAN DIVISIONAL HUMAN RESOURCES DIRECTOR] - 01/11/20 10:30 am Home Medications: Ergocalciferol (Vitamin D2) [Drisdol 50,000 unit (1.25MG) Capsule] 50,000 unit PO FR 10/28/18 Folic Acid [Folvite 1 mg Tablet] 1 mg PO DAILY 10/28/18 Gabapentin [Neurontin 300 mg Capsule] 300 mg PO BID 10/28/18 Levothyroxine Sodium 175 mcg PO Q6AM 10/28/18 Lisinopril [Zestril] 5 mg PO DAILY 10/28/18 Metformin HCl [Glucophage XR 500 mg Tablet] 500 mg PO DAILY 10/28/18 Torsemide [Demadex 20 mg Tablet] 20 mg PO MOWEFR 10/28/18 Insulin Glargine,Hum.rec.anlog [Lantus Insulin 100 Unit/mL Insulin Pen] 10 unit SUBCUT QHS 01/04/20 Rivaroxaban [Xarelto] 20 mg PO DAILY 01/04/20 History of Present Illiness History of Present Illness: KENNEDY MEDEIROS is a 69 year old female with a past medical history of rheumatoid arthritis, diabetes insulin-dependent diabetes with recurrent hypoglycemia, today's A1c is 7.1, iron deficiency, COPD with ongoing tobacco dependence. She presents after a fall from standing to the floor injuring the right side of her face. She is found to have a blood sugar of 35 she is brought to the emergency room by EMS. In the emergency department she is found to have a nasal fracture, right facial extracranial hematoma, left lung infiltrate, hypotension, tachycardia and pancytopenia. She receives empiric antibiotics, IV fluid challenge and referred to the hospitalist for admission. She denies recent antibiotic use Hospital Course Hospital Course: I believe that she took her insulin and then did not eat, and then got hypoglycemic and passed out, causing her to break her nose, and also causing her to have a right superior pubic ramus fracture. We were giving her insulin here and making sure she ate and when she did so her blood sugars were actually fairly difficult to control. I suspect she does not eat the way she supposed to at home. Her appetite here has been good, however. She still smokes and it was strongly encouraged to her that she quit. She seemed to do okay here as long as she had a nicotine patch. She says that she can get some of those outside the hospital. Her blood counts were low, but they are chronically low and she receives iron infusions outside the hospital. I gave her a couple units of packed red blood cells because she was down below 7. She has been around 7 the past couple of days. She was 7.1 and then 6.9 the next day. Her hemoglobin had improved quite a bit today after she got 2 units of packed red blood cells yesterday. She received a skin tear on her leg at some point but even though she has been on Xarelto she is not had any serious bleeding. We cleaned the wound well and kept her on some empiric antibiotics for a few days. It was initially thought at one point that she might have a pneumonia but she was not having any kind of respiratory issues and her chest x-ray was not suggestive of pneumonia. They even tested her for coronavirus in the ER, and that was negative. She did surprisingly well with physical therapy and was able to walk without pain. She used a front wheel walker, which she says she has at home, and when 120 feet with contact-guard assistance. We arrange for home health physical therapy. She says that her sister can come stay with her for a few days so she is got somebody with her until she feels more comfortable moving around. Her labs and examination were reassuring and she was discharged in stable condition. Physical Exam Vital Signs: Temp Pulse Resp BP Pulse Ox 97.3 F 64 16 130/61 H 92 01/07/20 10:45 01/07/20 10:45 01/07/20 10:45 01/07/20 10:45 01/07/20 10:45 Intake & Output 01/06/20 01/07/20 01/08/20 06:59 06:59 06:59 Intake Total 630 2242 Output Total 4600 400 Balance -3970 1842 Weight 54.6 kg 53.3 kg General appearance: PRESENT: no acute distress, cooperative, disheveled Head exam: PRESENT: other - She has black eyes bilaterally Teeth exam: PRESENT: poor dentation Respiratory exam: PRESENT: clear to auscultation neo, symmetrical, unlabored. ABSENT: accessory muscle use, chest wall tenderness, crackles, prolonged expiratory phas, retraction, rhonchi, wheezes Cardiovascular exam: PRESENT: RRR, +S1, +S2 Pulses: PRESENT: normal carotid pulses Vascular exam: PRESENT: normal capillary refill GI/Abdominal exam: PRESENT: normal bowel sounds, soft. ABSENT: distended, guarding, rebound, tenderness Extremities exam: PRESENT: +1 edema - Left upper extremity proximal to the elbow, distal to the shoulder. ABSENT: clubbing, pedal edema Musculoskeletal exam: PRESENT: deformity - Slight amount of swelling over the right lateral proximal femur Neurological exam: PRESENT: alert, awake, oriented to person, oriented to place, oriented to situation Psychiatric exam: PRESENT: anxious Skin exam: PRESENT: dry, skin tears - Left lower extremity distal to the knee, cleanly bandaged., warm, other - She has some cool erythema in the distal lower extremities bilaterally consistent with chronic venous insufficiency Results Laboratory Results: WBC 3.2 10^3/uL (4.0-10.5) L 01/07/20 09:20 RBC 4.25 10^6/uL (3.72-5.28) 01/07/20 09:20 Hgb 10.2 g/dL (12.0-15.5) L D 01/07/20 09:20 Hct 31.0 % (36.0-47.0) L 01/07/20 09:20 MCV 73 fl (80-97) L D 01/07/20 09:20 MCH 24.0 pg (27.0-33.4) L 01/07/20 09:20 MCHC 32.9 g/dL (32.0-36.0) 01/07/20 09:20 RDW 23.0 % (11.5-14.0) H 01/07/20 09:20 Plt Count 122 10^3/uL (150-450) L 01/07/20 09:20 Lymph % (Auto) 27.1 % (13-45) 01/07/20 09:20 Green % (Auto) 13.0 % (3-13) 01/07/20 09:20 Eos % (Auto) 3.3 % (0-6) 01/07/20 09:20 Baso % (Auto) 0.5 % (0-2) 01/07/20 09:20 Absolute Neuts (auto) 1.8 10^3/uL (1.7-8.2) 01/07/20 09:20 Absolute Lymphs (auto) 0.9 10^3/uL (0.5-4.7) 01/07/20 09:20 Absolute Monos (auto) 0.4 10^3/uL (0.1-1.4) 01/07/20 09:20 Absolute Eos (auto) 0.1 10^3/uL (0.0-0.6) 01/07/20 09:20 Absolute Basos (auto) 0.0 10^3/uL (0.0-0.2) 01/07/20 09:20 Seg Neutrophils % 56.1 % (42-78) 01/07/20 09:20 ESR 71 mm/hr (0-30) H 01/03/20 21:50 Sodium 134.3 mmol/L (137-145) L 01/07/20 09:20 Potassium 4.4 mmol/L (3.6-5.0) 01/07/20 09:20 Chloride 103 mmol/L (98-107) 01/07/20 09:20 Carbon Dioxide 25 mmol/L (22-30) 01/07/20 09:20 Anion Gap 6 (5-19) 01/07/20 09:20 BUN 30 mg/dL (7-20) H 01/07/20 09:20 Creatinine 0.57 mg/dL (0.52-1.25) 01/07/20 09:20 Est GFR ( Amer) > 60 (>60) 01/07/20 09:20 Est GFR (MDRD) Non-Af > 60 (>60) 01/07/20 09:20 Glucose 153 mg/dL (75-110) H 01/07/20 09:20 POC Glucose 101 mg/dL (70-110) 01/07/20 06:35 Hemoglobin A1c % 7.1 % (4.7-6.0) H 01/03/20 21:50 Lactic Acid 1.9 mmol/L (0.7-2.1) 01/04/20 04:14 Calcium 7.9 mg/dL (8.4-10.2) L 01/07/20 09:20 Iron 822.0 ug/dL (37-170) H 01/03/20 21:50 Total Bilirubin 0.3 mg/dL (0.2-1.3) 01/03/20 15:17 Direct Bilirubin 0.0 mg/dL (0.0-0.4) 01/03/20 15:17 Neonat Total Bilirubin Not Reportable 01/03/20 15:17 Neonat Direct Bilirubin Not Reportable 01/03/20 15:17 Neonat Indirect Bili Not Reportable 01/03/20 15:17 AST 47 U/L (14-36) H 01/03/20 15:17 ALT 35 U/L (<35) 01/03/20 15:17 Alkaline Phosphatase 172 U/L (38-126) H 01/03/20 15:17 Creatine Kinase 99 U/L (30-135) 01/03/20 15:17 CK-MB (CK-2) 4.33 ng/mL (<4.55) 01/03/20 15:17 Troponin I < 0.012 ng/mL 01/04/20 04:14 Total Protein 5.8 g/dL (6.3-8.2) L 01/03/20 15:17 Albumin 2.4 g/dL (3.5-5.0) L 01/03/20 15:17 Urine Color YELLOW 01/03/20 17:28 Urine Appearance SLIGHTLY-CLOUDY 01/03/20 17:28 Urine pH 5.0 (5.0-9.0) 01/03/20 17:28 Ur Specific [place] 1.019 01/03/20 17:28 Urine Protein 30 mg/dL (NEGATIVE) H 01/03/20 17:28 Urine Glucose (UA) NEGATIVE mg/dL (NEGATIVE) 01/03/20 17:28 Urine Ketones NEGATIVE mg/dL (NEGATIVE) 01/03/20 17:28 Urine Blood SMALL (NEGATIVE) H 01/03/20 17:28 Urine Nitrite NEGATIVE (NEGATIVE) 01/03/20 17:28 Urine Bilirubin NEGATIVE (NEGATIVE) 01/03/20 17:28 Urine Urobilinogen NEGATIVE mg/dL (<2.0) 01/03/20 17:28 Ur Leukocyte Esterase NEGATIVE (NEGATIVE) 01/03/20 17:28 Urine WBC (Auto) 3 /HPF 01/03/20 17:28 Urine RBC (Auto) 1 /HPF 01/03/20 17:28 U Hyaline Cast (Auto) 12 /LPF 01/03/20 17:28 Urine Bacteria (Auto) 2+ /HPF 01/03/20 17:28 Squamous Epi Cells Auto 1 /HPF 01/03/20 17:28 Amorphous Sediment Auto TRACE /HPF 01/03/20 17:28 Urine Mucus (Auto) OCC /LPF 01/03/20 17:28 Urine Ascorbic Acid NEGATIVE (NEGATIVE) 01/03/20 17:28 Time Trough Drawn 1807 01/05/20 18:07 Vancomycin Trough 6.7 ug/mL (5.0-20.0) 01/05/20 18:07 COVID-19 Source NASOPHARYNGEAL 01/03/20 21:35 COVID-19 (STEW) NOT DETECTED 01/03/20 21:35 Blood Type A NEGATIVE 01/06/20 17:03 Antibody Screen NEGATIVE 01/06/20 17:03 Crossmatch See Detail 01/06/20 17:03 01/03/20 01/03/20 01/04/20 15:17 21:50 04:14 CK-MB (CK-2) 4.33 Troponin I < 0.012 < 0.012 < 0.012 Impressions: Facial Bones CT 01/03/20 12:45 IMPRESSION: Comminuted nondisplaced nasal fracture and right-sided periorbital and frontal extracranial hematoma. Head CT 01/03/20 12:45 IMPRESSION: No acute intracranial abnormality. EVIDENCE OF ACUTE STROKE: NO. Chest X-Ray 01/03/20 18:46 IMPRESSION: New peripheral opacification in the left mid to lower lung with small bilateral pleural effusions. Findings may represent infectious/inflammatory process. Hyperinflated lungs which can be seen with obstructive lung disease. Femur X-Ray 01/04/20 00:00 IMPRESSION: No acute findings. Hip/Pelvis X-Ray 01/04/20 00:00 IMPRESSION: Hips are grossly intact. There is slight irregularity the right superior pubic ramus. Acute injury cannot be excluded. Pelvis CT 01/04/20 00:00 IMPRESSION: Anasarca and edema. Abnormal appearance of bowel gas pattern suggesting ileus. Healed old fractures of the right superior and inferior pubic rami's. Acute fracture of the distal right superior pubic rami. There is presumed to be an occult fracture of the inferior pubic rami which is not well seen. Venous Doppler Study 01/04/20 00:00 IMPRESSION: NO EVIDENCE DVT OR SVT LEFT ARM. Plan Time Spent: Greater than 30 Minutes Stroke Is this a Stroke Patient?: No Acute Heart Failure - Is this a Heart Failure Patient?: No
== END 2020-01-07 12:55 | disposition home health service (06) | DRG 155 ==
LOC: ER 12:21 → EH 21:06 → 5 23:03 → 4W 01-05 15:50
PROVIDERS: ADMIT Internal Medicine; ATTEND Family Medicine
PROC: 30233N1 Transfusion of Nonautologous Red Blood Cells into Peripheral Vein, Percutaneous Approach (ICD-10-PCS; principal; 2020-01-06)
PROC: 30233N1 Transfusion of Nonautologous Red Blood Cells into Peripheral Vein, Percutaneous Approach (ICD-10-PCS; 2020-01-07)
DX: S02.2XXA Fracture of nasal bones, initial encounter for closed fracture (principal); S32.511A Fracture of superior rim of right pubis, initial encounter for closed fracture; D61.818 Other pancytopenia; M06.9 Rheumatoid arthritis, unspecified; E11.649 Type 2 diabetes mellitus with hypoglycemia without coma; S81.802A Unspecified open wound, left lower leg, initial encounter; E11.51 Type 2 diabetes mellitus with diabetic peripheral angiopathy without gangrene; I95.9 Hypotension, unspecified; D50.8 Other iron deficiency anemias; E66.01 Morbid (severe) obesity due to excess calories; J44.9 Chronic obstructive pulmonary disease, unspecified; W18.30XA Fall on same level, unspecified, initial encounter; S00.83XA Contusion of other part of head, initial encounter; I10 Essential (primary) hypertension; F17.210 Nicotine dependence, cigarettes, uncomplicated; K90.0 Celiac disease; R91.8 Other nonspecific abnormal finding of lung field; R00.0 Tachycardia, unspecified; R53.81 Other malaise; R60.9 Edema, unspecified; R41.0 Disorientation, unspecified; Z86.14 Personal history of Methicillin resistant Staphylococcus aureus infection; Z03.818 Encounter for observation for suspected exposure to other biological agents ruled out; Z82.49 Family history of ischemic heart disease and other diseases of the circulatory system; Z79.4 Long term (current) use of insulin; Z79.899 Other long term (current) drug therapy
CPT/HCPCS: 36415; 36430; 51701; 70450; 70486; 71046; 72192; 80048; 80053; 80202; 81001; 82550; 82553; 82962; 83036; 83540; 83605; 84484; 85025; 85027; 85652; 86850; 86900; 86901; 86920; 87040; 87635; 93005; 93010; 93971; 94799; 96361; 96365; 99285; C1758; J0692; J1642; J1815; J1885; J2270; J3370; J3490; J7030; J7060; P9016

== ENCOUNTER 2020-06-22 11:19 | Emergency (ER) | payer MEDICARE, OTHER ==
[2020-06-22] MEDS ORDERED: DEXTROSE 50%-WATER 25 GM/50 ML DISP.SYRIN IV ONE ×2 (12:23→12:25)
--- NOTE | 2020-06-22 12:23 | RADIOLOGY REPORT (SQ) ---
EXAM DESCRIPTION: CHEST SINGLE VIEW IMAGES COMPLETED DATE/TIME: 06/22/2020 12:09 pm REASON FOR STUDY: shortness of breath COMPARISON: 01/03/2020. EXAM PARAMETERS: NUMBER OF VIEWS: One view. TECHNIQUE: Single frontal radiographic view of the chest acquired. RADIATION DOSE: NA LIMITATIONS: None. FINDINGS: LUNGS AND PLEURA: Faint densities in the lung bases, left greater than right. MEDIASTINUM AND HILAR STRUCTURES: No masses. Contour normal. HEART AND VASCULAR STRUCTURES: Mild cardiomegaly. BONES: No acute findings. HARDWARE: Vascular port. OTHER: No other significant finding. IMPRESSION: BASILAR DENSITIES, LEFT GREATER THAN RIGHT, CONCERNING FOR PNEUMONIA. TECHNICAL DOCUMENTATION: JOB ID: [id number] 2010 [employer]- All Rights Reserved Reading location - IP/workstation name: [email or web address]
--- NOTE | 2020-06-22 12:25 | ER Document Report ---
ED General - General Chief Complaint: Low Blood Sugar Stated Complaint: BLOOD SUGAR PROBLEM Primary Care Provider: WES GU MD [Primary Care Provider] - Follow up as needed TRAVEL OUTSIDE OF THE [place] IN LAST 30 DAYS: No - HPI Notes: 70-year-old female presents with low blood sugar. Per EMS report, patient was found on conscious/unresponsive at home. Her initial glucose was 50, she was given 15 g of D10 and glucose increased to 97. She was additionally 94.4 via rectal temp. Patient currently states "I want to go home". She states that "all I need is some food", "this juice isn't helping" and then she would like to go home. States that "I have been a diabetic for most of my adult life and I know more about diabetes than you do". Patient currently denies any complaints. She states that she takes 10 units of Lantus daily, she did take that yesterday. Did not take any medication today. Denies recent illness. Denies N/V/D or abdominal pain, denies dysuria. - Related Data Allergies/Adverse Reactions: No Known Allergies Allergy (Verified 01/03/20 12:29) Home Medications: Folic acid. Gabapentin. Glucophage. humalin. Klor-Con. Lantus. Lisinopril. Synthroid Past Medical History - General Information source: Patient - Social History Smoking Status: Current Every Day Smoker Family History: Hypertension - Past Medical History Cardiac Medical History: Reports: Hx Hypertension - states Lisinopril Rx r/t DM Dx Denies: Hx Coronary Artery Disease, Hx Heart Attack Pulmonary Medical History: Reports: Hx COPD Denies: Hx Asthma, Hx Bronchitis, Hx Pneumonia Neurological Medical History: Denies: Hx Cerebrovascular Accident, Hx Seizures Endocrine Medical History: Reports: Hx Diabetes Mellitus Type 1, Hx Diabetes Mellitus Type 2 Renal/ Medical History: Denies: Hx Peritoneal Dialysis GI Medical History: Denies: Hx Hepatitis, Hx Hiatal Hernia, Hx Ulcer Musculoskeletal Medical History: Reports Hx Arthritis - rheumatoid, no meds x 2 months r/t Dx of Celiac's, Reports Hx Musculoskeletal Deformity, Reports Hx Musculoskeletal Trauma Skin Medical History: Reports Hx Cellulitis, Reports Hx MRSA Psychiatric Medical History: Denies: Hx Depression Infectious Medical History: Reports: Hx MRSA. Denies: Hx Hepatitis Past Surgical History: Reports: Hx Hysterectomy, Hx Orthopedic Surgery. Denies: Hx Mastectomy, Hx Open Heart Surgery, Hx Pacemaker - Immunizations Hx Diphtheria, Pertussis, Tetanus Vaccination: Yes Review of Systems - Review of Systems Constitutional: denies: Fever EENT: No symptoms reported Cardiovascular: denies: Chest pain Respiratory: Cough. denies: Short of breath Gastrointestinal: denies: Abdominal pain, Diarrhea, Nausea, Vomiting Genitourinary: denies: Dysuria Female Genitourinary: No symptoms reported Musculoskeletal: No symptoms reported Skin: Change in color - Chronic lower extremity Hematologic/Lymphatic: Other - On anticoagulation Neurological/Psychological: No symptoms reported Physical Exam - Vital signs Vitals: Resp Pulse Ox 18 96 06/22/20 11:31 06/22/20 11:31 - General General appearance: Appears well, Alert In distress: None - HEENT Head: Normocephalic, Atraumatic Extraocular movements intact: Yes Pupils: PERRL - Respiratory Breath sounds: Normal - Cardiovascular Rhythm: Regular Heart sounds: Normal auscultation Pulses: Normal: Dorsalis pedis Normal capillary refill: Yes - Abdominal Tenderness: Nontender - Extremities General upper extremity: Normal ROM General lower extremity: Normal ROM, Normal temperature. No: Edema - Neurological Neuro grossly intact: Yes Cognition: Normal Orientation: AAOx4 - Psychological Associated symptoms: Normal affect - Skin Skin Temperature: Warm Notes: Chronic venous stasis changes to lower extremities Course - Re-evaluation Re-evalutation: 70-year-old female insulin-dependent diabetic here for hypoglycemia at home, treatment was initiated with EMS. On repeat her blood sugar is 46 then 34. She is remarkably tolerating this well, she is totally alert and oriented, conversant. Have ordered D 50 and regular diet. She currently is drinking orange juice. She has no focal neuro deficits, lungs are clear, abdomen is soft, no peripheral edema. Given her hypothermia and hypoglycemia, there is a concern for occult infection. Chest x-ray and urine to evaluate obvious causes. History of hypothyroidism, will check thyroid function. Have reviewed the med list, there is insulin however I do not appreciate any sulfonylureas in her list. 06/22/20 14:00 Glucose has increased to 110 after food. Per nursing, patient has been refusing labs 06/22/20 15:35 Labs still have not been collected, lab staff is going to attempt to draw shortly. Patient has tolerated p.o. Her chest x-ray does show faint densities bibasilar, left greater than right, concerning for pneumonia 06/22/20 16:55 Mild lymphopenia, appears chronic and has been lower. Hemoglobin with some improvement from baseline. Electrolytes baseline. Creatinine within normal limits. Glucose 99. Magnesium slightly low. Urine does not suggest UTI. I went in to update patient on her results. She states she is feeling better and is adamant about going home as soon as possible. Patient also stating I do not have pneumonia, it is because I smoke. Have written for Augmentin for coverage. Return precautions given, patient stable at time of discharge.. - Vital Signs Vital signs: Temp Pulse Resp BP Pulse Ox 19 100/56 L 96 06/22/20 15:01 06/22/20 15:01 06/22/20 15:01 - Laboratory Result Diagrams: 06/22/20 15:54 06/22/20 15:51 Laboratory results interpreted by me: 06/22/20 06/22/20 06/22/20 11:35 12:19 15:51 WBC RBC Hgb Hct RDW Plt Count Sodium 134.1 L Chloride 109 H Carbon Dioxide 20 L BUN 22 H POC Glucose 46 L 34 L* Calcium 7.8 L Magnesium 1.4 L AST 46 H ALT 48 H Alkaline Phosphatase 140 H Total Protein 5.5 L Albumin 2.3 L Ur Leukocyte Esterase Urine Ascorbic Acid 06/22/20 06/22/20 15:54 16:04 WBC 3.5 L RBC 3.15 L Hgb 10.4 L Hct 30.3 L RDW 14.2 H Plt Count 114 L Sodium Chloride Carbon Dioxide BUN POC Glucose Calcium Magnesium AST ALT Alkaline Phosphatase Total Protein Albumin Ur Leukocyte Esterase TRACE H Urine Ascorbic Acid 40 H - Diagnostic Test Radiology reviewed: Image reviewed, Reports reviewed Discharge - Discharge Clinical Impression: Hypoglycemic event due to diabetes CAP (community acquired pneumonia) Qualifiers: Laterality: left Lung location: lower lobe of lung Qualified Code(s): J18.9 - Pneumonia, unspecified organism Disposition: HOME, SELF-CARE Additional Instructions: Please take course of Augmentin for pneumonia. Would advise you to stop smoking while you are sick. Please be sure to properly dose all insulin. Have close well with your primary care doctor. Return to the emergency department for any concerning worsening symptoms. Prescriptions: Amoxicillin/Potassium Clav [Augmentin 875-125 Tablet] 1 tab PO BID #20 tab Referrals: WES GU MD [Primary Care Provider] - Follow up as needed
[2020-06-22 16:17] LABS: ABSOLUTE LYMPHOCYTES (AUTO) 1.3 10^3/uL (0.5-4.7); ABSOLUTE MONOCYTES (AUTO) 0.4 10^3/uL (0.1-1.4); ABSOLUTE NEUT (AUTO) 1.8 10^3/uL (1.7-8.2); BASOPHILS % (AUTO) 0.3 % (0-2); HEMATOCRIT 30.3 % (36.0-47.0); HEMOGLOBIN 10.4 g/dL (12.0-15.5); LYMPHOCYTES % (AUTO) 36.3 % (13-45); MEAN CORPUSCULAR HEMOGLOBIN 33.1 pg (27.0-33.4); MEAN CORPUSCULAR HGB CONC 34.4 g/dL (32.0-36.0); MEAN CORPUSCULAR VOLUME 96 fl (80-97); PLATELET COUNT 114 10^3/uL (150-450); RED BLOOD COUNT 3.15 10^6/uL (3.72-5.28); RED CELL DISTRIBUTION WIDTH 14.2 % (11.5-14.0); SEGMENTED NEUTROPHILS % (AUTO) 50.4 % (42-78); TOTAL CELLS COUNTED % (AUTO) 100 %; WHITE BLOOD COUNT 3.5 10^3/uL (4.0-10.5)
[2020-06-22 16:26] LABS: APPEARANCE,URINE CLEAR; BILIRUBIN,URINE NEGATIVE (NEGATIVE); COLOR,URINE YELLOW; GLUCOSE, URINE NEGATIVE (NEGATIVE); KETONES,URINE NEGATIVE (NEGATIVE); LEUKOCYTE ESTERASE,URINE TRACE (NEGATIVE); NITRITE,URINE NEGATIVE (NEGATIVE); PROTEIN,URINE NEGATIVE (NEGATIVE); UROBILINOGEN,URINE NEGATIVE mg/dL (<2.0)
[2020-06-22 16:43] LABS: ALBUMIN 2.3 g/dL (3.5-5.0); ALKALINE PHOSPHATASE 140 U/L (38-126); ANION GAP 5 (5-19); ASPARTATE AMINO TRANSFERASE 46 U/L (14-36); BILIRUBIN,DIRECT 0.2 mg/dL (0.0-0.4); BILIRUBIN,TOTAL 0.2 mg/dL (0.2-1.3); BLOOD UREA NITROGEN 22 mg/dL (7-20); CALCIUM 7.8 mg/dL (8.4-10.2); CARBON DIOXIDE 20 mmol/L (22-30); CHLORIDE 109 mmol/L (98-107); GLUCOSE 99 mg/dL (75-110); PHOSPHORUS 4.1 mg/dL (2.5-4.5); TOTAL PROTEIN 5.5 g/dL (6.3-8.2)
[2020-06-22 17:03] LABS: FREE T4 (FREE THYROXINE) 1.17 ng/dL (0.78-2.19)
[2020-06-22 17:17] LABS: THYROID STIMULATING HORMONE 3.08 uIU/mL (0.47-4.68)
[2020-06-22 17:25] VITALS: BP 119/60
--- NOTE | 2020-06-22 21:50 | EKG REPORT ---
SEVERITY:- BORDERLINE ECG - SINUS RHYTHM LOW VOLTAGE IN FRONTAL LEADS CONSIDER ANTERIOR INFARCT : Confirmed by: Cuong Onofre 22-Jun-2020 21:49:54
== END 2020-06-22 17:41 | disposition home or self-care (01) ==
LOC: ER 11:19
DX: E11.649 Type 2 diabetes mellitus with hypoglycemia without coma (principal); J18.9 Pneumonia, unspecified organism; F17.200 Nicotine dependence, unspecified, uncomplicated; I10 Essential (primary) hypertension; Z79.4 Long term (current) use of insulin; Z86.14 Personal history of Methicillin resistant Staphylococcus aureus infection; Z90.710 Acquired absence of both cervix and uterus
CPT/HCPCS: 93005; 99285; 96374; 36415; 87040; 84439; 82962; 83735; 84100; 84443; 85025; 80053; 81001; 71045; 93010; J3490

== ENCOUNTER 2020-07-27 20:28 | Emergency (ER) | payer MEDICARE, OTHER ==
[2020-07-27] MEDS ORDERED: HYDROMORPHONE HCL INJ/PF 2 MG/ML AMPULE IM ONE (21:16)
[2020-07-27] MEDS ORDERED: ONDANSETRON 4 MG TAB.RAPDIS PO ONE (21:16)
--- NOTE | 2020-07-27 21:22 | ER Document Report ---
ED General - General Chief Complaint: Shoulder Pain Stated Complaint: RIGHT SHOULDER PAIN Time Seen by Provider: 07/27/20 20:59 Primary Care Provider: WES GU MD [Primary Care Provider] - Follow up as needed Mode of Arrival: Stretcher Information source: Patient Notes: Patient is a chronically ill 70-year-old female coming in today with 2 to 3 days of extreme pain in her right collarbone. Does not remember injuring it but has redness and swelling present. No fevers or chills. 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 TRAVEL OUTSIDE OF THE [place] IN LAST 30 DAYS: No - Related Data Allergies/Adverse Reactions: No Known Allergies Allergy (Verified 01/03/20 12:29) Past Medical History - Social History Smoking Status: Former Smoker Family History: Hypertension - Past Medical History Cardiac Medical History: Reports: Hx Congestive Heart Failure, Hx Hypertension - states Lisinopril Rx r/t DM Dx Denies: Hx Coronary Artery Disease, Hx Heart Attack Pulmonary Medical History: Reports: Hx COPD Denies: Hx Asthma, Hx Bronchitis, Hx Pneumonia Neurological Medical History: Denies: Hx Cerebrovascular Accident, Hx Seizures Endocrine Medical History: Reports: Hx Diabetes Mellitus Type 1, Hx Diabetes Mellitus Type 2 Renal/ Medical History: Denies: Hx Peritoneal Dialysis GI Medical History: Denies: Hx Hepatitis, Hx Hiatal Hernia, Hx Ulcer Musculoskeletal Medical History: Reports Hx Arthritis - rheumatoid, no meds x 2 months r/t Dx of Celiac's, Reports Hx Musculoskeletal Deformity, Reports Hx Musculoskeletal Trauma Skin Medical History: Reports Hx Cellulitis, Reports Hx MRSA Psychiatric Medical History: Denies: Hx Depression Infectious Medical History: Reports: Hx MRSA. Denies: Hx Hepatitis Past Surgical History: Reports: Hx Hysterectomy, Hx Orthopedic Surgery. Denies: Hx Mastectomy, Hx Open Heart Surgery, Hx Pacemaker - Immunizations Hx Diphtheria, Pertussis, Tetanus Vaccination: Yes Review of Systems - Review of Systems Notes: Constitutional: No fevers. No chills. EENT: No eye redness. No eye pain. No ear pain. No sore throat. Cardiovascular: No chest pain. No palpitations. Respiratory: No cough. No shortness of breath. No respiratory distress. Gastrointestinal: No abdominal pain. No nausea, vomiting, or diarrhea. Genitourinary: Atraumatic. No lesions. No pain. No discharge. Musculoskeletal: Positive redness, swelling, pain right clavicle Skin: No rash or lesions. Lymphatic: No swollen lymph nodes. Neurologic: No headache. No syncope. Psychiatric: No suicidal or homicidal ideation. Physical Exam - Vital signs Vitals: Temp Resp BP Pulse Ox 97.3 F 20 166/68 H 97 07/27/20 20:42 07/27/20 20:42 07/27/20 20:42 07/27/20 20:42 - Notes Notes: General: Chronically ill-appearing Cardiac: Well-perfused. Regular rate and rhythm. No murmurs, rubs, or gallops. Pulmonary: No respiratory distress. No cyanosis. Bilateral lung fiels are clear to auscultation. Abdominal: Non-distended. Non-rigid. Bowels sounds are present in all four quadrants. No guarding or rebound. HEENT: Head is atraumatic. Conjunctivae not reddened. No tearing. PERRL. EOMI. Orbits atraumatic. No periorbital swelling or erythema. Oropharynx is without erythema, swelling, or exudates. Neck: Supple. No adenopathy. No meningismus. Dermatologic: Bilateral lower extremity erythema with mild swelling. Chest: Atraumatic. No chest wall tenderness to palpation. Musculoskeletal: Redness and tenderness and swelling noted to the right proximal clavicle. Decreased range of motion of the right shoulder secondary to pain. Distal neurovascular exam is intact Genitourinary: Examination deferred Neurologic: No gross neurologic deficits. Psychiatric: Normal mood. Course - Re-evaluation Re-evalutation: 07/28/20 01:43 Imaging was not able to really establish what was going on at the level of the right clavicle. Patient does have a mild pneumonia which is not surprising given her longstanding tobacco abuse history and her recent history of pneumonia. We will start her on doxycycline for the pneumonia. Pain medication for the clavicular region. Refer to general surgery for further evaluation of the mass. - Vital Signs Vital signs: Temp Pulse Resp BP Pulse Ox 97.3 F 12 146/64 H 96 07/27/20 20:42 07/27/20 22:01 07/27/20 22:01 07/27/20 22:01 - Laboratory Result Diagrams: 07/27/20 22:43 07/27/20 22:43 Laboratory results interpreted by me: 07/27/20 07/27/20 22:43 22:43 RBC 2.90 L Hgb 9.3 L Hct 27.9 L RDW 14.5 H Chloride 109 H Creatinine 0.36 L Glucose 188 H Calcium 8.1 L AST 45 H ALT 47 H Alkaline Phosphatase 219 H Total Protein 5.7 L Albumin 2.5 L - Diagnostic Test Radiology reviewed: Reports reviewed Discharge - Discharge Clinical Impression: Localized swelling of chest wall, Elevated blood pressure reading Pneumonia Qualifiers: Pneumonia type: due to unspecified organism Laterality: unspecified laterality Lung location: unspecified part of lung Qualified Code(s): J18.9 - Pneumonia, unspecified organism Condition: Good Disposition: HOME, SELF-CARE Instructions: Growth or Mass, Pending Workup ([facility]) Additional Instructions: Antibiotics as directed for pneumonia. Please quit smoking. Follow-up with a general surgeon for your swelling in your chest wall Prescriptions: Oxycodone HCl/Acetaminophen [Percocet 5-325 mg Tablet] 1 tab PO Q6HP PRN #15 tab PRN Reason: Doxycycline Hyclate 100 mg PO BID #20 tablet.dr Forms: Smoking Cessation Education, Elevated Blood Pressure Referrals: WES GU MD [Primary Care Provider] - Follow up as needed
--- NOTE | 2020-07-27 22:04 | RADIOLOGY REPORT (SQ) ---
CLINICAL INDICATION: DEFORMITY/REDNESS/SWELLING RIGHT PROXIMAL CLAVICLE. . TECHNIQUE: 2 view(s) were obtained of the right shoulder. COMPARISON: None available. FINDINGS: No acute displaced fracture is identified of the shoulder. Old posttraumatic change. Osteoarthritis. Chronic changes right lung. IMPRESSION: No evidence of acute bony injury to the shoulder. Old posttraumatic change
[2020-07-27 22:56] LABS: ABSOLUTE LYMPHOCYTES (AUTO) 1.4 10^3/uL (0.5-4.7); ABSOLUTE MONOCYTES (AUTO) 0.5 10^3/uL (0.1-1.4); ABSOLUTE NEUT (AUTO) 2.7 10^3/uL (1.7-8.2); BASOPHILS % (AUTO) 0.3 % (0-2); EOSINOPHILS % (AUTO) 0.7 % (0-6); HEMATOCRIT 27.9 % (36.0-47.0); HEMOGLOBIN 9.3 g/dL (12.0-15.5); LYMPHOCYTES % (AUTO) 29.3 % (13-45); MEAN CORPUSCULAR HEMOGLOBIN 32.2 pg (27.0-33.4); MEAN CORPUSCULAR HGB CONC 33.4 g/dL (32.0-36.0); MEAN CORPUSCULAR VOLUME 96 fl (80-97); MONOCYTES % (AUTO) 11.5 % (3-13); PLATELET COUNT 219 10^3/uL (150-450); RED CELL DISTRIBUTION WIDTH 14.5 % (11.5-14.0); SEGMENTED NEUTROPHILS % (AUTO) 58.2 % (42-78); TOTAL CELLS COUNTED % (AUTO) 100 %; WHITE BLOOD COUNT 4.6 10^3/uL (4.0-10.5)
[2020-07-27 23:09] LABS: ALBUMIN 2.5 g/dL (3.5-5.0); ALKALINE PHOSPHATASE 219 U/L (38-126); ANION GAP 7 (5-19); ASPARTATE AMINO TRANSFERASE 45 U/L (14-36); BILIRUBIN,DIRECT 0.1 mg/dL (0.0-0.4); BILIRUBIN,TOTAL 0.2 mg/dL (0.2-1.3); BLOOD UREA NITROGEN 15 mg/dL (7-20); CALCIUM 8.1 mg/dL (8.4-10.2); CARBON DIOXIDE 22 mmol/L (22-30); CHLORIDE 109 mmol/L (98-107); GLUCOSE 188 mg/dL (75-110); POTASSIUM 3.9 mmol/L (3.6-5.0); TOTAL PROTEIN 5.7 g/dL (6.3-8.2)
--- NOTE | 2020-07-28 00:11 | ER Document Report ---
Doctor's Note Notes: 07/28/20 00:08 I was asked to see the patient by the JERED. Patient is a 70-year-old female who presents with a mass at her right clavicle area. She states it began 2 days ago. It is very tender. It is worse with moving her neck to the left. Also worse with palpation. Patient denies any injuries. She states she has never had this before. Denies any fevers. She has a chronic cough. No nausea or vomiting. No abdominal pain. She denies any history of cancer. On exam, patient appears chronically ill. She is alert and oriented. She is in no acute distress. There is an approximately 4 cm round non-fluctuant swelling at the right clavicle area. It is mildly erythemic. There is no streaking. Breathing easy on room air. Answering questions appropriately. I recommended we obtain blood work and CT to further evaluate that mass. Scan showed a possible developing pneumonia but otherwise was normal. I advised that we put her on doxycycline. I also advised that she follow-up with surgery for further evaluation of the mass and possible biopsy. 07/28/20 05:04
[2020-07-28] MEDS ORDERED: HYDROMORPHONE HCL INJ/PF 2 MG/ML AMPULE IV ONE (00:35)
--- NOTE | 2020-07-28 01:11 | RADIOLOGY REPORT (SQ) ---
CT neck and chest with contrast on 07/28/2020 at 12:14 AM CLINICAL INDICATION: Dysphagia TECHNIQUE: Multiple axial images are obtained throughout the neck and chest following the administration of IV contrast, 75 ml of Omnipaque 350contrast was administered intravenously without complication. This exam was performed according to our departmental dose-optimization program, which includes automated exposure control, adjustment of the mA and/or kV according to patient size and/or use of iterative reconstruction technique. Total DLP is 432.37 mGy*cm. COMPARISON: CT abdomen and lower chest from 09/08/[address] chest from 08/18/2018 FINDINGS: NECK: The epiglottis and airway is unremarkable. There is no prevertebral soft tissue swelling. There is no adenopathy in the neck. No mucosal lesion is noted. No neck mass or fluid collection is noted. Small amount of fluid is noted in the right maxillary sinus. There is no radiopaque foreign body. Degenerative changes are noted in the cervical spine. CHEST: There is a small right pleural effusion. Small amount of fluid is also noted tracking along the fissure plane on the right. There is no left pleural effusion or pericardial effusion. Mild anasarca is noted in the subcutaneous tissues. Emphysematous changes of the lungs are noted. There are mild bilateral lower lung opacities consistent with atelectasis or early pneumonia. The lungs are otherwise clear. There is a stable low-density right hepatic lesion that is indeterminate but considered benign due to its long-term stability. Limited visualized upper abdomen is otherwise unremarkable. There is no thoracic adenopathy. There is kyphosis of the spine. There is an old compression fracture at T9. There is benign appearing lucency with sclerotic sclerotic border at site of old sternal fracture in the upper sternum. Multiple old bilateral rib fractures are noted. No acute bony abnormality is noted. IMPRESSION: 1. Small right pleural effusion with bibasilar atelectasis or early pneumonia. 2. Emphysema. 3. Otherwise no acute abnormality noted in the neck and chest.
[2020-07-28 03:03] VITALS: BP 148/71
== END 2020-07-28 03:02 | disposition home or self-care (01) ==
LOC: ER 20:28
DX: R22.2 Localized swelling, mass and lump, trunk (principal); R22.31 Localized swelling, mass and lump, right upper limb; M89.8X1 Other specified disorders of bone, shoulder; L53.9 Erythematous condition, unspecified; J18.9 Pneumonia, unspecified organism; J43.9 Emphysema, unspecified; L03.116 Cellulitis of left lower limb; L03.115 Cellulitis of right lower limb; B95.62 Methicillin resistant Staphylococcus aureus infection as the cause of diseases classified elsewhere; E11.9 Type 2 diabetes mellitus without complications; I10 Essential (primary) hypertension; Z87.891 Personal history of nicotine dependence
CPT/HCPCS: 99285; 96372; 96374; 36415; 85025; 80053; 73030; 70491; 71260; A9270; J1170 ×2; S0119

== ENCOUNTER → 2020-08-14 | Outpatient (CLI) | payer MEDICARE, OTHER ==
--- NOTE | 2020-08-14 14:40 | RADIOLOGY REPORT (SQ) ---
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 TECHNIQUE: Dynamic and static caruso scale and color images acquired of the right arm venous system. S elected spectral images acquired with additional compression and augmentation maneuvers. The contrala teral subclavian vein and internal jugular vein were also imaged. Images stored on PACS. LIMITATIONS: None. FINDINGS: INTERNAL JUGULAR VEIN: Normal phasicity, compression, augmentation. No visualized echogeni c material on caruso scale. No defects on color images. Comparison opposite side normal. SUBCLAVIAN VEIN: Normal compression, augmentation. No visualized echogenic material on caruso scale. No defects on color images. AXILLARY VEIN: Normal compression, augmentation. No visualized echogenic material on caruso scale. No d efects on color images. BRACHIAL VEIN: Normal compression, augmentation. No visualized echogenic material on caruso scale. No d efects on color images. BASILIC VEIN: Normal compression, augmentation. No visualized echogenic material on caruso scale. No de fects on color images. CEPHALIC VEIN: Normal compression, augmentation. No visualized echogenic material on caruso scale. No d efects on color images. OTHER: There is a small complex cystic area in the region of the palpable density in the base of the right side of the neck. CONTRALATERAL SUBCLAVIAN VEIN AND INTERNAL JUGULAR VEIN: Normal phasicity, compression and augmentation. No visualized echogenic material on caruso scale. No de fects on color images. IMPRESSION: No evidence of DVT or SVT in the right upper extremity. Complex cystic area at the base of the neck in the region of the palpable density. TECHNICAL DOCUMENTATION: JOB ID: [id number] 2010 [employer]- All Rights Reserved Reading location - IP/workstation name: [email or web address]
--- NOTE | 2020-08-14 15:13 | RADIOLOGY REPORT (SQ) ---
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 Images reviewed with lung, soft tissue and bone windows. Reconstructed coronal and sagittal MPR images reviewed. All images st ored on PACS. All CT scanners at this facility use dose modulation, iterative reconstruction, and/or weight based d osing when appropriate to reduce radiation dose to as low as reasonably achievable (ALARA). [facility]: Dose Right [facility]: CareDose [facility]: Dose Right [facility]: Teradose 4D [facility]: [employer] RADIATION DOSE: CT Rad equipment meets quality standard of care and radiation dose reduction techniq ues were employed. CTDIvol: 4.4 mGy. DLP: 164 mGy-cm. mGy. LIMITATIONS: No technical limitations. FINDINGS: LUNGS AND PLEURA: Extensive paraseptal emphysematous changes in the lower lobes posteriorl y. Small stable right lower lobe pulmonary nodule. This is seen on the study from 2018. Small amou nt of pleural fluid seen in the fissure on the right. Small left pleural effusion. HILAR AND MEDIASTINAL STRUCTURES: No identified masses or abnormal nodes. No obvious aneurysm. HEART AND VASCULAR STRUCTURES: Heart size is borderline. No aneurysm. No pericardial effusion. UPPER ABDOMEN: No significant findings. Limited exam. THYROID AND OTHER SOFT TISSUES: No masses. No adenopathy. BONES: No significant finding. HARDWARE: Injection port on the left. OTHER: Mild subcutaneous edema. IMPRESSION: Pulmonary emphysema. Small pleural effusions bilaterally. Borderline cardiomegaly. Mi ld subcutaneous edema. TECHNICAL DOCUMENTATION: JOB ID: [id number] Quality ID # [id number]: Final reports with documentation of one or more dose reduction techniques (e.g., Au tomated exposure control, adjustment of the mA and/or kV according to patient size, use of iterative reconstruction technique) 2010 [employer]- All Rights Reserved Reading location - IP/workstation name: [email or web address]
== END ==
LOC: SP 13:18
PROVIDERS: ATTEND Physician Assistant
DX: R22.31 Localized swelling, mass and lump, right upper limb (principal); D38.1 Neoplasm of uncertain behavior of trachea, bronchus and lung; J43.9 Emphysema, unspecified; R91.1 Solitary pulmonary nodule; J90 Pleural effusion, not elsewhere classified
CPT/HCPCS: 71250; 93971

== ENCOUNTER 2020-09-21 14:08 | Inpatient (IN) | payer MEDICARE, OTHER ==
[2020-09-21] MEDS ORDERED: ASPIRIN 81 MG TABLET, CHEWABLE PO ONE (14:52)
[2020-09-21 15:49] LABS: ABSOLUTE LYMPHOCYTES (AUTO) 1.4 10^3/uL (0.5-4.7); ABSOLUTE MONOCYTES (AUTO) 0.4 10^3/uL (0.1-1.4); ABSOLUTE NEUT (AUTO) 3.5 10^3/uL (1.7-8.2); BASOPHILS % (AUTO) 0.5 % (0-2); EOSINOPHILS % (AUTO) 0.7 % (0-6); HEMATOCRIT 31.6 % (36.0-47.0); HEMOGLOBIN 10.6 g/dL (12.0-15.5); LYMPHOCYTES % (AUTO) 26.1 % (13-45); MEAN CORPUSCULAR HEMOGLOBIN 31.1 pg (27.0-33.4); MEAN CORPUSCULAR HGB CONC 33.4 g/dL (32.0-36.0); MEAN CORPUSCULAR VOLUME 93 fl (80-97); PLATELET COUNT 197 10^3/uL (150-450); RED CELL DISTRIBUTION WIDTH 14.3 % (11.5-14.0); SEGMENTED NEUTROPHILS % (AUTO) 64.7 % (42-78); TOTAL CELLS COUNTED % (AUTO) 100 %; WHITE BLOOD COUNT 5.3 10^3/uL (4.0-10.5)
[2020-09-21] MEDS ORDERED: OXYCODONE-ACETAMINOPHEN 5-325 MG TABLET PO ONE (16:02)
--- NOTE | 2020-09-21 16:03 | RADIOLOGY REPORT (SQ) ---
EXAM DESCRIPTION: CHEST SINGLE VIEW IMAGES COMPLETED DATE/TIME: 09/21/2020 3:40 pm REASON FOR STUDY: Chest pain, cough COMPARISON: 06/22/2020 EXAM PARAMETERS: NUMBER OF VIEWS: One view. TECHNIQUE: Single frontal radiographic view of the chest acquired. RADIATION DOSE: NA LIMITATIONS: None. FINDINGS: LUNGS AND PLEURA: COPD. No evidence of pulmonary edema or pneumonia. MEDIASTINUM AND HILAR STRUCTURES: Stable. HEART AND VASCULAR STRUCTURES: Stable heart size. No evidence of failure. BONES: No acute findings. HARDWARE: None in the chest. OTHER: Unchanged position of left-sided port. IMPRESSION: COPD. No acute findings. TECHNICAL DOCUMENTATION: JOB ID: [id number] 2010 [employer]- All Rights Reserved Reading location - IP/workstation name: [email or web address]
[2020-09-21 16:13] LABS: ALBUMIN 2.5 g/dL (3.5-5.0); ALKALINE PHOSPHATASE 198 U/L (38-126); ANION GAP 5 (5-19); ASPARTATE AMINO TRANSFERASE 45 U/L (14-36); BILIRUBIN,DIRECT 0.2 mg/dL (0.0-0.4); BILIRUBIN,TOTAL 0.2 mg/dL (0.2-1.3); BLOOD UREA NITROGEN 17 mg/dL (7-20); CALCIUM 7.6 mg/dL (8.4-10.2); CARBON DIOXIDE 24 mmol/L (22-30); CHLORIDE 105 mmol/L (98-107); GLUCOSE 130 mg/dL (75-110)
--- NOTE | 2020-09-21 18:54 | RADIOLOGY REPORT (SQ) ---
EXAM DESCRIPTION: FOOT LEFT COMPLETE IMAGES COMPLETED DATE/TIME: 09/21/2020 6:39 pm REASON FOR STUDY: swelling, hx infection COMPARISON: None. NUMBER OF VIEWS: Three views. TECHNIQUE: AP, lateral and oblique radiographic images acquired of the left foot. LIMITATIONS: None. FINDINGS: MINERALIZATION: Normal. BONES: No acute fracture or dislocation. No worrisome bone lesions. JOINTS: There are irregular degenerative joint changes in the 1st interphalangeal joint and in the 2n d through 5th metatarsal-phalangeal joints. Cannot entirely rule out some bone destruction in the he ad of the 1st metatarsal and in the base of the 1st proximal phalanx and in the bases of the 2nd and 3rd proximal phalanges and in the heads of the 3rd and 5th metatarsals. SOFT TISSUES: No soft tissue swelling. No foreign body. OTHER: No other significant finding. IMPRESSION: There are irregular degenerative joint changes raising the possibility of early Charcot joints. Cannot entirely exclude osteomyelitis as described. TECHNICAL DOCUMENTATION: JOB ID: [id number] 2010 [employer]- All Rights Reserved Reading location - IP/workstation name: [email or web address]
--- NOTE | 2020-09-21 19:53 | EKG REPORT ---
SEVERITY:- ABNORMAL ECG - SINUS RHYTHM LEFT AXIS DEVIATION LOW VOLTAGE IN FRONTAL LEADS CONSIDER ANTEROSEPTAL INFARCT : Confirmed by: Jamilah Perez MD 21-Sep-2020 19:53:10
--- NOTE | 2020-09-21 19:53 | EKG REPORT ---
SEVERITY:- ABNORMAL ECG - SINUS RHYTHM BORDERLINE LEFT AXIS DEVIATION LOW VOLTAGE THROUGHOUT CONSIDER ANTEROSEPTAL INFARCT : Confirmed by: Jamilah Perez MD 21-Sep-2020 19:53:04
[2020-09-21] MEDS ORDERED: ACETAMINOPHEN 325 MG TABLET PO PRN (20:45)
[2020-09-21] MEDS ORDERED: ONDANSETRON HCL INJ/PF 4 MG/2 ML SDV IV PRN (20:59)
[2020-09-21] MEDS ORDERED: VANCOMYCIN HCL 0 MG in DEXTROSE 5%-WATER 250 ML IV NR (21:15)
[2020-09-21] MEDS ORDERED: DEXTROSE 50%-WATER 25 GM/50 ML DISP.SYRIN IV PRN ×2 (21:16)
[2020-09-21] MEDS ORDERED: DEXTROSE 40% GEL 15 GM TUBE PO PRN ×2 (21:16)
[2020-09-21] MEDS ORDERED: GLUCAGON,HUMAN RECOMB 1 MG INJ IM PRN (21:16)
--- NOTE | 2020-09-21 21:35 | PDOC H&P ---
History of Present Illness Admission Date/PCP: NATALIA TORIBIO MD Patient complains of: Left foot pain, chest pain History of Present Illness: KENNEDY MEDEIROS is a 70 year old female with a history of insulin-dependent diabetes, hypothyroidism, rheumatoid arthritis, hypertension, diastolic heart failure and tobacco dependence presents with left foot pain and ulceration of her left fifth toe. Patient is poor historian and is unwilling to give detailed history due to agitation. She states that she has been having this nonhealing ulceration on her left foot on the fifth toe. She was supposed to follow with a local wound care clinic but was lost to follow-up. Patient also reports a nonspecific chest pain. She denies any cough, fever, chills, runny nose, congestion, nausea, vomiting, abdominal pain, diarrhea or any change in her urinary habits. Currently is hemodynamically stable and CBC, BMP are unremarkable. X-ray of the foot showed signs of degenerative joint disease and possible osteomyelitis could not be excluded. Patient is admitted for further work-up and management. 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, Diabetes Mellitus Type 2 GI Medical History: Denies: Hepatitis, Hiatal Hernia Musculoskeltal Medical History: Reports: Arthritis - rheumatoid, no meds x 2 months r/t Dx of Celiac's Psychiatric Medical History: Denies: Depression Hematology: Reports: Anemia - multiple treatments of Feraheme Denies: Sickle Cell Disease Infectious Medical History: Reports: Methicillin-Resistant Staph Aureus Past Surgical History Past Surgical History: Reports: Hysterectomy, Orthopedic Surgery Denies: Amputation, Mastectomy, Pacemaker Social History Information Source: Patient Smoking Status: Current Every Day Smoker Electronic Cigarette use?: No Frequency of Alcohol Use: None Hx Recreational Drug Use: No Drugs: None Hx Prescription Drug Abuse: No - Advance Directive Resuscitation Status: Full Code Family History Family History: None, Hypertension Parental Family History Reviewed: Yes Children Family History Reviewed: Yes Sibling(s) Family History Reviewed.: Yes Medication/Allergy Home Medications: Ergocalciferol (Vitamin D2) [Drisdol 50,000 unit (1.25MG) Capsule] 50,000 unit PO FR 10/28/18 Folic Acid [Folvite 1 mg Tablet] 1 mg PO DAILY 10/28/18 Levothyroxine Sodium 175 mcg PO Q6AM 10/28/18 Lisinopril [Zestril] 5 mg PO DAILY 10/28/18 Torsemide [Demadex 20 mg Tablet] 20 mg PO MOWEFR 10/28/18 Insulin Glargine,Hum.rec.anlog [Lantus Insulin 100 Unit/mL Insulin Pen] 13 unit SUBCUT QHS 01/04/20 Diclofenac Sodium 4 gm TP ASDIR PRN 09/21/20 Fish Oil/Dha/Epa [Fish Oil 1,200 mg Fish Oil] 1 each PO DAILY 09/21/20 Gabapentin [Neurontin 400 mg Capsule] 400 mg PO Q12 09/21/20 Potassium Chloride [Klor-Con 10 Meq Tablet ER] 10 meq PO DAILY 09/21/20 Allergies/Adverse Reactions: No Known Allergies Allergy (Verified 09/21/20 15:24) Review of Systems Constitutional: ABSENT: chills, fever(s), headache(s), weight gain, weight loss Eyes: ABSENT: visual disturbances Ears: ABSENT: hearing changes Nose, Mouth, and Throat: ABSENT: mouth pain, sore throat Cardiovascular: PRESENT: as per HPI, chest pain Respiratory: ABSENT: cough, hemoptysis Gastrointestinal: ABSENT: abdominal pain, constipation, diarrhea, hematemesis, hematochezia, nausea, vomiting Genitourinary: ABSENT: dysuria, hematuria Musculoskeletal: PRESENT: as per HPI Integumentary: ABSENT: rash, wounds Neurological: ABSENT: abnormal gait, abnormal speech, confusion, dizziness, focal weakness, syncope Psychiatric: ABSENT: anxiety, depression, homidical ideation, suicidal ideation Endocrine: ABSENT: cold intolerance, heat intolerance, polydipsia, polyuria Hematologic/Lymphatic: ABSENT: easy bleeding Physical Exam Vital Signs: Temp Pulse Resp BP Pulse Ox 97.5 F 87 16 118/58 L 99 09/21/20 14:23 09/21/20 14:23 09/21/20 20:00 09/21/20 17:00 09/21/20 20:00 Intake & Output 09/20/20 09/21/20 09/22/20 06:59 06:59 06:59 Weight 48.3 kg Additional comments: GENERAL APPEARANCE: Alert and oriented x3, in no acute distress HEENT: Normocephalic and atraumatic. No scleral icterus. Moist oral mucosa NECK: Supple. No lymphadenopathy or tenderness. No JVD CHEST: Symmetric. Nontender to palpation. LUNGS: Clear with good air entry bilaterally. No wheezing or crackles HEART: Regular rate and rhythm with normal S1 and S2. No murmurs, gallops, or rubs. ABDOMEN: Flat, soft, active bowel sounds, no direct or rebound tenderness. No organomegaly detected. No CVA tenderness EXTREMITIES: There is a 2 x 3 cm stage II ulcer on the left calf posteriorly. Also hyperemia and areas of darkly discolored skin on the left toes. Also has hyperemia with no tenderness or differential warmth on both lower extremities likely stasis dermatitis. MUSCULOSKELETAL: No deformity, atrophy or swelling noted PSYCHIATRIC: Recent and remote memory is intact. Appropriate mood and affect. NEUROLOGIC: No focal sensory or motor deficits are noted. Results Laboratory Results: 09/21/20 15:34 09/21/20 15:34 09/21/20 09/21/20 09/21/20 15:34 15:34 15:34 WBC 5.3 RBC 3.40 L Hgb 10.6 L Hct 31.6 L MCV 93 MCH 31.1 MCHC 33.4 RDW 14.3 H Plt Count 197 Seg Neutrophils % 64.7 Sodium 133.6 L Potassium 4.0 Chloride 105 Carbon Dioxide 24 Anion Gap 5 BUN 17 Creatinine 0.40 L Est GFR ( Amer) > 60 Glucose 130 H Calcium 7.6 L Total Bilirubin 0.2 AST 45 H Alkaline Phosphatase 198 H C-Reactive Protein < 5.0 Total Protein 6.0 L Albumin 2.5 L 09/21/20 15:34 Troponin I < 0.012 Impressions: Chest X-Ray 09/21/20 14:50 IMPRESSION: COPD. No acute findings. Foot X-Ray 09/21/20 18:19 IMPRESSION: There are irregular degenerative joint changes raising the possibility of early Charcot joints. Cannot entirely exclude osteomyelitis as described. Assessment and Plan - Diagnosis (1) Left leg cellulitis Is this a current diagnosis for this admission?: Yes Plan: Patient presents with a nonhealing wound on the left fifth toe Has no systemic signs of toxicity ESR was elevated at 99, CRP was within the normal limit Left foot x-ray showed degenerative joint disease and osteomyelitis could not be excluded MRI of the foot showed soft tissue swelling along the fifth toe but with no evidence of osteomyelitis Patient has extensive stasis dermatitis and has a history of MRSA colonization in the past Started on vancomycin and Zosyn Follow-up with blood culture Continue wound care Will consider surgery consult for possible debridement (2) Diabetes mellitus with neuropathy Qualifiers: Diabetes mellitus type: type 2 Diabetes mellitus fpc insulin use: unspecified fpc insulin use status Qualified Code(s): E11.40 - Type 2 diabetes mellitus with diabetic neuropathy, unspecified Is this a current diagnosis for this admission?: Yes Plan: Blood sugar on this encounter was 130 Placed on sliding scale insulin Hypoglycemia protocol and Accu-Chek Continue gabapentin for neuropathy (3) COPD (chronic obstructive pulmonary disease) Qualifiers: Emphysema type: unspecified Is this a current diagnosis for this admission?: Yes Plan: Currently not in exacerbation Patient denies any shortness of breath and has no wheezing Continue as needed albuterol inhaler (4) Pressure ulcer Is this a current diagnosis for this admission?: Yes Plan: There is a stage II about 2 x 3 cm wound on the left leg calf area posteriorly Continue wound care, frequently change position to alleviate the pressure (5) Stasis dermatitis Is this a current diagnosis for this admission?: Yes Plan: Patient has extensive hyperemia with no active sign of inflammation like tenderness, swelling or differential warmth on both lower extremities Elevate the legs, continue treatment of left foot cellulitis as stated above (6) Diastolic dysfunction with chronic heart failure Is this a current diagnosis for this admission?: Yes Plan: Not in acute exacerbation and appears euvolemic Continue torsemide on Friday, Friday and Friday Continue daily weight and fluid restriction (7) Hypertension Qualifiers: Hypertension type: essential hypertension Qualified Code(s): I10 - Essential (primary) hypertension Is this a current diagnosis for this admission?: Yes Plan: Blood pressure is within acceptable range, continue lisinopril (8) Hypothyroid Qualifiers: Hypothyroidism type: acquired Qualified Code(s): E03.9 - Hypothyroidism, unspecified Is this a current diagnosis for this admission?: Yes Plan: Continue levothyroxine - Time Time Spent with patient: 35 or more minutes Total Critical Time (Minutes): 45 Medications reviewed and adjusted accordingly: Yes Anticipated Discharge Disposition: Home, Self Care Anticipated Discharge Timeframe: within 72 hours - Inpatient Certification Based on my medical assessment, after consideration of the patient's comorbidities, presenting symptoms, or acuity I expect that the services needed warrant INPATIENT care.: Yes I certify that my determination is in accordance with my understanding of Medicare's requirements for reasonable and necessary INPATIENT services [42 CFR 412.3e].: Yes Medical Necessity: Failure to Improve With Outpatient Therapy, Need Close Monitoring Due to Risk of Patient Decompensation, Need for IV Antibiotics, Risk of Complication if Not Cared For in Hospital Post Hospital Care: D/C or Transfer Summary
[2020-09-21] MEDS: FAMOTIDINE 20 MG TABLET PO SCH (23:30)
[2020-09-21] MEDS: INSULIN REG, HUMAN 100 UNIT/ML 3 ML VIAL (PYX) SUBCUT SCH (23:30)
[2020-09-21] MEDS: GABAPENTIN 300 MG CAPSULE PO SCH (23:30)
--- NOTE | 2020-09-21 23:47 | RADIOLOGY REPORT (SQ) ---
MR LOWER EXTREMITY WITHOUT IV CONTRAST HISTORY: Fifth toe swelling and infection. Evaluate for acute osteomyelitis COMPARISON: Radiographs from earlier the same day. TECHNIQUE: Multiplanar, multisequence MR imaging of the left foot was performed without the administration of intravenous gadolinium. FINDINGS: There is focal soft tissue swelling and ulceration along the lateral aspect of the left forefoot at the level of the fifth metatarsal had. However, there is no abnormally decreased T1 signal or bone marrow edema to suggest acute osteomyelitis. No focal fluid collection is seen in this region. No foreign body. Diffuse edema throughout the intrinsic foot musculature with fatty atrophy is consistent with myositis, which may be neurogenic or reactive. The visualized tendons are intact. No acute fracture is seen. There are moderate to severe degenerative changes along the MTP joints and first IP joint. IMPRESSION: 1. Soft tissue ulceration along the fifth toe, but without evidence of acute osteomyelitis. 2. Moderate to severe degenerative changes along the MTP joints and first IP joint.
[2020-09-22] MEDS: OXYCODONE-ACETAMINOPHEN 5-325 MG TABLET PO PRN ×4 (00:54→21:13)
[2020-09-22] MEDS: VANCOMYCIN HCL 750 MG in DEXTROSE 5%-WATER 250 ML IV SCH ×3 (00:55→21:33)
[2020-09-22 01:11] LABS: APPEARANCE,URINE SLIGHTLY-CLOUDY; BILIRUBIN,URINE NEGATIVE (NEGATIVE); COLOR,URINE YELLOW; GLUCOSE, URINE NEGATIVE (NEGATIVE); KETONES,URINE NEGATIVE (NEGATIVE); LEUKOCYTE ESTERASE,URINE SMALL (NEGATIVE); NITRITE,URINE NEGATIVE (NEGATIVE); PROTEIN,URINE NEGATIVE (NEGATIVE); URINE SPECIFIC GRAVITY 1.024; UROBILINOGEN,URINE NEGATIVE mg/dL (<2.0)
[2020-09-22 05:38] LABS: ABSOLUTE LYMPHOCYTES (AUTO) 1.4 10^3/uL (0.5-4.7); ABSOLUTE MONOCYTES (AUTO) 0.4 10^3/uL (0.1-1.4); ABSOLUTE NEUT (AUTO) 2.8 10^3/uL (1.7-8.2); BASOPHILS % (AUTO) 0.4 % (0-2); HEMATOCRIT 26.6 % (36.0-47.0); HEMOGLOBIN 8.9 g/dL (12.0-15.5); LYMPHOCYTES % (AUTO) 30.1 % (13-45); MEAN CORPUSCULAR HGB CONC 33.6 g/dL (32.0-36.0); MEAN CORPUSCULAR VOLUME 92 fl (80-97); MONOCYTES % (AUTO) 9.3 % (3-13); PLATELET COUNT 150 10^3/uL (150-450); RED BLOOD COUNT 2.88 10^6/uL (3.72-5.28); RED CELL DISTRIBUTION WIDTH 13.9 % (11.5-14.0); SEGMENTED NEUTROPHILS % (AUTO) 59.2 % (42-78); TOTAL CELLS COUNTED % (AUTO) 100 %; WHITE BLOOD COUNT 4.8 10^3/uL (4.0-10.5)
[2020-09-22] MEDS ORDERED: LEVOTHYROXINE SODIUM 0.15 MG TABLET PO SCH (06:00)
[2020-09-22 06:07] LABS: BLOOD UREA NITROGEN 15 mg/dL (7-20); CARBON DIOXIDE 23 mmol/L (22-30); GLUCOSE 190 mg/dL (75-110); POTASSIUM 4.1 mmol/L (3.6-5.0)
[2020-09-22 06:14] LABS: CHLORIDE 108 mmol/L (98-107)
[2020-09-22 06:16] LABS: ANION GAP 3 (5-19)
[2020-09-22 06:18] LABS: CALCIUM 6.8 mg/dL (8.4-10.2)
[2020-09-22] MEDS ORDERED: PIPERACILLIN/TAZOBACTAM 3.375 GM VIAL IV ONE (06:24)
[2020-09-22] MEDS: PIPERACILLIN SODIUM/TAZOBACTAM 3.375 GM in NORMAL SALINE 100 ML IV SCH ×3 (06:49→18:29)
[2020-09-22] MEDS: INSULIN REG, HUMAN 100 UNIT/ML 3 ML VIAL (PYX) SUBCUT SCH ×4 (07:58→21:14)
[2020-09-22] MEDS: CALCIUM GLUC IN NACL, ISO-OSM 1 GM/50 ML RTUPB IV SCH ×3 (07:59→14:04)
[2020-09-22] MEDS ORDERED: LISINOPRIL 5 MG TABLET PO SCH (10:00)
[2020-09-22] MEDS: NICOTINE 21 MG/24 HR PATCH.TD24 TD SCH (10:09)
[2020-09-22] MEDS: GABAPENTIN 300 MG CAPSULE PO SCH ×2 (10:10→21:14)
[2020-09-22] MEDS: FAMOTIDINE 20 MG TABLET PO SCH ×2 (10:10→21:14)
[2020-09-22] MEDS: ENOXAPARIN SODIUM INJ 40 MG/0.4 ML DISP.SYRIN SUBCUT SCH (10:10)
--- NOTE | 2020-09-22 11:06 | PDOC PROGRESS REPORT ---
Subjective Date:: 09/22/20 Subjective:: Resting in the chair. Primary complaint is that of left foot pain. Surgery con sult has been placed. I did not unwrap the left foot but there is blackened discoloration of the left fifth toe and clearly swelling in the foot as witnessed in the toes and distal foot. The right leg has discoloration as well. Reason For Visit: OSTEOMYELITIS,SOFT TISSUE INFECTION,CHEST PAIN Physical Exam Vital Signs: Temp Pulse Resp BP Pulse Ox 98.7 F 78 19 125/60 93 09/22/20 08:00 09/22/20 08:00 09/22/20 08:00 09/22/20 08:00 09/22/20 08:00 Intake & Output 09/21/20 09/22/20 09/23/20 06:59 06:59 06:59 Intake Total 360 Output Total 200 Balance 160 Weight 50.1 kg General appearance: PRESENT: cooperative, mild distress, well-developed Head exam: PRESENT: atraumatic, normocephalic Mouth exam: PRESENT: moist, tongue midline Respiratory exam: PRESENT: clear to auscultation neo, symmetrical, unlabored. ABSENT: rales, rhonchi, tachypnea, wheezes Cardiovascular exam: PRESENT: RRR, +S1, +S2, systolic murmur. ABSENT: bradyc ardia, diastolic murmur, irregular rhythm, tachycardia GI/Abdominal exam: PRESENT: distended, normal bowel sounds, soft. ABSENT: guarding, tenderness Rectal exam: PRESENT: deferred Extremities exam: PRESENT: pedal edema Musculoskeletal exam: ABSENT: normal inspection Neurological exam: PRESENT: alert, awake, oriented to person, oriented to place, oriented to time, oriented to situation, CN II-XII grossly intact. ABSENT: altered Psychiatric exam: PRESENT: flat affect. ABSENT: agitated, anxious Focused psych exam: ABSENT: delusional, paranoid, restlessness Skin exam: PRESENT: erythema, other - Blackened discoloration left fifth toe Results Laboratory Results: 09/22/20 04:11 09/22/20 04:11 09/21/20 09/21/20 09/21/20 15:34 15:34 15:34 WBC 5.3 RBC 3.40 L Hgb 10.6 L Hct 31.6 L MCV 93 MCH 31.1 MCHC 33.4 RDW 14.3 H Plt Count 197 Seg Neutrophils % 64.7 Sodium 133.6 L Potassium 4.0 Chloride 105 Carbon Dioxide 24 Anion Gap 5 BUN 17 Creatinine 0.40 L Est GFR ( Amer) > 60 Glucose 130 H Calcium 7.6 L Total Bilirubin 0.2 AST 45 H Alkaline Phosphatase 198 H C-Reactive Protein < 5.0 Total Protein 6.0 L Albumin 2.5 L Urine Color Urine Appearance Urine pH Ur Specific [place] Urine Protein Urine Glucose (UA) Urine Ketones Urine Blood Urine Nitrite Ur Leukocyte Esterase Urine WBC (Auto) Urine RBC (Auto) 09/21/20 09/22/20 09/22/20 23:30 04:11 04:11 WBC 4.8 RBC 2.88 L Hgb 8.9 L Hct 26.6 L MCV 92 MCH 31.0 MCHC 33.6 RDW 13.9 Plt Count 150 Seg Neutrophils % 59.2 Sodium 133.6 L Potassium 4.1 Chloride 108 H Carbon Dioxide 23 Anion Gap 3 L BUN 15 Creatinine 0.40 L Est GFR ( Amer) > 60 Glucose 190 H Calcium 6.8 L* Total Bilirubin AST Alkaline Phosphatase C-Reactive Protein Total Protein Albumin Urine Color YELLOW Urine Appearance SLIGHTLY-CLOUDY Urine pH 5.0 Ur Specific [place] 1.024 Urine Protein NEGATIVE Urine Glucose (UA) NEGATIVE Urine Ketones NEGATIVE Urine Blood NEGATIVE Urine Nitrite NEGATIVE Ur Leukocyte Esterase SMALL H Urine WBC (Auto) 18 Urine RBC (Auto) 1 09/21/20 09/21/20 09/22/20 15:34 21:29 04:11 Troponin I < 0.012 < 0.012 < 0.012 Impressions: Lower Extremity MRI 09/21/20 00:00 IMPRESSION: 1. Soft tissue ulceration along the fifth toe, but without evidence of acute osteomyelitis. 2. Moderate to severe degenerative changes along the MTP joints and first IP joint. Chest X-Ray 09/21/20 14:50 IMPRESSION: COPD. No acute findings. Foot X-Ray 09/21/20 18:19 IMPRESSION: There are irregular degenerative joint changes raising the possibility of early Charcot joints. Cannot entirely exclude osteomyelitis as described. Assessment and Plan - Diagnosis (1) Arterial insufficiency of lower extremity Is this a current diagnosis for this admission?: Yes (2) Arterial insufficiency with ischemic ulcer Is this a current diagnosis for this admission?: Yes (3) Left leg cellulitis Is this a current diagnosis for this admission?: Yes (4) COPD (chronic obstructive pulmonary disease) Qualifiers: Emphysema type: unspecified Is this a current diagnosis for this admission?: Yes (5) Stasis dermatitis Is this a current diagnosis for this admission?: Yes (6) Diastolic dysfunction with chronic heart failure Is this a current diagnosis for this admission?: Yes (7) Hypertension Qualifiers: Hypertension type: essential hypertension Qualified Code(s): I10 - Essential (primary) hypertension Is this a current diagnosis for this admission?: Yes (8) Hypothyroid Qualifiers: Hypothyroidism type: acquired Qualified Code(s): E03.9 - Hypothyroidism, unspecified Is this a current diagnosis for this admission?: Yes - Plan Summary Summary: (1) Arterial insufficiency of lower extremity (2) Arterial insufficiency with ischemic ulcer (3) Left leg cellulitis (4) COPD (chronic obstructive pulmonary disease) (5) Stasis dermatitis (6) Diastolic dysfunction with chronic heart failure (7) Hypertension (8) Hypothyroidism 09/22/2020 Arterial insufficiency with ulcer-I have discussed the case with Dr. Jacobo. Based on the discoloration of the legs and the poor distal pulses and distribution of ulcers this is arterial insufficiency rather than venous or pressure related ulcerations. There is high likelihood of colonization and infection in the foot however arterial insufficiency with ulcer can generate significant swelling as well. Dr. Jacobo is ordered bilateral arterial duplex studies. I have started the patient on aspirin daily and statin therapy. The arterial insufficiency certainly seems to be extensive and severe. Definitive treatment for at least the left leg may be above-knee amputation. This will be based on arterial flow studies to see if there is any reasonable flow for healing of a below-knee amputation. This seems unlikely. The patient should also consider evaluation by vascular surgery. She may be a very poor revascularization candidate. I am unsure of the availability of atherectomy in the lower extremity versus bypass surgery. Continue conservative care to the ulcer and for the time being continue antibiotic therapy. Left leg cellulitis-as noted above more likely arterial insufficiency however will continue antibiotics at this time. COPD-appears stable on room air. It does not appear that she is on any inhaler regimen at home. Will monitor closely and support with respiratory treatments and/or oxygen if needed. Stasis dermatitis-more likely a component of arterial insufficiency in which c ase we should avoid low blood pressure. I will limit her antihypertensive therapy at this time. We need to have adequate perfusion pressure to overcome stenotic arteries. Hypertension-try to keep systolic blood pressure greater than 120 if possible. Diastolic heart failure-this will be a difficult balance. If we need to resume diuretic therapy it may very well be at a lower dose than her baseline medications. Hypothyroidism-continue levothyroxine. - Time Time Spent with patient: 25-34 minutes Medications reviewed and adjusted accordingly: Yes Anticipated Discharge Disposition: Unknown Anticipated Discharge Timeframe: Unknown
[2020-09-22] MEDS ORDERED: CALCIUM GLUC IN NACL, ISO-OSM 1 GM/50 ML RTUPB IV ONE (14:03)
[2020-09-22 17:38] LABS: ANION GAP 9 (5-19); BLOOD UREA NITROGEN 14 mg/dL (7-20); CALCIUM 7.5 mg/dL (8.4-10.2); CARBON DIOXIDE 21 mmol/L (22-30); CHLORIDE 105 mmol/L (98-107); GLUCOSE 323 mg/dL (75-110); POTASSIUM 4.3 mmol/L (3.6-5.0)
--- NOTE | 2020-09-22 19:54 | PDOC CONSULTATION ---
Consultation Consult Date: 09/22/20 Provider Consulted: SURGICAL SURGICALIST History of Present Illness Admission Date/PCP: 09/21/20 21:09 NATALIA TORIBIO MD Patient complains of: Left lower extremity pain History of Present Illness: KENNEDY MEDEIROS is a 70 year old female with a long history of lower extremity ulcers and pain at rest. Her left side is worse than her right. She reports tenderness to palpation, erythema, and ulcerations over her foot, ankle, and lower leg. The patient's right leg is similar in appearance, but does not currently hurt at rest. She denies any fevers, chills, nausea, vomiting, dizziness, orthostasis. She does report "chest pain" although she cannot specify when it occurs or what it feels like. She is a poor historian. She is a diabetic. She continues to smoke every day. 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, Diabetes Mellitus Type 2 GI Medical History: Denies: Hepatitis, Hiatal Hernia Musculoskeltal Medical History: Reports: Arthritis - rheumatoid, no meds x 2 months r/t Dx of Celiac's Psychiatric Medical History: Denies: Depression Hematology: Reports: Anemia - multiple treatments of Feraheme Denies: Sickle Cell Disease Infectious Medical History: Reports: Methicillin-Resistant Staph Aureus Past Surgical History Past Surgical History: Reports: Hysterectomy, Orthopedic Surgery Denies: Amputation, Mastectomy, Pacemaker Social History Smoking Status: Current Every Day Smoker Electronic Cigarette use?: No Frequency of Alcohol Use: None Hx Recreational Drug Use: No Drugs: None Hx Prescription Drug Abuse: No - Advance Directive Resuscitation Status: Full Code Family History Family History: None, Hypertension Parental Family History Reviewed: Yes Children Family History Reviewed: Yes Sibling(s) Family History Reviewed.: Yes Medication/Allergy Home Medications: Ergocalciferol (Vitamin D2) [Drisdol 50,000 unit (1.25MG) Capsule] 50,000 unit PO FR 10/28/18 Folic Acid [Folvite 1 mg Tablet] 1 mg PO DAILY 10/28/18 Levothyroxine Sodium 175 mcg PO Q6AM 10/28/18 Lisinopril [Zestril] 5 mg PO DAILY 10/28/18 Torsemide [Demadex 20 mg Tablet] 20 mg PO MOWEFR 10/28/18 Insulin Glargine,Hum.rec.anlog [Lantus Insulin 100 Unit/mL Insulin Pen] 13 unit SUBCUT QHS 01/04/20 Diclofenac Sodium 4 gm TP ASDIR PRN 09/21/20 Fish Oil/Dha/Epa [Fish Oil 1,200 mg Fish Oil] 1 each PO DAILY 09/21/20 Gabapentin [Neurontin 400 mg Capsule] 400 mg PO Q12 09/21/20 Potassium Chloride [Klor-Con 10 Meq Tablet ER] 10 meq PO DAILY 09/21/20 Allergies/Adverse Reactions: No Known Allergies Allergy (Verified 09/21/20 15:24) Review of Systems Constitutional: PRESENT: fatigue. ABSENT: anorexia, chills Eyes: ABSENT: visual disturbances Ears: ABSENT: hearing changes Nose, Mouth, and Throat: ABSENT: sore throat Cardiovascular: PRESENT: chest pain Respiratory: ABSENT: cough Gastrointestinal: ABSENT: abdominal pain, bloating Genitourinary: ABSENT: dysuria Musculoskeletal: PRESENT: back pain Integumentary: PRESENT: erythema - Right lower extremity, lesions - Lower extremity, wounds - Right lower extremity Neurological: ABSENT: confusion, convulsions, dizziness Psychiatric: ABSENT: anxiety, depression Endocrine: ABSENT: cold intolerance, heat intolerance Hematologic/Lymphatic: ABSENT: easy bleeding, easy bruising Physical Exam Vital Signs: Temp Pulse Resp BP Pulse Ox 98.0 F 69 18 110/60 91 L 09/22/20 12:00 09/22/20 12:00 09/22/20 12:00 09/22/20 12:00 09/22/20 12:00 Intake & Output 09/21/20 09/22/20 09/23/20 06:59 06:59 06:59 Intake Total 360 770 Output Total 200 Balance 160 770 Weight 50.1 kg General appearance: PRESENT: no acute distress. ABSENT: cooperative Head exam: PRESENT: atraumatic, normocephalic Eye exam: PRESENT: EOMI, PERRLA. ABSENT: scleral icterus Mouth exam: PRESENT: moist, neck supple Neck exam: ABSENT: meningismus, tenderness, thyromegaly Respiratory exam: PRESENT: unlabored. ABSENT: tachypnea Cardiovascular exam: ABSENT: tachycardia Pulses: PRESENT: other - No obvious palpable DP or PT bilaterally. Vascular exam: PRESENT: other - Dependent rubor present up to the knee. GI/Abdominal exam: PRESENT: soft. ABSENT: distended, firm, tenderness Rectal exam: PRESENT: deferred Extremities exam: PRESENT: other - Ulcers along the anterior surface of the foot, distal foot/toes, at the ankle, and up on the calf and anterior lower leg (all on the left). Neurological exam: PRESENT: alert, awake, oriented to person, oriented to place, oriented to time, oriented to situation Psychiatric exam: PRESENT: agitated Focused psych exam: ABSENT: delusional Skin exam: PRESENT: erythema - Bilateral lower extremities toes to knees, likely related to arterial insufficiency. Results Laboratory Results: 09/22/20 04:11 09/22/20 04:11 09/21/20 09/21/20 09/21/20 15:34 15:34 15:34 WBC 5.3 RBC 3.40 L Hgb 10.6 L Hct 31.6 L MCV 93 MCH 31.1 MCHC 33.4 RDW 14.3 H Plt Count 197 Seg Neutrophils % 64.7 Sodium 133.6 L Potassium 4.0 Chloride 105 Carbon Dioxide 24 Anion Gap 5 BUN 17 Creatinine 0.40 L Est GFR ( Amer) > 60 Glucose 130 H Calcium 7.6 L Total Bilirubin 0.2 AST 45 H Alkaline Phosphatase 198 H C-Reactive Protein < 5.0 Total Protein 6.0 L Albumin 2.5 L Urine Color Urine Appearance Urine pH Ur Specific [place] Urine Protein Urine Glucose (UA) Urine Ketones Urine Blood Urine Nitrite Ur Leukocyte Esterase Urine WBC (Auto) Urine RBC (Auto) 09/21/20 09/22/20 09/22/20 23:30 04:11 04:11 WBC 4.8 RBC 2.88 L Hgb 8.9 L Hct 26.6 L MCV 92 MCH 31.0 MCHC 33.6 RDW 13.9 Plt Count 150 Seg Neutrophils % 59.2 Sodium 133.6 L Potassium 4.1 Chloride 108 H Carbon Dioxide 23 Anion Gap 3 L BUN 15 Creatinine 0.40 L Est GFR ( Amer) > 60 Glucose 190 H Calcium 6.8 L* Total Bilirubin AST Alkaline Phosphatase C-Reactive Protein Total Protein Albumin Urine Color YELLOW Urine Appearance SLIGHTLY-CLOUDY Urine pH 5.0 Ur Specific [place] 1.024 Urine Protein NEGATIVE Urine Glucose (UA) NEGATIVE Urine Ketones NEGATIVE Urine Blood NEGATIVE Urine Nitrite NEGATIVE Ur Leukocyte Esterase SMALL H Urine WBC (Auto) 18 Urine RBC (Auto) 1 09/21/20 09/21/20 09/22/20 15:34 21:29 04:11 Troponin I < 0.012 < 0.012 < 0.012 Impressions: Lower Extremity MRI 09/21/20 00:00 IMPRESSION: 1. Soft tissue ulceration along the fifth toe, but without evidence of acute osteomyelitis. 2. Moderate to severe degenerative changes along the MTP joints and first IP joint. Chest X-Ray 09/21/20 14:50 IMPRESSION: COPD. No acute findings. Foot X-Ray 09/21/20 18:19 IMPRESSION: There are irregular degenerative joint changes raising the possibility of early Charcot joints. Cannot entirely exclude osteomyelitis as described. Assessment & Plan - Diagnosis (1) Arterial insufficiency of lower extremity Is this a current diagnosis for this admission?: Yes (2) Arterial insufficiency with ischemic ulcer Is this a current diagnosis for this admission?: Yes - Plan Summary Plan Summary: This is a 70-year-old female with what appears to be chronic arterial insufficie ncy of bilateral lower extremities, left greater than right. She has worsening ulcerations of her foot, ankle, and calf. I believe these are related to significantly decreased blood flow to these tissues. She has evidence of ongoing necrosis of the toes of the left foot. I believe the patient will require amputation of the left leg, unfortunately I suspect it will be above the knee due to poor arterial inflow. I will order an urgent peripheral arterial duplex in order to confirm a lack of significant blood flow below the knee. This will help guide our decision making process. Continue antibiotics for now. Possible surgical intervention in the near future.
[2020-09-22] MEDS ORDERED: INSULIN GLARGINE,HUM.REC.ANLOG 1,000 UNIT/10 ML VIAL (PYX) SUBCUT ONE (21:04)
[2020-09-22] MEDS: ASPIRIN 81 MG TABLET, ENT COATED PO SCH (21:14)
[2020-09-22] MEDS: ATORVASTATIN CALCIUM 40 MG TABLET PO SCH (21:14)
[2020-09-22] MEDS: INSULIN GLARGINE,HUM.REC.ANLOG 1,000 UNIT/10 ML VIAL SUBCUT SCH (21:15)
[2020-09-22] MEDS: MAGNESIUM SULFATE/D5W 1 GM/100 ML RTUPB IV SCH ×2 (21:15→23:05)
--- NOTE | 2020-09-23 00:29 | CDI QUERY ---
CDI Query CDI Review: We are seeking further clarification of documentation to reflect the severity of illness of your patient. 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 MIRNA Mclaughlin RN Clinical Ship Keeper Physician Advisor
[2020-09-23] MEDS: MAGNESIUM SULFATE/D5W 1 GM/100 ML RTUPB IV SCH (00:56)
[2020-09-23] MEDS ORDERED: MAGNESIUM SULFATE/D5W 1 GM/100 ML RTUPB IV SCH (01:00)
[2020-09-23] MEDS: PIPERACILLIN SODIUM/TAZOBACTAM 3.375 GM in NORMAL SALINE 100 ML IV SCH ×4 (02:15→17:43)
[2020-09-23] MEDS: OXYCODONE-ACETAMINOPHEN 5-325 MG TABLET PO PRN ×3 (04:46→23:15)
[2020-09-23] MEDS: LEVOTHYROXINE SODIUM 0.075 MG TABLET PO SCH (05:02)
[2020-09-23] MEDS: LEVOTHYROXINE SODIUM 0.1 MG TABLET PO SCH (05:02)
[2020-09-23] MEDS ORDERED: LEVOTHYROXINE SODIUM 175 MCG PO SCH (06:00)
[2020-09-23] MEDS: INSULIN REG, HUMAN 100 UNIT/ML 3 ML VIAL (PYX) SUBCUT SCH ×4 (07:53→23:35)
--- NOTE | 2020-09-23 08:41 | RADIOLOGY REPORT (SQ) ---
EXAM DESCRIPTION: ARTERIAL LOWER EXTREM BILAT IMAGES COMPLETED DATE/TIME: 09/22/2020 10:01 pm REASON FOR STUDY: Peripheral arterial disease, rest pain COMPARISON: Arterial Doppler 03/08/2019 MRI left foot 09/21/2020, left foot radiographs 09/21/2020 TECHNIQUE: Dynamic and static caruso scale and color images acquired of the lower extremity arteries. Additional selected spectral images recorded. ABIs not requested . LIMITATIONS: None. FINDINGS: RIGHT LEG: ABIS: Not performed INFLOW ARTERIES: Normal waveforms FEMORAL ARTERIES:Multiphasic waveforms. Normal, no velocity elevation to suggest focal stenosis. Norm al color Doppler evaluation. No aneurysm. POPLITEAL ARTERY:Multiphasic waveforms. Normal, no velocity elevation to suggest focal stenosis. Norm al color Doppler evaluation. No aneurysm. PATENT TIBIOPERONEAL TRUNK AND 3 VESSEL RUNOFF: Yes, normal vessels. TBI: Not performed. OTHER: No other significant finding. LEFT LEG: ABIS: Not performed. INFLOW ARTERIES: Normal waveforms COMMON AND PROFUNDA FEMORAL ARTERIES:Multiphasic waveforms. Normal, no velocity elevation to suggest focal stenosis. Normal color Doppler evaluation. No aneurysm. SUPERFICIAL FEMORAL ARTERY: Occluded proximally. Multiple collaterals reconstitute the superficial femoral artery at the adductor canal with monophasic flow, similar compared to previous study. POPLITEAL ARTERY:Multiphasic waveforms. Normal, no velocity elevation to suggest focal stenosis. Norm al color Doppler evaluation. No aneurysm. PATENT TIBIOPERONEAL TRUNK AND 3 VESSEL RUNOFF: Yes, normal vessels. TBI: Not performed. OTHER: No other significant finding. IMPRESSION: Occluded left superficial femoral artery with reconstitution distally by multiple collat erals, similar compared to prior arterial Doppler 03/08/2019 No significant stenosis right lower extremity arterial system COMMENT: [facility] NORMAL: Greater than 1.0 MINIMAL DISEASE: 0.9 to 1.0 CLAUDICATION: 0.5 to 0.9 SEVERE ARTERIAL DISEASE: Less than 0.5 [facility] NORMAL: Greater than 1.0 (1.2 If Heavy Calcifications) NORMAL TO MILD ISCHEMIA: 0.8 to 1.0 MODERATE ISCHEMIA: 0.4 to 0.8 SEVERE ISCHEMIA: Less than 0.4 TECHNICAL DOCUMENTATION: JOB ID: [id number] [employer]- All Rights Reserved Reading location - IP/workstation name: [id number]
[2020-09-23] MEDS: FAMOTIDINE 20 MG TABLET PO SCH ×2 (09:57→23:15)
[2020-09-23] MEDS: FOLIC ACID 1 MG TABLET PO SCH (09:57)
[2020-09-23] MEDS: NICOTINE 21 MG/24 HR PATCH.TD24 TD SCH (09:57)
[2020-09-23] MEDS: ENOXAPARIN SODIUM INJ 40 MG/0.4 ML DISP.SYRIN SUBCUT SCH (09:57)
[2020-09-23] MEDS: VANCOMYCIN HCL 750 MG in DEXTROSE 5%-WATER 250 ML IV SCH ×2 (09:57→23:14)
[2020-09-23] MEDS: GABAPENTIN 300 MG CAPSULE PO SCH ×2 (09:57→23:14)
--- NOTE | 2020-09-23 09:59 | PDOC PROGRESS REPORT ---
Subjective Date:: 09/23/20 Reason For Visit: OSTEOMYELITIS,SOFT TISSUE INFECTION,CHEST PAIN Patient complaining of the left leg pain. Patient states she lives at home with family, and ambulates with a walker. She would like to preserve her left leg. She has had no interventions on her peripheral vascular system by her report. Physical Exam Vital Signs: Temp Pulse Resp BP Pulse Ox 97.7 F 80 18 116/49 L 93 09/23/20 00:11 09/23/20 00:11 09/23/20 00:11 09/23/20 00:11 09/23/20 00:11 Intake & Output 09/22/20 09/23/20 09/24/20 06:59 06:59 06:59 Intake Total 360 2566 Output Total 200 625 Balance 160 1941 Weight 50.1 kg 50.4 kg General appearance: PRESENT: mild distress Musculoskeletal exam: PRESENT: other - Lower extremities examined. Both legs have of violaceous, edematous changes to the pretibial areas. There are multiple areas of tissue loss involving the left foot and lower leg, dry, chronic. There is a palpable common femoral pulse only. The toes have rubor Results Laboratory Results: 09/22/20 04:11 09/22/20 17:06 09/22/20 17:06 Sodium 134.7 L Potassium 4.3 Chloride 105 Carbon Dioxide 21 L Anion Gap 9 BUN 14 Creatinine 0.43 L Est GFR ( Amer) > 60 Glucose 323 H Calcium 7.5 L Magnesium 1.2 L* 09/21/20 09/21/20 09/22/20 15:34 21:29 04:11 Troponin I < 0.012 < 0.012 < 0.012 Impressions: Lower Extremity MRI 09/21/20 00:00 IMPRESSION: 1. Soft tissue ulceration along the fifth toe, but without evidence of acute osteomyelitis. 2. Moderate to severe degenerative changes along the MTP joints and first IP joint. Chest X-Ray 09/21/20 14:50 IMPRESSION: COPD. No acute findings. Foot X-Ray 09/21/20 18:19 IMPRESSION: There are irregular degenerative joint changes raising the possibility of early Charcot joints. Cannot entirely exclude osteomyelitis as described. Lower Extremity Ultrasound 09/22/20 00:00 IMPRESSION: Occluded left superficial femoral artery with reconstitution distally by multiple collaterals, similar compared to prior arterial Doppler 03/08/2019 No significant stenosis right lower extremity arterial system Assessment & Plan - Diagnosis (1) Arterial insufficiency of lower extremity Is this a current diagnosis for this admission?: Yes Plan: Impression: Severe peripheral vascular disease left lower extremity secondary to occluded superficial femoral artery with poor reconstitution, rest pain, and dry ischemic patches of skin all consistent with chronically threatened left lower extremity. Patient states she ambulates with walker, and desires to preserve her left leg. Naturally, given her multiple comorbidities including smoking, diabetes mellitus, the likelihood of limb preservation is low. I told her we would explore some vascular intervention options. Recommendations: 1. I spoke with Dr. Saeid Soriano, [place] vascular surgeon, who is agreed to accept patient in transfer, pending bed availability, particularly during the [place] pandemic. I explained this to the nursing staff, hospitalist service, and the patient herself. 2. I would continue Lovenox; obtain rapid Covid test; continue medical management; may feed patient. 3. We will continue to follow with you. (2) Arthritis Is this a current diagnosis for this admission?: Yes (3) Arterial insufficiency with ischemic ulcer Is this a current diagnosis for this admission?: Yes (4) Diabetes mellitus Qualifiers: Diabetes mellitus type: type 2 Diabetes mellitus complication status: with neurologic complications Diabetes mellitus complication detail: with autonomic neuropathy - Time Anticipated Discharge Disposition: Alf Facility Anticipated Discharge Timeframe: tbd
--- NOTE | 2020-09-23 15:33 | PDOC PROGRESS REPORT ---
Subjective Date:: 09/23/20 Reason For Visit: OSTEOMYELITIS,SOFT TISSUE INFECTION,CHEST PAIN Physical Exam Vital Signs: Temp Pulse Resp BP Pulse Ox 97.6 F 90 19 132/60 H 91 L 09/23/20 11:27 09/23/20 11:27 09/23/20 11:27 09/23/20 11:27 09/23/20 11:27 Intake & Output 09/22/20 09/23/20 09/24/20 06:59 06:59 06:59 Intake Total 360 2566 Output Total 200 625 Balance 160 1941 Weight 50.1 kg 50.4 kg General appearance: PRESENT: no acute distress Head exam: PRESENT: atraumatic, normocephalic Eye exam: PRESENT: EOMI, PERRLA. ABSENT: scleral icterus Mouth exam: PRESENT: moist, tongue midline Neck exam: ABSENT: carotid bruit, JVD, lymphadenopathy, thyromegaly Respiratory exam: PRESENT: clear to auscultation neo. ABSENT: rales, rhonchi, wheezes Cardiovascular exam: PRESENT: RRR, +S1, +S2. ABSENT: diastolic murmur, rubs, systolic murmur Vascular exam: PRESENT: pallor GI/Abdominal exam: PRESENT: normal bowel sounds, soft. ABSENT: distended, guarding, mass, organolmegaly, rebound, tenderness Rectal exam: PRESENT: deferred Extremities exam: PRESENT: tenderness, other - Erythema, swelling with chronic necrotic changes of bilateral lower extremity. ABSENT: clubbing, full ROM, pedal edema Neurological exam: PRESENT: alert, awake, oriented to person, oriented to place, oriented to time, oriented to situation, CN II-XII grossly intact. ABSENT: motor sensory deficit Psychiatric exam: PRESENT: appropriate affect, normal mood. ABSENT: homicidal ideation, suicidal ideation Skin exam: PRESENT: dry, intact, warm. ABSENT: cyanosis, rash Results Laboratory Results: 09/22/20 04:11 09/22/20 17:06 09/22/20 17:06 Sodium 134.7 L Potassium 4.3 Chloride 105 Carbon Dioxide 21 L Anion Gap 9 BUN 14 Creatinine 0.43 L Est GFR ( Amer) > 60 Glucose 323 H Calcium 7.5 L Magnesium 1.2 L* 09/21/20 09/21/20 09/22/20 15:34 21:29 04:11 Troponin I < 0.012 < 0.012 < 0.012 Impressions: Lower Extremity MRI 09/21/20 00:00 IMPRESSION: 1. Soft tissue ulceration along the fifth toe, but without evidence of acute osteomyelitis. 2. Moderate to severe degenerative changes along the MTP joints and first IP joint. Chest X-Ray 09/21/20 14:50 IMPRESSION: COPD. No acute findings. Foot X-Ray 09/21/20 18:19 IMPRESSION: There are irregular degenerative joint changes raising the possibility of early Charcot joints. Cannot entirely exclude osteomyelitis as d escribed. Lower Extremity Ultrasound 09/22/20 00:00 IMPRESSION: Occluded left superficial femoral artery with reconstitution distally by multiple collaterals, similar compared to prior arterial Doppler 03/08/2019 No significant stenosis right lower extremity arterial system Assessment and Plan - Diagnosis (1) Arterial insufficiency of lower extremity Is this a current diagnosis for this admission?: Yes (2) Arthritis Is this a current diagnosis for this admission?: Yes (3) Left leg cellulitis Is this a current diagnosis for this admission?: Yes (4) Hypomagnesemia Is this a current diagnosis for this admission?: Yes Plan: This is replaced. We will recheck it in a.m. - Plan Summary Summary: (1) Arterial insufficiency of lower extremity (2) Arterial insufficiency with ischemic ulcer (3) Left leg cellulitis (4) COPD (chronic obstructive pulmonary disease) (5) Stasis dermatitis (6) Diastolic dysfunction with chronic heart failure (7) Hypertension (8) Hypothyroidism 09/22/2020 Arterial insufficiency with ulcer-I have discussed the case with Dr. Jacobo. Ba sed on the discoloration of the legs and the poor distal pulses and distribution of ulcers this is arterial insufficiency rather than venous or pressure related ulcerations. There is high likelihood of colonization and infection in the foot however arterial insufficiency with ulcer can generate significant swelling as well. Dr. Jacobo is ordered bilateral arterial duplex studies. I have started the patient on aspirin daily and statin therapy. The arterial insufficiency certainly seems to be extensive and severe. Definitive treatment for at least the left leg may be above-knee amputation. This will be based on arterial flow studies to see if there is any reasonable flow for healing of a below-knee amputation. This seems unlikely. The patient should also consider evaluation by vascular surgery. She may be a very poor revascularization candidate. I am unsure of the availability of atherectomy in the lower extremity versus bypass surgery. Continue conservative care to the ulcer and for the time being continue antibiotic therapy. Left leg cellulitis-as noted above more likely arterial insufficiency however will continue antibiotics at this time. COPD-appears stable on room air. It does not appear that she is on any inhaler regimen at home. Will monitor closely and support with respiratory treatments and/or oxygen if needed. Stasis dermatitis-more likely a component of arterial insufficiency in which case we should avoid low blood pressure. I will limit her antihypertensive therapy at this time. We need to have adequate perfusion pressure to overcome stenotic arteries. Hypertension-try to keep systolic blood pressure greater than 120 if possible. Diastolic heart failure-this will be a difficult balance. If we need to resume diuretic therapy it may very well be at a lower dose than her baseline medications. Hypothyroidism-continue levothyroxine. 09/23/20 This patient was admitted with left leg pain which has been progressively getting worse. She was found to have severe peripheral vascular disease. She h as been seen by Dr. Rider. She was found to have multiple areas of tissue loss involving the left foot and lower left leg which appeared to be chronic. There is a palpable common femoral pulse. Both legs have violaceous edematous changes to the pretibial areas. She was found to have severe peripheral vascular disease of the left lower extremity secondary to occluded superficial femoral artery with poor reconstitution, rest pain and dry ischemic patches of skin all consistent with chronically threatened left lower extremity. Dr. Rider suggest a possible attempt at limb salvage by transferring this patient to a vascular surgeon, Dr. Saeid Soriano at [place] who appears as graciously accepted this patient pending bed availability. Covid test has been done which is negative. - Time Time Spent with patient: 15-24 minutes Medications reviewed and adjusted accordingly: Yes Anticipated Discharge Disposition: Tertiary Anticipated Discharge Timeframe: within 24 hours - Pending bed availability
[2020-09-23] MEDS: ATORVASTATIN CALCIUM 40 MG TABLET PO SCH (23:15)
[2020-09-23] MEDS: ASPIRIN 81 MG TABLET, ENT COATED PO SCH (23:15)
[2020-09-23] MEDS: INSULIN GLARGINE,HUM.REC.ANLOG 1,000 UNIT/10 ML VIAL SUBCUT SCH (23:34)
[2020-09-24] MEDS: PIPERACILLIN SODIUM/TAZOBACTAM 3.375 GM in NORMAL SALINE 100 ML IV SCH ×4 (02:12→18:48)
[2020-09-24 06:38] LABS: ABSOLUTE EOSINOPHILS # (AUTO) 0.1 10^3/uL (0.0-0.6); ABSOLUTE LYMPHOCYTES (AUTO) 1.5 10^3/uL (0.5-4.7); ABSOLUTE MONOCYTES (AUTO) 0.4 10^3/uL (0.1-1.4); ABSOLUTE NEUT (AUTO) 2.8 10^3/uL (1.7-8.2); BASOPHILS % (AUTO) 0.4 % (0-2); EOSINOPHILS % (AUTO) 1.7 % (0-6); HEMATOCRIT 28.2 % (36.0-47.0); HEMOGLOBIN 9.6 g/dL (12.0-15.5); LYMPHOCYTES % (AUTO) 30.9 % (13-45); MEAN CORPUSCULAR HEMOGLOBIN 31.2 pg (27.0-33.4); MEAN CORPUSCULAR VOLUME 92 fl (80-97); MONOCYTES % (AUTO) 8.5 % (3-13); PLATELET COUNT 185 10^3/uL (150-450); RED BLOOD COUNT 3.07 10^6/uL (3.72-5.28); RED CELL DISTRIBUTION WIDTH 14.4 % (11.5-14.0); SEGMENTED NEUTROPHILS % (AUTO) 58.5 % (42-78); TOTAL CELLS COUNTED % (AUTO) 100 %; WHITE BLOOD COUNT 4.8 10^3/uL (4.0-10.5)
[2020-09-24 07:09] LABS: BLOOD UREA NITROGEN 11 mg/dL (7-20); CALCIUM 7.4 mg/dL (8.4-10.2); GLUCOSE 142 mg/dL (75-110); POTASSIUM 3.8 mmol/L (3.6-5.0)
[2020-09-24 07:15] LABS: CARBON DIOXIDE 22 mmol/L (22-30); CHLORIDE 109 mmol/L (98-107)
[2020-09-24 07:26] LABS: ANION GAP 4 (5-19)
[2020-09-24] MEDS: OXYCODONE-ACETAMINOPHEN 5-325 MG TABLET PO PRN ×2 (07:52→22:12)
[2020-09-24] MEDS: LEVOTHYROXINE SODIUM 0.1 MG TABLET PO SCH (07:52)
[2020-09-24] MEDS: LEVOTHYROXINE SODIUM 0.075 MG TABLET PO SCH (07:52)
[2020-09-24] MEDS: INSULIN REG, HUMAN 100 UNIT/ML 3 ML VIAL (PYX) SUBCUT SCH ×4 (08:38→22:13)
--- NOTE | 2020-09-24 10:30 | PDOC PROGRESS REPORT ---
Subjective Date:: 09/24/20 Reason For Visit: OSTEOMYELITIS,SOFT TISSUE INFECTION,CHEST PAIN Patient prefers lower extremities in the dependent position Physical Exam Vital Signs: Temp Pulse Resp BP Pulse Ox 97.5 F 79 18 144/55 H 93 09/24/20 07:26 09/24/20 07:26 09/24/20 07:26 09/24/20 07:26 09/24/20 07:26 Intake & Output 09/23/20 09/24/20 09/25/20 06:59 06:59 06:59 Intake Total 2566 980 Output Total 750 Balance 1816 980 Weight 50.4 kg 50.4 kg General appearance: PRESENT: no acute distress Musculoskeletal exam: PRESENT: other - Condition of left lower extremity unchanged Results Laboratory Results: 09/24/20 06:25 09/24/20 06:25 09/24/20 09/24/20 06:25 06:25 WBC 4.8 RBC 3.07 L Hgb 9.6 L Hct 28.2 L MCV 92 MCH 31.2 MCHC 34.0 RDW 14.4 H Plt Count 185 Seg Neutrophils % 58.5 Sodium 135.2 L Potassium 3.8 Chloride 109 H Carbon Dioxide 22 Anion Gap 4 L BUN 11 Creatinine 0.44 L Est GFR ( Amer) > 60 Glucose 142 H Calcium 7.4 L Magnesium 1.9 09/21/20 09/21/20 09/22/20 15:34 21:29 04:11 Troponin I < 0.012 < 0.012 < 0.012 Impressions: Lower Extremity MRI 09/21/20 00:00 IMPRESSION: 1. Soft tissue ulceration along the fifth toe, but without evidence of acute osteomyelitis. 2. Moderate to severe degenerative changes along the MTP joints and first IP joint. Chest X-Ray 09/21/20 14:50 IMPRESSION: COPD. No acute findings. Foot X-Ray 09/21/20 18:19 IMPRESSION: There are irregular degenerative joint changes raising the possibility of early Charcot joints. Cannot entirely exclude osteomyelitis as described. Lower Extremity Ultrasound 09/22/20 00:00 IMPRESSION: Occluded left superficial femoral artery with reconstitution distally by multiple collaterals, similar compared to prior arterial Doppler 03/08/2019 No significant stenosis right lower extremity arterial system Assessment & Plan - Diagnosis (1) Arterial insufficiency of lower extremity Is this a current diagnosis for this admission?: Yes Plan: Impression: Chronic rest pain, and patient with smoking history, atherosclerotic disease, scattered areas of tissue loss with throughout the left lower extremity Plan: 1. Await transfer to [facility], or Dr. Saeid Soriano, vascular surgeon, directly. 2. Discussed the above with Dr. Alvarez 3. Surgery will sign off; please reconsult if clinically indicated. (2) Arthritis Is this a current diagnosis for this admission?: Yes (3) Arterial insufficiency with ischemic ulcer Is this a current diagnosis for this admission?: Yes (4) Diabetes mellitus Qualifiers: Diabetes mellitus type: type 2 Diabetes mellitus complication status: with neurologic complications Diabetes mellitus complication detail: with autonomic neuropathy - Time Anticipated Discharge Disposition: Home, Self Care Anticipated Discharge Timeframe: within 24 hours
[2020-09-24] MEDS: VANCOMYCIN HCL 750 MG in DEXTROSE 5%-WATER 250 ML IV SCH (10:41)
[2020-09-24] MEDS: FAMOTIDINE 20 MG TABLET PO SCH ×2 (10:41→22:12)
[2020-09-24] MEDS: ENOXAPARIN SODIUM INJ 40 MG/0.4 ML DISP.SYRIN SUBCUT SCH (10:41)
[2020-09-24] MEDS: GABAPENTIN 300 MG CAPSULE PO SCH ×2 (10:41→22:12)
[2020-09-24] MEDS: FOLIC ACID 1 MG TABLET PO SCH (10:41)
[2020-09-24] MEDS: NICOTINE 21 MG/24 HR PATCH.TD24 TD SCH (10:42)
--- NOTE | 2020-09-24 16:20 | PDOC PROGRESS REPORT ---
Subjective Date:: 09/24/20 Reason For Visit: SOFT TISSUE INFECTION,CHEST PAIN Still awaiting transfer to [facility]. Patient feels better. She says her pain is controlled Physical Exam Vital Signs: Temp Pulse Resp BP Pulse Ox 97.5 F 87 22 H 132/66 H 95 09/24/20 12:09 09/24/20 12:09 09/24/20 12:09 09/24/20 12:09 09/24/20 12:09 Intake & Output 09/23/20 09/24/20 09/25/20 06:59 06:59 06:59 Intake Total 2566 980 520 Output Total 750 Balance 1816 980 520 Weight 50.4 kg 50.4 kg General appearance: PRESENT: no acute distress, disheveled Head exam: PRESENT: atraumatic, normocephalic Eye exam: PRESENT: conjunctiva pink, EOMI, PERRLA. ABSENT: scleral icterus Ear exam: PRESENT: normal external ear exam Mouth exam: PRESENT: moist, tongue midline Neck exam: ABSENT: carotid bruit, JVD, lymphadenopathy, thyromegaly Respiratory exam: PRESENT: clear to auscultation neo. ABSENT: rales, rhonchi, wheezes Cardiovascular exam: PRESENT: RRR, +S1, +S2. ABSENT: diastolic murmur, rubs, systolic murmur Pulses: PRESENT: other - Positive femoral pulses GI/Abdominal exam: PRESENT: normal bowel sounds, soft. ABSENT: distended, guarding, mass, organolmegaly, rebound, tenderness Rectal exam: PRESENT: deferred Extremities exam: PRESENT: other - Bilateral erythema with swelling darkened left fifth toe with ulcers in the anterior aspect of the left lower extremity. Skin is warm to touch Neurological exam: PRESENT: alert, awake, oriented to person, oriented to place, oriented to time, oriented to situation, CN II-XII grossly intact. ABSENT: motor sensory deficit Psychiatric exam: PRESENT: appropriate affect, normal mood. ABSENT: homicidal ideation, suicidal ideation Skin exam: PRESENT: abrasion, warm. ABSENT: cyanosis, rash Results Laboratory Results: 09/24/20 06:25 09/24/20 06:25 09/24/20 09/24/20 06:25 06:25 WBC 4.8 RBC 3.07 L Hgb 9.6 L Hct 28.2 L MCV 92 MCH 31.2 MCHC 34.0 RDW 14.4 H Plt Count 185 Seg Neutrophils % 58.5 Sodium 135.2 L Potassium 3.8 Chloride 109 H Carbon Dioxide 22 Anion Gap 4 L BUN 11 Creatinine 0.44 L Est GFR ( Amer) > 60 Glucose 142 H Calcium 7.4 L Magnesium 1.9 09/23/20 04:20 Clean Catch Midstream Urine Culture - Final 1,000 col/ml 09/21/20 09/21/20 09/22/20 15:34 21:29 04:11 Troponin I < 0.012 < 0.012 < 0.012 Impressions: Lower Extremity MRI 09/21/20 00:00 IMPRESSION: 1. Soft tissue ulceration along the fifth toe, but without evidence of acute osteomyelitis. 2. Moderate to severe degenerative changes along the MTP joints and first IP joint. Chest X-Ray 09/21/20 14:50 IMPRESSION: COPD. No acute findings. Foot X-Ray 09/21/20 18:19 IMPRESSION: There are irregular degenerative joint changes raising the possibility of early Charcot joints. Cannot entirely exclude osteomyelitis as described. Lower Extremity Ultrasound 09/22/20 00:00 IMPRESSION: Occluded left superficial femoral artery with reconstitution distally by multiple collaterals, similar compared to prior arterial Doppler 03/08/2019 No significant stenosis right lower extremity arterial system Assessment and Plan - Diagnosis (1) Arterial insufficiency of lower extremity Is this a current diagnosis for this admission?: Yes (2) Arthritis Is this a current diagnosis for this admission?: Yes (3) Left leg cellulitis Is this a current diagnosis for this admission?: Yes (4) Hypomagnesemia Is this a current diagnosis for this admission?: Yes - Plan Summary Summary: (1) Arterial insufficiency of lower extremity (2) Arterial insufficiency with ischemic ulcer (3) Left leg cellulitis (4) COPD (chronic obstructive pulmonary disease) (5) Stasis dermatitis (6) Diastolic dysfunction with chronic heart failure (7) Hypertension (8) Hypothyroidism 09/22/2020 Arterial insufficiency with ulcer-I have discussed the case with Dr. Jacobo. Based on the discoloration of the legs and the poor distal pulses and distribution of ulcers this is arterial insufficiency rather than venous or pressure related ulcerations. There is high likelihood of colonization and infection in the foot however arterial insufficiency with ulcer can generate significant swelling as well. Dr. Jacobo is ordered bilateral arterial duplex studies. I have started the patient on aspirin daily and statin therapy. The arterial insufficiency certainly seems to be extensive and severe. Definitive treatment for at least the left leg may be above-knee amputation. This will be based on arterial flow studies to see if there is any reasonable flow for healing of a below-knee amputation. This seems unlikely. The patient should also consider evaluation by vascular surgery. She may be a very poor revascularization candidate. I am unsure of the availability of atherectomy in the lower extremity versus bypass surgery. Continue conservative care to the ulcer and for the time being continue antibiotic therapy. Left leg cellulitis-as noted above more likely arterial insufficiency however will continue antibiotics at this time. COPD-appears stable on room air. It does not appear that she is on any inhaler regimen at home. Will monitor closely and support with respiratory treatments and/or oxygen if needed. Stasis dermatitis-more likely a component of arterial insufficiency in which case we should avoid low blood pressure. I will limit her antihypertensive therapy at this time. We need to have adequate perfusion pressure to overcome stenotic arteries. Hypertension-try to keep systolic blood pressure greater than 120 if possible. Diastolic heart failure-this will be a difficult balance. If we need to resume diuretic therapy it may very well be at a lower dose than her baseline medications. Hypothyroidism-continue levothyroxine. 09/23/20 This patient was admitted with left leg pain which has been progressively getting worse. She was found to have severe peripheral vascular disease. She has been seen by Dr. Rider. She was found to have multiple areas of tissue loss involving the left foot and lower left leg which appeared to be chronic. There is a palpable common femoral pulse. Both legs have violaceous edematous changes to the pretibial areas. She was found to have severe peripheral vascular disease of the left lower extremity secondary to occluded superficial femoral artery with poor reconstitution, rest pain and dry ischemic patches of skin all consistent with chronically threatened left lower extremity. Dr. Rider suggest a possible attempt at limb salvage by transferring this patient to a vascular surgeon, Dr. Saeid Soriano at [place] who appears as graciously accepted this patient pending bed availability. Covid test has been done which is negative. 09/24 Patient is still awaiting transfer to [facility]. Increase her anticoagulant to twice a day Lovenox. She will continue with the aspirin and statin. She does appear to have her collaterals that are perfusing the leg as the seem to be nice and warm at this time however patient is definitive intervention to salvage her limbs - Time Time Spent with patient: 15-24 minutes Medications reviewed and adjusted accordingly: Yes Anticipated Discharge Disposition: Tertiary Anticipated Discharge Timeframe: when bed available
[2020-09-24] MEDS ORDERED: ENOXAPARIN SODIUM INJ 40 MG/0.4 ML DISP.SYRIN SUBCUT SCH (22:00)
[2020-09-24] MEDS: ENOXAPARIN SODIUM INJ 60 MG/0.6 ML DISP.SYRIN SUBCUT SCH (22:12)
[2020-09-24] MEDS: ATORVASTATIN CALCIUM 40 MG TABLET PO SCH (22:12)
[2020-09-24] MEDS: ASPIRIN 81 MG TABLET, ENT COATED PO SCH (22:12)
[2020-09-24] MEDS: INSULIN GLARGINE,HUM.REC.ANLOG 1,000 UNIT/10 ML VIAL SUBCUT SCH (22:13)
[2020-09-24] MEDS: VANCOMYCIN HCL 1,000 MG in DEXTROSE 5%-WATER 250 ML IV SCH (22:29)
[2020-09-25] MEDS: PIPERACILLIN SODIUM/TAZOBACTAM 3.375 GM in NORMAL SALINE 100 ML IV SCH ×4 (01:58→17:27)
[2020-09-25] MEDS: LEVOTHYROXINE SODIUM 0.075 MG TABLET PO SCH (07:35)
[2020-09-25] MEDS: OXYCODONE-ACETAMINOPHEN 5-325 MG TABLET PO PRN ×2 (07:35→14:07)
[2020-09-25] MEDS: LEVOTHYROXINE SODIUM 0.1 MG TABLET PO SCH (07:35)
[2020-09-25] MEDS: INSULIN REG, HUMAN 100 UNIT/ML 3 ML VIAL (PYX) SUBCUT SCH ×4 (07:44→23:26)
[2020-09-25] MEDS: FAMOTIDINE 20 MG TABLET PO SCH ×2 (09:31→23:24)
[2020-09-25] MEDS: ENOXAPARIN SODIUM INJ 60 MG/0.6 ML DISP.SYRIN SUBCUT SCH ×2 (09:31→23:24)
[2020-09-25] MEDS: FOLIC ACID 1 MG TABLET PO SCH (09:31)
[2020-09-25] MEDS: GABAPENTIN 300 MG CAPSULE PO SCH ×2 (09:31→23:24)
[2020-09-25] MEDS: VANCOMYCIN HCL 1,000 MG in DEXTROSE 5%-WATER 250 ML IV SCH ×2 (09:31→23:23)
[2020-09-25] MEDS: NICOTINE 21 MG/24 HR PATCH.TD24 TD SCH (09:32)
--- NOTE | 2020-09-25 16:54 | PDOC PROGRESS REPORT ---
Subjective Date:: 09/25/20 Subjective:: Patient still awaiting discharge does state that her pain is improved much leilani r controlled. There also appears to be less swelling and redness of the lower extremities Reason For Visit: OSTEOMYELITIS,SOFT TISSUE INFECTION,CHEST PAIN Physical Exam Vital Signs: Temp Pulse Resp BP Pulse Ox 97.4 F 68 20 118/50 L 90 L 09/25/20 10:00 09/25/20 08:47 09/25/20 08:47 09/25/20 08:47 09/25/20 08:47 Intake & Output 09/24/20 09/25/20 09/26/20 06:59 06:59 06:59 Intake Total 980 1450 490 Output Total 550 Balance 980 900 490 Weight 50.4 kg 50.5 kg General appearance: PRESENT: no acute distress, well-developed, well-nourished Head exam: PRESENT: atraumatic, normocephalic Eye exam: PRESENT: conjunctiva pink, EOMI, PERRLA. ABSENT: scleral icterus Ear exam: PRESENT: normal external ear exam Mouth exam: PRESENT: moist, tongue midline Neck exam: ABSENT: carotid bruit, JVD, lymphadenopathy, thyromegaly Respiratory exam: PRESENT: clear to auscultation neo. ABSENT: rales, rhonchi, wheezes Cardiovascular exam: PRESENT: RRR, +S1, +S2. ABSENT: diastolic murmur, rubs, systolic murmur Pulses: PRESENT: other - common femoral GI/Abdominal exam: PRESENT: normal bowel sounds, soft. ABSENT: distended, guarding, mass, organolmegaly, rebound, tenderness Rectal exam: PRESENT: deferred Extremities exam: PRESENT: other - swelling, erythema, necrotic L 5th toe, warm to touch Neurological exam: PRESENT: alert, awake, oriented to person, oriented to place, oriented to time, oriented to situation, CN II-XII grossly intact. ABSENT: motor sensory deficit Psychiatric exam: PRESENT: appropriate affect, normal mood. ABSENT: homicidal ideation, suicidal ideation Skin exam: PRESENT: erythema, warm. ABSENT: rash Results Laboratory Results: 09/24/20 06:25 09/24/20 06:25 09/21/20 09/21/20 09/22/20 15:34 21:29 04:11 Troponin I < 0.012 < 0.012 < 0.012 Impressions: Lower Extremity MRI 09/21/20 00:00 IMPRESSION: 1. Soft tissue ulceration along the fifth toe, but without evidence of acute osteomyelitis. 2. Moderate to severe degenerative changes along the MTP joints and first IP joint. Chest X-Ray 09/21/20 14:50 IMPRESSION: COPD. No acute findings. Foot X-Ray 09/21/20 18:19 IMPRESSION: There are irregular degenerative joint changes raising the possibility of early Charcot joints. Cannot entirely exclude osteomyelitis as described. Lower Extremity Ultrasound 09/22/20 00:00 IMPRESSION: Occluded left superficial femoral artery with reconstitution distally by multiple collaterals, similar compared to prior arterial Doppler 03/08/2019 No significant stenosis right lower extremity arterial system Assessment and Plan - Diagnosis (1) Arterial insufficiency of lower extremity Is this a current diagnosis for this admission?: Yes (2) Arthritis Is this a current diagnosis for this admission?: Yes (3) Left leg cellulitis Is this a current diagnosis for this admission?: Yes (4) Hypomagnesemia Is this a current diagnosis for this admission?: Yes - Plan Summary Summary: (1) Arterial insufficiency of lower extremity (2) Arterial insufficiency with ischemic ulcer (3) Left leg cellulitis (4) COPD (chronic obstructive pulmonary disease) (5) Stasis dermatitis (6) Diastolic dysfunction with chronic heart failure (7) Hypertension (8) Hypothyroidism 09/22/2020 Arterial insufficiency with ulcer-I have discussed the case with Dr. Jacobo. Based on the discoloration of the legs and the poor distal pulses and distribution of ulcers this is arterial insufficiency rather than venous or pressure related ulcerations. There is high likelihood of colonization and infection in the foot however arterial insufficiency with ulcer can generate significant swelling as well. Dr. Jacobo is ordered bilateral arterial duplex studies. I have started the patient on aspirin daily and statin therapy. The arterial insufficiency certainly seems to be extensive and severe. Definitive treatment for at least the left leg may be above-knee amputation. This will be based on arterial flow studies to see if there is any reasonable flow for healing of a below-knee amputation. This seems unlikely. The patient should also consider evaluation by vascular surgery. She may be a very poor revascularization candidate. I am unsure of the availability of atherectomy in the lower extremity versus bypass surgery. Continue conservative care to the ulcer and for the time being continue antibiotic therapy. Left leg cellulitis-as noted above more likely arterial insufficiency however will continue antibiotics at this time. COPD-appears stable on room air. It does not appear that she is on any inhaler regimen at home. Will monitor closely and support with respiratory treatments and/or oxygen if needed. Stasis dermatitis-more likely a component of arterial insufficiency in which case we should avoid low blood pressure. I will limit her antihypertensive ther apy at this time. We need to have adequate perfusion pressure to overcome stenotic arteries. Hypertension-try to keep systolic blood pressure greater than 120 if possible. Diastolic heart failure-this will be a difficult balance. If we need to resume diuretic therapy it may very well be at a lower dose than her baseline medications. Hypothyroidism-continue levothyroxine. 09/23/20 This patient was admitted with left leg pain which has been progressively getting worse. She was found to have severe peripheral vascular disease. She has been seen by Dr. Rider. She was found to have multiple areas of tissue loss involving the left foot and lower left leg which appeared to be chronic. There is a palpable common femoral pulse. Both legs have violaceous edematous changes to the pretibial areas. She was found to have severe peripheral vascular disease of the left lower extremity secondary to occluded superficial femoral artery with poor reconstitution, rest pain and dry ischemic patches of skin all consistent with chronically threatened left lower extremity. Dr. Rider suggest a possible attempt at limb salvage by transferring this patient to a vascular surgeon, Dr. Saeid Soriano at [place] who appears as graciously accepted this patient pending bed availability. Covid test has been done which is negative. 09/24 Patient is still awaiting transfer to [facility]. Increase her anticoagulant to twice a day Lovenox. She will continue with the aspirin and statin. She does appear to have her collaterals that are perfusing the leg as the seem to be nice and warm at this time however patient is definitive intervention to salvage her limbs 09/25 patient is still awaiting a bed at [place]. I did discuss with Dr. Rider. He informed me that Dr. Soriano will be able to see patient on September 26 at his office at [facility], [address] in [place]. Phone number is [phone] however patient will have to go there by private vehicle. The plan will be to see if patient can arrange for someone to take her to the office tomorrow. She is currently on vancomycin and Zosyn antibiotic gallegos as well as on Lovenox. She can be changed to oral antibiotic if needed although there is no specific infection. - Time Time Spent with patient: 15-24 minutes Medications reviewed and adjusted accordingly: Yes Anticipated Discharge Disposition: Home with Home Health Anticipated Discharge Timeframe: within 48 hours
[2020-09-25] MEDS: ATORVASTATIN CALCIUM 40 MG TABLET PO SCH (23:24)
[2020-09-25] MEDS: ASPIRIN 81 MG TABLET, ENT COATED PO SCH (23:24)
[2020-09-25] MEDS: INSULIN GLARGINE,HUM.REC.ANLOG 1,000 UNIT/10 ML VIAL SUBCUT SCH (23:25)
[2020-09-26] MEDS: PIPERACILLIN SODIUM/TAZOBACTAM 3.375 GM in NORMAL SALINE 100 ML IV SCH ×5 (01:02→23:41)
[2020-09-26] MEDS: OXYCODONE-ACETAMINOPHEN 5-325 MG TABLET PO PRN ×2 (01:02→23:51)
[2020-09-26] MEDS: LEVOTHYROXINE SODIUM 0.075 MG TABLET PO SCH (06:17)
[2020-09-26] MEDS: LEVOTHYROXINE SODIUM 0.1 MG TABLET PO SCH (06:17)
[2020-09-26] MEDS: INSULIN REG, HUMAN 100 UNIT/ML 3 ML VIAL (PYX) SUBCUT SCH ×4 (07:53→23:15)
[2020-09-26] MEDS: FAMOTIDINE 20 MG TABLET PO SCH ×2 (09:39→23:13)
[2020-09-26] MEDS: NICOTINE 21 MG/24 HR PATCH.TD24 TD SCH (09:39)
[2020-09-26] MEDS: GABAPENTIN 300 MG CAPSULE PO SCH ×2 (09:39→23:13)
[2020-09-26] MEDS: FOLIC ACID 1 MG TABLET PO SCH (09:39)
[2020-09-26] MEDS: ENOXAPARIN SODIUM INJ 60 MG/0.6 ML DISP.SYRIN SUBCUT SCH ×2 (09:39→23:13)
[2020-09-26] MEDS: VANCOMYCIN HCL 1,000 MG in DEXTROSE 5%-WATER 250 ML IV SCH ×2 (09:40→23:14)
[2020-09-26 10:32] LABS: VANCOMYCIN,TROUGH 13.9 ug/mL (5.0-20.0)
[2020-09-26] MEDS: ASPIRIN 81 MG TABLET, ENT COATED PO SCH (23:13)
[2020-09-26] MEDS: ATORVASTATIN CALCIUM 40 MG TABLET PO SCH (23:13)
[2020-09-26] MEDS: INSULIN GLARGINE,HUM.REC.ANLOG 1,000 UNIT/10 ML VIAL SUBCUT SCH (23:14)
[2020-09-27] MEDS: LEVOTHYROXINE SODIUM 0.1 MG TABLET PO SCH (06:02)
[2020-09-27] MEDS: LEVOTHYROXINE SODIUM 0.075 MG TABLET PO SCH (06:02)
[2020-09-27] MEDS: PIPERACILLIN SODIUM/TAZOBACTAM 3.375 GM in NORMAL SALINE 100 ML IV SCH ×3 (06:03→17:51)
[2020-09-27] MEDS: INSULIN REG, HUMAN 100 UNIT/ML 3 ML VIAL (PYX) SUBCUT SCH ×4 (08:24→22:34)
[2020-09-27] MEDS: GABAPENTIN 300 MG CAPSULE PO SCH ×2 (09:43→22:32)
[2020-09-27] MEDS: FOLIC ACID 1 MG TABLET PO SCH (09:43)
[2020-09-27] MEDS: FAMOTIDINE 20 MG TABLET PO SCH ×2 (09:43→22:33)
[2020-09-27] MEDS: ENOXAPARIN SODIUM INJ 60 MG/0.6 ML DISP.SYRIN SUBCUT SCH ×2 (09:44→22:32)
[2020-09-27] MEDS: VANCOMYCIN HCL 1,000 MG in DEXTROSE 5%-WATER 250 ML IV SCH ×2 (09:44→22:32)
[2020-09-27] MEDS: NICOTINE 21 MG/24 HR PATCH.TD24 TD SCH (09:44)
[2020-09-27 11:18] LABS: ABSOLUTE EOSINOPHILS # (AUTO) 0.1 10^3/uL (0.0-0.6); ABSOLUTE LYMPHOCYTES (AUTO) 1.4 10^3/uL (0.5-4.7); ABSOLUTE MONOCYTES (AUTO) 0.5 10^3/uL (0.1-1.4); ABSOLUTE NEUT (AUTO) 2.9 10^3/uL (1.7-8.2); BASOPHILS % (AUTO) 0.6 % (0-2); EOSINOPHILS % (AUTO) 1.8 % (0-6); HEMOGLOBIN 9.2 g/dL (12.0-15.5); LYMPHOCYTES % (AUTO) 28.7 % (13-45); MEAN CORPUSCULAR HEMOGLOBIN 31.2 pg (27.0-33.4); MEAN CORPUSCULAR HGB CONC 33.9 g/dL (32.0-36.0); MEAN CORPUSCULAR VOLUME 92 fl (80-97); MONOCYTES % (AUTO) 10.8 % (3-13); PLATELET COUNT 240 10^3/uL (150-450); RED BLOOD COUNT 2.94 10^6/uL (3.72-5.28); RED CELL DISTRIBUTION WIDTH 14.5 % (11.5-14.0); SEGMENTED NEUTROPHILS % (AUTO) 58.1 % (42-78); TOTAL CELLS COUNTED % (AUTO) 100 %
[2020-09-27 11:28] LABS: BLOOD UREA NITROGEN 9 mg/dL (7-20); CALCIUM 7.4 mg/dL (8.4-10.2); CHLORIDE 110 mmol/L (98-107); GLUCOSE 127 mg/dL (75-110); POTASSIUM 3.7 mmol/L (3.6-5.0)
[2020-09-27 11:33] LABS: CARBON DIOXIDE 26 mmol/L (22-30)
[2020-09-27 11:40] LABS: ANION GAP 1 (5-19)
[2020-09-27 11:57] LABS: ERYTHROCYTE SEDIMENTATION RATE 113 mm/hr (0-30)
--- NOTE | 2020-09-27 15:34 | PDOC PROGRESS REPORT ---
Subjective Date:: 09/26/20 Subjective:: Patient unable to arrange follow-up private transportation to [place] today. After coordination with the clinic in [place] as well as with the help of the social services coordinator and the nurse an appointment has been made at Dr. Soriano's office for September 28 at 3 PM. The plan will be to discharge patient from here to the office from where she will be evaluated for further management. Meanwhile in the interim she will be kept in hospital. Reason For Visit: OSTEOMYELITIS,SOFT TISSUE INFECTION,CHEST PAIN Physical Exam Vital Signs: Temp Pulse Resp BP Pulse Ox 98.0 F 86 18 126/59 H 95 09/26/20 11:02 09/26/20 11:02 09/26/20 11:02 09/26/20 11:02 09/26/20 11:02 Intake & Output 09/25/20 09/26/20 09/27/20 06:59 06:59 06:59 Intake Total 1450 1140 1320 Output Total 550 850 700 Balance 900 290 620 Weight 50.5 kg 57.7 kg 55.2 kg General appearance: PRESENT: no acute distress Head exam: PRESENT: atraumatic, normocephalic Eye exam: PRESENT: conjunctiva pink, EOMI, PERRLA. ABSENT: scleral icterus Ear exam: PRESENT: normal external ear exam Mouth exam: PRESENT: moist, tongue midline Neck exam: ABSENT: carotid bruit, JVD, lymphadenopathy, thyromegaly Respiratory exam: PRESENT: clear to auscultation neo, unlabored. ABSENT: rales, rhonchi, wheezes Cardiovascular exam: PRESENT: RRR, +S1, +S2. ABSENT: diastolic murmur, rubs, systolic murmur Pulses: PRESENT: normal dorsalis pedis pul Vascular exam: PRESENT: normal capillary refill GI/Abdominal exam: PRESENT: normal bowel sounds, soft. ABSENT: distended, guarding, mass, organolmegaly, rebound, tenderness Rectal exam: PRESENT: deferred Extremities exam: PRESENT: calf tenderness, clubbing, full ROM, pedal edema, other - Erythema and swelling of bilateral lower extremities receding. Patient has multiple wounds and as per wound care documentation wound on the left fifth toe, on the left lateral foot, on the left posterior leg with the serous drainage, on the left anterior leg Neurological exam: PRESENT: alert, awake, oriented to person, oriented to place, oriented to time, oriented to situation, CN II-XII grossly intact. ABSENT: motor sensory deficit Psychiatric exam: PRESENT: appropriate affect, normal mood. ABSENT: homicidal ideation, suicidal ideation Skin exam: PRESENT: erythema, warm, other - Wound as described above. ABSENT: cyanosis, rash Results Laboratory Results: 09/24/20 06:25 09/26/20 09:30 09/26/20 09:30 Creatinine 0.39 L Est GFR ( Amer) > 60 09/21/20 09/21/20 09/22/20 15:34 21:29 04:11 Troponin I < 0.012 < 0.012 < 0.012 Impressions: Lower Extremity MRI 09/21/20 00:00 IMPRESSION: 1. Soft tissue ulceration along the fifth toe, but without evidence of acute osteomyelitis. 2. Moderate to severe degenerative changes along the MTP joints and first IP joint. Chest X-Ray 09/21/20 14:50 IMPRESSION: COPD. No acute findings. Foot X-Ray 09/21/20 18:19 IMPRESSION: There are irregular degenerative joint changes raising the possibility of early Charcot joints. Cannot entirely exclude osteomyelitis as described. Lower Extremity Ultrasound 09/22/20 00:00 IMPRESSION: Occluded left superficial femoral artery with reconstitution di stally by multiple collaterals, similar compared to prior arterial Doppler 03/08/2019 No significant stenosis right lower extremity arterial system Assessment and Plan - Diagnosis (1) Arterial insufficiency of lower extremity Is this a current diagnosis for this admission?: Yes (2) Arthritis Is this a current diagnosis for this admission?: Yes (3) Left leg cellulitis Is this a current diagnosis for this admission?: Yes (4) Hypomagnesemia Is this a current diagnosis for this admission?: Yes - Plan Summary Summary: (1) Arterial insufficiency of lower extremity (2) Arterial insufficiency with ischemic ulcer (3) Left leg cellulitis (4) COPD (chronic obstructive pulmonary disease) (5) Stasis dermatitis (6) Diastolic dysfunction with chronic heart failure (7) Hypertension (8) Hypothyroidism 09/22/2020 Arterial insufficiency with ulcer-I have discussed the case with Dr. Jacobo. Based on the discoloration of the legs and the poor distal pulses and distribution of ulcers this is arterial insufficiency rather than venous or pressure related ulcerations. There is high likelihood of colonization and infection in the foot however arterial insufficiency with ulcer can generate significant swelling as well. Dr. Jacobo is ordered bilateral arterial duplex studies. I have started the patient on aspirin daily and statin therapy. The arterial insufficiency certainly seems to be extensive and severe. Definitive treatment for at least the left leg may be above-knee amputation. This will be based on arterial flow studies to see if there is any reasonable flow for healing of a below-knee amputation. This seems unlikely. The patient should also consider evaluation by vascular surgery. She may be a very poor r evascularization candidate. I am unsure of the availability of atherectomy in the lower extremity versus bypass surgery. Continue conservative care to the ulcer and for the time being continue antibiotic therapy. Left leg cellulitis-as noted above more likely arterial insufficiency however will continue antibiotics at this time. COPD-appears stable on room air. It does not appear that she is on any inhaler regimen at home. Will monitor closely and support with respiratory treatments and/or oxygen if needed. Stasis dermatitis-more likely a component of arterial insufficiency in which case we should avoid low blood pressure. I will limit her antihypertensive therapy at this time. We need to have adequate perfusion pressure to overcome stenotic arteries. Hypertension-try to keep systolic blood pressure greater than 120 if possible. Diastolic heart failure-this will be a difficult balance. If we need to resume diuretic therapy it may very well be at a lower dose than her baseline medications. Hypothyroidism-continue levothyroxine. 09/23/20 This patient was admitted with left leg pain which has been progressively getting worse. She was found to have severe peripheral vascular disease. She has been seen by Dr. Rider. She was found to have multiple areas of tissue loss involving the left foot and lower left leg which appeared to be chronic. There is a palpable common femoral pulse. Both legs have violaceous edematous c hanges to the pretibial areas. She was found to have severe peripheral vascular disease of the left lower extremity secondary to occluded superficial femoral artery with poor reconstitution, rest pain and dry ischemic patches of skin all consistent with chronically threatened left lower extremity. Dr. Rider suggest a possible attempt at limb salvage by transferring this patient to a vascular surgeon, Dr. Saeid Soriano at [place] who appears as graciously accepted this patient pending bed availability. Covid test has been done which is negative. 09/24 Patient is still awaiting transfer to [facility]. Increase her anticoagulant to twice a day Lovenox. She will continue with the aspirin and statin. She does appear to have her collaterals that are perfusing the leg as the seem to be nice and warm at this time however patient is definitive intervention to salvage her limbs 09/25 patient is still awaiting a bed at [place]. I did discuss with Dr. Rider. He informed me that Dr. Soriano will be able to see patient on September 26 at his office at [facility], [address] in [place]. Phone number is [phone] however patient will have to go there by private vehicle. The plan will be to see if patient can arrange for someone to take her to the office tomorrow. She is currently on vancomycin and Zosyn antibiotic gallegos as well as on Lovenox. She can be changed to oral antibiotic if needed although there is no specific infection. 09/26 At this point it appears a bed may not be available at [facility]. The plan is still to send the patient to [facility] at [address] in [place] for 3 to 3:30 PM appointment on September 28. Son is agreed to transport his mother to the office. The insurance information and other information requested by the office have been faxed by the nursing staff - Time Time Spent with patient: 25-34 minutes Medications reviewed and adjusted accordingly: Yes Anticipated Discharge Disposition: Home, Self Care Anticipated Discharge Timeframe: within 48 hours
--- NOTE | 2020-09-27 16:21 | PDOC PROGRESS REPORT ---
Subjective Date:: 09/27/20 Subjective:: Patient unable to arrange follow-up private transportation to [place] today. After coordination with the clinic in [place] as well as with the help of the social work coordinator and the nurse an appointment has been made at Dr. Soriano's office for September 28 at 3 PM. The plan will be to discharge patient from here to the office from where she will be evaluated for further management. Meanwhile in the interim she will be kept in hospital. Reason For Visit: OSTEOMYELITIS,SOFT TISSUE INFECTION,CHEST PAIN Physical Exam Vital Signs: Temp Pulse Resp BP Pulse Ox 97.4 F 78 19 138/64 H 90 L 09/27/20 10:00 09/27/20 07:35 09/27/20 07:35 09/27/20 07:35 09/27/20 07:35 Intake & Output 09/26/20 09/27/20 09/28/20 06:59 06:59 06:59 Intake Total 1140 1920 250 Output Total 850 700 Balance 290 1220 250 Weight 57.7 kg 54 kg General appearance: PRESENT: no acute distress, well-developed, well-nourished Head exam: PRESENT: atraumatic, normocephalic Eye exam: PRESENT: conjunctiva pink, EOMI. ABSENT: scleral icterus Mouth exam: PRESENT: moist, tongue midline Neck exam: ABSENT: carotid bruit, JVD, lymphadenopathy, thyromegaly Respiratory exam: PRESENT: clear to auscultation neo, unlabored. ABSENT: rales, rhonchi, wheezes Cardiovascular exam: PRESENT: RRR, +S1, +S2. ABSENT: diastolic murmur, rubs, systolic murmur GI/Abdominal exam: PRESENT: normal bowel sounds, soft. ABSENT: distended, guarding, mass, organolmegaly, rebound, tenderness Rectal exam: PRESENT: deferred Extremities exam: PRESENT: full ROM, +2 edema, other - There is erythema and swelling of bilateral lower extremities although receding. There are multiple wounds including wound on the left fifth toe, left lateral foot, left posterior and anterior part of the leg Neurological exam: PRESENT: alert, awake, oriented to person, oriented to place, oriented to time, oriented to situation, CN II-XII grossly intact. ABSENT: motor sensory deficit Psychiatric exam: PRESENT: appropriate affect, normal mood. ABSENT: homicidal ideation, suicidal ideation Skin exam: PRESENT: dry, intact, warm. ABSENT: cyanosis, rash Results Laboratory Results: 09/27/20 10:55 09/27/20 10:55 09/27/20 09/27/20 10:55 10:55 WBC 5.0 RBC 2.94 L Hgb 9.2 L Hct 27.0 L MCV 92 MCH 31.2 MCHC 33.9 RDW 14.5 H Plt Count 240 Seg Neutrophils % 58.1 Sodium 136.9 L Potassium 3.7 Chloride 110 H Carbon Dioxide 26 Anion Gap 1 L BUN 9 Creatinine 0.45 L Est GFR ( Amer) > 60 Glucose 127 H Calcium 7.4 L 09/21/20 15:12 Blood Blood Culture - Final NO GROWTH IN 5 DAYS 09/21/20 15:34 Blood Blood Culture - Final NO GROWTH IN 5 DAYS 09/21/20 09/21/20 09/22/20 15:34 21:29 04:11 Troponin I < 0.012 < 0.012 < 0.012 Impressions: Lower Extremity MRI 09/21/20 00:00 IMPRESSION: 1. Soft tissue ulceration along the fifth toe, but without evidence of acute osteomyelitis. 2. Moderate to severe degenerative changes along the MTP joints and first IP joint. Chest X-Ray 09/21/20 14:50 IMPRESSION: COPD. No acute findings. Foot X-Ray 09/21/20 18:19 IMPRESSION: There are irregular degenerative joint changes raising the possibility of early Charcot joints. Cannot entirely exclude osteomyelitis as described. Lower Extremity Ultrasound 09/22/20 00:00 IMPRESSION: Occluded left superficial femoral artery with reconstitution dis tally by multiple collaterals, similar compared to prior arterial Doppler 03/08/2019 No significant stenosis right lower extremity arterial system Assessment and Plan - Diagnosis (1) Arterial insufficiency of lower extremity Is this a current diagnosis for this admission?: Yes (2) Arthritis Is this a current diagnosis for this admission?: Yes (3) Left leg cellulitis Is this a current diagnosis for this admission?: Yes (4) Hypomagnesemia Is this a current diagnosis for this admission?: Yes (5) Anemia Qualifiers: Anemia type: iron deficiency Iron deficiency anemia type: inadequate dietary iron intake Qualified Code(s): D50.8 - Other iron deficiency anemias Is this a current diagnosis for this admission?: Yes - Plan Summary Summary: (1) Arterial insufficiency of lower extremity (2) Arterial insufficiency with ischemic ulcer (3) Left leg cellulitis (4) COPD (chronic obstructive pulmonary disease) (5) Stasis dermatitis (6) Diastolic dysfunction with chronic heart failure (7) Hypertension (8) Hypothyroidism 09/22/2020 Arterial insufficiency with ulcer-I have discussed the case with Dr. Jacobo. Based on the discoloration of the legs and the poor distal pulses and distribution of ulcers this is arterial insufficiency rather than venous or pressure related ulcerations. There is high likelihood of colonization and infection in the foot however arterial insufficiency with ulcer can generate significant swelling as well. Dr. Jacobo is ordered bilateral arterial duplex studies. I have started the patient on aspirin daily and statin therapy. The arterial insufficiency certainly seems to be extensive and severe. Definitive treatment for at least the left leg may be above-knee amputation. This will be based on arterial flow studies to see if there is any reasonable flow for healing of a below-knee amputation. This seems unlikely. The patient should also consider evaluation by vascular surgery. She may be a very poor revascularization candidate. I am unsure of the availability of atherectomy in the lower extremity versus bypass surgery. Continue conservative care to the ulcer and for the time being continue antibiotic therapy. Left leg cellulitis-as noted above more likely arterial insufficiency however will continue antibiotics at this time. COPD-appears stable on room air. It does not appear that she is on any inhaler regimen at home. Will monitor closely and support with respiratory treatments and/or oxygen if needed. Stasis dermatitis-more likely a component of arterial insufficiency in which case we should avoid low blood pressure. I will limit her antihypertensive therapy at this time. We need to have adequate perfusion pressure to overcome stenotic arteries. Hypertension-try to keep systolic blood pressure greater than 120 if possible. Diastolic heart failure-this will be a difficult balance. If we need to resume diuretic therapy it may very well be at a lower dose than her baseline medications. Hypothyroidism-continue levothyroxine. 09/23/20 This patient was admitted with left leg pain which has been progressively getting worse. She was found to have severe peripheral vascular disease. She has been seen by Dr. Rider. She was found to have multiple areas of tissue loss involving the left foot and lower left leg which appeared to be chronic. There is a palpable common femoral pulse. Both legs have violaceous edematous changes to the pretibial areas. She was found to have severe peripheral vascular disease of the left lower extremity secondary to occluded superficial femoral artery with poor reconstitution, rest pain and dry ischemic patches of skin all consistent with chronically threatened left lower extremity. Dr. Rider suggest a possible attempt at limb salvage by transferring this patient to a vascular surgeon, Dr. Saeid Soriano at [place] who appears as graciously accepted this patient pending bed availability. Covid test has been done which is negative. 09/24 Patient is still awaiting transfer to [facility]. Increase her anticoagulant to twice a day Lovenox. She will continue with the aspirin and statin. She does appear to have her collaterals that are perfusing the leg as the seem to be nice and warm at this time however patient is definitive intervention to salvage her limbs 09/25 patient is still awaiting a bed at [place]. I did discuss with Dr. Rider. He informed me that Dr. Soriano will be able to see patient on September 26 at his office at [facility], [address] in [place]. Phone number is [phone] however patient will have to go there by private vehicle. The plan will be to see if patient can arrange for someone to take her to the office tomorrow. She is currently on vancomycin and Zosyn antibiotic gallegos as well as on Lovenox. She can be changed to oral antibiotic if needed although there is no specific infection. 09/26 At this point it appears a bed may not be available at [facility]. The plan is still to send the patient to [facility] at [address] in [place] for 3 to 3:30 PM appointment on September 28. Son is agreed to transport his mother to the office. The insurance information and other information requested by the office have been faxed by the nursing staff 09/27 the plan remains the same. Patient has an appointment in [place] at 3 PM on September 28. Her son will be at the hospital to car pick up driver by 1 PM so they can have enough time to get up to [place]. Further plans will be up to the vascular surgeon when she is evaluated. Although she is currently on vancomycin and Zosyn I believe she can be placed on oral antibiotics at discharge. She is also on anticoagulant as well as antiplatelet at this time - Time Time Spent with patient: 15-24 minutes Medications reviewed and adjusted accordingly: Yes Anticipated Discharge Disposition: Home, Self Care Anticipated Discharge Timeframe: within 24 hours
[2020-09-27] MEDS ORDERED: INSULIN GLARGINE,HUM.REC.ANLOG 1,000 UNIT/10 ML VIAL SUBCUT SCH (22:00)
[2020-09-27] MEDS: ATORVASTATIN CALCIUM 40 MG TABLET PO SCH (22:32)
[2020-09-27] MEDS: ASPIRIN 81 MG TABLET, ENT COATED PO SCH (22:32)
[2020-09-27] MEDS: OXYCODONE-ACETAMINOPHEN 5-325 MG TABLET PO PRN (22:41)
[2020-09-28] MEDS: PIPERACILLIN SODIUM/TAZOBACTAM 3.375 GM in NORMAL SALINE 100 ML IV SCH ×2 (01:00→05:39)
[2020-09-28] MEDS: LEVOTHYROXINE SODIUM 0.075 MG TABLET PO SCH (05:38)
[2020-09-28] MEDS: LEVOTHYROXINE SODIUM 0.1 MG TABLET PO SCH (05:38)
[2020-09-28] MEDS: INSULIN REG, HUMAN 100 UNIT/ML 3 ML VIAL (PYX) SUBCUT SCH ×2 (07:50→11:39)
[2020-09-28] MEDS: ENOXAPARIN SODIUM INJ 60 MG/0.6 ML DISP.SYRIN SUBCUT SCH (09:07)
[2020-09-28] MEDS: VANCOMYCIN HCL 1,000 MG in DEXTROSE 5%-WATER 250 ML IV SCH (09:07)
[2020-09-28] MEDS: NICOTINE 21 MG/24 HR PATCH.TD24 TD SCH (09:07)
[2020-09-28] MEDS: GABAPENTIN 300 MG CAPSULE PO SCH (09:07)
[2020-09-28] MEDS: FOLIC ACID 1 MG TABLET PO SCH (09:07)
[2020-09-28] MEDS: FAMOTIDINE 20 MG TABLET PO SCH (09:07)
--- NOTE | 2020-09-28 10:14 | PDOC DISCHARGE SUMMARY ---
Impression - Admit/DC Date/PCP Admission Date/Primary Care Provider: 09/21/20 21:09 NATALIA TORIBIO MD Discharge Date: 09/28/20 - Discharge Diagnosis (1) Arterial insufficiency of lower extremity Is this a current diagnosis for this admission?: Yes (2) Arterial insufficiency with ischemic ulcer Is this a current diagnosis for this admission?: Yes (3) Left leg cellulitis Is this a current diagnosis for this admission?: Yes (4) COPD (chronic obstructive pulmonary disease) Is this a current diagnosis for this admission?: Yes (5) Stasis dermatitis Is this a current diagnosis for this admission?: Yes (6) Diastolic dysfunction with chronic heart failure Is this a current diagnosis for this admission?: Yes (7) Hypertension Is this a current diagnosis for this admission?: Yes (8) Hypothyroid Is this a current diagnosis for this admission?: Yes - Assessment Summary: (1) Arterial insufficiency of lower extremity (2) Arterial insufficiency with ischemic ulcer (3) Left leg cellulitis (4) COPD (chronic obstructive pulmonary disease) (5) Stasis dermatitis (6) Diastolic dysfunction with chronic heart failure (7) Hypertension (8) Hypothyroidism 09/22/2020 Arterial insufficiency with ulcer-I have discussed the case with Dr. Jacobo. Based on the discoloration of the legs and the poor distal pulses and distribution of ulcers this is arterial insufficiency rather than venous or pressure related ulcerations. There is high likelihood of colonization and infection in the foot however arterial insufficiency with ulcer can generate significant swelling as well. Dr. Jacobo is ordered bilateral arterial duplex studies. I have started the patient on aspirin daily and statin therapy. The arterial insufficiency certainly seems to be extensive and severe. Definitive treatment for at least the left leg may be above-knee amputation. This will be based on arterial flow studies to see if there is any reasonable flow for healing of a below-knee amputation. This seems unlikely. The patient should also consider evaluation by vascular surgery. She may be a very poor revascularization candidate. I am unsure of the availability of atherectomy in the lower extremity versus bypass surgery. Continue conservative care to the ulcer and for the time being continue antibiotic therapy. Left leg cellulitis-as noted above more likely arterial insufficiency however will continue antibiotics at this time. COPD-appears stable on room air. It does not appear that she is on any inhaler regimen at home. Will monitor closely and support with respiratory treatments and/or oxygen if needed. Stasis dermatitis-more likely a component of arterial insufficiency in which case we should avoid low blood pressure. I will limit her antihypertensive therapy at this time. We need to have adequate perfusion pressure to overcome stenotic arteries. Hypertension-try to keep systolic blood pressure greater than 120 if possible. Diastolic heart failure-this will be a difficult balance. If we need to resume diuretic therapy it may very well be at a lower dose than her baseline medications. Hypothyroidism-continue levothyroxine. 09/23/20 This patient was admitted with left leg pain which has been progressively getting worse. She was found to have severe peripheral vascular disease. She has been seen by Dr. Rider. She was found to have multiple areas of tissue loss involving the left foot and lower left leg which appeared to be chronic. There is a palpable common femoral pulse. Both legs have violaceous edematous changes to the pretibial areas. She was found to have severe peripheral vascular disease of the left lower extremity secondary to occluded superficial femoral artery with poor reconstitution, rest pain and dry ischemic patches of skin all consistent with chronically threatened left lower extremity. Dr. Rider suggest a possible attempt at limb salvage by transferring this patient to a vascular surgeon, Dr. Saeid Soriano at [place] who appears as graciously accepted this patient pending bed availability. Covid test has been done which is negative. 09/24 Patient is still awaiting transfer to [facility]. Increase her anticoagulant to twice a day Lovenox. She will continue with the aspirin and statin. She does appear to have her collaterals that are perfusing the leg as the seem to be nice and warm at this time however patient is definitive intervention to salvage her limbs 09/25 patient is still awaiting a bed at [place]. I did discuss with Dr. Agueda sharma. He informed me that Dr. Soriano will be able to see patient on September 26 at his office at [facility], [address] in [place]. Phone number is [phone] however patient will have to go there by private vehicle. The plan will be to see if patient can arrange for someone to take her to the office tomorrow. She is currently on vancomycin and Zosyn antibiotic gallegos as well as on Lovenox. She can be changed to oral antibiotic if needed although there is no specific infection. 09/26 At this point it appears a bed may not be available at [facility]. The plan is still to send the patient to [facility] at [address] in [place] for 3 to 3:30 PM appointment on September 28. Son is agreed to transport his mother to the office. The insurance information and other information requested by the office have been faxed by the nursing staff 09/27 the plan remains the same. Patient has an appointment in [place] at 3 PM on September 28. Her son will be at the hospital to pick up attendant by 1 PM so they can have enough time to get up to [place]. Further plans will be up to the vascular surgeon when she is evaluated. Although she is currently on vancomycin and Zosyn I believe she can be placed on oral antibiotics at discharge. She is also on anticoagulant as well as antiplatelet at this time - Additional Information Resuscitation Status: Full Code Discharge Diet: Cardiac, Diabetic Discharge Activity: Balance Activity w/Rest, Energy Conservation Referrals: WES GU MD [COMMUNITY BASED STAFF] - 10/06/20 9:00 am (VIRTUAL APPT) Prescriptions: Aspirin [Ecotrin 81 mg EC Tablet] 81 mg PO QHS 30 Days #30 tabec Atorvastatin Calcium [Lipitor 40 mg Tablet] 40 mg PO QHS 30 Days #30 tablet Famotidine [Pepcid 20 mg Tablet] 20 mg PO Q12 30 Days #60 tablet Home Medications: Ergocalciferol (Vitamin D2) [Drisdol 50,000 unit (1.25MG) Capsule] 50,000 unit PO FR 10/28/18 Folic Acid [Folvite 1 mg Tablet] 1 mg PO DAILY 10/28/18 Levothyroxine Sodium 175 mcg PO Q6AM 10/28/18 Insulin Glargine,Hum.rec.anlog [Lantus Insulin 100 Unit/mL Insulin Pen] 13 unit SUBCUT QHS 01/04/20 Diclofenac Sodium 4 gm TP ASDIR PRN 09/21/20 Fish Oil/Dha/Epa [Fish Oil 1,200 mg Fish Oil] 1 each PO DAILY 09/21/20 Gabapentin [Neurontin 400 mg Capsule] 400 mg PO Q12 09/21/20 Aspirin [Ecotrin 81 mg EC Tablet] 81 mg PO QHS 30 Days #30 tabec 09/28/20 Atorvastatin Calcium [Lipitor 40 mg Tablet] 40 mg PO QHS 30 Days #30 tablet 09/28/20 Famotidine [Pepcid 20 mg Tablet] 20 mg PO Q12 30 Days #60 tablet 09/28/20 Nicotine [Nicoderm 21 mg/24 Hr Transderm Patch] 1 each TD DAILY patch.td24 09/28/20 History of Present Illiness History of Present Illness: KENNEDY MEDEIROS is a 70 year old female with a history of insulin-dependent diabetes, hypothyroidism, rheumatoid arthritis, hypertension, diastolic heart failure and tobacco dependence presents with left foot pain and ulceration of her left fifth toe. Patient is poor historian and is unwilling to give detailed history due to agitation. She states that she has been having this nonhealing ulceration on her left foot on the fifth toe. She was supposed to follow with a local wound care clinic but was lost to follow-up. Patient also reports a nonspecific chest pain. She denies any cough, fever, chills, runny nose, congestion, nausea, vomiting, abdominal pain, diarrhea or any change in her urinary habits. Currently is hemodynamically stable and CBC, BMP are unremarkable. X-ray of the foot showed signs of degenerative joint disease and possible osteomyelitis could not be excluded. Patient is admitted for further work-up and management. Hospital Course Hospital Course: Hospital course was uneventful. Patient received antibiotic therapy for presumed cellulitis of the right leg. The erythema on the left leg is more likely due to arterial insufficiency. There were multiple ulcers. She did need a short amount of perfusion pressure and her antihypertensive medications were held during this admission. She was started on aspirin 81 mg daily as well as atorvastatin 40 mg daily. She was on therapeutic Lovenox but this will be held at discharge pending evaluation by vascular surgery in [place] today. Arterial study did show an occlusion of the left superficial femoral artery. There was no surgical intervention for any of the ulceration during this hospitalization due to the arterial insufficiency. Physical Exam Vital Signs: Temp Pulse Resp BP Pulse Ox 98.3 F 74 18 140/56 H 95 09/28/20 08:38 09/27/20 23:25 09/27/20 23:25 09/27/20 23:25 09/27/20 23:25 Intake & Output 09/27/20 09/28/20 09/29/20 06:59 06:59 06:59 Intake Total 1920 1550 Output Total 700 Balance 1220 1550 Weight 54 kg 54 kg General appearance: PRESENT: no acute distress, cooperative, well-developed Ear exam: PRESENT: normal external ear exam. ABSENT: bleeding, drainage Mouth exam: PRESENT: moist, tongue midline Respiratory exam: PRESENT: clear to auscultation neo, symmetrical, unlabored. ABSENT: rales, rhonchi, tachypnea, wheezes Cardiovascular exam: PRESENT: RRR, +S1, +S2, systolic murmur GI/Abdominal exam: PRESENT: normal bowel sounds, soft, other - Protuberant abdomen. ABSENT: tenderness Rectal exam: PRESENT: deferred Neurological exam: PRESENT: alert, awake, oriented to person, oriented to place, oriented to time, oriented to situation, CN II-XII grossly intact Psychiatric exam: PRESENT: appropriate affect. ABSENT: agitated, anxious Results Laboratory Results: WBC 5.0 10^3/uL (4.0-10.5) 09/27/20 10:55 RBC 2.94 10^6/uL (3.72-5.28) L 09/27/20 10:55 Hgb 9.2 g/dL (12.0-15.5) L 09/27/20 10:55 Hct 27.0 % (36.0-47.0) L 09/27/20 10:55 MCV 92 fl (80-97) 09/27/20 10:55 MCH 31.2 pg (27.0-33.4) 09/27/20 10:55 MCHC 33.9 g/dL (32.0-36.0) 09/27/20 10:55 RDW 14.5 % (11.5-14.0) H 09/27/20 10:55 Plt Count 240 10^3/uL (150-450) 09/27/20 10:55 Lymph % (Auto) 28.7 % (13-45) 09/27/20 10:55 [place] % (Auto) 10.8 % (3-13) 09/27/20 10:55 Eos % (Auto) 1.8 % (0-6) 09/27/20 10:55 Baso % (Auto) 0.6 % (0-2) 09/27/20 10:55 Absolute Neuts (auto) 2.9 10^3/uL (1.7-8.2) 09/27/20 10:55 Absolute Lymphs (auto) 1.4 10^3/uL (0.5-4.7) 09/27/20 10:55 Absolute Monos (auto) 0.5 10^3/uL (0.1-1.4) 09/27/20 10:55 Absolute Eos (auto) 0.1 10^3/uL (0.0-0.6) 09/27/20 10:55 Absolute Basos (auto) 0.0 10^3/uL (0.0-0.2) 09/27/20 10:55 Seg Neutrophils % 58.1 % (42-78) 09/27/20 10:55 ESR 113 mm/hr (0-30) H 09/27/20 10:55 Sodium 136.9 mmol/L (137-145) L 09/27/20 10:55 Potassium 3.7 mmol/L (3.6-5.0) 09/27/20 10:55 Chloride 110 mmol/L (98-107) H 09/27/20 10:55 Carbon Dioxide 26 mmol/L (22-30) 09/27/20 10:55 Anion Gap 1 (5-19) L 09/27/20 10:55 BUN 9 mg/dL (7-20) 09/27/20 10:55 Creatinine 0.45 mg/dL (0.52-1.25) L 09/27/20 10:55 Est GFR ( Amer) > 60 (>60) 09/27/20 10:55 Est GFR (MDRD) Non-Af > 60 (>60) 09/27/20 10:55 Glucose 127 mg/dL (75-110) H 09/27/20 10:55 POC Glucose 163 mg/dL (70-110) H 09/28/20 06:12 Calcium 7.4 mg/dL (8.4-10.2) L 09/27/20 10:55 Magnesium 1.9 mg/dL (1.6-2.3) 09/24/20 06:25 Total Bilirubin 0.2 mg/dL (0.2-1.3) 09/21/20 15:34 Direct Bilirubin 0.2 mg/dL (0.0-0.4) 09/21/20 15:34 Neonat Total Bilirubin Not Reportable 09/21/20 15:34 Neonat Direct Bilirubin Not Reportable 09/21/20 15:34 Neonat Indirect Bili Not Reportable 09/21/20 15:34 AST 45 U/L (14-36) H 09/21/20 15:34 ALT 59 U/L (<35) H 09/21/20 15:34 Alkaline Phosphatase 198 U/L (38-126) H 09/21/20 15:34 Troponin I < 0.012 ng/mL 09/22/20 04:11 C-Reactive Protein < 5.0 mg/L (<10.0) 09/21/20 15:34 Total Protein 6.0 g/dL (6.3-8.2) L 09/21/20 15:34 Albumin 2.5 g/dL (3.5-5.0) L 09/21/20 15:34 Urine Color YELLOW 09/21/20 23:30 Urine Appearance SLIGHTLY-CLOUDY 09/21/20 23:30 Urine pH 5.0 (5.0-9.0) 09/21/20 23:30 Ur Specific [place] 1.024 09/21/20 23:30 Urine Protein NEGATIVE mg/dL (NEGATIVE) 09/21/20 23:30 Urine Glucose (UA) NEGATIVE mg/dL (NEGATIVE) 09/21/20 23:30 Urine Ketones NEGATIVE mg/dL (NEGATIVE) 09/21/20 23:30 Urine Blood NEGATIVE (NEGATIVE) 09/21/20 23:30 Urine Nitrite NEGATIVE (NEGATIVE) 09/21/20 23:30 Urine Bilirubin NEGATIVE (NEGATIVE) 09/21/20 23:30 Urine Urobilinogen NEGATIVE mg/dL (<2.0) 09/21/20 23:30 Ur Leukocyte Esterase SMALL (NEGATIVE) H 09/21/20 23:30 Urine WBC (Auto) 18 /HPF 09/21/20 23:30 Urine RBC (Auto) 1 /HPF 09/21/20 23:30 Urine Bacteria (Auto) TRACE /HPF 09/21/20 23:30 Squamous Epi Cells Auto 4 /HPF 09/21/20 23:30 Urine Mucus (Auto) FEW /LPF 09/21/20 23:30 Urine Yeast (Budding) PRESENT /HPF 09/21/20 23:30 Urine Ascorbic Acid NEGATIVE (NEGATIVE) 09/21/20 23:30 Time Trough Drawn 92909/26/20 09:30 Vancomycin Trough 13.9 ug/mL (5.0-20.0) 09/26/20 09:30 Influenza A (RT-PCR) NEGATIVE (NEGATIVE) 09/23/20 12:15 Influenza B (RT-PCR) NEGATIVE (NEGATIVE) 09/23/20 12:15 RSV (RT-PCR) NEGATIVE (NEGATIVE) 09/23/20 12:15 SARS-CoV-2 Rap RNA(RT-PCR) NEGATIVE (NEGATIVE) 09/23/20 12:15 09/21/20 09/21/20 09/22/20 15:34 21:29 04:11 Troponin I < 0.012 < 0.012 < 0.012 Impressions: Lower Extremity MRI 09/21/20 00:00 IMPRESSION: 1. Soft tissue ulceration along the fifth toe, but without evidence of acute osteomyelitis. 2. Moderate to severe degenerative changes along the MTP joints and first IP joint. Chest X-Ray 09/21/20 14:50 IMPRESSION: COPD. No acute findings. Foot X-Ray 09/21/20 18:19 IMPRESSION: There are irregular degenerative joint changes raising the possibility of early Charcot joints. Cannot entirely exclude osteomyelitis as described. Lower Extremity Ultrasound 09/22/20 00:00 IMPRESSION: Occluded left superficial femoral artery with reconstitution distally by multiple collaterals, similar compared to prior arterial Doppler 03/08/2019 No significant stenosis right lower extremity arterial system Plan Health Concerns: Occluded left superficial femoral artery with distal ulcerations Plan of Treatment: Referral to vascular surgery for assessment of possible revascularization. Goals: Limb salvage with eventual healing of ulcerations Time Spent: Greater than 30 Minutes Stroke Is this a Stroke Patient?: No Acute Heart Failure Is this a Heart Failure Patient?: No
[2020-09-28 11:07] VITALS: BP 163/76
== END 2020-09-28 11:45 | disposition home or self-care (01) | DRG 300 ==
LOC: ER 14:08 → EH 21:09 → 4S 09-22
PROVIDERS: ADMIT Student in an Organized Health Care Education/Training Program; ATTEND Hospitalist
DX: E11.51 Type 2 diabetes mellitus with diabetic peripheral angiopathy without gangrene (principal); L97.929 Non-pressure chronic ulcer of unspecified part of left lower leg with unspecified severity; L97.919 Non-pressure chronic ulcer of unspecified part of right lower leg with unspecified severity; L03.116 Cellulitis of left lower limb; I50.32 Chronic diastolic (congestive) heart failure; L89.892 Pressure ulcer of other site, stage 2; I11.0 Hypertensive heart disease with heart failure; I77.1 Stricture of artery; J44.9 Chronic obstructive pulmonary disease, unspecified; I87.2 Venous insufficiency (chronic) (peripheral); E03.9 Hypothyroidism, unspecified; Z20.828 Contact with and (suspected) exposure to other viral communicable diseases; M06.9 Rheumatoid arthritis, unspecified; F17.200 Nicotine dependence, unspecified, uncomplicated; K90.0 Celiac disease; D64.9 Anemia, unspecified; E83.42 Hypomagnesemia; R07.9 Chest pain, unspecified; Z79.82 Long term (current) use of aspirin; Z79.4 Long term (current) use of insulin; Z79.899 Other long term (current) drug therapy; Z86.14 Personal history of Methicillin resistant Staphylococcus aureus infection; Z82.49 Family history of ischemic heart disease and other diseases of the circulatory system
CPT/HCPCS: 36415; 71045; 80048; 80053; 80202; 81001; 82565; 82962; 83735; 84484; 85025; 85652; 86140; 87040; 87086; 93005; 93010; 93925; J0610; 0241U; C9803; J1642; J1650; J1815; J2543; J3370; J3475; J3490; J7050; J7060